=== PATIENT | male | born 1970 | race Caucasian/White ===

== ENCOUNTER → 2017-07-02 | Outpatient (CLI) | payer OTHER ==
--- NOTE | 2017-07-02 12:08 | XR ---
EXAMINATION TYPE: XR Hip Complete LT DATE OF EXAM: 07/02/2017 CLINICAL HISTORY: Left hip pain after injury years ago. TECHNIQUE: AP and frogleg views of the left hip are obtained. COMPARISON: Left hip x-ray December 31, 2015. FINDINGS: There is no acute fracture/dislocation evident in the left hip. There is stable mild to mi nimal joint space loss and minimal acetabular spurring. No significant spurring is seen. Left-sided p elvic phlebolith is redemonstrated. IMPRESSION: There is stable mild to minimal degenerative change left hip.
== END | disposition home or self-care (01) ==
LOC: RADXRMAIN 10:25
PROVIDERS: ATTEND Internal Medicine
DX: R93.7 Abnormal findings on diagnostic imaging of other parts of musculoskeletal system (principal); R52 Pain, unspecified
CPT/HCPCS: 73502

== ENCOUNTER → 2017-07-10 | Outpatient (CLI) | payer OTHER ==
--- NOTE | 2017-07-10 09:03 | XR ---
EXAMINATION TYPE: XR lumbar spine 2 or 3V DATE OF EXAM: 07/10/2017 CLINICAL HISTORY: Back pain radiating to the left hip. TECHNIQUE: Frontal and lateral Of the lumbar spine were obtained. COMPARISON: None FINDINGS: There are 5 lumbar type vertebral bodies identified. Mild multilevel degenerative disc di sease is seen of the lumbar spine most pronounced at L4-5 and L5-S1 displayed is facet arthropathy, s mall anterior osteophytes, endplate sclerosis and intervertebral disc space narrowing. Mild atheroscl erosis is seen of the abdominal aorta and its branches. Probable 3 mm right renal calculus is inciden tally noted. The lumbar spine shows satisfactory alignment without evidence of acute fracture or disl ocation. Vertebral body heights and disk space heights are within normal limits. IMPRESSION: 1. No acute fracture or malalignment is seen in the lumbar spine. 2. Mild multilevel degenerative disc disease most pronounced at L4-L5 and L5-S1. If there is clinical indication MRI could be performed for further evaluation of spinal canal stenosis, neural foraminal narrowing and potential disc herniation. 3. Probable right 3 mm right lower pole renal calculus.
== END | disposition home or self-care (01) ==
LOC: RADXRMAIN 08:40
PROVIDERS: ATTEND Internal Medicine
DX: M51.37 Other intervertebral disc degeneration, lumbosacral region (principal); M54.5 Low back pain
CPT/HCPCS: 72100

== ENCOUNTER → 2019-04-10 | Outpatient (CLI) | payer OTHER ==
--- NOTE | 2019-04-10 09:31 | XR ---
EXAMINATION TYPE: XR femur LT, XR Hip Complete LT DATE OF EXAM: 04/10/2019 CLINICAL HISTORY: Left hip and knee pain TECHNIQUE: Two views of the left femur and hip are obtained. COMPARISON: None FINDINGS: There is no acute fracture or dislocation seen in the left femur. Medial compartment joint space narrowing and tricompartmental small osteophytes are seen. There is mild left superior joint s pace narrowing and acetabular roof sclerosis. Very small subchondral cyst is seen of the acetabular s ourcil. A very small cam deformity seen on the lateral femoral neck. The overlying soft tissue appear s unremarkable. Fabella is incidentally seen. Mild atherosclerosis. IMPRESSION: 1. Acute fracture or dislocation in the left femur nor left hip. 2. Moderate tricompartmental arthropathy of the left knee and mild to moderate left femoral acetabula r arthropathy.
--- NOTE | 2019-04-10 09:43 | XR ---
EXAMINATION TYPE: XR lumbosacral spine min 4V DATE OF EXAM: 04/10/2019 CLINICAL HISTORY: Chronic back pain. TECHNIQUE: Frontal, lateral, and oblique images of the lumbar spine are obtained. COMPARISON: 07/10/2017 FINDINGS: There are 5 lumbar type vertebral bodies identified. The lumbar spine shows satisfactory alignment without evidence of acute fracture or dislocation. Vertebral body heights are maintained. Very minimal dextroscoliosis is likely positional as this was not seen on the prior. The previously questioned right renal calculus is not redemonstrated. Intervertebral disc space narrowing is present at L5-S1 with endplate sclerosis. Facet arthropathy is seen at L4-L5 and L5-S1. The oblique images a ppear within normal limits. The overlying soft tissue appears unremarkable. Moderate atherosclerosis of the abdominal aorta. IMPRESSION: 1. No acute fracture or malalignment is seen in the lumbar spine. 2. Mild multilevel degenerative disc disease, similar in degree to the prior of 07/10/2017.
== END ==
LOC: RADXRMAIN 08:15
PROVIDERS: ATTEND Family Medicine
DX: M12.862 Other specific arthropathies, not elsewhere classified, left knee (principal); M12.852 Other specific arthropathies, not elsewhere classified, left hip; M51.37 Other intervertebral disc degeneration, lumbosacral region
CPT/HCPCS: 72110; 73502

== ENCOUNTER → 2019-04-28 | Outpatient (CLI) | payer OTHER ==
--- NOTE | 2019-04-28 09:04 | US ---
EXAMINATION TYPE: US thyroid st tissue head/neck DATE OF EXAM: 04/28/2019 COMPARISON: NONE CLINICAL HISTORY: R94.6 abnormal results of thyroid function studies. GLAND SIZE: Right Lobe: 4.6 x 2.2 x 2.0 cm Overall Parenchyma: heterogenous Left Lobe: 4.6 x 2.1 x 1.3 cm Overall Parenchyma: heterogeneous Isthmus Thickness: 0.3 cm NODULES RIGHT: # of nodules measured on right: 0 LEFT: # of nodules measured on left: 0 ISTHMUS: # of nodules measured in the isthmus: 0 Bilateral neck scanned, no evidence of lymphadenopathy. Bulbous thyroid gland bilaterally. Left sided bulbous area superiorly = 2.2 x 1.1 x 0.9 cm. IMPRESSION: Thyroid gland is overall normal in size and slightly heterogeneous in echotexture without discrete no dule. Left-sided accessory thyroid lobe suspected.
== END | disposition home or self-care (01) ==
LOC: RADUSWWP 08:26
PROVIDERS: ATTEND Family Medicine
DX: R94.6 Abnormal results of thyroid function studies (principal)
CPT/HCPCS: 76536

== ENCOUNTER 2019-12-07 11:17 | Day surgery (SDC) | payer OTHER ==
[2019-12-03 09:25] VITALS: BMI 44.3
[2019-12-07 11:46] VITALS: RESP 18; TEMP 97.8
[2019-12-07] MEDS ORDERED: LACTATED RINGERS 1,000 ML IV ONE ×2 (11:49)
[2019-12-07] MEDS ORDERED: LIDOCAINE 1% (10MG/ML) FOR IV START INTRADERMA ONE (11:51)
[2019-12-07] MEDS ORDERED: PROPOFOL 10 MG/ML 20 ML VIAL IV ONE (12:00)
--- NOTE | 2019-12-07 12:28 | P.GSHP ---
History of Present Illness H&P Date: 12/07/19 Chief Complaint: GI bleed This is a 49-year-old male history of rectal bleeding. Patient rents today for colonoscopy Past Medical History Past Medical History: GERD/Reflux, Hypertension, Osteoarthritis (OA), Thyroid Disorder Additional Past Medical History / Comment(s): hemorrhoids, blood in stool, arthritis hip. History of Any Multi-Drug Resistant Organisms: None Reported Past Surgical History: Orthopedic Surgery Additional Past Surgical History / Comment(s): KNEE ARTHROSCOPY, CTR TASHI X2, HYDROCELE, PILONIDAL CYST Past Anesthesia/Blood Transfusion Reactions: No Reported Reaction Past Psychological History: Anxiety Smoking Status: Former smoker Past Alcohol Use History: None Reported Additional Past Alcohol Use History / Comment(s): QUIT SMOKING OVER 15 YRS AGO., HX OF 1-2 PPD Past Drug Use History: None Reported - Past Family History Mother Family Medical History: Cancer Additional Family Medical History / Comment(s): PANCREATIC CANCER Father Family Medical History: Cancer Additional Family Medical History / Comment(s): PROSTATE CANCER Medications and Allergies Home Medications Medication Instructions Recorded Confirmed Type Atenolol/Chlorthalidone 1 each PO DAILY 12/03/19 12/07/19 History [Atenolol-Chlorthalidone 50-25] Enalapril [Vasotec] 10 mg PO DAILY 12/03/19 12/07/19 History Ergocalciferol [Vitamin D2] 50,000 unit PO MO 12/03/19 12/07/19 History FLUoxetine HCL [PROzac] 20 mg PO DAILY 12/03/19 12/07/19 History Famotidine [Pepcid] 20 mg PO HS 12/03/19 12/07/19 History Gabapentin [Neurontin] 400 mg PO BID 12/03/19 12/07/19 History Levothyroxine Sodium [Synthroid] 75 mcg PO DAILY 12/03/19 12/07/19 History Simvastatin [Zocor] 40 mg PO HS 12/03/19 12/07/19 History Topiramate 50 mg PO BID 12/03/19 12/07/19 History Allergies Allergy/AdvReac Type Severity Reaction Status Date / Time No Known Allergies Allergy Verified 12/07/19 11:37 Surgical - Exam Vital Signs Temp Pulse Resp BP Pulse Ox 97.8 F 67 18 128/75 95 12/07/19 11:44 12/07/19 11:44 12/07/19 11:44 12/07/19 11:44 12/07/19 11:44 - General well developed, well nourished, no distress - Eyes PERRL - ENT normal pinna - Neck no masses - Respiratory normal expansion - Cardiovascular Rhythm: regular - Abdomen Abdomen: soft, non tender Assessment and Plan Assessment: GI bleed. We'll perform colonoscopy.
--- NOTE | 2019-12-07 12:30 | P.OP ---
Date of Procedure: 12/07/19 Preoperative Diagnosis: GI bleed Postoperative Diagnosis: Internal hemorrhoids Possible rectal inflammation Procedure(s) Performed: Colonoscopy Anesthesia: MAC Surgeon: Bar Wesley Pathology: other (Rectum) Condition: stable Disposition: PACU Description of Procedure: The patient's placed on the endoscopy table in the lateral position. He received IV sedation. Digital rectal exam was performed which revealed internal hemorrhoids. Flexible colonoscope was then placed patient anus passed through out the entire colon. The ileocecal valve was visualized. The cecum, ascending and transverse colon appeared normal. The descending and sigmoid colon appeared normal. The scope was then brought back the rectum and there was evidence of some minimal rectal inflammation. A biopsies performed cold forcep. Scope was withdrawn internal hemorrhoids were noted. Scope was withdrawn for patient.
[2019-12-07 12:50] VITALS: BP 102/59; PULSE 66
== END 2019-12-07 12:55 | disposition home or self-care (01) ==
LOC: ORWHC2ENDO 11:17
PROVIDERS: ATTEND Surgery
DX: K64.8 Other hemorrhoids (principal); K52.9 Noninfective gastroenteritis and colitis, unspecified; K62.89 Other specified diseases of anus and rectum; I10 Essential (primary) hypertension; E07.9 Disorder of thyroid, unspecified; K21.9 Gastro-esophageal reflux disease without esophagitis; M16.9 Osteoarthritis of hip, unspecified; F41.9 Anxiety disorder, unspecified; Z98.890 Other specified postprocedural states; Z87.891 Personal history of nicotine dependence; Z80.0 Family history of malignant neoplasm of digestive organs; Z80.42 Family history of malignant neoplasm of prostate; Z79.890 Hormone replacement therapy; Z79.899 Other long term (current) drug therapy
CPT/HCPCS: 45380; J2704; 88305

== ENCOUNTER 2020-02-19 06:15 | Day surgery (SDC) | payer OTHER ==
[2020-02-18 08:26] VITALS: BMI 44.3
[~2020-02-19 06:15] MED LIST: ACETAMINOPHEN TAB 500 MG TAB PO ONE; DEXAMETHASONE SOD PHOSPHATE 10 MG/ML 1 ML VIAL IV ONE; HEPARIN SODIUM,PORCINE 5,000 UNIT/ML 1 ML VIAL SQ ONE; HYDROmorphone 0.5 MG/0.5 ML SYRINGE IVP PRN; LACTATED RINGERS 1,000 ML IV SCH; LIDOCAINE 1% (10MG/ML) FOR IV START INTRADERMA PRN; MIDAZOLAM 2 MG/2 ML VIAL IV PRN; ONDANSETRON 4 MG/2 ML VIAL IVP ONE; Pre Op ABX Message 1 EACH MISC MISCELLANE ONE; fentaNYL (PF) 50 MCG/ML 2 ML AMP IV PRN
[2020-02-19] MEDS ORDERED: NA PHOS,M-B/NA PHOS,DI-BA 133 ML ENEMA RECTAL ONE ×2 (07:10)
--- NOTE | 2020-02-19 08:07 | P.GSHP ---
History of Present Illness H&P Date: 02/19/20 Chief Complaint: Hemorrhoids This a 50-year-old male who presents today for hemorrhage. Patient that she's of pain and bleeding from hemorrhoids. Past Medical History Past Medical History: GERD/Reflux, Hyperlipidemia, Hypertension, Osteoarthritis (OA), Thyroid Disorder Additional Past Medical History / Comment(s): hemorrhoids, blood in stool, History of Any Multi-Drug Resistant Organisms: None Reported Past Surgical History: Orthopedic Surgery Additional Past Surgical History / Comment(s): KNEE ARTHROSCOPY, CTR TASHI X2, HYDROCELE, PILONIDAL CYST Past Anesthesia/Blood Transfusion Reactions: No Reported Reaction Smoking Status: Former smoker - Past Family History Mother Family Medical History: Cancer Additional Family Medical History / Comment(s): PANCREATIC CANCER Father Family Medical History: Cancer Additional Family Medical History / Comment(s): PROSTATE CANCER Medications and Allergies Home Medications Medication Instructions Recorded Confirmed Type Atenolol/Chlorthalidone 1 each PO DAILY 12/03/19 02/19/20 History [Atenolol-Chlorthalidone 50-25] Enalapril [Vasotec] 10 mg PO DAILY 12/03/19 02/19/20 History Ergocalciferol [Vitamin D2] 50,000 unit PO MO 12/03/19 02/19/20 History FLUoxetine HCL [PROzac] 20 mg PO DAILY 12/03/19 02/19/20 History Famotidine [Pepcid] 20 mg PO HS 12/03/19 02/19/20 History Gabapentin [Neurontin] 400 mg PO BID 12/03/19 02/19/20 History Levothyroxine Sodium [Synthroid] 75 mcg PO DAILY 12/03/19 02/19/20 History Simvastatin [Zocor] 40 mg PO HS 12/03/19 02/19/20 History Topiramate 50 mg PO BID 12/03/19 02/19/20 History Allergies Allergy/AdvReac Type Severity Reaction Status Date / Time No Known Allergies Allergy Verified 02/18/20 08:23 Surgical - Exam Vital Signs Temp Pulse Resp BP Pulse Ox 96.9 F L 69 18 156/90 99 02/19/20 06:57 02/19/20 06:57 02/19/20 06:57 02/19/20 06:57 02/19/20 06:57 - General well developed, well nourished, no distress - Eyes PERRL - ENT normal pinna - Neck no masses - Respiratory normal expansion - Cardiovascular Rhythm: regular - Abdomen Abdomen: soft, non tender - Rectum Internal and external hemorrhoids Assessment and Plan Assessment: Internal and external hemorrhoids. We'll perform hemorrhoidectomy
[2020-02-19] MEDS ORDERED: BUPIVACAIN-EPI 0.25%-1:200,000 30 ML VIAL SQ ONE ×2 (08:11→08:55)
[2020-02-19] MEDS ORDERED: PROPOFOL 10 MG/ML 20 ML VIAL IV ONE (08:20)
[2020-02-19] MEDS ORDERED: MIDAZOLAM 2 MG/2 ML VIAL ONE (08:20)
[2020-02-19] MEDS ORDERED: LIDOCAINE 1% INJ 10MG/ML (20 ML MDV) ONE (08:20)
[2020-02-19] MEDS ORDERED: fentaNYL (PF) 50 MCG/ML 2 ML AMP ONE (08:20)
[2020-02-19] MEDS ORDERED: HYDROmorphone (PF) 1 MG/ML ONE (08:20)
[2020-02-19] MEDS ORDERED: KETOROLAC 30 MG/ML 1 ML VIAL ONE (08:20)
[2020-02-19] MEDS ORDERED: SUCCINYLCHOLINE CHLORIDE 100 MG/5 ML SYR IV ONE (08:20)
[2020-02-19] MEDS ORDERED: ceFAZolin 1,000 MG VIAL IVPB ONE (08:43)
[2020-02-19] MEDS ORDERED: GELATIN SPONGE,ABSORB (LARGE) 1 EACH SPONGE TOPICAL ONE (08:50)
[2020-02-19] MEDS ORDERED: LACTATED RINGERS 1,000 ML IV ONE (08:55)
--- NOTE | 2020-02-19 09:02 | P.OP ---
Date of Procedure: 02/19/20 Preoperative Diagnosis: Internal and external hemorrhoids Postoperative Diagnosis: Internal and external hemorrhoids Procedure(s) Performed: Internal and external hemorrhoidectomy Anesthesia: BRANDIE Surgeon: Bar Wesley Estimated Blood Loss (ml): 10 Pathology: other (Internal and external hemorrhoids) Condition: stable Disposition: PACU Description of Procedure: The patient's placed on the operating table in the prone position. He received general anesthesia. His anus was prepped and draped usual fashion. Using the anal retractor the anus was examined. The left lateral hemorrhoidal column was grasped with a Allis clamp and using the Harmonic scissors the rectus performed. The right anterior and right posterior hemorrhoidal column was excised in identical fashion. There is no bleeding seen. Gelfoam was placed in the anus. Patient top she will was sent to recovery room stable condition.
[2020-02-19 09:23] VITALS: TEMP 97.9
[2020-02-19 09:47] VITALS: RESP 18
[2020-02-19 10:02] VITALS: BP 122/80; PULSE 76
== END 2020-02-19 10:05 | disposition home or self-care (01) ==
LOC: OR 06:15
PROVIDERS: ATTEND Surgery
DX: K64.8 Other hemorrhoids (principal); K64.4 Residual hemorrhoidal skin tags; I10 Essential (primary) hypertension; E78.5 Hyperlipidemia, unspecified; K21.9 Gastro-esophageal reflux disease without esophagitis; M19.90 Unspecified osteoarthritis, unspecified site; E07.9 Disorder of thyroid, unspecified; Z87.891 Personal history of nicotine dependence; Z79.890 Hormone replacement therapy; Z79.899 Other long term (current) drug therapy; Z98.890 Other specified postprocedural states; Z80.0 Family history of malignant neoplasm of digestive organs; Z80.42 Family history of malignant neoplasm of prostate
CPT/HCPCS: 88304; 46260; J2250; J1644; J1100; J2405; J0690; J2001; J3010; J1885; J1170; J0330; J2704

== ENCOUNTER → 2020-06-03 | Outpatient (CLI) | payer OTHER ==
--- NOTE | 2020-06-03 15:34 | MR ---
EXAMINATION TYPE: MR knee LT wo con DATE OF EXAM: 06/03/2020 COMPARISON: Plain film 05/11/2020 HISTORY: Left knee pain TECHNIQUE: Multiplanar, multisequence imaging of the left knee is performed without IV contrast. FINDINGS: There is motion on the exam. MEDIAL MENISCUS: Pseudoextrusion of the medial meniscus is present. Some abnormal increased intrinsic signal is present. The posterior horn the medial meniscus is attenuated, abnormal increased signal i s present. Difficult to exclude root anchor tear. LATERAL MENISCUS: Anterior and posterior horns are intact without tear. CRUCIATE LIGAMENTS: The anterior and posterior cruciate ligaments are intact and unremarkable. COLLATERAL LIGAMENTS: The medial collateral ligament and lateral collateral ligament complex are inta ct and unremarkable. EXTENSOR MECHANISM: Visualized quadriceps and patellar tendons are intact. EFFUSION: Infrapatellar joint effusion is sizable. POPLITEAL CYST: No popliteal/hathaway cyst. TRICOMPARTMENT SPACES: Joint space loss is most pronounced in the medial compartment. Marginal spurri ng present at the lateral compartment and patellofemoral joint CARTILAGE: There is grade 3 to grade IV chondromalacia in the medial compartment and posterior patell a, grade 2 to grade III chondromalacia in the lateral compartment. BONE MARROW SIGNAL: No focal abnormal marrow signal is appreciated. OTHER: Subcutaneous edema changes are present especially at the level of the prepatellar region. IMPRESSION: Osteoarthritis. Motion is present on the exam, findings consistent with chronic tear of the posterior horn medial meniscus.
== END | disposition home or self-care (01) ==
LOC: RADMRIMAIN 13:08
PROVIDERS: ATTEND Orthopaedic Surgery
DX: M17.12 Unilateral primary osteoarthritis, left knee (principal)

== ENCOUNTER → 2020-06-14 | Outpatient (CLI) | payer OTHER ==
[2020-06-14 09:56] LABS: Basophils # (A) 0.1 k/uL (0-0.2); Basophils % (A) 1 %; Eosinophils # (A) 0.3 k/uL (0-0.7); Eosinophils % (A) 4 %; HCT 47.6 % (39.0-53.0); HGB 15.7 gm/dL (13.0-17.5); Lymphocytes # (A) 2.1 k/uL (1.0-4.8); Lymphocytes % (A) 30 %; MCH 30.1 pg (25.0-35.0); MCHC 32.9 g/dL (31.0-37.0); MCV 91.4 fL (80.0-100.0); Mean Platelet Volume 7.9; Monocytes # (A) 0.5 k/uL (0-1.0); Monocytes % (A) 8 %; Neutrophils # (A) 3.8 k/uL (1.3-7.7); Neutrophils % (A) 55 %; Platelet Count 180 k/uL (150-450); RBC 5.21 m/uL (4.30-5.90); RDW 13.1 % (11.5-15.5); WBC 6.8 k/uL (3.8-10.6)
[2020-06-14 10:05] LABS: Potassium 4.6 mmol/L (3.5-5.1)
== END | disposition home or self-care (01) ==
LOC: LABPAT 08:55
PROVIDERS: ATTEND Orthopaedic Surgery
DX: Z01.818 Encounter for other preprocedural examination (principal); M23.92 Unspecified internal derangement of left knee
CPT/HCPCS: 36415; 80051; 85025

== ENCOUNTER → 2020-06-23 | Outpatient (CLI) | payer OTHER | END | disposition home or self-care (01) | LOC: LABPAT 12:09 | PROVIDERS: ATTEND Orthopaedic Surgery | DX: Z01.818 Encounter for other preprocedural examination (principal); M23.92 Unspecified internal derangement of left knee | CPT/HCPCS: 93005 ==

== ENCOUNTER → 2020-06-24 | Day surgery (SDC) | payer OTHER ==
[2020-06-22 13:15] VITALS: BMI 49.8
--- NOTE | 2020-06-23 09:19 | HP ---
HISTORY AND PHYSICAL CHIEF COMPLAINT: Left knee pain. HISTORY OF PRESENT ILLNESS: The patient is a 50-year-old, unemployed male who presents with progressive left knee pain for the past 6 months. He notes swelling, giving way, and pain with prolonged weightbearing activities. He has tried a stretching program along with anti- inflammatories without much relief. He notes daily pain that limits him significantly. PAST MEDICAL HISTORY: Significant for hypertension. PAST SURGICAL HISTORY: Significant for bilateral carpal tunnel release and right knee arthroscopy. CURRENT MEDICATIONS: Atenolol, enalapril, levothyroxine, simvastatin, and Prozac. He denies drug allergies. FAMILY HISTORY: Significant for cancer. SOCIAL HISTORY: Significant for previous tobacco use. 16 POINT REVIEW OF SYSTEMS: Otherwise reviewed and is noncontributory. PHYSICAL EXAMINATION: On examination, the patient is approximately 5 foot 9, 320 pounds of endomorphic habitus. HEENT: Exam is nonfocal. NECK: Supple He has painless passive motion of his left hip. Straight leg raise is negative. Active motion left knee -14 to 100 degrees of flexion. He has a moderate effusion. He is tender about the medial joint line. Collaterals are stable, Lisset is negative, Keshia's elicits medial pain. His distal neurovascular exam appears intact in the left lower extremity. MRI report 06/03/2020 of the left knee shows a posterior medial meniscal tear along with medial patellofemoral compartment degenerative changes. IMPRESSION: 1. Left knee internal derangement with symptomatic medial meniscal tear .. 2. Left knee moderate medial and patellofemoral compartment osteoarthrosis. 3. Obesity. RECOMMENDATIONS: I talked to the patient at length regarding his condition along with treatment options. At this point, he is having significant pain and mechanical symptoms despite previous conservative measures. After a thorough discussion, he opts to proceed with surgery. We will plan to proceed with arthroscopic evaluation with possible partial medial meniscectomy. We will likely perform that as an outpatient procedure. Risks and benefits were discussed at length in layman's terms. MMODL / IJN: [id number] /
[~2020-06-24] MED LIST changes: -ACETAMINOPHEN TAB 500 MG TAB PO ONE; -HEPARIN SODIUM,PORCINE 5,000 UNIT/ML 1 ML VIAL SQ ONE; +HYDROcodone/APAP 7.5-325MG 1 EACH TAB ONE; +HYDROcodone/APAP 7.5-325MG 1 EACH TAB PO ONE; +HYDROmorphone (PF) 1 MG/ML ONE; -HYDROmorphone 0.5 MG/0.5 ML SYRINGE IVP PRN; +KETOROLAC 15 MG/ML 1 ML VIAL IVP ONE; +LACTATED RINGERS 1,000 ML IV ONE; +LIDOCAINE 1% (10MG/ML) FOR IV START INTRADERMA ONE; -LIDOCAINE 1% (10MG/ML) FOR IV START INTRADERMA PRN; +LIDOCAINE 1% INJ 10MG/ML (20 ML MDV) ONE; +MEPERIDINE 50 MG/ML SYRINGE IVP ONE; +MIDAZOLAM 2 MG/2 ML VIAL ONE; +PROPOFOL 10 MG/ML 20 ML VIAL IV ONE; -Pre Op ABX Message 1 EACH MISC MISCELLANE ONE; +SCOPOLAMINE 1.5MG/72HR PATCH TRANSDERM ONE; +SUCCINYLCHOLINE CHLORIDE VIAL 200 MG/10 ML VIAL IV ONE; +ceFAZolin 3 GM in SODIUM CHLORIDE 0.9% 100 ML IVPB ONE; -fentaNYL (PF) 50 MCG/ML 2 ML AMP IV PRN; +fentaNYL (PF) 50 MCG/ML 2 ML AMP ONE
--- NOTE | 2020-06-24 10:20 | P.OP ---
Date of Procedure: 06/24/20 Preoperative Diagnosis: Left knee internal derangement Postoperative Diagnosis: Left knee posterior medial meniscal tear/grade 3 chondral injury posterior central portion medial femoral condyle Procedure(s) Performed: Left knee arthroscopic partial medial meniscectomy/medial femoral chondrectomy/microfracture medial femoral condyle Anesthesia: LIANNAA Surgeon: Jeremiah Castro Estimated Blood Loss (ml): 10 Pathology: none sent Condition: stable Disposition: PACU Indications for Procedure: The patient's a 50-year-old male presents with progressive left knee pain and mechanical symptoms despite conservative measures. A discussion of the risks and benefits of operative intervention versus continued conservative measures was made with patient. He opted to proceed with surgery. Operative risks to include infection, neurovascular injury, follow blood clots, possible incomplete resolution of symptoms, possible worsening symptoms and need for subsequent procedures was discussed. Informed consent was obtained. Operative Findings: As below Description of Procedure: The patient was brought to the operating room, and after induction of general anesthesia examined the left knee. Collaterals were stable, Lisset was n egative, and posterior drawer was negative. The left lower extremity was prepped and draped in a normal fashion. A superior lateral portal was made through a 3 mm skin incision superior and lateral to the patella. This was used for outflow. A lateral portal was made through a 5 mm vertical skin incision lateral to the patella tendon above the joint line. Diagnostic arthroscopy was performed. On inspection of the medial compartment, a complex tear involving the posterior horn of the medial meniscus was noted in the white-red junction. This was not amenable to repair. This was debrided back to a stable base with straight baskets and a motorized shaver. A corresponding grade 3 chondral injury was noted involving the posterior central portion of the medial femoral condyle with a loose chondral fragment. This was debrided back to a stable base with a motorized shaver. Microfracture performed with a power pecked breeching the subchondral surface down to the bone marrow elements. Diffuse grade 2 chondral changes were noted in the medial compartment. On inspection of the notch, the anterior cruciate ligament appeared to be intact. On inspection of the lateral compartment, the lateral meniscus was intact. Grade 1-2 degenerative changes were noted in the articular surface.. On inspection of the patellofemoral articulation, there was grade 2 chondral changes diffusely . There was no loose chondral fragments.. The gutters were clear debris. The knee was then thoroughly irrigated. The portals were closed with Steri-Strips. A sterile dressing was applied in addition to a compression stocking. The patient was awoken from general anesthesia and transferred to recovery room in good condition. Blood loss was estimated at 10 mL. No complications were incurred.
[2020-06-24 10:29] VITALS: TEMP 96.8
[2020-06-24] MEDS: HYDROmorphone 0.5 MG/0.5 ML SYRINGE IVP PRN ×2 (10:29→10:35)
[2020-06-24 11:01] VITALS: RESP 17
[2020-06-24 11:17] VITALS: BP 124/84; PULSE 86
== END | disposition home or self-care (01) ==
LOC: OR 07:46
PROVIDERS: ATTEND Orthopaedic Surgery
DX: M23.222 Derangement of posterior horn of medial meniscus due to old tear or injury, left knee (principal); M23.92 Unspecified internal derangement of left knee; M17.12 Unilateral primary osteoarthritis, left knee; E66.9 Obesity, unspecified; I10 Essential (primary) hypertension; E78.5 Hyperlipidemia, unspecified; E07.9 Disorder of thyroid, unspecified; K21.9 Gastro-esophageal reflux disease without esophagitis; Z98.890 Other specified postprocedural states; Z86.69 Personal history of other diseases of the nervous system and sense organs; Z79.899 Other long term (current) drug therapy; Z79.890 Hormone replacement therapy; Z87.891 Personal history of nicotine dependence; Z68.42 Body mass index [BMI] 45.0-49.9, adult; Z97.2 Presence of dental prosthetic device (complete) (partial); Z56.0 Unemployment, unspecified; Z80.9 Family history of malignant neoplasm, unspecified
CPT/HCPCS: 29881; 29879; J2250; J0330; J1100; J2175; J0690; J2405; J2001; J3010; J1170 ×2; J1885; J2704

== ENCOUNTER → 2021-01-31 | Outpatient (CLI) | payer OTHER ==
--- NOTE | 2021-01-31 09:32 | XR ---
EXAMINATION TYPE: XR chest 2V DATE OF EXAM: 01/31/2021 COMPARISON: NONE HISTORY: 51-year-old male with knee replacement on 02/21/2021 preoperative TECHNIQUE: Frontal and lateral views of the chest are obtained. FINDINGS: Heart size is within normal limits. Trachea is midline. No focal consolidation, pneumothor ax or pleural effusion. Degenerative changes of the thoracic spine. IMPRESSION: 1. No acute pulmonary disease.
== END | disposition home or self-care (01) ==
LOC: RADXRMAIN 08:39
PROVIDERS: ATTEND Family Medicine
DX: Z01.818 Encounter for other preprocedural examination (principal)
CPT/HCPCS: 71046

== ENCOUNTER → 2021-01-31 | Outpatient (CLI) | payer OTHER | END | disposition home or self-care (01) | LOC: LABPAT 08:55 | PROVIDERS: ATTEND Orthopaedic Surgery | DX: Z01.812 Encounter for preprocedural laboratory examination (principal); M17.12 Unilateral primary osteoarthritis, left knee; Z22.322 Carrier or suspected carrier of Methicillin resistant Staphylococcus aureus | CPT/HCPCS: 87070 ==

== ENCOUNTER 2021-02-21 08:41 | Day surgery (SDC) | payer OTHER ==
[2021-02-17 11:32] VITALS: BMI 49.4
--- NOTE | 2021-02-20 10:38 | HP ---
HISTORY AND PHYSICAL CHIEF COMPLAINT: Left knee pain. HISTORY OF PRESENT ILLNESS: Patient is a 51-year-old, unemployed male who presents with progressive left knee pain for the past several years. It has worsened recently. He is having medial pain with walking. He is having giving way symptoms. He has tried medications in addition to injections with only partial temporary relief. He had an arthroscopy in 2019. He has also tried bracing and has been working on weight loss. He is having night symptoms. PAST MEDICAL HISTORY: Significant for hypertension and arthritis. PAST SURGICAL HISTORY: Significant for left knee arthroscopy and bilateral carpal tunnel release. CURRENT MEDICATIONS: Atenolol, enalapril, levothyroxine, Prozac, and simvastatin. ALLERGIES: He denies drug allergies. FAMILY HISTORY: Significant for cancer. SOCIAL HISTORY: Significant for previous tobacco use. REVIEW OF SYSTEMS: Sixteen-point review of systems otherwise reviewed and is noncontributory. PHYSICAL EXAMINATION: On examination, the patient is approximately 5 foot 9, 319 pounds of endomorphic habitus. HEENT exam is nonfocal. Neck is supple. He has painless passive motion of his left hip. Straight leg raise is negative. Active motion left knee -16 to 75 degrees of flexion. He has a moderate effusion. He is tender about the medial joint line. Collaterals are stable, Lisset is negative, Keshia's is equivocal. He has genu varum alignment. He has an antalgic gait pattern. His distal neurovascular exam appears intact in the left lower extremity. Previous weightbearing notch, lateral Merchant views of the left knee obtained in the office show severe medial compartment osteoarthrosis with [id number] changes and subchondral sclerosis. IMPRESSION: 1. Left knee severe medial compartment osteoarthrosis. 2. Obesity. 3. Hypertension. RECOMMENDATIONS: I talked to the patient at length regarding his condition and treatment options. At this point he is having significant pain and limitations secondary to osteoarthrosis despite extensive previous conservative measures in addition to working on weight loss. After thorough discussion, he opts to proceed with surgery. We will plan to proceed with left total knee arthroplasty. Risks and benefits were discussed at length in layman's terms. We will institute DVT prophylaxis postoperatively. MMODL / IJN: [id number] /
[~2021-02-21 08:41] MED LIST changes: +ACETAMINOPHEN TAB 500 MG TAB PO PRN; -DEXAMETHASONE SOD PHOSPHATE 10 MG/ML 1 ML VIAL IV ONE; +DEXAMETHASONE SOD PHOSPHATE 4 MG/ML 1 ML VIAL IV ONE; -HYDROcodone/APAP 7.5-325MG 1 EACH TAB ONE; -HYDROcodone/APAP 7.5-325MG 1 EACH TAB PO ONE; -HYDROmorphone (PF) 1 MG/ML ONE; +HYDROmorphone 0.5 MG/0.5 ML SYRINGE IVP PRN; -KETOROLAC 15 MG/ML 1 ML VIAL IVP ONE; -LACTATED RINGERS 1,000 ML IV ONE; -LACTATED RINGERS 1,000 ML IV SCH; -LIDOCAINE 1% (10MG/ML) FOR IV START INTRADERMA ONE; +LIDOCAINE 1% (10MG/ML) FOR IV START INTRADERMA PRN; -LIDOCAINE 1% INJ 10MG/ML (20 ML MDV) ONE; +MELOXICAM 7.5 MG TAB PO PRN; -MEPERIDINE 50 MG/ML SYRINGE IVP ONE; -MIDAZOLAM 2 MG/2 ML VIAL IV PRN; -MIDAZOLAM 2 MG/2 ML VIAL ONE; -PROPOFOL 10 MG/ML 20 ML VIAL IV ONE; +ROPIVACAINE/EPI/CLONIDINE/KET 50 ML SYRINGE MISCELLANE PRN; -SCOPOLAMINE 1.5MG/72HR PATCH TRANSDERM ONE; -SUCCINYLCHOLINE CHLORIDE VIAL 200 MG/10 ML VIAL IV ONE; +TRANEXAMIC ACID 1,000 MG in SODIUM CHLORIDE 0.9% 100 ML IVPB PRN; -ceFAZolin 3 GM in SODIUM CHLORIDE 0.9% 100 ML IVPB ONE; +ceFAZolin 3 GM in SODIUM CHLORIDE 0.9% 100 ML IVPB PRN; -fentaNYL (PF) 50 MCG/ML 2 ML AMP ONE
[2021-02-21] MEDS ORDERED: MIDAZOLAM 2 MG/2 ML VIAL IVP ONE (10:16)
[2021-02-21] MEDS ORDERED: fentaNYL (PF) 50 MCG/ML 2 ML AMP IVP ONE (10:16)
[2021-02-21] MEDS ORDERED: NEOSTIGMINE 1 MG/ML 10 ML VIAL ONE (10:40)
[2021-02-21] MEDS ORDERED: GLYCOPYRROLATE 0.2 MG/ML 2 ML VIAL ONE (10:40)
[2021-02-21] MEDS ORDERED: LIDOCAINE 1% INJ 10MG/ML (20 ML MDV) ONE (10:40)
[2021-02-21] MEDS ORDERED: PROPOFOL 10 MG/ML 20 ML VIAL IV ONE (10:40)
[2021-02-21] MEDS ORDERED: fentaNYL (PF) 50 MCG/ML 2 ML AMP ONE (10:40)
[2021-02-21] MEDS ORDERED: HYDROmorphone (PF) 1 MG/ML ONE (10:40)
[2021-02-21] MEDS ORDERED: TRANEXAMIC ACID 1,000 MG/10 ML VIAL ONE (10:40)
[2021-02-21] MEDS ORDERED: WATER FOR INJECTION, STERILE 10 ML VIAL IV ONE (10:40)
[2021-02-21] MEDS ORDERED: ROCURONIUM 10 MG/ML (5 ML VIAL) IV ONE (10:40)
[2021-02-21] MEDS ORDERED: ROPIVACAINE 5 MG/ML 30 ML VIAL ONE (10:40)
[2021-02-21] MEDS ORDERED: SODIUM CHLORIDE 0.9% 100 ML BAG ONE (10:40)
[2021-02-21] MEDS ORDERED: ePHEDrine SULFATE/0.9% NACL/PF 50 MG/5 ML SYRINGE IV ONE (10:40)
[2021-02-21] MEDS ORDERED: SUCCINYLCHOLINE CHLORIDE 100 MG/5 ML SYR IV ONE (10:40)
[2021-02-21] MEDS: LACTATED RINGERS 1,000 ML IV SCH ×2 (10:42→19:45)
--- NOTE | 2021-02-21 11:10 | P.ANPRN ---
Procedure Note - Anesthesia - Nerve Block Performed Left Adductor Canal Infusion Time Out Performed: Yes Date of Procedure: 02/21/21 Procedure Start Time: 10:25 Procedure Stop Time: 10:37 Location of Patient: PreOp Indication: Acute Post-Operative Pain, Dx/Pain Location, Requested by Surgeon Specifically requested for management of pain by : Jeremiah Castro Sedation Type: Sedate with meaningful contact maintained Preparation: Sterile Prep, Sterile Dressing Position: Supine Catheter Depth at Skin (cm): 8 Catheter: Indwelling Needle Types: Pajunk Needle Gauge: 20 Ultrasound used to visualize needle placement: Yes Ultrasound used to observe medication spread: Yes Injectate: 0.5% Ropivacaine (see comment for volume) Blood Aspirated: No Pain Paresthesia on Injection Noted: No Resistance on Injection: Normal Image Stored and Saved: Yes Events: Uneventful and Well Tolerated (20cc 0.5% Ropivacaine)
--- NOTE | 2021-02-21 11:11 | P.ANPRN ---
Procedure Note - Anesthesia - Nerve Block Performed Left iPack Single Time Out Performed: Yes Date of Procedure: 02/21/21 Procedure Start Time: 10:37 Procedure Stop Time: 10:42 Location of Patient: PreOp Indication: Acute Post-Operative Pain, Dx/Pain Location, Requested by Surgeon Specifically requested for management of pain by : Jeremiah Castro Sedation Type: Sedate with meaningful contact maintained Preparation: Sterile Prep Position: Supine Catheter: None Needle Types: PhysicianPortal Needle Gauge: 21 Ultrasound used to visualize needle placement: Yes Ultrasound used to observe medication spread: Yes Injectate: 0.5% Ropivacaine (see comment for volume) Blood Aspirated: No Pain Paresthesia on Injection Noted: No Resistance on Injection: Normal Image Stored and Saved: Yes Events: Uneventful and Well Tolerated (10cc 0.5% Ropivacaine)
[2021-02-21] MEDS ORDERED: ceFAZolin 3,000 MG in SODIUM CHLORIDE 0.9% IRRIGATIO 3,000 ML IRRIGATION ONE (11:17)
[2021-02-21] MEDS ORDERED: LACTATED RINGERS 1,000 ML IV ONE (11:45)
[2021-02-21] MEDS ORDERED: ACETAMINOPHEN TAB 325 MG TAB PO PRN (12:43)
[2021-02-21] MEDS ORDERED: traMADol 50 MG TAB PO PRN (12:43)
[2021-02-21] MEDS ORDERED: MAGNESIUM HYDROXIDE 2,400 MG/10 ML CUP PO PRN (12:43)
[2021-02-21] MEDS ORDERED: ONDANSETRON 4 MG/2 ML VIAL IVP PRN (12:43)
[2021-02-21] MEDS ORDERED: HYDROmorphone 1 MG/ML 1 ML SYRINGE IVP PRN (12:43)
[2021-02-21] MEDS ORDERED: NALOXONE 0.4 MG/ML 1 ML VIAL IV PRN (12:43)
--- NOTE | 2021-02-21 13:03 | P.OP ---
Date of Procedure: 02/21/21 Preoperative Diagnosis: Left knee severe tricompartmental osteoarthrosis Postoperative Diagnosis: Same Procedure(s) Performed: Left total knee arthroplastycementedposterior stabilized Implants: Depuy Attune size 7 cemented femoral component, size 6 cemented tibial component with a 14 x 50 mm tibial stem extension, 10 mm articular surface, 35 mm cemented patellar component. This is a posterior stabilized implant. Anesthesia: GETA, regional, local Surgeon: Jeremiah Castro Cell Changer #1: Constantine Zuniga Estimated Blood Loss (ml): 50 Pathology: other (Bone fragments) Condition: stable Disposition: PACU Indications for Procedure: The patient's a 51-year-old male who presents with progressive left knee pain secondary osteoarthrosis despite conservative measures. A discussion of the risks and benefits of operative intervention versus continued conservative measures was made with patient. He opted to proceed with surgery. Operative risks to include infection, neurovascular injury, development of blood clots, possible component loosening, possible component failure need for subsequent procedures was discussed. Informed consent was obtained. Operative Findings: As below Description of Procedure: The patient was brought to the operating room, and after induction of spinal anesthesia the left lower extremity was prepped and draped in a normal fashion. The tourniquet was inflated to 270 mm marker. A longitudinal incision extending 3 finger breaths above the superior pole of patella extending to the medial aspect the tibial tubercle was then made. The skin and subcutaneous tissues were divided sharply. Electrocautery was used for hemostasis. A medial parapatellar arthrotomy was performed. The medial soft tissues to include the superficial and deep portions of the medial collateral ligament were elevated subperiosteally. The patella was everted. A portion of the retropatellar fat pad was excised sharply. The anterior cruciate ligament was sacrificed. Blunt retractors were placed. A starting hole was made in the distal femur 1 cm anterior to the posterior cruciate ligament origin. An intramedullary femoral guide was then inserted planning on 5 valgus distal cut with 9 mm distal resection. The cutting block was pinned in place. The distal cut was then made. The posterior referencing sizing guide was utilized. I felt size 7 was most appropriate. 3 of external rotation was built into the system and verified off the trans-epicondylar axis and the posterior condyles. The cutting block was pinned in place. The anterior, posterior, and chamfer cuts then made. Bone fragments were removed. The intercondylar guide was placed and the notch cut was made with a sagittal saw. The bone block was removed in one fragment. The trial component was then placed. There is good anterior to posterior and medial to lateral fit. The distal peg holes were drilled. The trial component was removed. Attention was then paid towards preparing the proximal femur. An extra medullary guide was utilized in line with the tibial shaft and second metatarsal distally. I planned on 2 mm resection from the medial compartment. The cutting block was pinned in place. The proximal tibial cut was then made. The bone was removed in one fragment. The remnants of the medial and lateral menisci were excised at the capsular junction with electrocautery. The tibia sized most appropriately at size 6. The trial femoral and tibial components were placed along with a 10 mm articular surface. I was able to obtain full flexion and extension with internal and external rotation. After several flexion and extension cycles, the tibial rotation was marked with electrocautery line with the medial one third of the tibial tubercle. Attention was then paid towards preparing the patella. A patella reamer was utilized taking stem to 14 mm of bone stock. A good flush cut was made. The patella sized most appropriately 35 mm. The peg holes were drilled. The trial components placed. I had good patellofemoral tracking with no hands technique. The trial components were then removed. The tibia was prepared in the appropriate rotatio n with appropriate drill and keel punch. The posterior osteophytes were removed with a curved osteotome. The flexion and extension gaps were checked and felt to be symmetric at 10 mm. A trial components were then removed. The posterior soft tissues were injected with ropivacaine. The bony surfaces were prepared with pulsatile lavage and dried. The tibial component was then cemented place was fully seated. Excess cement was removed. The femoral component cemented place and was fully seated. Excess cement was removed. The trial 10 mm articular surface was placed and the knee was put in full extension. The patella component was cemented place. After the cement had sufficiently hardened, the knee was again taken through a range of motion. Again I was able to obtain full flexion and extension with varus and valgus stress. The trial 35 mm articular surface was removed and the final one inserted. This was fully seated. Care was taken to avoid any soft tissue interposition. Pulsatile lavage was again utilized. The medial parapatellar arthrotomy was closed with #2 Ethibond suture. The tourniquet was deflated with approximately 75 minutes total tourniquet time. Final hemostasis was obtained with the cautery. There was minimal bleeding therefore a deep drain was not placed. The subcutaneous tissues were reapproximated with interrupted 2-0 Vicryl sutures. The skin was reapproximated with analy. Skin tape and adhesive was applied. A sterile dressing was applied. The patient was awoken from sedation and transferred to recovery room in good condition. Blood loss was estimated at 50 mL. No complications were incurred. Sponge and needle counts were correct at the end of the case. Aftab CHRISTINE assisted during the major components of this case to include exposure, bone resection, implantation, and closure.
[2021-02-21] MEDS ORDERED: ROPIVACAINE 0.2%-NS ON-Q PUMP 1,090 MG, EMPTY PAIN BALL 1 EACH MISCELLANE PRN (13:08)
--- NOTE | 2021-02-21 13:30 | XR ---
EXAMINATION TYPE: XR knee limited LT DATE OF EXAM: 02/21/2021 CLINICAL HISTORY: Status post left total knee replacement TECHNIQUE: Portable AP and crosstable lateral views of the left knee are obtained immediately postop eratively. COMPARISON: 04/10/2019 FINDINGS: Metallic hardware from total left knee arthroplasty is seen and appears satisfactory in al ignment and position. There is evidence of recent surgery with diffuse subcutaneous gas , vertical s kin analy, and percutaneous suprapatellar joint effusion with gas are noted. IMPRESSION: METALLIC HARDWARE FROM TOTAL left KNEE ARTHROPLASTY IS SATISFACTORY IN ALIGNMENT.
[2021-02-21] MEDS: ceFAZolin 3 GM in SODIUM CHLORIDE 0.9% 100 ML IVPB SCH (17:23)
[2021-02-21] MEDS: HYDROcodone/APAP 7.5-325MG 1 EACH TAB PO PRN (19:04)
[2021-02-21] MEDS: GABAPENTIN 400 MG CAP PO SCH (19:04)
[2021-02-21] MEDS: TOPIRAMATE 25 MG TAB PO SCH (19:04)
[2021-02-21] MEDS ORDERED: SENNOSIDES-DOCUSATE SODIUM 1 EACH TAB PO SCH (21:00)
[2021-02-21] MEDS ORDERED: ATORVASTATIN 20 MG TAB PO SCH (21:00)
--- NOTE | 2021-02-21 22:52 | P.CONS ---
History of Present Illness - Reason for Consult Consult date: 02/21/21 Medical management. - Chief Complaint Status post left total knee arthroplasty - History of Present Illness Knee patient is a 51-year-old male with a known history of hypertension, hyperlipidemia, hypothyroidism, GERD, anxiety and previous history of smoking was admitted to the hospital for elective right total knee arthroplasty. Patient tolerated the procedure very well. Currently on pain pump and pain is fairly controlled. No complaints of chest pain or shortness of breath. No headache or dizziness or lightheadedness. No fever no chills. Denies any recent illnesses. No dysuria or hematuria. No history of prior cardiac disease. Blood pressure medications on hold due to blood pressure on the lower side. Review of Systems Constitutional: Patient denies any fever or chills . No generalized weakness or weight loss. Abdomen: Patient denied nausea vomiting and diarrhea and abdominal pain. Cardiovascular: Patient denies any chest pain or short of breath no palpitations. Respiratory: patient denied any cough or sputum production. No shortness of breath Neurologic: Patient denied any numbness or tingling headache. Musculoskeletal: Patient denies any complaints of joint swelling or deformity.Left knee pain. Skin: Negative Psychiatric: Negative Endocrine: No heat or cold intolerance. No recent weight gain. Genitourinary: No dysuria or hematuria. All other 14 point ROS negative except the above Past Medical History Past Medical History: GERD/Reflux, Hyperlipidemia, Hypertension, Osteoarthritis (OA), Thyroid Disorder Additional Past Medical History / Comment(s): hemorrhoids, History of Any Multi-Drug Resistant Organisms: None Reported Past Surgical History: Orthopedic Surgery Additional Past Surgical History / Comment(s): KNEE ARTHROSCOPY, CTR TASHI X2, HYDROCELE, PILONIDAL CYST, COLONOSCOPY,HEMORRHOID SX Past Anesthesia/Blood Transfusion Reactions: No Reported Reaction Past Psychological History: Anxiety Smoking Status: Former smoker Past Alcohol Use History: None Reported Additional Past Alcohol Use History / Comment(s): QUIT SMOKING OVER 15 YRS AGO., HX OF 1-2 PPD Past Drug Use History: None Reported - Past Family History Mother Family Medical History: Cancer Additional Family Medical History / Comment(s): PANCREATIC CANCER Father Family Medical History: Cancer Additional Family Medical History / Comment(s): PROSTATE CANCER Medications and Allergies Home Medications Medication Instructions Recorded Confirmed Type Atenolol/Chlorthalidone 1 each PO HS 12/03/19 02/21/21 History [Atenolol-Chlorthalidone 50-25] Enalapril [Vasotec] 10 mg PO DAILY 12/03/19 02/21/21 History Ergocalciferol [Vitamin D2] 50,000 unit PO KHAN 12/03/19 02/21/21 History FLUoxetine HCL [PROzac] 20 mg PO DAILY 12/03/19 02/21/21 History Gabapentin [Neurontin] 400 mg PO BID 12/03/19 02/21/21 History Levothyroxine Sodium [Synthroid] 75 mcg PO DAILY 12/03/19 02/21/21 History Simvastatin [Zocor] 40 mg PO HS 12/03/19 02/21/21 History Topiramate 50 mg PO BID 12/03/19 02/21/21 History Loratadine [Claritin] 10 mg PO HS 06/22/20 02/21/21 History HYDROcodone/APAP 7.5-325MG [[place] 1 each PO Q6HR PRN #21 tab 06/24/20 02/21/21 Rx 7.5] Allergies Allergy/AdvReac Type Severity Reaction Status Date / Time No Known Allergies Allergy Verified 02/21/21 09:34 Physical Exam Vitals: Vital Signs Temp Pulse Pulse Resp BP BP Pulse Ox 02/21/21 19:48 90 17 02/21/21 19:40 98.5 F 90 17 120/72 96 02/21/21 16:00 97.6 F 77 18 117/76 94 L 02/21/21 15:00 75 16 113/70 96 02/21/21 14:30 71 16 117/71 97 02/21/21 14:00 68 16 132/80 98 02/21/21 13:45 77 16 131/78 98 02/21/21 13:30 72 16 136/80 98 02/21/21 13:15 74 16 129/76 97 02/21/21 13:00 96.8 F L 89 18 132/71 98 02/21/21 10:41 68 16 108/65 96 02/21/21 09:27 98.1 F 77 16 124/71 97 Intake and Output 02/21/21 02/21/21 02/21/21 06:59 14:59 22:59 Intake Total 1601 200 Output Total 50 Balance 1551 200 Intake: IV 1601 200 Output: Estimated Blood Loss 50 Other: Weight 151 kg 151 kg PHYSICAL EXAMINATION: Patient is lying in the bed comfortably, no acute distress, awake alert and oriented.. HEENT: Normocephalic. Neck is supple. Pupils reactive. Nostrils clear. Oral cavity is moist. Ears reveal no drainage. Neck reveals no JVD, carotid bruits, or thyromegaly. CHEST EXAMINATION: Trachea is central. Symmetrical expansion.Bibasilar diminished sounds. Lung burns clear to auscultation and percussion. CARDIAC: Normal S1, S2 with no gallops. No murmurs ABDOMEN: Soft. Bowel sounds normal. No organomegaly. No abdominal bruits. Extremities: reveal no edema. No clubbing or cyanosis Neurologically awake, alert, oriented x3 with well-coordinated movements. No focal deficits noted Skin: No rash or skin lesions. Psychiatric: Coperative. Nonsuicidal Musculoskeletal: No joint swelling or deformity.Left knee surgical site is intact. Assessment and Plan Assessment: Status post left total knee arthroplasty postoperative day 0 Hypertension. Currently blood pressure is not elevated. Hyperlipidemia Hypothyroidism Anxiety Morbid obesity BMI 49.2 Previous history of smoking DVT prophylaxis currently on Xarelto Plan: Patient will be continued on pain management, bowel management and incentive spirometry. Encourage ambulation. Blood pressure medications on hold currently patient will be started back on once blood pain starts to improve. Monitor CBC and BMP. DVT prophylaxis as per primary team. We will continue to follow and further recommendations based on clinical course. Thank you for your consult.
[2021-02-22] MEDS: ceFAZolin 3 GM in SODIUM CHLORIDE 0.9% 100 ML IVPB SCH (01:33)
[2021-02-22] MEDS ORDERED: LEVOTHYROXINE 75 MCG TAB PO SCH (06:30)
[2021-02-22 08:18] VITALS: BP 120/74; PULSE 101; RESP 16; TEMP 99.2
[2021-02-22] MEDS: GABAPENTIN 400 MG CAP PO SCH (08:18)
[2021-02-22] MEDS: TOPIRAMATE 25 MG TAB PO SCH (08:19)
[2021-02-22] MEDS ORDERED: RIVAROXABAN 10 MG TAB PO SCH (09:00)
[2021-02-22] MEDS ORDERED: FLUoxetine HCL 20 MG CAP PO SCH (09:00)
[2021-02-22] MEDS ORDERED: lisinopriL 20 MG TAB PO SCH (09:00)
[2021-02-22] MEDS: HYDROcodone/APAP 7.5-325MG 1 EACH TAB PO PRN (09:37)
--- NOTE | 2021-02-22 10:12 | P.PN ---
Subjective Progress Note Date: 02/22/21 Principal diagnosis: Status post left total knee arthroplasty Patient was examined today at bedside, he is resting comfortably in his chair. Nursing did contact me earlier this morning with regards drainage from the distal end of the incision, they have reapplied and on a few different occasions. He did very well with physical therapy. Currently denies any headaches, lightheadedness, chest pain or shortness of breath. Objective - Vital Signs Vital signs: Vital Signs Temp 99.2 F 02/22/21 08:00 Pulse 101 H 02/22/21 08:00 Resp 16 02/22/21 08:00 BP 120/74 02/22/21 08:00 Pulse Ox 93 L 02/22/21 08:00 Intake & Output 02/21/21 02/22/21 02/22/21 18:59 06:59 18:59 Intake Total 1801 Output Total 50 Balance 1751 Weight 151 kg Intake: IV 1801 Output: Estimated Blood Loss 50 Other: # Voids 2 - Exam Left lower extremity: Incision is clean, dry, and intact. [place] are in good position. There is some bloody drainage noted after removal of the current dressing at the distal end of the incision. There is minimal soft tissue swelling and ecchymosis surrounding the medial and lateral aspects of the incision. Calf is soft, no tenderness with palpation. Plantar flexion, dorsiflexion, EHL, FHL are intact. Sensory exam to light touch throughout the extremity is intact, dorsal pedis pulses 2+. Assessment and Plan Assessment: Status post left total knee arthroplasty Plan: Pain control, continue with current medication DVT prophylaxis, plan for discharge on Eliquis 2.5 mg twice a day Home care: A new dressing was applied with Ranulfo bandage, more of a pressor dressing type. We'll reassess in the next couple hours Encourage incentive spirometer Home physical therapy and nursing after discharge Medical recommendations Discharge planning: Likely discharge home today Time with Patient: Less than 30
[2021-02-22 10:24] LABS: Basophils # (A) 0.02 X 10*3/uL (0.00-0.10); Basophils % (A) 0.2 %; Eosinophils # (A) 0.03 X 10*3/uL (0.04-0.35); Eosinophils % (A) 0.3 %; HCT 39.9 % (39.6-50.0); HGB 13.1 g/dL (13.0-17.0); Lymphocytes # (A) 1.14 X 10*3/uL (0.90-5.00); Lymphocytes % (A) 11.3 %; MCHC 32.8 g/dL (32.0-37.0); MCV 91.3 fL (80.0-97.0); Mean Platelet Volume 11.5 fL (9.5-12.2); Monocytes # (A) 1.13 X 10*3/uL (0.20-1.00); Monocytes % (A) 11.2 %; Neutrophils # (A) 7.69 X 10*3/uL (1.80-7.70); Neutrophils % (A) 76.4 %; Platelet Count 200 X 10*3/uL (140-440); RBC 4.37 X 10*6/uL (4.40-5.60); RDW 12.9 % (11.5-14.5); WBC 10.07 X 10*3/uL (4.50-10.00)
--- NOTE | 2021-02-22 12:14 | P.DS ---
Providers Date of admission: 02/21/2021 Expected date of discharge: 02/22/21 Attending physician: Jeremiah Castro Consults: 02/21/21 12:47 Consult Physician Routine Consulting Provider: Cheyanne Seymour Consult Reason/Comments: Medical Management Do you want consulting provider notified?: Yes Primary care physician: Emily [facility] Hospital Course: Date of admission: 02/21/2021 Date of discharge: 02/22/2021 Admission diagnosis: Status post left total knee arthroplasty Discharge diagnosis: [Same] Attending physician: Dr. Castro Surgical procedures: Left total knee arthroplasty Brief history: Patient is a 51-year-old male with a history of progressive primary left knee osteoarthritis. At this point patient has failed conservative treatment measures and has opted to proceed with a elective left total knee arthroplasty. Hospital course: Details of patient's surgery can be found in operative report. Patient tolerated the procedure well and was subsequently transported to orthopedic floor. Patient's orthopeidc and medical care was provided daily. Patient had daily laboratory tests performed for evaluation of overall blood counts. Patient had daily physical therapy to include strengthening range of motion as well as education with walker ambulation. Patient was treated with [Xarelto] for their postoperative DVT prophylaxis during their inpatient stay. Patient was noted to have a relatively uneventful postoperative course. Patient reported satisfactory pain control with oral pain medications by postoperative day 0. Patient showed satisfactory progress with physical therapy. Patient moved steadily through the program and had no difficulty meeting the goals by postoperative day 1. Given patient's otherwise satisfactory course and having met physical therapy goals, plan is to discharge patient [home] on postoperative day 1. Discharge condition/disposition: Patient will be discharged [home] in stable condition. Discharge medications: Instructions are given on resumption of patient's normal daily medications per primary care recommendation, in addition patient will be prescribed [place] 7.5mg/325mg, Colace 100mg, Eliquis 2.5mg. Discharge instructions: 1. Wound care and infection precautions, keep incision dry and covered while showering, no lotions, creams, moisturizers. No soaking, tubs, pools, hottubs. Do not scrub over the incision. 2. Weight-bear as tolerated with walker / cane until follow-up. 3. Ice and elevate when necessary. Do not exceed 20 minutes per hour with ice pack. 4. Utilize compression sleeve until seen at first follow up appointment. 5. Visiting nursing care. 6. Home physical therapy including home CPM. 7. Pain meds and anticoagulants per prescription. 8. Pain medication has potential to cause constipation. Increase oral fluid and fiber intake. Contact primary care provider if you have not had a bowel movement within 48 hours after discharge 9. No anti-inflammatory medication until discussed at first post operative visit, this including Motrin, Aleve, Mobic, Diclofenac. 10. Follow up in office at 2 weeks postop with Aftab Zuniga PA-C/Adrien Brooks 11. Follow up with your primary care doctor 7-10 days after discharge. 12. Contact [facility] with any questions, . Procedures: Left total knee arthroplasty Patient Condition at Discharge: Good Plan - Discharge Summary Discharge Rx Participant: Yes New Discharge Prescriptions: New Docusate [Colace] 100 mg PO DAILY #30 capsule Apixaban [Eliquis] 2.5 mg PO BID #60 tab HYDROcodone/APAP 7.5-325MG [[place] 7.5] 1 - 2 each PO Q6HR PRN #42 tab PRN Reason: Pain No Action Topiramate 50 mg PO BID Simvastatin [Zocor] 40 mg PO HS Gabapentin [Neurontin] 400 mg PO BID FLUoxetine HCL [PROzac] 20 mg PO DAILY Ergocalciferol [Vitamin D2] 50,000 unit PO KHAN Enalapril [Vasotec] 10 mg PO DAILY Levothyroxine Sodium [Synthroid] 75 mcg PO DAILY Atenolol/Chlorthalidone [Atenolol-Chlorthalidone 50-25] 1 each PO HS Loratadine [Claritin] 10 mg PO HS HYDROcodone/APAP 7.5-325MG [[place] 7.5] 1 each PO Q6HR PRN #21 tab PRN Reason: Pain Discharge Medication List Atenolol/Chlorthalidone [Atenolol-Chlorthalidone 50-25] 1 each PO HS 12/03/19 [History] Enalapril [Vasotec] 10 mg PO DAILY 12/03/19 [History] Ergocalciferol [Vitamin D2] 50,000 unit PO KHAN 12/03/19 [History] FLUoxetine HCL [PROzac] 20 mg PO DAILY 12/03/19 [History] Gabapentin [Neurontin] 400 mg PO BID 12/03/19 [History] Levothyroxine Sodium [Synthroid] 75 mcg PO DAILY 12/03/19 [History] Simvastatin [Zocor] 40 mg PO HS 12/03/19 [History] Topiramate 50 mg PO BID 12/03/19 [History] Loratadine [Claritin] 10 mg PO HS 06/22/20 [History] HYDROcodone/APAP 7.5-325MG [[place] 7.5] 1 each PO Q6HR PRN #21 tab 06/24/20 [Rx] Apixaban [Eliquis] 2.5 mg PO BID #60 tab 02/22/21 [Rx] Docusate [Colace] 100 mg PO DAILY #30 capsule 02/22/21 [Rx] HYDROcodone/APAP 7.5-325MG [[place] 7.5] 1 - 2 each PO Q6HR PRN #42 tab 02/22/21 [Rx] Follow up Appointment(s)/Referral(s): [facility], [NON-STAFF] - ([facility] will call you to arrange your first visit. Please call them if you have any questions regarding home care and home physical therapy. ) Constantine Zuniga PAC [PHYSICIAN CLUTCH INSPECTOR] - 2 Weeks Kelli Ng [NON-STAFF] - (*Please call [facility] to arrange delivery of the Continuous Passive Motion (CPM) machine. ) Activity/Diet/Wound Care/Special Instructions: Orthopedic Discharge Instructions: 1. Wound care and infection precautions, keep incision dry and covered while showering, no lotions, creams, moisturizers. No soaking, pools, hot tubs. Do not scrub over incision. 2. Weight-bear as tolerated with walker / cane until follow-up. 3. Ice and elevate when necessary. Do not exceed 20 minutes per hour with ice pack. 4. Utilize compression sleeve until seen at first follow up appointment. 5. Pain meds and anticoagulants per prescription. 6. Pain medication has potential to cause constipation. Increase oral fluid and fiber intake. Contact primary care provider if you have not had a bowel movement within 48 hours after discharge. 7. No anti-inflammatory medication until discussed at first post operative visit, this including Motrin, Aleve, Mobic, Diclofenac. 8. Follow up in office at 2 weeks postop with Aftab Zuniga PA-C/Adrien Shore PA-C 9. Follow up with your primary care doctor 7-10 days after discharge. 10. Contact [facility] with any questions, . Discharge Disposition: HOME WITH HOME HEALTH SERVICES
--- NOTE | 2021-02-22 12:48 | P.PN ---
Progress Note - Text Progress Note Date: 02/22/21 Patient seen and examine. Post op day 1 from total knee replacement. Adductor canal catheter placed for post operative pain management. Pain is well controlled with pain pump and oral medication. No complications. Continue with pain catheter until medicine is completed.
[2021-02-22 13:13] LABS: African American GFR (CKD) 89.6 (60.0-200.0); Anion Gap 9.2 mmol/L (4.00-12.00); BUN/Creat Ratio 16.36 Ratio (12.00-20.00); Calcium 8.4 mg/dL (8.7-10.3); Carbon Dioxide 24.8 mmol/L (21.6-31.8); Non-African American GFR(CKD) 77.3 (60.0-200.0); Potassium 3.8 mmol/L (3.5-5.5)
[2021-02-22] MEDS ORDERED: CHLORTHALIDONE PO SCH (21:00)
[2021-02-22] MEDS ORDERED: atenoloL 50 MG TAB PO SCH (21:00)
[2021-02-22] MEDS ORDERED: CHLORTHALIDONE 25 MG TAB PO SCH (21:00)
[2021-02-22] MEDS ORDERED: ATENOLOL PO SCH (21:00)
[2021-02-22] MEDS ORDERED: [UNRECOGNIZED DRUG - OTHER] PO SCH (21:00)
[2021-02-26] MEDS ORDERED: ERGOCALCIFEROL 1,250 MCG (50,000 IU) CAPSULE PO SCH (09:00)
== END 2021-02-22 12:50 | disposition home health service (06) ==
LOC: OR 08:41 → 4SSUR 13:00 → OR 02-22 12:50
PROVIDERS: ATTEND Orthopaedic Surgery
DX: M17.12 Unilateral primary osteoarthritis, left knee (principal); I10 Essential (primary) hypertension; E78.2 Mixed hyperlipidemia; E66.01 Morbid (severe) obesity due to excess calories; Z68.42 Body mass index [BMI] 45.0-49.9, adult; E03.9 Hypothyroidism, unspecified; K21.9 Gastro-esophageal reflux disease without esophagitis; F41.9 Anxiety disorder, unspecified; Z87.891 Personal history of nicotine dependence; Z98.890 Other specified postprocedural states; Z80.42 Family history of malignant neoplasm of prostate; Z82.49 Family history of ischemic heart disease and other diseases of the circulatory system; Z79.890 Hormone replacement therapy; Z79.899 Other long term (current) drug therapy
CPT/HCPCS: 97161; 64999; 64448; 76942; 80048; 85025; 88300; 87635; 73560; 27447; C1713; C1776; J2250; J1100; J2710; J0690 ×3; J2405; J2001; J3010; J1170; J2795 ×2; J0330; J2704

== ENCOUNTER → 2021-08-17 | Outpatient (CLI) | payer OTHER ==
[2021-08-17 14:12] VITALS: BP 135/83; PULSE 85; RESP 16; TEMP 97.8; BMI 52.9
--- NOTE | 2021-08-17 15:12 | P.HPBAR ---
Bariatric H&P - History & Physicial H&P Date: 08/17/21 History & Physicial: Visit/CC: INITIAL VISIT Patient initial contact: Initial weight: 160.118 kg Initial weight in pounds: 353.00 Height: 5 ft 8.5 in Initial BMI: 52.9 Last weight: Current weight: 160.118 kg Current weight in pounds: 353.00 Current BMI: 52.9 [place] body weight (based on NIH guidelines): 71.214 kg Excess body weight loss: 0.0% The patient is a 51 year-old M who presents for Bariatric Assessment. Patient presents to the bariatric clinic for the first time today. Says he has been thinking about weight loss surgery for many years. His daughter is currently undergoing weight loss surgery assessment as well. Current BMI 52.9. He is on disability because of his weight related issues and chronic knee pain. Patient suffers from hypertension, hypercholesterolemia, history of GERD although no symptoms while on antiacids. Patient with recent left knee replacement. Quit smoking approximately 20 years ago. Patient requires twelve-month supervised weight loss per insurance company. Patient states he is interested in gastric bypass. Review of Systems The patient denies any acute changes in vision or hearing, no dysphagia or odynophagia, no chest pain or shortness of breath, no dysuria or hematuria, no headache, no runny nose, no rectal bleeding or melena, no unexplained weight loss Past Medical History Past Medical History: GERD/Reflux, Hyperlipidemia, Hypertension, Osteoarthritis (OA), Thyroid Disorder Additional Past Medical History / Comment(s): hemorrhoids, blood in stool, History of Any Multi-Drug Resistant Organisms: None Reported Past Surgical History: Orthopedic Surgery Additional Past Surgical History / Comment(s): KNEE ARTHROSCOPY, CTR TASHI X2, HYDROCELE, PILONIDAL CYST Past Anesthesia/Blood Transfusion Reactions: No Reported Reaction Smoking Status: Never smoker - Past Family History Mother Family Medical History: Cancer Additional Family Medical History / Comment(s): PANCREATIC CANCER Father Family Medical History: Cancer Additional Family Medical History / Comment(s): PROSTATE CANCER Surgical - Exam Vital Signs Temp Pulse Resp BP 97.8 F 85 16 135/83 08/17/21 14:10 08/17/21 14:10 08/17/21 14:10 08/17/21 14:10 Physical exam: General: Well-developed, well-nourished HEENT: Normocephalic, sclerae nonicteric Abdomen: Nontender, nondistended Extremities: No edema Neuro: Alert and oriented Bariatric Assessment & Plan (1) Morbid obesity with BMI of 50.0-59.9, adult Narrative/Plan: 51-year-old male with morbid obesity and associated comorbidities. Patient I discussed the risks and benefits of the proposed and widely accepted bariatric surgical procedures. The mechanisms of actions of both gastric bypass and gastric sleeve reviewed as well as the anatomical changes in the anticipated postoperative weight loss. Patient again reiterated that he is interested in gastric bypass and believes his daughter is also having that performed. I informed him that I do not perform the gastric bypass and his previous surgeon that did his operative hemorrhoidectomy Dr. Wesley likewise does not perform gastric bypass. His daughter is currently seeing Dr. Reyes. We will make an appointment for him to see her to discuss options of gastric bypass further. In the meanwhile patient will continue his supervised weight loss program. Status: Acute Bariatric Checklist Checklist: Plan: Checklist: EGD: 1. Hiatal hernia: 2. H. Pylori: HgbA1c: Vitamin D: Smoking: Former smoker Primary care physician referral: Psychiatry clearance: Cardiology clearance: Sleep study: Diet journal: VTE risk score: VTE risk level: Rehab needs at discharge:
== END ==
LOC: BARWHC3 13:46
PROVIDERS: ATTEND Surgery
DX: E66.01 Morbid (severe) obesity due to excess calories (principal); E78.5 Hyperlipidemia, unspecified; I10 Essential (primary) hypertension; M19.90 Unspecified osteoarthritis, unspecified site; Z68.43 Body mass index [BMI] 50.0-59.9, adult
CPT/HCPCS: 99203

== ENCOUNTER → 2021-09-27 | Outpatient (CLI) | payer OTHER ==
[2021-09-27 10:59] LABS: INR 0.9 (<1.2); Partial Thromboplastin Time 25.3 sec (22.0-30.0); Prothrombin Time 9.7 sec (9.0-12.0)
[2021-09-27 14:32] LABS: HCT 49.8 % (39.6-50.0); HGB 16.3 g/dL (13.0-17.0); MCH 29.7 pg (27.0-32.0); MCHC 32.7 g/dL (32.0-37.0); MCV 90.9 fL (80.0-97.0); Platelet Count 254 X 10*3/uL (140-440); RBC 5.48 X 10*6/uL (4.40-5.60); RDW 12.9 % (11.5-14.5); WBC 9.52 X 10*3/uL (4.50-10.00)
[2021-09-27 17:49] LABS: ALT 28 U/L (10-49); AST 28 U/L (14-35); African American GFR (CKD) 71.9 (60.0-200.0); Albumin 4.4 g/dL (3.8-4.9); Albumin/Globulin Ratio 1.56 (1.60-3.17); Alkaline Phosphatase 80 U/L (41-126); Blood Urea Nitrogen 16.9 mg/dL (9.0-27.0); Calcium 9.6 mg/dL (8.7-10.3); Carbon Dioxide 23.3 mmol/L (20.0-27.5); Chloride 100 mmol/L (96-109); Globulin 2.8 g/dL (1.6-3.3); Glucose 108 mg/dL (70-110); Magnesium 2.3 mg/dL (1.5-2.4); Phosphorus 3.8 mg/dL (2.4-5.1); Potassium 4.6 mmol/L (3.5-5.5); Prealbumin 24.7 mg/dL (18.0-42.0); Sodium 138 mmol/L (135-145); Total Bilirubin <0.20 mg/dL (0.30-1.20); Total Protein 7.2 g/dL (6.2-8.2)
[2021-09-28 12:25] LABS: Zinc, Serum 73 ug/dL (60-130)
[2021-09-28 14:18] LABS: % Iron Saturation 12.52 (15.00-50.00); Chol/HDL Ratio 4.11 Ratio; Iron 46 ug/dL (65-175); LDL Cholesterol,Calculated 108.2 mg/dL (0.0-131.0); Total Iron Binding Capacity 368 ug/dL (228-460)
[2021-09-29 13:01] LABS: Vit B1(Thiamine) 117 ug/L (38-122)
== END | disposition home or self-care (01) ==
LOC: LABWHC1 07:52
PROVIDERS: ATTEND Surgery Plastic and Reconstructive Surgery
DX: Z71.51 Drug abuse counseling and surveillance of drug abuser (principal); E55.9 Vitamin D deficiency, unspecified; E66.01 Morbid (severe) obesity due to excess calories; D50.8 Other iron deficiency anemias; K50.90 Crohn's disease, unspecified, without complications; K74.1 Hepatic sclerosis; K90.89 Other intestinal malabsorption; N19 Unspecified kidney failure
CPT/HCPCS: 84255; 84134; 84425; 80061; 80053; 82607; 82728; 82525; 82746; 83540; 83550; 83735; 84100; 84443; 84590; 84630; 85027; 85610; 85730; 82306; 83970; 80307; 93005; 36415; G0480; G0482; 80323

== ENCOUNTER 2021-11-27 07:29 | Day surgery (SDC) | payer OTHER ==
[2021-11-22 14:32] VITALS: BMI 51.0
[~2021-11-27 07:29] MED LIST changes: -ACETAMINOPHEN TAB 500 MG TAB PO PRN; -DEXAMETHASONE SOD PHOSPHATE 4 MG/ML 1 ML VIAL IV ONE; -HYDROmorphone 0.5 MG/0.5 ML SYRINGE IVP PRN; +LACTATED RINGERS 1,000 ML IV SCH; -MELOXICAM 7.5 MG TAB PO PRN; -ONDANSETRON 4 MG/2 ML VIAL IVP ONE; -ROPIVACAINE/EPI/CLONIDINE/KET 50 ML SYRINGE MISCELLANE PRN; -TRANEXAMIC ACID 1,000 MG in SODIUM CHLORIDE 0.9% 100 ML IVPB PRN; -ceFAZolin 3 GM in SODIUM CHLORIDE 0.9% 100 ML IVPB PRN
--- NOTE | 2021-11-27 07:55 | P.GSHP ---
History of Present Illness H&P Date: 11/27/21 CHIEF COMPLAINT: GERD HISTORY OF PRESENT ILLNESS: The patient is a 51-year-old male who presents reports gastroesophageal reflux disease. Upper endoscopy was offered for further evaluation and management. PAST MEDICAL HISTORY: Please see list. PAST SURGICAL HISTORY: Please see list. MEDICATIONS: Please see list. ALLERGIES: Please see list. SOCIAL HISTORY: No illicit drug use FAMILY HISTORY: No reports of Crohn disease or ulcerative colitis. REVIEW OF ORGAN SYSTEMS: CONSTITUTIONAL: No reports of fevers or chills. GI: Denies any blood in stools or constipation. PHYSICAL EXAM: VITAL SIGNS: Stable GENERAL: Well-developed and pleasant in no acute distress. HEENT: No scleral icterus. Extraocular movements grossly intact. Moist buccal mucosa. NECK: Supple without lymphadenopathy. CHEST: Unlabored respirations. Equal bilateral excursions. CARDIOVASCULAR: Regular rate and rhythm. Distal 2+ pulses. ABDOMEN: Soft, nondistended. MUSCULOSKELETAL: No clubbing, cyanosis, or edema. ASSESSMENT: 1. Gastroesophageal reflux disease PLAN: 1. Recommend proceeding with an upper endoscopy Past Medical History Past Medical History: GERD/Reflux, Hyperlipidemia, Hypertension, Osteoarthritis (OA), Thyroid Disorder Additional Past Medical History / Comment(s): hemorrhoids, blood in stool, History of Any Multi-Drug Resistant Organisms: None Reported Past Surgical History: Joint Replacement, Orthopedic Surgery Additional Past Surgical History / Comment(s): LEFT KNEE ARTHROSCOPY AND THEN LEFT TKR, CTR TASHI X2, HYDROCELE, PILONIDAL CYST, HEMORRHOIDECTOMY Past Anesthesia/Blood Transfusion Reactions: No Reported Reaction Past Psychological History: Anxiety Smoking Status: Former smoker Past Alcohol Use History: None Reported Past Drug Use History: None Reported - Past Family History Mother Family Medical History: Cancer Additional Family Medical History / Comment(s): PANCREATIC CANCER Father Family Medical History: Cancer Additional Family Medical History / Comment(s): PROSTATE CANCER Medications and Allergies Home Medications Medication Instructions Recorded Confirmed Type Atenolol/Chlorthalidone 1 each PO HS 12/03/19 11/22/21 History [Atenolol-Chlorthalidone 50-25] Enalapril [Vasotec] 10 mg PO DAILY 12/03/19 11/22/21 History Ergocalciferol [Vitamin D2] 50,000 unit PO KHAN 12/03/19 11/22/21 History FLUoxetine HCL [PROzac] 20 mg PO DAILY 12/03/19 11/22/21 History Gabapentin [Neurontin] 400 mg PO BID 12/03/19 11/22/21 History Levothyroxine Sodium [Synthroid] 75 mcg PO DAILY 12/03/19 11/22/21 History Atorvastatin [Lipitor] 20 mg PO DAILY 08/17/21 11/22/21 History Allergies Allergy/AdvReac Type Severity Reaction Status Date / Time No Known Allergies Allergy Verified 11/22/21 14:25
[2021-11-27 07:58] VITALS: TEMP 97.8
[2021-11-27] MEDS ORDERED: LACTATED RINGERS 1,000 ML IV ONE (08:03)
[2021-11-27] MEDS ORDERED: PROPOFOL 10 MG/ML 20 ML VIAL IV ONE (08:19)
[2021-11-27] MEDS ORDERED: LIDOCAINE 1% INJ 10MG/ML (20 ML MDV) ONE (08:19)
--- NOTE | 2021-11-27 08:36 | P.PCN ---
Date of Procedure: 11/27/21 Description of Procedure: PREOPERATIVE DIAGNOSIS: Gastroesophageal reflux disease. Morbid obesity. POSTOPERATIVE DIAGNOSIS: Gastroesophageal reflux disease. Morbid obesity. Gastritis. Duodenitis OPERATION: Esophagogastroduodenoscopy with biopsies along antrum and duodenum SURGEON: Chanelle Tierney MD ANESTHESIA: MAC. INDICATIONS: The patient is a 51-year-old female who presents with reflux disease. Benefits and risks of the procedure were described. Informed consent was obtained. DESCRIPTION: The patient was brought into the endoscopy suite and laid in the left lateral decubitus position. An Olympus gastroscope was passed along the posterior oropharynx down to the distal esophagus where the squamocolumnar junction was encountered at 40 cm from the incisors. The stomach was entered and no bile reflux was found. Additional findings are listed below. Biopsies with cold forceps were obtained of the antrum. The first through third portion of the duodenum was examined. Retroflexion of the scope confirmed Hill grade 2 lower esophageal valve. The squamocolumnar junction demonstrated LA grade A erosive esophagitis. The stomach was desufflated. The patient tolerated the procedure well. FINDINGS: Squamocolumnar junction 45 cm from the incisors. Diaphragmatic hiatus at 45 cm. Hill grade 2 lower esophageal valve. LA grade A erosive esophagitis. Active duodenitis. Chronic gastritis RECOMMENDATIONS: Upper endoscopy as needed. Plan - Discharge Summary Discharge Rx Participant: No New Discharge Prescriptions: Continue Gabapentin [Neurontin] 400 mg PO BID FLUoxetine HCL [PROzac] 20 mg PO DAILY Ergocalciferol [Vitamin D2 (DRISDOL)] 50,000 unit PO KHAN Enalapril [Vasotec] 10 mg PO DAILY Levothyroxine Sodium [Synthroid] 75 mcg PO DAILY Atenolol/Chlorthalidone [Atenolol/Chlorthalidone 50-25] 1 each PO HS Atorvastatin [Lipitor] 20 mg PO DAILY Discharge Medication List Atenolol/Chlorthalidone [Atenolol/Chlorthalidone 50-25] 1 each PO HS 12/03/19 [History] Enalapril [Vasotec] 10 mg PO DAILY 12/03/19 [History] Ergocalciferol [Vitamin D2 (DRISDOL)] 50,000 unit PO KHAN 12/03/19 [History] FLUoxetine HCL [PROzac] 20 mg PO DAILY 12/03/19 [History] Gabapentin [Neurontin] 400 mg PO BID 12/03/19 [History] Levothyroxine Sodium [Synthroid] 75 mcg PO DAILY 12/03/19 [History] Atorvastatin [Lipitor] 20 mg PO DAILY 08/17/21 [History] [facility] [facility] [place] [place] [place] Patient Instructions/Handouts: Diet for Stomach Ulcers and Gastritis (GEN), Duodenitis (DC) Discharge Disposition: HOME SELF-CARE
[2021-11-27 08:47] VITALS: BP 134/87; PULSE 72; RESP 18
== END 2021-11-27 09:04 | disposition home or self-care (01) ==
LOC: ORWHC2ENDO 07:29
PROVIDERS: ATTEND Surgery Plastic and Reconstructive Surgery
DX: K29.50 Unspecified chronic gastritis without bleeding (principal); K31.A0 Gastric intestinal metaplasia, unspecified; K21.9 Gastro-esophageal reflux disease without esophagitis; E78.5 Hyperlipidemia, unspecified; I10 Essential (primary) hypertension; M19.90 Unspecified osteoarthritis, unspecified site; E07.9 Disorder of thyroid, unspecified; Z96.612 Presence of left artificial shoulder joint; Z98.890 Other specified postprocedural states; F41.9 Anxiety disorder, unspecified; Z87.891 Personal history of nicotine dependence; Z80.0 Family history of malignant neoplasm of digestive organs; Z80.42 Family history of malignant neoplasm of prostate; Z79.890 Hormone replacement therapy; Z79.899 Other long term (current) drug therapy
CPT/HCPCS: 88305; 43239; J2001; J2704

== ENCOUNTER → 2021-12-06 | Outpatient (CLI) | payer OTHER ==
[2021-12-06 15:27] VITALS: BP 133/85; PULSE 80; RESP 16; TEMP 98.1; BMI 51.0
--- NOTE | 2021-12-06 17:18 | P.BASOAP ---
Subjective Progress Note Date: 12/06/21 Left without being seen. Objective - Vital Signs Vital signs: Vital Signs Temp 98.1 F 12/06/21 15:24 Pulse 80 12/06/21 15:24 Resp 16 12/06/21 15:24 BP 133/85 12/06/21 15:24 Pulse Ox Intake & Output 12/05/21 12/06/21 12/06/21 18:59 06:59 18:59 Weight 154.477 kg Assessment/Plan Plan: Date: 12/06/21 Initial Weight: 160.118 kg Initial BMI: 52.9 Current Weight: 154.477 kg Current BMI: 51.0 Type of Surgery: Total Volume in Band: Previous Volume: Volume Removed: Volume Added: Band Size:
== END ==
LOC: BARWHC3 14:51
PROVIDERS: ATTEND Surgery Plastic and Reconstructive Surgery
DX: E66.01 Morbid (severe) obesity due to excess calories (principal); Z53.21 Procedure and treatment not carried out due to patient leaving prior to being seen by health care provider
CPT/HCPCS: 99211

== ENCOUNTER → 2022-06-13 | Outpatient (CLI) | payer OTHER ==
--- NOTE | 2022-06-13 09:02 | US ---
EXAMINATION TYPE: US kidneys/renal and bladder DATE OF EXAM: 06/13/2022 COMPARISON: 04/08/2015 CLINICAL HISTORY: R39.15 R39.11 R93.89. Urinary urgency. Urinary hesitancy. EXAM MEASUREMENTS: Right Kidney: 11.8 x 6.8 x 6.3 cm Left Kidney: 12.5 x 6.2 x 5.6 cm Post Void Residual Volume: 149.0 mL Right Kidney: Hydronephrosis Left Kidney: Hydronephrosis Bladder: wnl Bilateral Jets seen: Yes Normal Post Void Residual: No IMPRESSION: Bilateral mild hydronephrosis correlate for L obstruction.
--- NOTE | 2022-06-13 10:09 | US ---
EXAMINATION TYPE: US thyroid st tissue head/neck DATE OF EXAM: 06/13/2022 COMPARISON: 04/28/2019 CLINICAL HISTORY: R93.89. Abnormal prior thyroid imaging GLAND SIZE: Right Lobe: 4.7 x 2.0 x 1.8 cm Overall Parenchyma: heterogenous Left Lobe: 4.2 x 1.7 x 1.8 cm Overall Parenchyma: heterogeneous Isthmus Thickness: .04 cm NODULES RIGHT: # of nodules measured on right: 0 LEFT: # of nodules measured on left: 0 ISTHMUS: # of nodules measured in the isthmus: 0 Bilateral neck scanned, no evidence of lymphadenopathy. IMPRESSION: Slightly heterogenous parenchyma without discrete nodule. No significant change from prior. Correlate with serum markers.
== END | disposition home or self-care (01) ==
LOC: RADUSWWP 07:34
PROVIDERS: ATTEND Family Medicine
DX: N13.30 Unspecified hydronephrosis (principal); R39.15 Urgency of urination; R39.11 Hesitancy of micturition; R93.89 Abnormal findings on diagnostic imaging of other specified body structures
CPT/HCPCS: 76536; 76770

== ENCOUNTER 2022-07-02 08:00 | Inpatient (IN) | payer OTHER ==
[~2022-07-02 08:00] MED LIST changes: +CHLORHEXIDINE GLUCONATE 15 ML CUP MUCOUS MEM PRN; +DEXAMETHASONE SOD PHOSPHATE 4 MG/ML 1 ML VIAL IV ONE; +HYDROmorphone 0.5 MG/0.5 ML SYRINGE IVP PRN; -LACTATED RINGERS 1,000 ML IV SCH; -LIDOCAINE 1% (10MG/ML) FOR IV START INTRADERMA PRN; +ONDANSETRON 4 MG/2 ML VIAL IVP ONE; +PANTOPRAZOLE 40 MG/10 ML VIAL IVP PRN; +ceFAZolin 3 GM in SODIUM CHLORIDE 0.9% 100 ML IVPB PRN
[2022-07-02] MEDS ORDERED: HEPARIN SODIUM,PORCINE/PF 5,000 UNIT/0.5 ML SYRINGE SQ PRN (09:33)
--- NOTE | 2022-07-02 10:02 | P.GSHP ---
History of Present Illness H&P Date: 07/02/22 CHIEF COMPLAINT: Morbid obesity HISTORY OF PRESENT ILLNESS: Boom Byrd is a 52-year-old male who comes with morbid obesity. He is looking into the gastric bypass. As a result of his morbid obesity, he has developed osteoarthritis of the back, hip, and knee. He completed bariatric assessment. Presents today for gastric bypass. At height of 5 feet 8.75 inches, ideal body weight is 163 pounds. His highest weight is 386 pounds, body mass index 57.5. He comes in 328 pounds from 341 pounds. He has lost 12 pounds in 6 months. He is over 150 pounds overweight. PAST MEDICAL HISTORY: 1. Morbid obesity due to excess calories 2. Body mass index of 57.5, initial 3. Gastroesophageal reflux disease 4. Osteoarthritis of the bilateral knees 5. Generalized anxiety disorder 6. Hypertensive heart disease 7. Depressive disorder 8. Hypothyroidism 9. Hyperlipidemia 10. Neuropathy 11. Rectal bleeding 12. Osteoarthritis of the back 13. Osteoarthritis of the left hip PAST SURGICAL HISTORY: 1. Carpal tunnel release 2. Knee arthroscopy 3. Pilonidal cystectomy 4. Hydrocelectomy HOME MEDICATIONS: Home Medications Medication Instructions Recorded Confirmed Atenolol/Chlorthalidone 1 each PO HS 12/03/19 12/20/21 [Atenolol/Chlorthalidone 50-25] Enalapril [Vasotec] 10 mg PO DAILY 12/03/19 12/20/21 Ergocalciferol [Vitamin D2 50,000 unit PO KHAN 12/03/19 12/20/21 (DRISDOL)] FLUoxetine HCL [PROzac] 20 mg PO DAILY 12/03/19 12/20/21 Gabapentin [Neurontin] 400 mg PO BID 12/03/19 12/20/21 Levothyroxine Sodium [Synthroid] 75 mcg PO DAILY 12/03/19 12/20/21 Atorvastatin [Lipitor] 20 mg PO DAILY 08/17/21 12/20/21 Aspirin 81 mg PO DAILY 12/20/21 12/20/21 ALLERGIES: Allergies Allergy/AdvReac Type Severity Reaction Status Date / Time No Known Allergies Allergy Verified 11/22/21 14:25 SOCIAL HISTORY: Past tobacco use. FAMILY HISTORY: No family history of ulcerative colitis disease or Crohn's disease. Family history of morbid obesity. No lupus in the family. No reports of stomach or esophageal cancer. His mother had the gastric bypass. His mother from cancer. REVIEW OF ORGAN SYSTEMS: CONSTITUTIONAL: At height of 5 feet 8.75 inches, ideal body weight is 163 pounds. His highest weight is 386 pounds, body mass index 57.5. He comes in 349 pounds. His body mass index is 52.1. He is 186 pounds overweight. HEENT: Denies any active troubles with vision or hearing. ENDOCRINE: Denies diabetes. Has hypothyroidism. CARDIOVASCULAR: Denies past reports of palpitations or heart attacks or chest pain. Has hypertensive heart disease. Has hyperlipidemia. RESPIRATORY: Has daytime somnolence. GASTROINTESTINAL: Denies any bright red blood per rectum. No diarrhea. No constipation. Has gastroesophageal reflux disease. GENITOURINARY: Denies bladder urgency. No recent blood in urine MUSCULOSKELETAL: Has lower back pain and joint pain. Has osteoarthritis of the knees. NEURO: No headaches. No seizure disorders. Has neuropathy. PSYCH: Has depression. No suicidal ideation. Has anxiety. RHEUMATOLOGIC: No lupus. No rheumatoid arthritis. HEMATOLOGIC: Denies any abnormal bleeding or bruising. SKIN: No rash. No skin cancer. PHYSICAL EXAM: VITAL SIGNS: Height 5 foot 8.75 inches, weight 349 pounds. BMI 50.8 GENERAL: Well-developed in no acute distress. HEENT: No scleral icterus. Extraocular movements grossly intact. Hears conversational speech. No nasal drainage. NECK: Supple without lymphadenopathy. CHEST: Nonlabored respirations with equal bilateral excursions. CARDIOVASCULAR: Regular rate and regular rhythm. Distal 2+ pulses. ABDOMEN: Obese, soft, nontender, nondistended. MUSCULOSKELETAL: No clubbing, cyanosis. Gross strength 5/5 distal lower extremities. NEURO: No focal or lateralizing signs. Cranial nerves 2 through 12 grossly within normal limits. PSYCH: Appropriate affect. Alert and oriented to person, place and time. SKIN: Good skin turgor. Well perfused. ASSESSMENT: 1. Morbid obesity due to excess calories 2. Body mass index of 57.5, initial 3. Gastroesophageal reflux disease 4. Osteoarthritis of the bilateral knees 5. Generalized anxiety disorder 6. Hypertensive heart disease 7. Depressive disorder 8. Hypothyroidism 9. Hyperlipidemia 10. Neuropathy 11. Rectal bleeding 12. Osteoarthritis of the back 13. Osteoarthritis of the left hip 14. Iron deficiency 15. Vitamin D deficiency 16. Tobacco exposure PLAN: 1. Bariatric options between a sleeve, band and a Brad-en-Y gastric bypass were reviewed in detail. The patient elected for a gastric bypass. Robotic assisted approach described. 2. The [place] [facility] Data was also reviewed with benefits and risks as described. 3. An 8 page second-generation bariatric consent form was reviewed in detail including potential of bleeding, infection, leaks, adequate weight loss, nutritional deficiencies which the patient demonstrated understanding of the risks. 4. A 2 week high-protein low caloric 800 kcal diet described to address hepatomegaly. 5. Preoperative labs including complete metabolic panel and CBC with type and screen recommended. 6. DVT prophylaxis per [place] [facility]. 7. Antibiotic prophylaxis. 8. Inpatient hospitalization anticipated for more than 2 nights. 9. All questions and concerns were addressed with the patient. 10. The patient is at elevated risk for perioperative complications with sleep apnea and hypertensive heart disease. 11. Overall, patient has expressed understanding of bariatric care including postoperative diet and commitment of lifestyle. Patient should benefit from surgical intervention for correction of morbid obesity. 12. He is elevated risk due to pre-existing comorbid conditions 13. In the presence of severe intra-abdominal scar tissue, patient elected for sleeve gastrectomy should a gastric bypass not be feasible Past Medical History Past Medical History: GERD/Reflux, Hyperlipidemia, Hypertension, Osteoarthritis (OA), Thyroid Disorder Additional Past Medical History / Comment(s): hemorrhoids, History of Any Multi-Drug Resistant Organisms: None Reported Past Surgical History: Joint Replacement, Orthopedic Surgery Additional Past Surgical History / Comment(s): LEFT KNEE ARTHROSCOPY AND THEN LEFT TKA, CTR TASHI X2, HYDROCELE, PILONIDAL CYST, HEMORRHOIDECTOMY, COLONOSCOPY, EGD, Past Anesthesia/Blood Transfusion Reactions: No Reported Reaction Smoking Status: Former smoker - Past Family History Mother Family Medical History: Cancer Additional Family Medical History / Comment(s): PANCREATIC CANCER Father Family Medical History: Cancer Additional Family Medical History / Comment(s): PROSTATE CANCER Medications and Allergies Home Medications Medication Instructions Recorded Confirmed Type Atenolol/Chlorthalidone 1 each PO HS 12/03/19 06/28/22 History [Atenolol/Chlorthalidone 50-25] Enalapril [Vasotec] 10 mg PO DAILY 12/03/19 06/28/22 History Ergocalciferol [Vitamin D2 50,000 unit PO KHAN 12/03/19 06/28/22 History (DRISDOL)] FLUoxetine HCL [PROzac] 20 mg PO DAILY 12/03/19 06/28/22 History Gabapentin [Neurontin] 400 mg PO BID 12/03/19 06/28/22 History Levothyroxine Sodium [Synthroid] 75 mcg PO DAILY 12/03/19 06/28/22 History Atorvastatin [Lipitor] 20 mg PO DAILY 08/17/21 06/28/22 History Aspirin 81 mg PO DAILY 12/20/21 06/28/22 History Allergies Allergy/AdvReac Type Severity Reaction Status Date / Time No Known Allergies Allergy Verified 06/27/22 16:00 Surgical - Exam Vital Signs Temp Pulse Resp BP Pulse Ox 97.7 F 65 18 115/72 98 07/02/22 09:45 07/02/22 09:45 07/02/22 09:45 07/02/22 09:45 07/02/22 09:45
[2022-07-02] MEDS ORDERED: LACTATED RINGERS 1,000 ML IV ONE ×2 (10:07→12:57)
[2022-07-02] MEDS ORDERED: MIDAZOLAM 2 MG/2 ML VIAL ONE (11:38)
[2022-07-02] MEDS ORDERED: ePHEDrine 50 MG/ML 1 ML VIAL ONE (11:38)
[2022-07-02] MEDS ORDERED: ROCURONIUM 10 MG/ML (5 ML VIAL) IV ONE (11:38)
[2022-07-02] MEDS ORDERED: NEOSTIGMINE 1 MG/ML 10 ML VIAL ONE (11:38)
[2022-07-02] MEDS ORDERED: LIDOCAINE 2% INJ 20 MG/ML (2 ML VIAL) ONE (11:38)
[2022-07-02] MEDS ORDERED: fentaNYL (PF) 50 MCG/ML 2 ML AMP ONE (11:38)
[2022-07-02] MEDS ORDERED: PROPOFOL 10 MG/ML 20 ML VIAL IV ONE (11:38)
[2022-07-02] MEDS ORDERED: PHENYLEPHRINE-0.9% NACL SYG 1,000 MCG/10 ML SYRINGE ONE (11:38)
[2022-07-02] MEDS ORDERED: GLYCOPYRROLATE 0.2 MG/ML 2 ML VIAL ONE (11:38)
[2022-07-02] MEDS ORDERED: SUCCINYLCHOLINE CHLORIDE 200 MG/10 ML VIAL IV ONE (11:38)
[2022-07-02] MEDS ORDERED: LIDOCAINE 0.5%-EPI 1:200,000 50 ML VIAL SQ ONE (12:14)
[2022-07-02] MEDS ORDERED: HYOSCYAMINE ORAL DROPS 1.875 MG/15 ML BOTTLE PO PRN (15:19)
[2022-07-02] MEDS ORDERED: NALOXONE 0.4 MG/ML 1 ML VIAL IV PRN (15:19)
[2022-07-02] MEDS ORDERED: diphenhydrAMINE 50 MG/ML 1 ML VIAL IVP PRN (15:19)
[2022-07-02] MEDS ORDERED: HYDROmorphone 1 MG/ML 1 ML SYRINGE IVP PRN (15:19)
--- NOTE | 2022-07-02 15:27 | P.OP ---
Date of Procedure: 07/02/22 Description of Procedure: SURGEON: MADISYN SHIN MD PREOPERATIVE DIAGNOSES: 1. Morbid obesity due to excess calories 2. Body mass index of 57.5, initial 3. Gastroesophageal reflux disease 4. Osteoarthritis of the bilateral knees 5. Generalized anxiety disorder 6. Hypertensive heart disease 7. Depressive disorder 8. Hypothyroidism 9. Hyperlipidemia 10. Neuropathy 11. Rectal bleeding 12. Osteoarthritis of the back 13. Osteoarthritis of the left hip 14. Iron deficiency 15. Vitamin D deficiency 16. Tobacco exposure POSTOPERATIVE DIAGNOSES: 1. Morbid obesity due to excess calories 2. Body mass index of 57.5, initial 3. Gastroesophageal reflux disease 4. Osteoarthritis of the bilateral knees 5. Generalized anxiety disorder 6. Hypertensive heart disease 7. Depressive disorder 8. Hypothyroidism 9. Hyperlipidemia 10. Neuropathy 11. Rectal bleeding 12. Osteoarthritis of the back 13. Osteoarthritis of the left hip 14. Iron deficiency 15. Vitamin D deficiency 16. Tobacco exposure OPERATION: 1. Robotic assisted da Loc Xi laparoscopic Yvonne-en-Y gastric bypass, 100 cm antecolic antegastric Yvonne limb, with 25 mm EEA. 2. Intraoperative esophagogastrojejunoscopy. ANESTHESIA: GETA and local ESTIMATED BLOOD LOSS: 10 mL SPECIMENS REMOVED: None. COMPLICATIONS: NONE. Operative Findings: 1. Biliopancreatic limb 60 cm 2. Bypass performed using 100 cm yvonne limb secondary to avoid increased tension at 150 cm. 3. Herr defect and jejunojejunostomy defect closed with green 2-0 V LOC 4. Leak test negative with gastrojejunal anastomosis patent and hemostatic. 5. Reinforcement sutures were placed along the gastrojejunal anastomosis 6. Liver within normal limits INDICATIONS: Boom Byrd is a 52-year-old male who comes with morbid obesity. He is looking into the gastric bypass. As a result of his morbid obesity, he has developed osteoarthritis of the back, hip, and knee. He completed bariatric assessment. Presents today for gastric bypass. At height of 5 feet 8.75 inches, ideal body weight is 163 pounds. His highest weight is 386 pounds, body mass index 57.5. He comes in 328 pounds from 341 pounds. He has lost 12 pounds in 6 months. He is over 150 pounds overweight. A second-generation bariatric consent form was described in detail including the possibility of protein malnutrition, leaks, gastrojejunal stricture, venous thrombosis, need for further surgery for which she demonstrated understanding. Benefits and risks of the procedure were described at length. Informed consent was obtained. DESCRIPTION: The patient was brought into the operating room theater. He was placed supine. He had received Lovenox subcutaneously for DVT prophylaxis. Additionally he Peridex oral solution as an oral decontaminant was placed per anesthesia. After general induction, the abdomen was prepped and draped in standard sterile fashion. Ioban draping was placed along the abdomen. A robotic da Loc Xi system was prepped and primed. Incisions were proposed at 15 cm from the xiphoid. Proposed port sites were marked with indelible marker along the anterior axillary line bilaterally, mid clavicular line bilaterally with each port marked 10 cm from each other. The robotic stapler port was marked for the right midclavicular line including along the left midclavicular line. A protuberance along the mid abdomen at the epigastrium was identified suspicious for ventral hernia. As a result, a 5 mm 0 laparoscopic trocar entry was performed along the left upper quadrant. The abdomen was insufflated to 15 mmHg pressure, which he tolerated well. Diagnostic laparoscopy demonstrated no injury to bowel, viscera, or mesentery. Small bilateral indirect inguinal hernias were identified. The liver edge was within normal limits. Diagnostic laparoscopy confirmed a moderately dilated stomach. No hernias were identified. I went to the head of the bed to suction the entire stomach and deflate the stomach. The 5 mm trocar remained intact. An 8 mm camera port was placed left lateral to the umbilicus at the epigastrium, 15 cm distal to the xiphoid. Next, 12-mm robot stapler port was placed along the right mid abdomen. An 12 mm port was placed along the left upper quadrant. An 8 mm port was placed on the left lateral abdominal wall under direct visualization Please note that the ports were placed 18 to 20 cm away from the target anatomy of the stomach. Care was taken to check that each robotic arm was safely away from collision with the bed or the patient. At the epigastrium, a medium sized Nirav liver retractor was placed under direct visualization with the Iron Digital Printer Operator placed under the right shoulder of the patient. The patient was repositioned in reverse Trendelenburg position at 21-degrees after lowering the bed. The robot was docked over the patient. Using grasper for arm 3, a grasper for arm 1, including vessel sealer for arm 4, the robotic system was docked and primed as described. Instruments were interchanged by the talent acquisition assistant including endoscissors, the needle day haul or farm charter bus driver, and stapler. I had sat at the console. Next, the transverse mesocolon was reflected into the upper abdomen after dividing the mesentery and preparing for the jejunojejunostomy portion of the case. The ligament of Treitz was identified and measured 60 cm antegrade and marked using 3-0 Silk. The jejunum was divided at the 60 cm point using 60-mm blue loads above the suture measurement. The biliopancreatic limb was held in place. The Yvonne limb was measured 100 cm in an antegrade fashion to avoid tension along the proposed gastrojejunal anastomosis. At 100 cm along the anti-mesenteric border of the Yvonne limb, a jejunojejunostomy was proposed whereby enterotomies were created along the biliopancreatic limb including the Yvonne limb using a Bovie cautery. A stay suture of 3-0 Slik was placed to align and create the anastomosis. The enterotomies along the anti-mesenteric borders were created followed by unidirectional fire from the patient's right side using 60 mm blue load Smart technology robotic stapler. The jejunojejunostomy was found to be hemostatic. The enterotomy was closed after horizontal mattress stitch of 3-0 silk used to elevate the enterotomy followed by closure with the robotic stapler blue load. The jejunal limb was temporarily tacked along the left upper quadrant. Attention was now brought to the creation of the gastrojejunostomy. Along the lesser curvature of the stomach between the second and third veins, dissection was made along the retrogastric space to allow first firing of the robotic staple. Blue loads of 60 mm staplers were used to divide the stomach to create the gastric pouch. The patient was then prepared for placement of a Orvil. The patient was Mallampati 2. A 25-mm Orvil was selected for placement by the nurse check writing machine operator. The Orvil tubing was placed anterior to the staple line of the gastric pouch and brought out through the left inferior lateral port. I re-scrubbed into the case. The robotic arms were temporarily undocked. The Orvil was then carefully and successfully navigated with the help of the nurse check writing machine operator into the gastric pouch. The sutures were identified and divided. The tubing was from the 25 mm anvil. As the Orvil had been placed, the blind jejunal limb was brought proximally into the upper abdomen. No torsion was found upon the Yvonne limb. No tension was identified as the limb was brought along the upper abdomen. The blind jejunal limb was previously opened using endo-scissors with cautery. The 25-mm EEA stapler was brought through the left anterior lateral port site from the left side. The EEA stapler was brought through the open jejunal limb and its needle was deployed at the antimesenteric border where the anvil were mated for approximately 1 minute upon firing. The stapler was removed after irrigating the shaft of the instrument with warm normal saline. Donuts were found to be intact and on both sides. The TiVo Xi robot arms were then re-docked. I sat at the console. The open jejunal limb defect was closed using 60 mm blue loads after releasing any tension from the blind jejunal limb. Care was taken to avoid any long blind limb to avoid candycane syndrome. Reinforcement sutures were placed along the gastrojejunal anastomosis and placed along the 12:00, 6:00, 9:00 and 3 o'clock position using 3-0 Polysorb. The Patricio and jejunojejunostomy mesenteric defects were closed using green 2-0 VLOC. I then went to the head of the bed to perform the esophagogastrojejunoscopy and a leak test. An Olympus gastroscope was passed along the posterior oropharynx which was unremarkable for any injury to the vocal cords. The scope was passed down to the proximal portion of the pouch, whereby no active bleeding was encountered. Excellent visualization of the gastrojejunostomy anastomosis, including the Yvonne limb was encountered with endoscopic image obtained. The anastomosis was found to be patent. The gastrointestinal tract was desufflated. No evidence of intraoperative leak was encountered as the gastric pouch and anastomosis were submerged under normal saline solution. The robot was then undocked. I then went back to the bedside of the patient, whereby with coordinated effort of the talent acquisition assistant, irrigation was aspirated from the upper abdominal cavity. Tisseel was placed circumferentially over the anastomosis of the gastrojejunostomy. The fascial defect of the EEA stapler was closed using Nelson Enrique and 0 Vicryl. All instruments and pneumoperitoneum were evacuated from the abdominal cavity. The port correlating with the EEA stapler device was cleansed with normal saline solution and hydrogen peroxide. The rest of incisions were reapproximated using 4-0 Monocryl in an interrupted subcuticular fashion. Local anesthetic was infiltrated along the skin for postop analgesia. Liquid glue was applied to the skin. OptiFoam dressing was placed along the EEA stapler site. At the end of the procedure, needle, sponge and instrument count had been verified correct by the director medical surgical. He had tolerated the procedure well and was extubated and taken to the postanesthesia unit in stable condition. Intraoperative findings were described to the patient's family who were very pleased with the level of care.
[2022-07-02] MEDS: ALBUTEROL NEBULIZED 2.5 MG/3 ML INHALATION SCH ×2 (16:43→20:42)
[2022-07-02] MEDS: LACTATED RINGERS 1,000 ML IV SCH (19:52)
[2022-07-02] MEDS ORDERED: ceFAZolin 3 GM in SODIUM CHLORIDE 0.9% 100 ML IVPB SCH (20:00)
[2022-07-02] MEDS: fentaNYL PCA 500 MCG/50 ML BAG IV PRN (20:32)
[2022-07-02] MEDS ORDERED: CHLORTHALIDONE 25 MG TAB PO SCH (21:00)
[2022-07-02] MEDS ORDERED: atenoloL 50 MG TAB PO SCH (21:00)
[2022-07-02] MEDS ORDERED: NON FORMULARY DRUG (Atenolol/Chlorthalidone [Atenolol/Chlorthalidone 50-25] 1 EACH Tablet) PO SCH (21:00)
[2022-07-02] MEDS: ACETAMINOPHEN IV (For NPO) 1,000 MG in EMPTY BAG 1 BAG IVPB SCH ×2 (21:01→22:45)
[2022-07-02] MEDS: GABAPENTIN 400 MG CAP PO SCH (21:01)
[2022-07-02] MEDS: 0.9% NACL WITH KCL 20 MEQ/L 1,000 ML IV SCH (21:04)
[2022-07-02] MEDS: ONDANSETRON 4 MG/2 ML VIAL IVP SCH ×2 (21:04→22:46)
[2022-07-02] MEDS: PANTOPRAZOLE 40 MG/10 ML VIAL IV SCH (21:05)
[2022-07-02] MEDS: SIMETHICONE 40 MG/0.6 ML DROPS 2,000 MG/30 ML BOTTLE PO SCH ×2 (21:58→22:46)
[2022-07-02] MEDS: SODIUM CHLORIDE 0.9% 1,000 ML IV SCH ×2 (21:59→22:43)
[2022-07-03] MEDS: 0.9% NACL WITH KCL 20 MEQ/L 1,000 ML IV SCH ×2 (00:58→12:31)
[2022-07-03] MEDS: fentaNYL PCA 500 MCG/50 ML BAG IV PRN ×2 (02:05→10:25)
[2022-07-03] MEDS: ACETAMINOPHEN IV (For NPO) 1,000 MG in EMPTY BAG 1 BAG IVPB SCH ×2 (05:14→11:50)
[2022-07-03] MEDS: ONDANSETRON 4 MG/2 ML VIAL IVP SCH ×2 (05:15→13:43)
[2022-07-03] MEDS: SIMETHICONE 40 MG/0.6 ML DROPS 2,000 MG/30 ML BOTTLE PO SCH ×2 (05:15→13:53)
[2022-07-03 07:42] VITALS: RESP 17; TEMP 98.3
[2022-07-03] MEDS ORDERED: 0.9% NACL WITH KCL 20 MEQ/L 1,000 ML IV SCH (08:00)
[2022-07-03] MEDS: ALBUTEROL NEBULIZED 2.5 MG/3 ML INHALATION SCH ×3 (08:10→15:39)
[2022-07-03] MEDS ORDERED: ENOXAPARIN 40 MG/0.4 ML SYRINGE SQ SCH (09:00)
[2022-07-03] MEDS: GABAPENTIN 400 MG CAP PO SCH (09:40)
[2022-07-03] MEDS: PANTOPRAZOLE 40 MG/10 ML VIAL IV SCH (09:41)
--- NOTE | 2022-07-03 10:03 | FL ---
EXAMINATION TYPE: FL UGI DATE OF EXAM: 07/03/2022 COMPARISON: NONE HISTORY: Postop Brad-en-Y surgery. TECHNIQUE: A single contrast UGI study is performed. A total of 14 seconds of fluoroscopic time was utilized during procedure and 17 images obtained. FINDINGS: The esophagus shows normal motility and emptying into the stomach. No evidence of hiatal hernia or s tricture noted. Post surgical changes from Brda-en-Y. No evidence for leak. Contrast easily passes through the gastro jejunostomy. No evidence of any mass or ulcer disease. IMPRESSION: Postsurgical changes from Brad-en-Y without evidence for leak.
[2022-07-03 10:54] VITALS: BP 116/65; PULSE 77
[2022-07-03 11:17] LABS: Basophils # (A) 0.03 X 10*3/uL (0.00-0.10); Basophils % (A) 0.3 %; Eosinophils # (A) 0.01 X 10*3/uL (0.04-0.35); Eosinophils % (A) 0.1 %; HGB 14.7 g/dL (13.0-17.0); Immature Grans, Automated 0.3 %; Lymphocytes # (A) 0.79 X 10*3/uL (0.90-5.00); Lymphocytes % (A) 6.6 %; MCH 29.4 pg (27.0-32.0); MCHC 32.7 g/dL (32.0-37.0); Mean Platelet Volume 11.6 fL (9.5-12.2); Monocytes # (A) 1.37 X 10*3/uL (0.20-1.00); Monocytes % (A) 11.5 %; NRBC Per 100 WBC 0 /100 WBCS (0.0-0.0); Neutrophils # (A) 9.71 X 10*3/uL (1.80-7.70); Neutrophils % (A) 81.2 %; Platelet Count 243 X 10*3/uL (140-440); RDW 13.1 % (11.5-14.5); WBC 11.95 X 10*3/uL (4.50-10.00)
[2022-07-03 11:38] LABS: African American GFR (CKD) 72.7 (60.0-200.0); Anion Gap 13.3 mmol/L (10.00-18.00); Calcium 9.1 mg/dL (8.7-10.3); Carbon Dioxide 22.7 mmol/L (20.0-27.5); Magnesium 2.1 mg/dL (1.5-2.4); Non-African American GFR(CKD) 62.7 (60.0-200.0); Phosphorus 4.4 mg/dL (2.4-5.1); Potassium 4.3 mmol/L (3.5-5.5)
[2022-07-03] MEDS: LACTATED RINGERS 1,000 ML IV SCH (12:31)
[2022-07-03 13:08] VITALS: BMI 48.5
[2022-07-03] MEDS ORDERED: ACETAMINOPHEN TAB 500 MG TAB PO PRN (15:00)
--- NOTE | 2022-07-03 15:36 | P.DS ---
Providers Date of admission: 07/02/22 09:32 Expected date of discharge: 07/03/22 Attending physician: Chanelle Tierney Consults: 07/02/22 10:02 Consult Physician Routine Consulting Provider: [facility] Consult Reason/Comments: TIVA anesthetic for gastric bypass Do you want consulting provider notified?: Yes Primary care physician: Emily Willis Hospital Course: Discharge diagnosis 1. Morbid obesity due to excess calories 2. Body mass index of 57.5, initial 3. Gastroesophageal reflux disease 4. Osteoarthritis of the bilateral knees 5. Generalized anxiety disorder 6. Hypertensive heart disease 7. Depressive disorder 8. Hypothyroidism 9. Hyperlipidemia 10. Neuropathy 11. Rectal bleeding 12. Osteoarthritis of the back 13. Osteoarthritis of the left hip 14. Iron deficiency 15. Vitamin D deficiency 16. Tobacco exposure 17. Steroid-induced leukocytosis Hospital course Boom Byrd is a 52-year-old male who comes with morbid obesity. Patient is status post robotic-assisted laparoscopic Brad-en-Y gastric bypass. Patient tolerated surgery well. Upper GI shows no evidence of leak or obstruction. He is tolerating diet. His pain is controlled. He is having flatus. He has been up and ambulating. He denies any difficulty urinating. He is afebrile. He is stable for discharge. Physician Solar Energy Systems Engineer note has been reviewed by physician. Signing provider agrees with the documented findings, assessment, and plan of care. Patient Condition at Discharge: Stable Plan - Discharge Summary Discharge Rx Participant: Yes New Discharge Prescriptions: New Simethicone 40 mg/0.6 ml Drops [Mylicon Drops] 40 mg PO PCHS PRN #30 ml PRN Reason: Gas Omeprazole [PriLOSEC] 40 mg PO DAILY #30 cap Acetaminophen Tab [Tylenol] 1,000 mg PO Q6HR PRN #30 tablet PRN Reason: Pain atenoloL [Tenormin] 50 mg PO DAILY #30 tab bisacodyL [Dulcolax] 5 mg PO DAILY PRN #10 tab PRN Reason: Constipation Ondansetron Odt [Zofran Odt] 4 mg PO Q8HR PRN #9 tab PRN Reason: Nausea Continue Gabapentin [Neurontin] 400 mg PO BID FLUoxetine HCL [PROzac] 20 mg PO DAILY Enalapril [Vasotec] 10 mg PO DAILY Levothyroxine Sodium [Synthroid] 75 mcg PO DAILY Aspirin 81 mg PO DAILY Discontinued Ergocalciferol [Vitamin D2 (DRISDOL)] 50,000 unit PO KHAN Atenolol/Chlorthalidone [Atenolol/Chlorthalidone 50-25] 1 each PO HS Atorvastatin [Lipitor] 20 mg PO DAILY Discharge Medication List Enalapril [Vasotec] 10 mg PO DAILY 12/03/19 [History] FLUoxetine HCL [PROzac] 20 mg PO DAILY 12/03/19 [History] Gabapentin [Neurontin] 400 mg PO BID 12/03/19 [History] Levothyroxine Sodium [Synthroid] 75 mcg PO DAILY 12/03/19 [History] Aspirin 81 mg PO DAILY 12/20/21 [History] Acetaminophen Tab [Tylenol] 1,000 mg PO Q6HR PRN #30 tablet 07/03/22 [Rx] Omeprazole [PriLOSEC] 40 mg PO DAILY #30 cap 07/03/22 [Rx] Ondansetron Odt [Zofran Odt] 4 mg PO Q8HR PRN #9 tab 07/03/22 [Rx] Simethicone 40 mg/0.6 ml Drops [Mylicon Drops] 40 mg PO PCHS PRN #30 ml 07/03/22 [Rx] atenoloL [Tenormin] 50 mg PO DAILY #30 tab 07/03/22 [Rx] bisacodyL [Dulcolax] 5 mg PO DAILY PRN #10 tab 07/03/22 [Rx] Follow up Appointment(s)/Referral(s): [place], [place] [NON-STAFF] - 07/06/22 9:00 am Activity/Diet/Wound Care/Special Instructions: Liquid diet only for 2 weeks No lifting over 4 pounds in 4 weeks, May Shower. No soaking in bath tubs 2 weeks Please notify your surgeon if you develop nausea and vomiting including new onset of abdominal pain. Continue to use incentive spirometry to prevent pneumonias. Please continue to ambulate at home to prevent blood clots in legs. Follow-up at the bariatric center. May shower. Dressings to be discontinued by surgeon in the office. Drink 64 oz of fluid daily. Start protein shakes on . Notify bariatric center for temp over 101.0, increased pain, drainage from incisions. No straws or carbonated beverages. Liquid diet only. Sugar content should be less than 6 g to avoid dumping syndrome. Take MOM for constipation. CRUSH, OPEN, OR CUT TABLETS LARGER THAN A SIZE OF A TIC TAC Hold on taking vitamins, Lipitor and water pill (chlorthalidone) until seen by surgeon Hold BP meds for systolic Blood pressure less than 120 Discharge Disposition: HOME SELF-CARE
[2022-07-04] MEDS ORDERED: bisacodyL 5 MG TABLET.DR PO PRN (08:00)
--- NOTE | 2022-08-24 21:27 | CDI ---
Documentation Clarification Form Date: 08/24/2022 09:13:56 PM From: Jania Corral Phone: Admit Date: 07/02/2022 09:32:00 AM Patient Name: Boom Byrd Visit Number: [id number] Discharge Date: 07/03/2022 05:59:00 PM ATTENTION: The Clinical Documentation Specialists (CDI) and [facility] Coding Staff appreciate your assistance in clarifying documentation. Please respond to the clarification below the line at the bottom and electronically sign. The CDI & [facility] Coding staff will review the response and follow-up if needed. Please note: Queries are made part of the Legal Health Record. If you have any questions, please contact the author of this message via ITS. Dr. Chanelle Tierney Rectal bleeding is documented per H&P and throughout which may lack sufficient clinical evidence/support in the medical record. Additional clarification is requested. History/Risk Factors: 52yo M, Morbid obesity w BMI 57.5, GERD, OA Víctor knees, back & LT hip, TRACY, HTN dz, HLD, Depressive disorder, Hypothyroidism, Neuropathy, Iron deficiency, Vitamin D deficiency, Hx smoker, Steroid-induced leukocytosis Clinical Indicators: HEMATOLOGIC: Denies any abnormal bleeding or bruising. Treatment: no Please clarify if rectal bleeding is a valid diagnosis? [ ] Yes, rectal bleeding is present as evidence by (additional clinical support): [ X ] No, rectal bleeding is ruled out [ ] Other (please specify diagnosis) [ ] Unable to determine (Template Last Revised: November 2020) [ X ] No, rectal bleeding is ruled out Patient had history of rectal bleeding. KM 08/27/22@1637 MTDD
== END 2022-07-03 17:59 | disposition home or self-care (01) | DRG 621 ==
LOC: 2ORMAIN 09:32 → 4SSUR 15:43
PROVIDERS: ADMIT Surgery Plastic and Reconstructive Surgery; ATTEND Surgery Plastic and Reconstructive Surgery
PROC: 8E0W4CZ Robotic Assisted Procedure of Trunk Region, Percutaneous Endoscopic Approach (ICD-10-PCS; 2022-07-02)
PROC: 0D164ZA Bypass Stomach to Jejunum, Percutaneous Endoscopic Approach (ICD-10-PCS; principal; 2022-07-02 11:00)
DX: E66.01 Morbid (severe) obesity due to excess calories (principal); I11.9 Hypertensive heart disease without heart failure; E03.9 Hypothyroidism, unspecified; F32.A Depression, unspecified; Z68.43 Body mass index [BMI] 50.0-59.9, adult; D72.828 Other elevated white blood cell count; E61.1 Iron deficiency; E78.5 Hyperlipidemia, unspecified; G62.9 Polyneuropathy, unspecified; M17.0 Bilateral primary osteoarthritis of knee; M16.12 Unilateral primary osteoarthritis, left hip; F41.1 Generalized anxiety disorder; K21.9 Gastro-esophageal reflux disease without esophagitis; T38.0X5A Adverse effect of glucocorticoids and synthetic analogues, initial encounter; E55.9 Vitamin D deficiency, unspecified; K40.20 Bilateral inguinal hernia, without obstruction or gangrene, not specified as recurrent; Z96.652 Presence of left artificial knee joint; Z87.891 Personal history of nicotine dependence; Z79.899 Other long term (current) drug therapy; Z79.890 Hormone replacement therapy; Z79.891 Long term (current) use of opiate analgesic; Z79.82 Long term (current) use of aspirin
CPT/HCPCS: 74240; 80051; 82310; 82565; 83735; 84100; 84520; 85025; 86850; 86900; 86901

== ENCOUNTER → 2022-07-25 | Outpatient (CLI) | payer OTHER ==
[2022-07-25 16:23] VITALS: BP 122/80; PULSE 73; TEMP 97.9; BMI 44.4
--- NOTE | 2022-07-25 16:52 | P.BASOAP ---
Subjective Progress Note Date: 07/25/22 He has urinary retention prior to surgery. He denies troubles with his gastric bypass. He has lost over 30 pounds. Ok for walking. No dysphagia. Needs labs. Recommend omeprazole. Omeprazole prescribed Objective - Vital Signs Vital signs: Vital Signs Temp 97.9 F 07/25/22 16:21 Pulse 73 07/25/22 16:21 Resp BP 122/80 07/25/22 16:21 Pulse Ox FiO2 Intake & Output 07/24/22 07/25/22 07/25/22 18:59 06:59 18:59 Weight 134.717 kg Assessment/Plan Plan: Date: 07/25/22 Initial Weight: 160.118 kg Initial BMI: 52.9 Current Weight: 134.717 kg Current BMI: 44.4 Type of Surgery: Total Volume in Band: Previous Volume: Volume Removed: Volume Added: Band Size:
== END | disposition home or self-care (01) ==
LOC: BARWHC3 15:59
PROVIDERS: ATTEND Surgery Plastic and Reconstructive Surgery
DX: Z48.815 Encounter for surgical aftercare following surgery on the digestive system (principal)
CPT/HCPCS: 97803; G0463; 99211

== ENCOUNTER → 2022-07-30 | Outpatient (CLI) | payer OTHER ==
[2022-07-30 10:05] LABS: INR 1.1 (<1.2); Partial Thromboplastin Time 27.9 sec (22.0-30.0); Prothrombin Time 11.4 sec (9.0-12.0)
[2022-07-30 15:15] LABS: Chol/HDL Ratio 4.31 Ratio; LDL Cholesterol,Calculated 102.3 mg/dL (0.0-131.0); Prealbumin 17.4 mg/dL (18.0-42.0)
[2022-07-30 15:31] LABS: HCT 44.4 % (39.6-50.0); HGB 14.6 g/dL (13.0-17.0); MCH 29.3 pg (27.0-32.0); MCHC 32.9 g/dL (32.0-37.0); MCV 89.2 fL (80.0-97.0); Mean Platelet Volume 12.3 fL (9.5-12.2); NRBC Per 100 WBC 0 /100 WBCS (0.0-0.0); Platelet Count 171 X 10*3/uL (140-440); RBC 4.98 X 10*6/uL (4.40-5.60); RDW 13.4 % (11.5-14.5); WBC 4.68 X 10*3/uL (4.50-10.00)
[2022-07-30 16:24] LABS: % Iron Saturation 24.11 (15.00-50.00); ALT 33 U/L (10-49); AST 30 U/L (14-35); Albumin 4.2 g/dL (3.8-4.9); Alkaline Phosphatase 68 U/L (41-126); BUN/Creat Ratio 7.36 Ratio (12.00-20.00); Blood Urea Nitrogen 8.1 mg/dL (9.0-27.0); Calcium 9.6 mg/dL (8.7-10.3); Carbon Dioxide 23.6 mmol/L (20.0-27.5); Chloride 96 mmol/L (96-109); Globulin 2.8 g/dL (1.6-3.3); Glucose 91 mg/dL (70-110); Iron 58 ug/dL (65-175); Magnesium 1.8 mg/dL (1.5-2.4); Non-African American GFR(CKD) 76.8 (60.0-200.0); Phosphorus 3.5 mg/dL (2.4-5.1); Potassium 4.3 mmol/L (3.5-5.5); Sodium 141 mmol/L (135-145); Total Iron Binding Capacity 242 ug/dL (228-460)
[2022-07-31 13:48] LABS: Zinc, Serum 95 ug/dL (60-130)
[2022-08-01 06:52] LABS: Vitamin A 34 ug/dL (38-106)
== END | disposition home or self-care (01) ==
LOC: LABWHC1 08:49
PROVIDERS: ATTEND Surgery Plastic and Reconstructive Surgery
DX: E66.01 Morbid (severe) obesity due to excess calories (principal); D50.8 Other iron deficiency anemias; K91.2 Postsurgical malabsorption, not elsewhere classified; E44.0 Moderate protein-calorie malnutrition; E45 Retarded development following protein-calorie malnutrition; E55.9 Vitamin D deficiency, unspecified; K74.1 Hepatic sclerosis; N19 Unspecified kidney failure; T56.894A Toxic effect of other metals, undetermined, initial encounter; E89.1 Postprocedural hypoinsulinemia; K50.90 Crohn's disease, unspecified, without complications
CPT/HCPCS: 36415; 80053; 80061; 82306; 82525; 82607; 82728; 82746; 83540; 83550; 83735; 83970; 84100; 84134; 84255; 84425; 84443; 84590; 84630; 85027; 85610; 85730

== ENCOUNTER → 2022-10-17 | Outpatient (CLI) | payer OTHER ==
[2022-10-17 15:57] VITALS: BP 136/84; PULSE 66; TEMP 98.1; BMI 36.6
--- NOTE | 2022-10-17 16:43 | P.BASOAP ---
Subjective Progress Note Date: 10/17/22 He is doing well. He has lost 100 pounds. He had dysphagia. He has left upper incisional pain. Follow up as scheduled. Recommend labs. He is off blood pressure medications. Pannus grade 3 Objective - Vital Signs Vital signs: Vital Signs Temp 98.1 F 10/17/22 15:51 Pulse 66 10/17/22 15:51 Resp BP 136/84 10/17/22 15:51 Pulse Ox FiO2 Intake & Output 10/16/22 10/17/22 10/17/22 18:59 06:59 18:59 Weight 110.677 kg Assessment/Plan Plan: Date: 10/17/22 Initial Weight: 160.118 kg Initial BMI: 52.9 Current Weight: 110.677 kg Current BMI: 36.6 Type of Surgery: Total Volume in Band: Previous Volume: Volume Removed: Volume Added: Band Size:
== END ==
LOC: BARWHC3 15:12
PROVIDERS: ATTEND Surgery Plastic and Reconstructive Surgery
DX: E66.01 Morbid (severe) obesity due to excess calories (principal); Z53.9 Procedure and treatment not carried out, unspecified reason
CPT/HCPCS: 97803; G0463; 99211

== ENCOUNTER → 2023-03-11 | Outpatient (CLI) | payer OTHER ==
[2023-03-11 09:26] LABS: Prothrombin Time 10.8 sec (9.0-12.0)
[2023-03-11 16:20] LABS: Blood Urea Nitrogen 18.9 mg/dL (9.0-27.0); Carbon Dioxide 28.2 mmol/L (21.6-31.8); Chloride 107 mmol/L (96-109); Glucose 74 mg/dL (70-110); Sodium 144 mmol/L (135-145)
[2023-03-11 18:14] LABS: RBC 4.25 X 10*6/uL (4.40-5.60); WBC 3.38 X 10*3/uL (4.50-10.00)
[2023-03-11 18:15] LABS: Basophils # (A) 0.02 X 10*3/uL (0.00-0.10); Basophils % (A) 0.6 %; Eosinophils # (A) 0.09 X 10*3/uL (0.04-0.35); Eosinophils % (A) 2.7 %; HCT 40.5 % (39.6-50.0); HGB 12.7 d/dL (12.0-15.0); Lymphocytes # (A) 1.08 X 10*3/uL (0.90-5.00); MCH 29.9 pg (27.0-32.0); MCHC 31.4 d/dL (32.0-37.0); MCV 95.3 FL (80.0-97.0); Mean Platelet Volume 12.3 FL (9.5-12.2); Monocytes # (A) 0.34 X 10*3/uL (0.20-1.00); Monocytes % (A) 10.1 %; NRBC Per 100 WBC 0 X 10*3/uL (0.00-0.01); Neutrophils # (A) 1.84 X 10*3/uL (1.80-7.70); Neutrophils % (A) 54.3 %; Platelet Count 140 X 10*3/uL (140-440); RDW 13.3 % (11.5-14.5)
== END | disposition home or self-care (01) ==
LOC: LABPAT 07:50
PROVIDERS: ATTEND Orthopaedic Surgery
DX: Z01.818 Encounter for other preprocedural examination (principal); Z22.322 Carrier or suspected carrier of Methicillin resistant Staphylococcus aureus; M17.11 Unilateral primary osteoarthritis, right knee; I45.10 Unspecified right bundle-branch block; R94.31 Abnormal electrocardiogram [ECG] [EKG]; R00.1 Bradycardia, unspecified
CPT/HCPCS: 80048; 85025; 85610; 87070; 93005

== ENCOUNTER → 2023-04-15 | Outpatient (CLI) | payer OTHER | END | disposition home or self-care (01) | LOC: LABPAT 08:12 | PROVIDERS: ATTEND Orthopaedic Surgery | DX: Z01.812 Encounter for preprocedural laboratory examination (principal); M17.11 Unilateral primary osteoarthritis, right knee ==

== ENCOUNTER 2023-04-19 07:35 | Day surgery (SDC) | payer OTHER ==
[2023-03-13 08:50] VITALS: BMI 30.7
[2023-04-15 09:40] LABS: Basophils % (A) 1 %; Eosinophils # (A) 0.1 k/uL (0-0.7); Eosinophils % (A) 4 %; HCT 37.7 % (39.0-53.0); HGB 13.1 gm/dL (13.0-17.5); Lymphocytes # (A) 0.9 k/uL (1.0-4.8); Lymphocytes % (A) 30 %; MCH 32.3 pg (25.0-35.0); MCHC 34.6 g/dL (31.0-37.0); MCV 93.4 fL (80.0-100.0); Mean Platelet Volume 9.5; Monocytes # (A) 0.3 k/uL (0-1.0); Monocytes % (A) 8 %; Neutrophils # (A) 1.7 k/uL (1.3-7.7); Neutrophils % (A) 56 %; Platelet Count 119 k/uL (150-450); RBC 4.04 m/uL (4.30-5.90); RDW 13.2 % (11.5-15.5); WBC 3.1 k/uL (3.8-10.6)
[2023-04-15 09:45] LABS: Prothrombin Time 10.3 sec (9.0-12.0)
[2023-04-15 10:02] LABS: African American GFR (CKD) >90 (>60 ml/min/1.73 sqM); Anion Gap 4 mmol/L; Blood Urea Nitrogen 16 mg/dL (9-20); Carbon Dioxide 30 mmol/L (22-30); Chloride 104 mmol/L (98-107); Glucose 86 mg/dL (74-99); Non-African American GFR(CKD) >90 (>60 ml/min/1.73 sqM); Potassium 4.3 mmol/L (3.5-5.1); Sodium 138 mmol/L (137-145)
--- NOTE | 2023-04-18 08:21 | P.HPOR ---
History of Present Illness H&P Date: 04/18/23 Chief Complaint: Right knee pain The patient is a 53-year-old male on disability who presents with progressive right knee pain for the past several years worsening recently. He has pain with weightbearing activities along with locking and giving way. He's tried previous medications in addition to injections with only partial temporary relief. He has lost 150 pounds after a recent gastric procedure. Review of Systems Negative except as in HPI Past Medical History Past Medical History: GERD/Reflux, Hyperlipidemia, Hypertension, Osteoarthritis (OA), Thyroid Disorder Additional Past Medical History / Comment(s): gastric bypass., HTN resolved with wt loss (150#) . History of Any Multi-Drug Resistant Organisms: None Reported Past Surgical History: Bariatric Surgery, Joint Replacement, Orthopedic Surgery Additional Past Surgical History / Comment(s): LEFT KNEE ARTHROSCOPY AND THEN LEFT TKR, CTR TASHI X2, HYDROCELE, PILONIDAL CYST, HEMORRHOIDECTOMY. Brad-en-y Gastric bypass 07-02-22 Past Anesthesia/Blood Transfusion Reactions: No Reported Reaction Past Psychological History: Anxiety Smoking Status: Former smoker Past Alcohol Use History: None Reported Additional Past Alcohol Use History / Comment(s): QUIT SMOKING OVER 15 YRS AGO., HX OF 1-2 PPD Past Drug Use History: None Reported - Past Family History Mother Family Medical History: Cancer Additional Family Medical History / Comment(s): PANCREATIC CANCER Father Family Medical History: Cancer Additional Family Medical History / Comment(s): PROSTATE CANCER Medications and Allergies Home Medications Medication Instructions Recorded Confirmed Type FLUoxetine HCL [PROzac] 20 mg PO DAILY 12/03/19 04/11/23 History Gabapentin [Neurontin] 400 mg PO BID 12/03/19 04/11/23 History Levothyroxine Sodium [Synthroid] 75 mcg PO DAILY 12/03/19 04/11/23 History Tamsulosin HCl [Flomax] 0.4 mg PO DAILY 07/25/22 04/11/23 History Atorvastatin [Lipitor] 40 mg PO HS 03/13/23 04/11/23 History Calcium Citrate 1,200 mg PO DAILY 03/13/23 04/11/23 History Ferrous Sulfate [Feosol] 325 mg PO DAILY 03/13/23 04/11/23 History Multivit,Calc,Min/FA/K1/Lycop 1 each PO DAILY 03/13/23 04/11/23 History [One-A-Day Men's Complete Tab] Nystatin 100,000 Unit/gm Powd 1 applic TOPICAL BID #60 gm 03/13/23 04/11/23 Rx [Mycostatin Powder] Cholecalciferol [Vitamin D3 (125 125 mcg PO DAILY 04/11/23 04/11/23 History Mcg = 5000 Iu)] Omeprazole 40 mg PO DAILY 04/11/23 04/11/23 History Zinc Gluconate [Zinc] 50 mg PO DAILY 04/11/23 04/11/23 History Allergies Allergy/AdvReac Type Severity Reaction Status Date / Time No Known Allergies Allergy Verified 04/11/23 11:40 Physical Examination - Knee right Appearance: effusion Effusion grade: grade 3 Varus alignment in stance: 5 degrees Pain: throughout ROM Gait: limping ROM: extension: -15 degrees ROM: flexion: 100 degrees Crepitus with motion: Yes Strength: extension: 5/5 Strength: flexion: 5/5 Meniscal tests: medial meniscal tests: positive, medial joint line pain: positive Results The patient is a well-developed well-nourished male, approximately 5 foot 9 214 pounds of endomorphic habitus. HEENT exam is nonfocal, neck is supple. He has painless passive motion of his right hip. Straight leg raise is negative. He's tender about the medial joint line of the right knee. He has genu varum alignment. His distal neurovascular appears intact in the right lower extremity. - Labs Labs: H & H 04/15/23 Range/Units 08:53 Hgb 13.1 (13.0-17.5) gm/dL Hct 37.7 L (39.0-53.0) % Coagulation 04/15/23 Range/Units 08:53 INR 1.0 (<1.2) Result Diagrams: 04/15/23 08:53 04/15/23 08:53 - Diagnostic results Knee x-ray: image reviewed (3 views of the right knee obtained the office show severe medial compartment narrowing with subchondral sclerosis and [id number] changes.) Assessment and Plan Assessment: Right knee severe medial compartment osteoarthrosis Plan: I talked with patient at length regarding his condition all treatment options. At this point he remains quite symptomatic despite previous extensive conservative measures. After a thorough discussion he opts to proceed with surgery. We'll plan to proceed with right total knee arthroplasty. We will institute DVT prophylaxis postoperatively. Risks and benefits were discussed at length in layman's terms.
[~2023-04-19 07:35] MED LIST changes: +ACETAMINOPHEN TAB 500 MG TAB PO PRN; -CHLORHEXIDINE GLUCONATE 15 ML CUP MUCOUS MEM PRN; -HYDROmorphone 0.5 MG/0.5 ML SYRINGE IVP PRN; +MELOXICAM 7.5 MG TAB PO PRN; +MIDAZOLAM 2 MG/2 ML VIAL IV PRN; -PANTOPRAZOLE 40 MG/10 ML VIAL IVP PRN; +SCOPOLAMINE 1 MG/72 HR PATCH TRANSDERM ONE; +TRANEXAMIC 1,000 MG/100ML-NACL 1,000 MG in SALINE 1 100ML.BAG IVPB PRN; +VANCOMYCIN 1,500 MG in SODIUM CHLORIDE 0.9% 500 ML 500 ML IVPB PRN; -ceFAZolin 3 GM in SODIUM CHLORIDE 0.9% 100 ML IVPB PRN
[2023-04-19] MEDS: LACTATED RINGERS 1,000 ML IV SCH (08:24)
[2023-04-19 08:30] LABS: Basophils % (A) 1 %; Eosinophils # (A) 0.2 k/uL (0-0.7); Eosinophils % (A) 5 %; HCT 39.6 % (39.0-53.0); HGB 13.7 gm/dL (13.0-17.5); Lymphocytes % (A) 30 %; MCH 31.9 pg (25.0-35.0); MCHC 34.5 g/dL (31.0-37.0); MCV 92.6 fL (80.0-100.0); Monocytes # (A) 0.3 k/uL (0-1.0); Monocytes % (A) 8 %; Neutrophils # (A) 1.8 k/uL (1.3-7.7); Neutrophils % (A) 54 %; Platelet Count 136 k/uL (150-450); RBC 4.28 m/uL (4.30-5.90); RDW 13.2 % (11.5-15.5); WBC 3.3 k/uL (3.8-10.6)
[2023-04-19] MEDS ORDERED: MIDAZOLAM 2 MG/2 ML VIAL IVP ONE (08:40)
[2023-04-19] MEDS ORDERED: fentaNYL (PF) 50 MCG/1 ML VIAL IVP ONE (08:41)
[2023-04-19] MEDS ORDERED: ROPIVACAINE 1,100 MG, SODIUM CHLORIDE 0.9% 500 ML 330 ML, EMPTY PAIN BALL 1 EACH MISCELLANE PRN ×2 (09:02)
--- NOTE | 2023-04-19 09:14 | P.ANPRN ---
Procedure Note - Anesthesia - Nerve Block Performed Right Adductor Canal Infusion Time Out Performed: Yes Date of Procedure: 04/19/23 Procedure Start Time: 08:40 Procedure Stop Time: 08:55 Location of Patient: PreOp Indication: Acute Post-Operative Pain, Requested by Surgeon Sedation Type: Sedate with meaningful contact maintained Preparation: Sterile Prep, Sterile Dressing Position: Supine Catheter: Indwelling Needle Types: On-Q Needle Gauge: 18 Ultrasound used to visualize needle placement: Yes Ultrasound used to observe medication spread: Yes Injectate: 0.5% Ropivacaine (see comment for volume) (15 ml + decadron 2 mg) Blood Aspirated: No Pain Paresthesia on Injection Noted: No Resistance on Injection: Normal Image Stored and Saved: Yes Events: Uneventful and Well Tolerated Right iPack Single Time Out Performed: Yes Date of Procedure: 04/19/23 Procedure Start Time: 08:56 Location of Patient: PreOp Indication: Acute Post-Operative Pain, Requested by Surgeon Sedation Type: Sedate with meaningful contact maintained Preparation: Sterile Prep, Sterile Dressing Position: Left Lateral Catheter: None Needle Types: Facet Needle Gauge: 20 Ultrasound used to visualize needle placement: Yes Ultrasound used to observe medication spread: Yes Injectate: 0.5% Ropivacaine (see comment for volume) (15 ml + decadron 2 mg) Blood Aspirated: No Pain Paresthesia on Injection Noted: No Resistance on Injection: Normal Image Stored and Saved: Yes Events: Uneventful and Well Tolerated
[2023-04-19] MEDS ORDERED: PROPOFOL 10 MG/ML 20 ML VIAL IV ONE (10:30)
[2023-04-19] MEDS ORDERED: fentaNYL (PF) 50 MCG/ML 2 ML AMP ONE (10:30)
[2023-04-19] MEDS ORDERED: DEXAMETHASONE SOD PHOSPHATE 4 MG/ML 1 ML VIAL ONE (10:30)
[2023-04-19] MEDS ORDERED: ROPIVACAINE 5 MG/ML 30 ML VIAL ONE (10:30)
[2023-04-19] MEDS ORDERED: TRANEXAMIC 1,000 MG/100ML-NACL PREMIX BAG ONE (10:30)
[2023-04-19] MEDS ORDERED: HYDROmorphone (PF) 1 MG/ML ONE (10:30)
[2023-04-19] MEDS ORDERED: LIDOCAINE 2% INJ 20 MG/ML (2 ML VIAL) ONE (10:30)
[2023-04-19] MEDS ORDERED: MIDAZOLAM 2 MG/2 ML VIAL ONE (10:30)
[2023-04-19] MEDS ORDERED: SUCCINYLCHOLINE CHLORIDE 200 MG/10 ML VIAL IV ONE (10:30)
[2023-04-19] MEDS ORDERED: ceFAZolin 1,000 MG in SODIUM CHLORIDE 0.9% 1,000 ML IRRIGATION ONE (11:07)
[2023-04-19] MEDS ORDERED: HYDROcodone/APAP 5-325MG 1 EACH TAB PO PRN (12:15)
[2023-04-19] MEDS ORDERED: HYDROmorphone 0.5 MG/0.5 ML SYRINGE IVP PRN (12:15)
[2023-04-19] MEDS ORDERED: MAGNESIUM HYDROXIDE 2,400 MG/30 ML CUP PO PRN (12:15)
[2023-04-19] MEDS ORDERED: NALOXONE 0.4 MG/ML 1 ML VIAL IV PRN (12:15)
--- NOTE | 2023-04-19 12:38 | P.OP ---
Date of Procedure: 04/19/23 Preoperative Diagnosis: Right knee severe tricompartmental osteoarthrosis Postoperative Diagnosis: Same Procedure(s) Performed: Right total knee arthroplastycementedposterior stabilized Implants: Depuy Attune size 7 cemented femoral component, size 6 cemented tibial component, 10 mm articular surface, 35 mm cemented patellar component. This is a posterior stabilized implant. Anesthesia: [facility] Surgeon: Jeremiah Castro Plate Former #1: Adrien Shore Estimated Blood Loss (ml): 50 Pathology: other (Bone fragments) Condition: stable Disposition: PACU Indications for Procedure: The patient's a 53-year-old male who presents with progressive right knee pain secondary osteoarthrosis despite conservative measures. A discussion of the risks and benefits of operative intervention versus continued conservative measures was made with the patient. He opted to proceed with surgery. Operative risks to include infection, neurovascular injury, development of blood clots, fracture, possible component loosening/failure and need for subsequent procedures was discussed. Informed consent was obtained. Operative Findings: As below Description of Procedure: The patient was brought to the operating room, and after induction of spinal anesthesia the right lower extremity was prepped and draped in a normal fashion. The tourniquet was inflated to 270 mm marker. A longitudinal incision extending 3 finger breaths above the superior pole of patella extending to the medial aspect the tibial tubercle was then made. The skin and subcutaneous tissues were divided sharply. Electrocautery was used for hemostasis. A medial parapatellar arthrotomy was performed. The medial soft tissues to include the superficial and deep portions of the medial collateral ligament were elevated subperiosteally. The patella was everted. A portion of the retropatellar fat pad was excised sharply. The anterior cruciate ligament was sacrificed. Blunt retractors were placed. A starting hole was made in the distal femur 1 cm anterior to the posterior cruciate ligament origin. An intramedullary femoral guide was then inserted planning on 5 valgus distal cut with 9 mm distal re section. The cutting block was pinned in place. The distal cut was then made. The posterior referencing sizing guide was utilized. I felt size 7 was most appropriate. 3 of external rotation was built into the system and verified off the trans-epicondylar axis and the posterior condyles. The cutting block was pinned in place. The anterior, posterior, and chamfer cuts then made. Bone fragments were removed. The intercondylar guide was placed and the notch cut was made with a sagittal saw. The bone block was removed in one fragment. The trial component was then placed. There is good anterior to posterior and medial to lateral fit. The distal peg holes were drilled. The trial component was removed. Attention was then paid towards preparing the proximal tibia. An extra medullary guide was utilized in line with the tibial shaft and second metatarsal distally. I planned on 6 mm resection from the medial compartment. The cutting block was pinned in place. The proximal tibial cut was then made. The bone was removed in one fragment. The remnants of the medial and lateral menisci were excised at the capsular junction with electrocautery. The tibia sized most appropriately at size 6. The trial femoral and tibial components were placed along with a 10 mm articular surface. I was able to obtain full flexion and extension with internal and external rotation. After several flexion and extension cycles, the tibial rotation was marked with electrocautery line with the medial one third of the tibial tubercle. Attention was then paid towards preparing the patella. A patella reamer was utilized taking stem to 14 mm of bone stock. A good flush cut was made. The patella sized most appropriately 35 mm. The peg holes were drilled. The trial components placed. I had good patellofemoral tracking with no hands technique. The trial components were then removed. The tibia was prepared in the appropriate rotation with appropriate drill and keel punch. The posterior osteophytes were removed with a curved osteotome. The flexion and extension gaps were checked and felt to be symmetric at 10 mm. A trial components were then removed. The bony surfaces were prepared with pulsatile lavage and dried. The tibial component was then cemented place was fully seated. Excess cement was removed. The femoral component cemented place and was fully seated. Excess cement was removed. The trial 10 mm articular surface was placed and the knee was put in full extension. The patella component was cemented place. After the cement had sufficiently hardened, the knee was again taken through a range of motion. Again I was able to obtain full flexion and extension with varus and valgus stress. The trial 10 mm articular surface was removed and the final one inserted. This was fully seated. Care was taken to avoid any soft tissue interposition. Pulsatile lavage was again utilized. The medial parapatellar arthrotomy was closed with #2 Ethibond suture. The tourniquet was deflated with approximately 60 minutes total tourniquet time. Final hemostasis was obtained with the cautery. There was minimal bleeding therefore a deep drain was not placed. The subcutaneous tissues were reapproximated with interrupted 2-0 Vicryl sutures. The skin was reapproximated with 3-0 subcuticular strata fix suture. Skin tape and adhesive was applied. A sterile dressing was applied. The patient was awoken from sedation and transferred to recovery room in good condition. Blood loss was estimated at 50 mL. No complications were incurred. Sponge and needle counts were correct at the end of the case. Adrien CHRISTINE assisted during the major components of this case to include exposure, bone resection, implantation, and closure.
--- NOTE | 2023-04-19 13:08 | XR ---
EXAMINATION TYPE: XR knee limited RT DATE OF EXAM: 04/19/2023 CLINICAL HISTORY: Postoperative evaluation Two views of the right knee are submitted. Identified are changes of total knee arthroplasty with femoral and tibial components appearing well seated. Postsurgical soft tissue changes are noted. Alignment is anatomic.
[2023-04-19] MEDS: HYDROmorphone 0.5 MG/0.5 ML SYRINGE IVP PRN ×4 (13:17→21:44)
[2023-04-19] MEDS: HYDROcodone/APAP 7.5-325MG 1 EACH TAB PO PRN (15:47)
--- NOTE | 2023-04-19 16:48 | P.CONS ---
History of Present Illness - Reason for Consult Consult date: 04/19/23 - Chief Complaint Medical management - History of Present Illness 53-year-old man with osteoarthritis presented for total elective knee replacement, past medical history includes hypothyroidism, hypertension, hyperlipidemia, BPH. Patient has no complaints at this time. He denies fevers, chills, nausea, vomiting, chest pain, palpitations, syncope, presyncope, cough, dyspnea, abdominal pain, constipation, diarrhea, dysuria, dyschezia, numbness/weakness of extremities. Upon evaluation, patient was afebrile, 125/76, heart rate 66, 98% on room air. CBC shows mild leukopenia and 3.3, low thrombocytopenia to 136, otherwise unremarkable. Basic metabolic panel was unremarkable on 04/15. Knee x-ray shows total knee arthroplasty with femoral and tibial components appearing well- seated. All Systems reviewed and pertinent positives and negatives noted in HPI, all other symptoms are negative Gen: in no apparent distress, resting comfortably in bed Eyes: PERRL, no scleral injection or icterus HENT: normocephalic, atraumatic, good hearing acuity, moist mucous membranes Neck: no tracheal deviation, full range of motion Resp: good air exchange, breathing comfortably with no accessory muscle use, no tactile fremitus CVS: good distal perfusion x 4, no pitting edema GI: soft, NTTP, ND, no hepatosplenomegaly : no suprapubic tenderness, no CVAT, albert catheter not present MSK: no clubbing, no cyanosis, no noted contractures of extremities Skin: no noted rashes, petechiae; temperature of skin is appropriate Neuro: moving all extremities without signs of weakness, CN II-XII intact Psych: cooperative, euthymic mood, insight and judgment intact Labs and imaging as above Assessment: Hypertension Hyperlipidemia BPH Hypothyroidism Plan: Vital signs, labs, imaging reviewed as above Home medications including atorvastatin, ferrous sulfate, gabapentin, levothyroxine, tamsulosin, zinc were continued Pt is full code Past Medical History Past Medical History: GERD/Reflux, Hyperlipidemia, Hypertension, Osteoarthritis (OA), Thyroid Disorder Additional Past Medical History / Comment(s): gastric bypass., HTN resolved with wt loss (150#) . History of Any Multi-Drug Resistant Organisms: None Reported Past Surgical History: Bariatric Surgery, Joint Replacement, Orthopedic Surgery Additional Past Surgical History / Comment(s): LEFT KNEE ARTHROSCOPY AND THEN LEFT TKR, CTR TASHI X2, HYDROCELE, PILONIDAL CYST, HEMORRHOIDECTOMY. Brad-en-y Gastric bypass 07-02-22 Past Anesthesia/Blood Transfusion Reactions: No Reported Reaction Past Psychological History: Anxiety Smoking Status: Former smoker Past Alcohol Use History: None Reported Additional Past Alcohol Use History / Comment(s): QUIT SMOKING OVER 15 YRS AGO., HX OF 1-2 PPD Past Drug Use History: None Reported - Past Family History Mother Family Medical History: Cancer Additional Family Medical History / Comment(s): PANCREATIC CANCER Father Family Medical History: Cancer Additional Family Medical History / Comment(s): PROSTATE CANCER Medications and Allergies Home Medications Medication Instructions Recorded Confirmed Type FLUoxetine HCL [PROzac] 20 mg PO DAILY 12/03/19 04/11/23 History Gabapentin [Neurontin] 400 mg PO BID 12/03/19 04/11/23 History Levothyroxine Sodium [Synthroid] 75 mcg PO DAILY 12/03/19 04/11/23 History Tamsulosin HCl [Flomax] 0.4 mg PO DAILY 07/25/22 04/11/23 History Atorvastatin [Lipitor] 40 mg PO HS 03/13/23 04/11/23 History Calcium Citrate 1,200 mg PO DAILY 03/13/23 04/11/23 History Ferrous Sulfate [Feosol] 325 mg PO DAILY 03/13/23 04/11/23 History Multivit,Calc,Min/FA/K1/Lycop 1 each PO DAILY 03/13/23 04/11/23 History [One-A-Day Men's Complete Tab] Nystatin 100,000 Unit/gm Powd 1 applic TOPICAL BID #60 gm 03/13/23 04/11/23 Rx [Mycostatin Powder] Cholecalciferol [Vitamin D3 (125 125 mcg PO DAILY 04/11/23 04/11/23 History Mcg = 5000 Iu)] Omeprazole 40 mg PO DAILY 04/11/23 04/11/23 History Zinc Gluconate [Zinc] 50 mg PO DAILY 04/11/23 04/11/23 History Allergies Allergy/AdvReac Type Severity Reaction Status Date / Time No Known Allergies Allergy Verified 04/19/23 07:56 Physical Exam Osteopathic Statement: *. No significant issues noted on an osteopathic structural exam other than those noted in the History and Physical/Consult. Vitals: Vital Signs Temp Pulse Pulse Resp BP BP Pulse Ox 04/19/23 16:39 66 125/76 98 04/19/23 16:26 68 125/78 96 04/19/23 16:11 72 127/79 96 04/19/23 15:56 68 131/79 98 04/19/23 15:41 77 123/80 99 04/19/23 15:26 98.3 F 73 18 128/80 97 04/19/23 14:45 64 16 123/78 04/19/23 14:25 67 16 135/78 96 04/19/23 14:07 70 16 129/82 97 04/19/23 13:52 73 16 128/79 100 04/19/23 13:37 72 16 133/82 100 04/19/23 13:22 72 16 127/81 100 04/19/23 13:06 75 16 129/81 99 04/19/23 12:51 72 16 131/83 95 04/19/23 12:36 97.7 F 76 12 131/80 100 04/19/23 09:14 61 16 107/70 99 04/19/23 08:12 97.7 F 63 20 110/63 100 Intake and Output 04/19/23 04/19/23 04/19/23 06:59 14:59 22:59 Intake Total 1101 250 Output Total 50 Balance 1051 250 Intake: IV 1101 250 Output: Estimated Blood Loss 50 Other: Weight 91.9 kg 91.9 kg Results CBC & Chem 7: 04/19/23 08:20 04/15/23 08:53 Labs: Abnormal Lab Results - Last 24 Hours (Table) 04/19/23 Range/Units 08:20 WBC 3.3 L (3.8-10.6) k/uL RBC 4.28 L (4.30-5.90) m/uL Plt Count 136 L (150-450) k/uL
[2023-04-19] MEDS: GABAPENTIN 400 MG CAP PO SCH (20:08)
[2023-04-19] MEDS ORDERED: VANCOMYCIN 1,500 MG in SODIUM CHLORIDE 0.9% 500 ML 500 ML IVPB ONE (21:00)
[2023-04-19] MEDS ORDERED: SENNOSIDES-DOCUSATE SODIUM 1 EACH TAB PO SCH (21:00)
[2023-04-20] MEDS: HYDROcodone/APAP 7.5-325MG 1 EACH TAB PO PRN ×2 (01:18→06:25)
[2023-04-20] MEDS: LACTATED RINGERS 1,000 ML IV SCH (06:18)
--- NOTE | 2023-04-20 07:36 | P.PN ---
Progress Note - Text Progress Note Date: 04/20/23 Patient doing well. Ambulating. Pain 12/17. Adductor catheter site clean and dry. OnQ at 8 ml/hr A/P POD#1 s/p R TKA - continue multimodal analgesia inluding onQ
[2023-04-20 07:40] VITALS: BP 104/65; PULSE 61; TEMP 98.7
[2023-04-20 07:57] LABS: Basophils % (A) 0 %; Eosinophils # (A) 0.1 k/uL (0-0.7); Eosinophils % (A) 1 %; HCT 35.2 % (39.0-53.0); HGB 12.2 gm/dL (13.0-17.5); Lymphocytes # (A) 1.1 k/uL (1.0-4.8); Lymphocytes % (A) 16 %; MCH 32.3 pg (25.0-35.0); MCHC 34.7 g/dL (31.0-37.0); MCV 93.3 fL (80.0-100.0); Mean Platelet Volume 9.4; Monocytes # (A) 0.6 k/uL (0-1.0); Monocytes % (A) 9 %; Neutrophils # (A) 4.6 k/uL (1.3-7.7); Neutrophils % (A) 72 %; Platelet Count 124 k/uL (150-450); RBC 3.78 m/uL (4.30-5.90); RDW 13.2 % (11.5-15.5); WBC 6.4 k/uL (3.8-10.6)
--- NOTE | 2023-04-20 08:02 | P.DS ---
Providers Date of admission: 04/19/23 Expected date of discharge: 04/20/23 Attending physician: Jeremiah Castro Consults: 04/19/23 12:15 Consult Physician Routine Consulting Provider: Mara Terry Consult Reason/Comments: medical management s/p right total knee arthroplasty Do you want consulting provider notified?: Yes Primary care physician: Stated None Hospital Course: Date of admission: 04/19/2023 Date of discharge: 04/20/2023 Admission diagnosis: Right knee osteoarthritis Discharge diagnosis: Same Attending physician: Dr. Castro Surgical procedures: Right total knee arthroplasty Brief history: Patient is a 53-year-old male with a history of progressive primary right knee osteoarthritis. At this point patient has failed conservative treatment measures and has opted to proceed with a elective right total knee arthroplasty. Hospital course: Details of patient's surgery can be found in operative report. Patient tolerated the procedure well and was subsequently transported to orthopedic floor. Patient's orthopeidc and medical care was provided daily. Patient had daily laboratory tests performed for evaluation of overall blood counts. Patient had daily physical therapy to include strengthening range of motion as well as education with walker ambulation. Patient was treated with Xarelto for their postoperative DVT prophylaxis during their inpatient stay. Patient was noted to have a relatively uneventful postoperative course. Patient reported satisfactory pain control with oral pain medications by postoperative day 1. Patient showed satisfactory progress with physical therapy. Patient moved steadily through the program and had no difficulty meeting the goals by postoperative day 1. Given patient's otherwise satisfactory course and having met physical therapy goals, plan is to discharge patient home with health services on postoperative day 1. Discharge condition/disposition: Patient will be discharged home with health services in stable condition. Discharge medications: Instructions are given on resumption of patient's normal daily medications per primary care recommendation, in addition patient will be prescribed [place]; senna; eliquis 2.5 mg BID x 2 weeks. Discharge instructions: 1. Wound care and infection precautions, keep incision dry and covered while showering, no lotions, creams, moisturizers. No soaking, tubs, pools, hottubs. Do not scrub over the incision. 2. Weight-bear as tolerated with walker / cane until follow-up. 3. Ice and elevate when necessary. Do not exceed 20 minutes per hour with ice pack. 4. Utilize compression sleeve until seen at first follow up appointment. 5. Visiting nursing care. 6. Home physical therapy including home CPM. 7. Pain meds and anticoagulants per prescription. 8. Pain medication has potential to cause constipation. Increase oral fluid and fiber intake. Contact primary care provider if you have not had a bowel movement within 48 hours after discharge 9. No anti-inflammatory medication until discussed at first post operative visit, this including Motrin, Aleve, Mobic, Diclofenac. 10. Follow up in office at 2 weeks postop with Aftab Zuniga PA-C / Adrien Shore PA-C 11. Follow up with your primary care doctor 7-10 days after discharge. 12. Contact [facility] with any questions, . Assessment: Right knee osteoarthritis Procedures: Right total knee arthroplasty Patient Condition at Discharge: Good Plan - Discharge Summary Discharge Rx Participant: Yes New Discharge Prescriptions: New Apixaban [Eliquis] 2.5 mg PO BID #60 tab HYDROcodone/APAP 7.5-325MG [[place] 7.5] 1 - 2 each PO Q6HR PRN #36 tab PRN Reason: Pain Sennosides/Docusate Sodium [Senna Plus 8.6-50 mg Softgel] 1 each PO DAILY #20 capsule No Action Gabapentin [Neurontin] 400 mg PO BID FLUoxetine HCL [PROzac] 20 mg PO DAILY Levothyroxine Sodium [Synthroid] 75 mcg PO DAILY Tamsulosin HCl [Flomax] 0.4 mg PO DAILY Ferrous Sulfate [Feosol] 325 mg PO DAILY Nystatin 100,000 Unit/gm Powd [Mycostatin Powder] 1 applic TOPICAL BID #60 gm Cholecalciferol [Vitamin D3 (125 Mcg = 5000 Iu)] 125 mcg PO DAILY Atorvastatin [Lipitor] 40 mg PO HS Calcium Citrate 1,200 mg PO DAILY Multivit,Calc,Min/FA/K1/Lycop [One-A-Day Men's Complete Tab] 1 each PO DAILY Zinc Gluconate [Zinc] 50 mg PO DAILY Omeprazole 40 mg PO DAILY Discharge Medication List FLUoxetine HCL [PROzac] 20 mg PO DAILY 12/03/19 [History] Gabapentin [Neurontin] 400 mg PO BID 12/03/19 [History] Levothyroxine Sodium [Synthroid] 75 mcg PO DAILY 12/03/19 [History] Tamsulosin HCl [Flomax] 0.4 mg PO DAILY 07/25/22 [History] Atorvastatin [Lipitor] 40 mg PO HS 03/13/23 [History] Calcium Citrate 1,200 mg PO DAILY 03/13/23 [History] Ferrous Sulfate [Feosol] 325 mg PO DAILY 03/13/23 [History] Multivit,Calc,Min/FA/K1/Lycop [One-A-Day Men's Complete Tab] 1 each PO DAILY 03/13/23 [History] Nystatin 100,000 Unit/gm Powd [Mycostatin Powder] 1 applic TOPICAL BID #60 gm 03/13/23 [Rx] Cholecalciferol [Vitamin D3 (125 Mcg = 5000 Iu)] 125 mcg PO DAILY 04/11/23 [History] Omeprazole 40 mg PO DAILY 04/11/23 [History] Zinc Gluconate [Zinc] 50 mg PO DAILY 04/11/23 [History] Apixaban [Eliquis] 2.5 mg PO BID #60 tab 04/20/23 [Rx] HYDROcodone/APAP 7.5-325MG [[place]hel 7.5] 1 - 2 each PO Q6HR PRN #36 tab 04/20/23 [Rx] Sennosides/Docusate Sodium [Senna Plus 8.6-50 mg Softgel] 1 each PO DAILY #20 capsule 04/20/23 [Rx] Follow up Appointment(s)/Referral(s): Adrien Shore, KIRK [PHYSICIAN PORTFOLIO ASSISTANT] - 2 Weeks [facility],Equipment [NON-STAFF] - As Needed (Please call [facility] today once home to arrange delivery of the Continuous Passive Motion (CPM) machine. ) [facility], [NON-STAFF] - 1-2 Days ([facility] will call you to schedule your in home nursing and physical therapy visits. ) Patient Instructions/Handouts: Knee Replacement (DC) Activity/Diet/Wound Care/Special Instructions: Orthopedic Discharge Instructions: 1. Wound care and infection precautions, keep incision dry and covered while showering, no lotions, creams, moisturizers. No soaking, pools, hot tubs. Do not scrub over incision. 2. Weight-bear as tolerated with walker / cane until follow-up. 3. Ice and elevate when necessary. Do not exceed 20 minutes per hour with ice pack. 4. Utilize compression sleeve until seen at first follow up appointment. 5. Pain meds and anticoagulants per prescription. 6. Pain medication has potential to cause constipation. Increase oral fluid and fiber intake. Contact primary care provider if you have not had a bowel movement within 48 hours after discharge. 7. No anti-inflammatory medication until discussed at first post operative visit, this including Motrin, Aleve, Mobic, Diclofenac. 8. Follow up in office at 2 weeks postop with Aftab Zuniga PA-C / Adrien Shore PA-C 9. Follow up with your primary care doctor 7-10 days after discharge. 10. Contact [facility] with any questions, . Keep incision clean, dry, intact. While showering, cover fusion tape with Saran. Keep fusion tape on until follow-up appointment in office in 2 weeks Discharge Disposition: HOME WITH HOME HEALTH SERVICES
--- NOTE | 2023-04-20 08:04 | P.PN ---
Subjective Progress Note Date: 04/20/23 Principal diagnosis: Right knee osteoarthritis Patient was seen at bedside this morning lying semirecumbent position. Patient currently rates his knee pain as 4/10. Patient says he has been up walking since surgery yesterday. Patient says he has urinated several times. Patient says he is looking forward to going home today. Patient says he has not yet worked with physical therapy but is looking forward to working with them this morning. Patient denies any other changes. Patient denies chest pain, fever, shortness breath, nausea, vomiting, change in vision, loss of bowel/bladder control Objective - Vital Signs Vital signs: Vital Signs Temp 98.7 F 04/20/23 06:47 Pulse 61 04/20/23 06:47 Resp 18 04/20/23 06:47 BP 104/65 04/20/23 06:47 Pulse Ox 98 04/20/23 06:47 FiO2 Intake & Output 04/19/23 04/20/23 04/20/23 18:59 06:59 18:59 Intake Total 2000 Output Total 50 Balance 195 Weight 91.9 kg Intake: IV 1351 Oral 650 Output: Estimated Blood Loss 50 Other: Voiding Method Toilet # Voids 4 - Exam Right knee: Incision is clean, dry, and intact. The exofin fusion tape is in good condition. There is minimal soft tissue swelling and ecchymosis surrounding the medial and lateral aspects of the incision. Calf is soft, no tenderness with palpation. Plantar flexion, dorsiflexion, EHL, FHL are intact. Sensory exam to light touch throughout the extremity is intact, dorsal pedis pulses 2+. - Labs CBC & Chem 7: 04/20/23 06:55 04/15/23 08:53 Labs: Abnormal Lab Results - Last 24 Hours (Table) 04/19/23 Range/Units 08:20 WBC 3.3 L (3.8-10.6) k/uL RBC 4.28 L (4.30-5.90) m/uL Plt Count 136 L (150-450) k/uL Assessment and Plan Assessment: 1. Right knee osteoarthritis - Postop day #1 status post right total knee arthroplasty Plan: 1. Right knee osteoarthritis - right total knee arthroplasty performed yesterday, 04/19/2023. Patient stable at bedside this morning. Pending physical therapy evaluation, and for discharge home with health services today. 2. Appreciate medical management 3. Pain management - [facility]; gabapentin 4. DVT prophylaxis - xarelto in hospital. Going home with eliquis 5. GI prophylaxis - senna 6. PT/OT -weightbearing as tolerated with walker 7. Encourage incentive spirometer use 8. Discharge planning - discharge home today with health services Time with Patient: Less than 30
[2023-04-20] MEDS ORDERED: RIVAROXABAN 10 MG TAB PO SCH (09:00)
[2023-04-20] MEDS: GABAPENTIN 400 MG CAP PO SCH (09:17)
[2023-04-20 10:18] VITALS: RESP 20
== END 2023-04-20 10:57 | disposition home health service (06) ==
LOC: OR 07:35 → 4SSUR 14:40 → OR 04-20 10:57
PROVIDERS: ATTEND Orthopaedic Surgery
DX: M17.11 Unilateral primary osteoarthritis, right knee (principal); I10 Essential (primary) hypertension; E78.5 Hyperlipidemia, unspecified; K21.9 Gastro-esophageal reflux disease without esophagitis; M19.90 Unspecified osteoarthritis, unspecified site; E07.9 Disorder of thyroid, unspecified; Z98.84 Bariatric surgery status; Z87.891 Personal history of nicotine dependence; Z79.890 Hormone replacement therapy; Z79.899 Other long term (current) drug therapy
CPT/HCPCS: 97161; 64999; 64448; 80048; 85025 ×3; 85610; 73560; 27447; C1713 ×2; C1776; C1751; J2250; J3370; J0330; J1100; J2405; J0690; J3010 ×2; J1170 ×2; J2795; J2704; J2001

== ENCOUNTER → 2023-08-07 | Outpatient (CLI) | payer BC ==
[2023-08-07 15:15] VITALS: BP 110/72; PULSE 59; TEMP 97.6; BMI 30.5
--- NOTE | 2023-08-07 15:34 | P.BASOAP ---
Subjective Progress Note Date: 08/07/23 Pannus of 10+ pounds. Grade 2. On nystatin fo over 6 months. Recommend eval with federal judge. No back doctor. Has shoulder pain. No back pain. Prescribe powder. Goal of 190 pounds and stable weight. Needs nutrition check. Highest 350 pounds. Objective - Vital Signs Vital signs: Vital Signs Temp 97.6 F 08/07/23 15:07 Pulse 59 L 08/07/23 15:07 Resp BP 110/72 08/07/23 15:07 Pulse Ox FiO2 Intake & Output 08/06/23 08/07/23 08/07/23 18:59 06:59 18:59 Weight 92.533 kg Assessment/Plan Plan: Date: 08/07/23 Initial Weight: 160.118 kg Initial BMI: 52.9 Current Weight: 92.533 kg Current BMI: 30.5 Type of Surgery: Total Volume in Band: Previous Volume: Volume Removed: Volume Added: Band Size:
== END ==
LOC: BARWHC3 14:14
PROVIDERS: ATTEND Surgery Plastic and Reconstructive Surgery
DX: Z53.9 Procedure and treatment not carried out, unspecified reason (principal)
CPT/HCPCS: 99211

== ENCOUNTER → 2023-08-23 | Outpatient (CLI) | payer BC ==
[2023-08-23 07:55] LABS: INR 0.9 (<1.2); Partial Thromboplastin Time 25.8 sec (22.0-30.0); Prothrombin Time 10.4 sec (10.0-12.5)
[2023-08-23 10:48] LABS: HCT 40.7 % (39.6-50.0); HGB 13.7 g/dL (13.0-17.0); MCH 30.2 pg (27.0-32.0); MCHC 33.7 g/dL (32.0-37.0); MCV 89.6 FL (80.0-97.0); Mean Platelet Volume 12.1 FL (9.5-12.2); NRBC Per 100 WBC 0 X 10*3/uL (0.00-0.01); Platelet Count 148 X 10*3/uL (140-440); RBC 4.54 X 10*6/uL (4.40-5.60); RDW 13.2 % (11.5-14.5); WBC 4.35 X 10*3/uL (4.50-10.00)
[2023-08-23 11:21] LABS: Prealbumin 19.5 mg/dL (18.0-42.0)
[2023-08-23 11:24] LABS: ALT 33 U/L (10-49); AST 27 U/L (14-35); Albumin 3.8 g/dL (3.8-4.9); Albumin/Globulin Ratio 2.38 Ratio (1.60-3.17); Alkaline Phosphatase 63 U/L (41-126); BUN/Creat Ratio 14.36 Ratio (12.00-20.00); Blood Urea Nitrogen 15.8 mg/dL (9.0-27.0); Carbon Dioxide 25.4 mmol/L (21.6-31.8); Chloride 105 mmol/L (96-109); Chol/HDL Ratio 1.83 Ratio; Globulin 1.6 g/dL (1.6-3.3); Glucose 88 mg/dL (70-110); LDL Cholesterol,Calculated 38.9 mg/dL (0.0-131.0); Magnesium 2.1 mg/dL (1.5-2.4); Phosphorus 3.9 mg/dL (2.4-5.1); Rheumatoid Factor, Qnt <15 IU/mL (0-15); Sodium 140 mmol/L (135-145); Total Bilirubin 0.3 mg/dL (0.3-1.2); Total Protein 5.4 g/dL (6.2-8.2); VLDL Calculation 12.38 mg/dL (5.00-40.00)
== END | disposition home or self-care (01) ==
LOC: LABWHC1 07:05
PROVIDERS: ATTEND Surgery Plastic and Reconstructive Surgery
DX: N53.19 Other ejaculatory dysfunction (principal); M25.50 Pain in unspecified joint; E66.01 Morbid (severe) obesity due to excess calories; D50.8 Other iron deficiency anemias; K91.2 Postsurgical malabsorption, not elsewhere classified; E44.1 Mild protein-calorie malnutrition; E44.0 Moderate protein-calorie malnutrition; E46 Unspecified protein-calorie malnutrition; E55.9 Vitamin D deficiency, unspecified; K74.1 Hepatic sclerosis; N19 Unspecified kidney failure; T56.894A Toxic effect of other metals, undetermined, initial encounter; K50.90 Crohn's disease, unspecified, without complications
CPT/HCPCS: 36415; 80053; 80061; 82306; 82525; 82607; 82746; 83036; 83735; 83970; 84100; 84134; 84255; 84402; 84403; 84425; 84443; 84590; 84630; 85027; 85610; 85730; 86038; 86431

== ENCOUNTER → 2024-01-08 | Outpatient (CLI) | payer BC, OTHER ==
--- NOTE | 2024-01-08 15:32 | P.BASOAP ---
Subjective Progress Note Date: 01/08/24 DATE OF SERVICE: 01/08/24 CHIEF COMPLAINT: Status post gastric bypass HISTORY OF PRESENT ILLNESS: Boom Byrd is a 53-year-old male who comes with lifelong morbid obesity. He is status post gastric bypass July 02, 2022. He is 2 years postop. He presents with severe panniculitis with chronic back pain due to his pannus. He reports chronic skin infections for over 2 to 3 years. He also reports troubles with grooming. He has been using prescribed medicated powders and creams with minimal improvement in recalcitrant symptoms. And seeing the key worker. He has follow-up with a package clerk. His weight has been stable for 6 months. He presents for assessment for panniculectomy. At height of 5 feet 8.75 inches, ideal body weight is 163 pounds. His highest weight is 386 pounds, body mass index 57.5. He comes in 204 pounds. His body mass index is 30.6. Lifetime weight loss 182 pounds. Lifetime percent excess weight loss 82%. He is 41 pounds overweight. PAST MEDICAL HISTORY: 1. Morbid obesity due to excess calories 2. Body mass index of 57.5, initial 3. Gastroesophageal reflux disease 4. Osteoarthritis of the bilateral knees 5. Generalized anxiety disorder 6. Hypertensive heart disease 7. Depressive disorder 8. Hypothyroidism 9. Hyperlipidemia 10. Neuropathy 11. Rectal bleeding 12. Osteoarthritis of the back 13. Osteoarthritis of the left hip PAST SURGICAL HISTORY: 1. Carpal tunnel release 2. Knee arthroscopy 3. Pilonidal cystectomy 4. Hydrocelectomy HOME MEDICATIONS: Home Medications Medication Instructions Recorded Confirmed FLUoxetine HCL [PROzac] 20 mg PO QAM 12/03/19 02/14/24 Gabapentin [Neurontin] 600 mg PO BID 12/03/19 02/14/24 Levothyroxine Sodium [Synthroid] 75 mcg PO QAM 12/03/19 02/14/24 Tamsulosin HCl [Flomax] 0.4 mg PO QAM 07/25/22 02/14/24 Atorvastatin [Lipitor] 40 mg PO HS 03/13/23 02/14/24 Calcium Citrate 1,200 mg PO DAILY 03/13/23 02/14/24 Ferrous Sulfate [Iron (65 MG 325 mg PO DAILY 03/13/23 02/14/24 Elemental)] Multivit,Calc,Min/FA/K1/Lycop 1 each PO DAILY 03/13/23 02/14/24 [One-A-Day Men's Complete Tab] Cholecalciferol [Vitamin D3 (125 125 mcg PO DAILY 04/11/23 02/14/24 Mcg = 5000 Iu)] Omeprazole 40 mg PO QAM 04/11/23 02/14/24 Zinc Gluconate [Zinc] 50 mg PO DAILY 04/11/23 02/14/24 Sennosides/Docusate Sodium [Senna 1 each PO DAILY PRN 11/20/23 02/14/24 Plus 8.6-50 mg Softgel] Previous Rx's Medication Instructions Recorded Nystatin 100,000 Unit/gm Powd 1 applic TOPICAL BID #60 gm 08/07/23 [Mycostatin Powder] HYDROcodone/APAP 5-325MG [[place] 1 tab PO Q6HR PRN 3 Days #12 tab 01/24/24 5-325] Ondansetron Odt [Zofran ODT] 4 mg PO Q8HR PRN #20 tab 01/24/24 Acetaminophen Tab [Tylenol Tab] 1,000 mg PO Q6HR PRN #30 tablet 02/10/24 Simethicone [Gas-X] 125 mg PO AC-TID PRN #20 capsule 02/10/24 ALLERGIES: Allergies Allergy/AdvReac Type Severity Reaction Status Date / Time No Known Allergies Allergy Verified 02/14/24 09:47 SOCIAL HISTORY: Past tobacco use. FAMILY HISTORY: No family history of ulcerative colitis disease or Crohn's disease. Family history of morbid obesity. No lupus in the family. No reports of stomach or esophageal cancer. His mother had the gastric bypass. His mother from cancer. REVIEW OF ORGAN SYSTEMS: CONSTITUTIONAL: At height of 5 feet 8.75 inches, ideal body weight is 163 pounds. His highest weight is 386 pounds, body mass index 57.5. He comes in 349 pounds. His body mass index is 52.1. He is 186 pounds overweight. HEENT: Denies any active troubles with vision or hearing. ENDOCRINE: Denies diabetes. Has hypothyroidism. CARDIOVASCULAR: Denies past reports of palpitations or heart attacks or chest pain. Has hypertensive heart disease. Has hyperlipidemia. RESPIRATORY: Has daytime somnolence. GASTROINTESTINAL: Denies any bright red blood per rectum. No diarrhea. No constipation. Has gastroesophageal reflux disease. GENITOURINARY: Denies bladder urgency. No recent blood in urine MUSCULOSKELETAL: Has lower back pain and joint pain. Has osteoarthritis of the knees. NEURO: No headaches. No seizure disorders. Has neuropathy. PSYCH: Has depression. No suicidal ideation. Has anxiety. RHEUMATOLOGIC: No lupus. No rheumatoid arthritis. HEMATOLOGIC: Denies any abnormal bleeding or bruising. SKIN: No rash. No skin cancer. PHYSICAL EXAM: VITAL SIGNS: Height 5 foot 8.75 inches, weight 349 pounds. BMI 52.0 Vital Signs Temp 97.9 F 01/08/24 15:21 Pulse 72 01/08/24 15:21 Resp 16 01/08/24 15:21 BP 116/71 01/08/24 15:21 Pulse Ox FiO2 GENERAL: Well-developed in no acute distress. HEENT: No scleral icterus. Extraocular movements grossly intact. Hears conversational speech. No nasal drainage. NECK: Supple without lymphadenopathy. CHEST: Nonlabored respirations with equal bilateral excursions. CARDIOVASCULAR: Regular rate and regular rhythm. Distal 2+ pulses. ABDOMEN: Obese, soft, nontender, nondistended. Grade 3 panniculosis. Has prepubic fat. MUSCULOSKELETAL: No clubbing, cyanosis. NEURO: No focal or lateralizing signs. Cranial nerves 2 through 12 grossly within normal limits. PSYCH: Appropriate affect. Alert and oriented to person, place and time. SKIN: Good skin turgor. Well perfused. LABS: Reviewed from August 2023, vitamin D deficiency EKG: Reviewed from March 2023 demonstrates marked sinus bradycardia, right bundle branch block, abnormal EKG. ASSESSMENT: 1. Morbid obesity due to excess calories 2. Body mass index of 57.5 to 30.6 3. Gastroesophageal reflux disease 4. Osteoarthritis of the bilateral knees 5. Generalized anxiety disorder 6. Hypertensive heart disease 7. Depressive disorder 8. Hypothyroidism 9. Hyperlipidemia 10. Neuropathy 11. Rectal bleeding 12. Osteoarthritis of the back 13. Osteoarthritis of the left hip 14. Vitamin D deficiency 15. Status post gastric bypass PLAN: 1. Recommend panniculectomy for chronic panniculitis with concomittant lower back pain and uncontrolled symptoms despite systemic and local treatment including limitation of activities of daily living. Anticipated resection over 10+ pounds described. Panniculectomy should correct functional deficits. 2. Recommend 2 week protein diet for optimal recovery 3. Risks of bleeding, needs for drains, flap failure, infection, need for further surgery were described. He is high risk for kaushal-operative complications with anticipated 10+ pounds skin resection. 4. Inpatient hospitalization also described 5. DVT prophylaxis. 6. Antibiotic prophylaxis 7. Will need correction of all vitamin deficiencies prior to panniculectomy. 8. Extended recovery more than 6-8 weeks described including placement of drains more than 2 weeks reviewed. Objective - Vital Signs Vital signs: Vital Signs Temp 97.9 F 01/08/24 15:21 Pulse 72 01/08/24 15:21 Resp 16 01/08/24 15:21 BP 116/71 01/08/24 15:21 Pulse Ox FiO2 Intake & Output 01/07/24 01/08/24 01/08/24 18:59 06:59 18:59 Weight 92.533 kg Assessment/Plan Plan: Date: 01/08/24 Initial Weight: 160.118 kg Initial BMI: 52.9 Current Weight: 92.533 kg Current BMI: 30.5 Type of Surgery: Brad-en-Y Gastric Bypass Total Volume in Band: Previous Volume: Volume Removed: Volume Added: Band Size:
[2024-01-08 16:05] VITALS: BP 116/71; PULSE 72; RESP 16; TEMP 97.9; BMI 30.5
== END ==
LOC: BARWHC3 15:06
PROVIDERS: ATTEND Surgery Plastic and Reconstructive Surgery
DX: Z01.818 Encounter for other preprocedural examination (principal); E66.01 Morbid (severe) obesity due to excess calories; R94.31 Abnormal electrocardiogram [ECG] [EKG]; K21.9 Gastro-esophageal reflux disease without esophagitis; M17.0 Bilateral primary osteoarthritis of knee; F41.1 Generalized anxiety disorder; I11.9 Hypertensive heart disease without heart failure; F32.A Depression, unspecified; E03.9 Hypothyroidism, unspecified; E78.5 Hyperlipidemia, unspecified; G62.9 Polyneuropathy, unspecified; K62.5 Hemorrhage of anus and rectum; M47.816 Spondylosis without myelopathy or radiculopathy, lumbar region; M16.12 Unilateral primary osteoarthritis, left hip; E55.9 Vitamin D deficiency, unspecified; Z98.84 Bariatric surgery status; Z90.3 Acquired absence of stomach [part of]; Z79.890 Hormone replacement therapy; Z79.899 Other long term (current) drug therapy; Z68.30 Body mass index [BMI] 30.0-30.9, adult; Z87.891 Personal history of nicotine dependence
CPT/HCPCS: 93005; 99211

== ENCOUNTER 2024-01-24 01:49 | Emergency (ER) | payer BC, OTHER ==
[2024-01-24 02:57] LABS: Basophils # (A) 0.1 k/uL (0-0.2); Basophils % (A) 1 %; Eosinophils # (A) 0.2 k/uL (0-0.7); Eosinophils % (A) 3 %; Lymphocytes # (A) 1.3 k/uL (1.0-4.8); Lymphocytes % (A) 22 %; MCH 30.1 pg (25.0-35.0); Mean Platelet Volume 8.6; Monocytes # (A) 0.4 k/uL (0-1.0); Monocytes % (A) 6 %; Neutrophils # (A) 4.1 k/uL (1.3-7.7); Neutrophils % (A) 67 %; Platelet Count 184 k/uL (150-450); RBC 5.64 m/uL (4.30-5.90); RDW 12.8 % (11.5-15.5); WBC 6.1 k/uL (3.8-10.6)
--- NOTE | 2024-01-24 03:08 | ED ---
Abdominal Pain HPI - General Source: patient Mode of arrival: wheelchair Limitations: no limitations <Bryaden Story - Last Filed: 01/24/24 04:57> <Blanche Bradley - Last Filed: 01/31/24 12:23> - General Chief Complaint: Abdominal Pain Stated Complaint: Numbness, ABD Pain Time Seen by Provider: 01/24/24 02:35 - History of Present Illness Initial Comments: 54-year-old male presented to the ED with a chief complaint of abdominal pain. Patient states earlier tonight acute onset of some abdominal pain diffusely. Di d have some associated nausea at onset however at this time is resolved. Also does note some paresthesias of bilateral lower extremities. No changes in bowel or bladder habits. No chest pain or shortness of breath. No fever or chills. No other complaints at this time. (Brayden Story) - Related Data Home Medications Medication Instructions Recorded Confirmed FLUoxetine HCL [PROzac] 20 mg PO DAILY 12/03/19 01/10/24 Gabapentin [Neurontin] 600 mg PO BID 12/03/19 01/10/24 Levothyroxine Sodium [Synthroid] 75 mcg PO DAILY 12/03/19 01/10/24 Tamsulosin HCl [Flomax] 0.4 mg PO DAILY 07/25/22 01/10/24 Atorvastatin [Lipitor] 40 mg PO HS 03/13/23 01/10/24 Calcium Citrate 1,200 mg PO DAILY 03/13/23 01/10/24 Ferrous Sulfate [Feosol] 325 mg PO DAILY 03/13/23 01/10/24 Multivit,Calc,Min/FA/K1/Lycop 1 each PO DAILY 03/13/23 01/10/24 [One-A-Day Men's Complete Tab] Cholecalciferol [Vitamin D3 (125 125 mcg PO DAILY 04/11/23 01/10/24 Mcg = 5000 Iu)] Omeprazole 40 mg PO DAILY 04/11/23 01/10/24 Zinc Gluconate [Zinc] 50 mg PO DAILY 04/11/23 01/10/24 Sennosides/Docusate Sodium [Senna 1 each PO DAILY PRN 11/20/23 01/10/24 Plus 8.6-50 mg Softgel] Previous Rx's Medication Instructions Recorded Nystatin 100,000 Unit/gm Powd 1 applic TOPICAL BID #60 gm 08/07/23 [Mycostatin Powder] HYDROcodone/APAP 5-325MG [[place] 1 tab PO Q6HR PRN 3 Days #12 tab 01/24/24 5-325] Ondansetron Odt [Zofran Odt] 4 mg PO Q8HR PRN #20 tab 01/24/24 Allergies Allergy/AdvReac Type Severity Reaction Status Date / Time No Known Allergies Allergy Verified 01/24/24 01:59 Review of Systems ROS Other: All systems not noted in ROS Statement are negative. <Brayden Story - Last Filed: 01/24/24 04:57> ROS Other: All systems not noted in ROS Statement are negative. <Blanche Bradley - Last Filed: 01/31/24 12:23> ROS Statement: Those systems with pertinent positive or pertinent negative responses have been documented in the HPI. Past Medical History Past Medical History: GERD/Reflux, Hyperlipidemia, Hypertension, Osteoarthritis (OA), Thyroid Disorder Additional Past Medical History / Comment(s): gastric bypass., HTN resolved with wt loss (150#) . History of Any Multi-Drug Resistant Organisms: None Reported Past Surgical History: Bariatric Surgery, Joint Replacement, Orthopedic Surgery Additional Past Surgical History / Comment(s): LEFT KNEE ARTHROSCOPY AND THEN LEFT TKR, CTR TASHI X2, HYDROCELE, PILONIDAL CYST, HEMORRHOIDECTOMY. Brad-en-y Gastric bypass 07-02-22. right total knee replacement 2022 Past Anesthesia/Blood Transfusion Reactions: No Reported Reaction Past Psychological History: Anxiety Smoking Status: Former smoker Past Alcohol Use History: None Reported Past Drug Use History: None Reported - Past Family History Mother Family Medical History: Cancer Additional Family Medical History / Comment(s): PANCREATIC CANCER Father Family Medical History: Cancer Additional Family Medical History / Comment(s): PROSTATE CANCER <Brayden Story - Last Filed: 01/24/24 04:57> General Exam Limitations: no limitations General appearance: alert Eye exam: Present: normal appearance Neck exam: Present: normal inspection Respiratory exam: Present: normal lung sounds bilaterally Cardiovascular Exam: Present: regular rate GI/Abdominal exam: Present: soft (Diffuse abdominal tenderness to palpation. No rebound guarding rigidity. No CVA tenderness to percussion bilaterally. Bowel sounds present.) Neurological exam: Present: alert, oriented X3 Skin exam: Present: warm, dry <JezLailaBrayden - Last Filed: 01/24/24 04:57> Course Vital Signs 01/24/24 01/24/24 01/24/24 01:52 05:41 07:30 Temperature Pulse Rate 60 55 L 62 Respiratory 22 18 16 Rate Blood Pressure 110/53 96/65 119/79 O2 Sat by Pulse 100 99 99 Oximetry 01/24/24 09:16 Temperature 97.9 F Pulse Rate 64 Respiratory 16 Rate Blood Pressure 120/85 O2 Sat by Pulse 100 Oximetry Medical Decision Making - Lab Data Result diagrams: 01/24/24 02:40 01/24/24 02:40 <Brayden Story - Last Filed: 01/24/24 04:57> - Lab Data Result diagrams: 01/24/24 02:40 01/24/24 02:40 <Blanche Bradley - Last Filed: 01/31/24 12:23> - Medical Decision Making Was pt. sent in by a medical professional or institution (, PA, LINING INSERTER, urgent care, hospital, or usp...) When possible be specific @ -No Did you speak to anyone other than the patient for history (EMS, parent, family, police, friend...)? What history was obtained from this source @ -No Did you review nursing and triage notes (agree or disagree)? Why? @ -I reviewed and agree with nursing and triage notes Were old charts reviewed (outside hosp., previous admission, EMS record, old EKG, old radiological studies, urgent care reports/EKG's, usp records)? Report findings @ -No old charts were reviewed Differential Diagnosis (chest pain, altered mental status, abdominal pain women, abdominal pain men, vaginal bleeding, weakness, fever, dyspnea, syncope, headache, dizziness, GI bleed, back pain, seizure, CVA, palpatations, mental health, musculoskeletal)? @ -Differential Abdominal Pain Men: Appendicitis, cholecystitis, diverticulosis, ischemic bowel, pancreatitis, hepatitis, UTI, gastroenteritis, AAA, incarcerated hernia, bowel obstruction, constipation, inflammatory bowel, hepatitis, peptic ulcer disease, splenic infarction, perforated viscus, testicular torsion, this is not meant to be an all-inclusive list EKG interpreted by me (3pts min.). @ -None X-rays interpreted by me (1pt min.). @ -None done CT interpreted by me (1pt min.). @ -Pending U/S interpreted by me (1pt. min.). @ -None done What testing was considered but not performed or refused? (CT, X-rays, U/S, labs)? Why? @ -None What meds were considered but not given or refused? Why? @ -None Did you discuss the management of the patient with other professionals (professionals i.e. DrKathrin, PA, LINING INSERTER, lab, RT, psych nurse, social media strategist, kiln burner, teacher, hydrological technical officer, casework supervisor)? Give summary @ -No Was smoking cessation discussed for >3mins.? @ -No Was critical care preformed (if so, how long)? @ -No Were there social determinants of health that impacted care today? How? (Homelessness, low income, unemployed, alcoholism, drug addiction, transportation, low edu. Level, literacy, decrease access to med. care, penitentiary, rehab)? @ -No Was there de-escalation of care discussed even if they declined (Discuss DNR or withdrawal of care, Hospice)? DNR status @ -No What co-morbidities impacted this encounter? (DM, HTN, Smoking, COPD, CAD, Cancer, CVA, ARF, Chemo, Hep., AIDS, mental health diagnosis, sleep apnea, morbid obesity)? @ -None Was patient admitted / discharged? Hospital course, mention meds given and route, prescriptions, significant lab abnormalities, going to OR and other pert inent info. @ -Pending 54-year-old male presents to the ED with acute onset of diffuse abdominal pain few hours prior to arrival with some associated nausea. Laboratory studies reviewed. Labs including CBC, CMP, amylase, lipase largely unremarkable. Urinalysis is pending at this time. CT abdomen pelvis is pending at this time and case signed out to my attending physician, Dr. Bradley, for further disposition. (Brayden Story) Was patient admitted / discharged? Hospital course, mention meds given and route, prescriptions, significant lab abnormalities, going to OR and other pertinent info. @ -Patient signed out to me pending CT read. CT is read as negative for acute process. Patient does have some abdominal ascites. Some signs concerning for gastroenteritis. Patient reevaluated and states his pain is completely resolved and he wants to go home. He would like something at home for pain in the event that it should return. I did discuss the diagnosis and possible differential. At this time patient is stable for discharge home. Instructed to follow-up with his doctor and return for any new or worsening symptoms Undiagnosed new problem with uncertain prognosis? @ -No Drug Therapy requiring intensive monitoring for toxicity (Heparin, Nitro, Insulin, Cardizem)? @ -No Were any procedures done? @ -No Diagnosis/symptom? @ -Acute abdominal pain Acute, or Chronic, or Acute on Chronic? @ -Acute Uncomplicated (without systemic symptoms) or Complicated (systemic symptoms)? @ -Complicated Side effects of treatment? @ -No Exacerbation, Progression, or Severe Exacerbation? @ -No Poses a threat to life or bodily function? How? (Chest pain, [place], [place], pneumonia, PE, COPD, DKA, ARF, appy, cholecystitis, CVA, Diverticulitis, Homicidal, Suicidal, threat to staff... and all critical care pts) @ -No (Blanche Bradley) - Lab Data Lab Results 01/24/24 01/24/24 01/24/24 Range/Units 02:40 02:40 08:35 WBC 6.1 (3.8-10.6) k/uL RBC 5.64 (4.30-5.90) m/uL Hgb 17.0 (13.0-17.5) gm/dL Hct 53.0 (39.0-53.0) % MCV 94.0 (80.0-100.0) fL MCH 30.1 (25.0-35.0) pg MCHC 32.0 (31.0-37.0) g/dL RDW 12.8 (11.5-15.5) % Plt Count 184 (150-450) k/uL MPV 8.6 Neutrophils % 67 % Lymphocytes % 22 % Monocytes % 6 % Eosinophils % 3 % Basophils % 1 % Neutrophils # 4.1 (1.3-7.7) k/uL Lymphocytes # 1.3 (1.0-4.8) k/uL Monocytes # 0.4 (0-1.0) k/uL Eosinophils # 0.2 (0-0.7) k/uL Basophils # 0.1 (0-0.2) k/uL Sodium 140 (137-145) mmol/L Potassium 4.0 (3.5-5.1) mmol/L Chloride 109 H (98-107) mmol/L Carbon Dioxide 24 (22-30) mmol/L Anion Gap 7 mmol/L BUN 20 (9-20) mg/dL Creatinine 0.82 (0.66-1.25) mg/dL Est GFR (CKD-EPI)AfAm >90 (>60 ml/min/1.73 sqM) Est GFR (CKD-EPI)NonAf >90 (>60 ml/min/1.73 sqM) Glucose 149 H (74-99) mg/dL Calcium 9.1 (8.4-10.2) mg/dL Total Bilirubin 0.6 (0.2-1.3) mg/dL AST 59 (17-59) U/L ALT 64 H (4-49) U/L Alkaline Phosphatase 83 (38-126) U/L Total Protein 6.7 (6.3-8.2) g/dL Albumin 4.2 (3.5-5.0) g/dL Amylase 63 (30-110) U/L Lipase 175 (23-300) U/L Urine Color Yellow Urine Appearance Clear (Clear) Urine pH 6.0 (5.0-8.0) Ur Specific [place] >1.050 H (1.001-1.035) Urine Protein 1+ H (Negative) Urine Glucose (UA) Negative (Negative) Urine Ketones Negative (Negative) Urine Blood Negative (Negative) Urine Nitrite Negative (Negative) Urine Bilirubin Negative (Negative) Urine Urobilinogen <2.0 (<2.0) mg/dL Ur Leukocyte Esterase Negative (Negative) Urine RBC 2 (0-5) /hpf Urine WBC 2 (0-5) /hpf Calcium Oxalate Crystal Rare H (None) /hpf Urine Mucus Occasional H (None) /hpf Disposition <Brayden Story - Last Filed: 01/24/24 04:57> Is patient prescribed a controlled substance at d/c from ED?: Yes When asked, does pt state using other controlled substances?: No If prescribed controlled substance>3 days was MAPS reviewed?: Prescribed <3 Days If opioid is for acute pain is fill amount 7 days or less?: Yes Time of Disposition: 08:47 <Blanche Bradley - Last Filed: 01/31/24 12:23> Clinical Impression: Abdominal pain, Ascites, Enterocolitis Disposition: HOME SELF-CARE Condition: Stable Instructions (If sedation given, give patient instructions): Abdominal Pain (ED) Additional Instructions: Take the medications as directed. If you have any worsening symptoms, return to the emergency department Prescriptions: HYDROcodone/APAP 5-325MG [[place] 5-325] 1 tab PO Q6HR PRN 3 Days #12 tab PRN Reason: Severe Breakthrough Pain Ondansetron Odt [Zofran Odt] 4 mg PO Q8HR PRN #20 tab PRN Reason: Nausea Referrals: Nonstaff,Physician [Primary Care Provider] - 1-2 days Chanelle Tierney MD [STAFF PHYSICIAN] - 1-2 days
[2024-01-24] MEDS: MORPHINE SULFATE 4 MG/ML SYRINGE IVP STA (03:11)
[2024-01-24] MEDS: KETOROLAC 15 MG/ML 1 ML VIAL IVP STA (03:11)
[2024-01-24] MEDS: SODIUM CHLORIDE 0.9% 1,000 ML IV STA (03:12)
[2024-01-24 03:16] LABS: ALT 64 U/L (4-49); African American GFR (CKD) >90 (>60 ml/min/1.73 sqM); Albumin 4.2 g/dL (3.5-5.0); Amylase 63 U/L (30-110); Anion Gap 7 mmol/L; Blood Urea Nitrogen 20 mg/dL (9-20); Calcium 9.1 mg/dL (8.4-10.2); Carbon Dioxide 24 mmol/L (22-30); Chloride 109 mmol/L (98-107); Glucose 149 mg/dL (74-99); Lipase 175 U/L (23-300); Non-African American GFR(CKD) >90 (>60 ml/min/1.73 sqM); Sodium 140 mmol/L (137-145); Total Bilirubin 0.6 mg/dL (0.2-1.3); Total Protein 6.7 g/dL (6.3-8.2)
[2024-01-24 03:19] LABS: AST 59 U/L (17-59); Alkaline Phosphatase 83 U/L (38-126)
[2024-01-24] MEDS: HYDROmorphone 0.5 MG/0.5 ML SYRINGE IVP STA (05:37)
[2024-01-24] MEDS: ACETAMINOPHEN TAB 500 MG TAB PO STA (05:39)
[2024-01-24 07:38] VITALS: RESP 16
--- NOTE | 2024-01-24 08:28 | CT ---
EXAMINATION TYPE: CT abdomen pelvis w con DATE OF EXAM: 01/24/2024 COMPARISON: NONE HISTORY: 54-year-old male with abdominal PAIN IN THE CENTER, HX OF GASTRIC BYPASS JUN 2022 TECHNIQUE: Contiguous axial scanning of the abdomen and pelvis following administration of 100 ml Iso mayte 300 IV contrast. Delayed images through the kidneys and coronal/sagittal reconstructions perform ed. CT DLP: 1396.3 mGycm Automated exposure control for dose reduction was used. FINDINGS: Heart normal size without pericardial effusion. Lung bases clear without pleural effusion. There is a 1.2 cm cyst at the right hepatic dome. Small calcified granuloma mid liver. Portal venous system is patent. No biliary ductal dilatation. Gallbladder, adrenal glands, left kidney, and pancreas show no gross abnormality. Punctate 2 mm nonob structive right renal calculus. There is delayed excretion of contrast from the kidneys. Correlate with kidney function to exclude re nal failure. Postsurgical change of Brad-en-Y gastric bypass. No dilated small bowel. However, some scattered prominent fluid-filled small bowel loops are present throughout other loops show circumferential wall thickening. Marked generalized anasarca change and extensive mesenteric edema along with mild abdominal ascites a nd moderate pelvic ascites. Circumferential wall thickening along the right hemicolon. Prominent liquid stool within the mid to d istal sigmoid colon and rectum. Mild to moderate circumferential bladder wall thickening. Prostate gland mildly enlarged at 4.8 cm wi de. No pelvic lymphadenopathy seen. Bones: Mild multilevel spondylotic changes throughout the visualized spine. IMPRESSION: 1. MARKED GENERALIZED ANASARCA CHANGE WITH MODERATE MESENTERIC EDEMA. MILD ABDOMINAL ASCITES AND MODE RATE PELVIC ASCITES. ETIOLOGY UNCLEAR. FURTHER CLINICAL CORRELATION RECOMMENDED. 2. DIFFUSE SMALL BOWEL WALL THICKENING AND SOME SCATTERED PROMINENT FLUID-FILLED SMALL BOWEL LOOPS. C IRCUMFERENTIAL WALL THICKENING ALONG THE RIGHT SIDE OF THE COLON AND PROMINENT LIQUID STOOL WITHIN TH E DISTAL COLON AND RECTUM. CORRELATE FOR POSSIBLE DIFFUSE ENTEROCOLITIS. 3. STATUS POST BRAD-EN-Y GASTRIC BYPASS. 4. MILD TO MODERATE CIRCUMFERENTIAL BLADDER WALL THICKENING MAY BE CHRONIC FOR THE PATIENT. CORRELATE TO EXCLUDE CYSTITIS.
[2024-01-24 08:51] LABS: Appearance,Urine Clear (Clear); Bilirubin,Urine Negative (Negative); Blood,Urine Negative (Negative); Calcium Oxalate Crystals,Urine Rare /hpf; Color,Urine Yellow; Glucose,Urine (UA) Negative (Negative); Ketones,Urine Negative (Negative); Leukocyte Esterase,Urine Negative (Negative); Mucus,Urine Occasional /hpf; Nitrite,Urine Negative (Negative); Protein,Urine 1+ (Negative); RBC,Urine 2 /hpf (0-5); Urobilinogen,Urine <2.0 mg/dL (<2.0); WBC,Urine 2 /hpf (0-5)
[2024-01-24 08:52] LABS: Specific Gravity,Urine >1.050 (1.001-1.035)
[2024-01-24 09:33] VITALS: BP 120/85; PULSE 64; TEMP 97.9
== END 2024-01-24 09:18 | disposition home or self-care (01) ==
LOC: EC 01:49
DX: R18.8 Other ascites (principal); K52.9 Noninfective gastroenteritis and colitis, unspecified; Z87.891 Personal history of nicotine dependence
CPT/HCPCS: 99284; 96374; 36415; 80053; 82150; 83690; 85025; 81001; 74177; 96375 ×2; J2270; J1885; J1170; Q9967

== ENCOUNTER → 2024-01-29 | Outpatient (CLI) | payer BC, OTHER ==
--- NOTE | 2024-01-29 17:01 | P.BASOAP ---
Subjective Progress Note Date: 01/29/24 He had acute abdominal pain 1 week ago. He has a large bowel movement then still felt ill. No prior abdominal cramps. He had numbess of skin and legs. He vomited and dry heave, Protein reza. Under protein. 75 grans. 50 greams. [id number] Objective - Vital Signs Vital signs: Vital Signs Temp 98 F 01/29/24 16:37 Pulse 60 01/29/24 16:37 Resp 16 01/29/24 16:37 BP 137/80 01/29/24 16:37 Pulse Ox FiO2 Intake & Output 01/28/24 01/29/24 01/29/24 18:59 06:59 18:59 Weight 93.44 kg Assessment/Plan Plan: Date: 01/29/24 Initial Weight: 160.118 kg Initial BMI: 52.9 Current Weight: 93.44 kg Current BMI: 30.9 Type of Surgery: Brad-en-Y Gastric Bypass Total Volume in Band: Previous Volume: Volume Removed: Volume Added: Band Size:
[2024-01-29 17:14] VITALS: BP 137/80; PULSE 60; RESP 16; TEMP 98; BMI 30.9
== END ==
LOC: BARWHC3 16:05
PROVIDERS: ATTEND Surgery Plastic and Reconstructive Surgery
DX: E66.01 Morbid (severe) obesity due to excess calories (principal); R10.12 Left upper quadrant pain; R11.10 Vomiting, unspecified; Z68.30 Body mass index [BMI] 30.0-30.9, adult; Z87.891 Personal history of nicotine dependence; Z98.84 Bariatric surgery status; Z90.3 Acquired absence of stomach [part of]
CPT/HCPCS: 99211

== ENCOUNTER → 2024-02-04 | Outpatient (CLI) | payer BC, OTHER ==
--- NOTE | 2024-02-05 13:29 | US ---
EXAMINATION TYPE: US gallbladder DATE OF EXAM: 02/04/2024 COMPARISON: 01/24/24 CT CLINICAL INDICATION: Male, 54 years old with history of R10.11 right upper quadrant pain; LUQ pain TECHNIQUE: Multiple sonographic images of the right upper quadrant are obtained. FINDINGS: EXAM MEASUREMENTS: Liver Length: 15.1 cm Gallbladder Wall: 0.3 cm CBD: 0.4 cm Right Kidney: 11.9x5.1x5.7 cm PARK MANAGER NOTES: Pancreas: Tail obscured by overlying bowel gas Liver: increased echogenicity. A 1.3 x 1.0 x 1.6 cm cyst is along the diaphragm. Gallbladder: wall upper limits Evidence for sonographic Hardin's sign: No CBD: wnl Right Kidney: No hydronephrosis or masses seen exam limited by bowel gas IMPRESSION: 1. No acute ultrasound abnormality right upper quadrant. 2. Hepatic cyst
== END | disposition home or self-care (01) ==
LOC: RADUSWWP 07:43
PROVIDERS: ATTEND Surgery Plastic and Reconstructive Surgery
DX: K76.89 Other specified diseases of liver (principal)
CPT/HCPCS: 76705

== ENCOUNTER 2024-02-10 10:39 | Day surgery (SDC) | payer BC, OTHER ==
[2024-02-06 10:35] VITALS: BMI 30.2
--- NOTE | 2024-02-10 09:02 | P.GSHP ---
History of Present Illness H&P Date: 02/10/24 CHIEF COMPLAINT: Cholecystitis HISTORY OF PRESENT ILLNESS: The patient is a 54-year-old male who presents with history of epigastric including right upper quadrant abdominal pain over 3 months. He underwent diagnostic studies for the gallbladder. Additionally, patient has had intermittent abdominal pain with history of gastric bypass and risk for internal hernia. He had a normal CT scan for possible obstruction. Patient also reports dysphagia to solid foods. Patient presents for upper en doscopy, lysis of adhesions and cholecystectomy PAST MEDICAL HISTORY: Please see list PAST SURGICAL HISTORY: Please see list MEDICATIONS: Please see list ALLERGIES: Denies. SOCIAL HISTORY: No illicit drug use or recent tobacco use FAMILY HISTORY: Pertinent for gallbladder disease REVIEW OF ORGAN SYSTEMS: CONSTITUTIONAL: No reports of fevers or chills. HEENT: Denies any troubles with the vision or hearing. ENDOCRINE: No reports of hypothyroidism. No diabetes. RESPIRATORY: No recent pneumonias. CARDIOVASCULAR: Denies chest pain or palpitations GI: No blood in stools or constipation. MUSCULOSKELETAL: Has occasional joint pain including back pain. NEURO: No seizure disorders or headaches. No recent stroke. PSYCH: No depression or suicidal ideation. HEMATOLOGIC: No personal or family history of DVTs or pulmonary emboli. PHYSICAL EXAM: VITAL SIGNS: Afebrile vital signs stable GENERAL: Well-developed pleasant male in no acute distress. HEENT: No scleral icterus. Extraocular movements grossly intact. Moist buccal mucosa. NECK: Supple without lymphadenopathy. CHEST: Unlabored respirations. Equal bilateral excursions. CARDIOVASCULAR: Regular rate regular rhythm rhythm. Distal 2+ pulses. ABDOMEN: Soft, nondistended. Tender along the epigastrium and right upper quadrant. MUSCULOSKELETAL: No clubbing, cyanosis, or edema. NEURO : No focal or lateralizing signs. Cranial nerves II-12 within normal limits. PSYCH: Alert and oriented to person, place and time. SKIN: Well perfused. Good skin turgor. ASSESSMENT: 1. Epigastric and right upper quadrant abdominal pain 2. Chronic cholecystitis 3. Dysphagia 4. Internal hernia with history of gastric bypass 5. Intra-abdominal adhesions PLAN: 1. Will need a robotic cholecystectomy possible open. Benefits and risks were described. 2. Heparin for DVT prophylaxis 5000 units. 3. Antibiotic prophylaxis. 4. CBC and CMP on day of procedure 5. Non-narcotic pre and post op pain management reviewed. 6. Indocyanine green for biliary imaging. 7. Lysis of adhesions including intraoperative upper endoscopy described Past Medical History Past Medical History: GERD/Reflux, Hyperlipidemia, Hypertension, Osteoarthritis (OA), Thyroid Disorder Additional Past Medical History / Comment(s): "n/v w/ severe abd pain with gallbladder symptoms"-seen in ER 01-24-24,HTN resolved with wt loss (150#) . History of Any Multi-Drug Resistant Organisms: None Reported Past Surgical History: Bariatric Surgery, Joint Replacement, Orthopedic Surgery Additional Past Surgical History / Comment(s): LEFT KNEE ARTHROSCOPY AND THEN LEFT TKR, CTR TASHI X2, HYDROCELE, PILONIDAL CYST, HEMORRHOIDECTOMY. Brad-en-y Gastric bypass 07-02-22. right total knee replacement 2022 Past Anesthesia/Blood Transfusion Reactions: No Reported Reaction Additional Past Anesthesia/Blood Transfusion Reaction / Comment(s): no hx blood transfusion Smoking Status: Former smoker - Past Family History Mother Family Medical History: Cancer Additional Family Medical History / Comment(s): PANCREATIC CANCER Father Family Medical History: Cancer Additional Family Medical History / Comment(s): PROSTATE CANCER Medications and Allergies Home Medications Medication Instructions Recorded Confirmed Type FLUoxetine HCL [PROzac] 20 mg PO QAM 12/03/19 02/05/24 History Gabapentin [Neurontin] 600 mg PO BID 12/03/19 02/05/24 History Levothyroxine Sodium [Synthroid] 75 mcg PO QAM 12/03/19 02/05/24 History Tamsulosin HCl [Flomax] 0.4 mg PO QAM 07/25/22 02/05/24 History Atorvastatin [Lipitor] 40 mg PO HS 03/13/23 02/05/24 History Calcium Citrate 1,200 mg PO DAILY 03/13/23 02/05/24 History Ferrous Sulfate [Feosol] 325 mg PO DAILY 03/13/23 02/05/24 History Multivit,Calc,Min/FA/K1/Lycop 1 each PO DAILY 03/13/23 02/05/24 History [One-A-Day Men's Complete Tab] Cholecalciferol [Vitamin D3 (125 125 mcg PO DAILY 04/11/23 02/05/24 History Mcg = 5000 Iu)] Omeprazole 40 mg PO QAM 04/11/23 02/05/24 History Zinc Gluconate [Zinc] 50 mg PO DAILY 04/11/23 02/05/24 History Nystatin 100,000 Unit/gm Powd 1 applic TOPICAL BID #60 gm 08/07/23 02/05/24 Rx [Mycostatin Powder] Sennosides/Docusate Sodium [Senna 1 each PO DAILY PRN 11/20/23 02/05/24 History Plus 8.6-50 mg Softgel] HYDROcodone/APAP 5-325MG [[place] 1 tab PO Q6HR PRN 3 Days #12 tab 01/24/24 02/05/24 Rx 5-325] Ondansetron Odt [Zofran Odt] 4 mg PO Q8HR PRN #20 tab 01/24/24 02/05/24 Rx Allergies Allergy/AdvReac Type Severity Reaction Status Date / Time No Known Allergies Allergy Verified 02/05/24 17:59
[~2024-02-10 10:39] MED LIST changes: -ACETAMINOPHEN TAB 500 MG TAB PO PRN; -DEXAMETHASONE SOD PHOSPHATE 4 MG/ML 1 ML VIAL IV ONE; +HYDROmorphone 0.5 MG/0.5 ML SYRINGE IVP PRN; +INDOCYANINE GREEN 25 MG VIAL IV STA; +LIDOCAINE 1% (10MG/ML) FOR IV START INTRADERMA PRN; -MELOXICAM 7.5 MG TAB PO PRN; -ONDANSETRON 4 MG/2 ML VIAL IVP ONE; -SCOPOLAMINE 1 MG/72 HR PATCH TRANSDERM ONE; -TRANEXAMIC 1,000 MG/100ML-NACL 1,000 MG in SALINE 1 100ML.BAG IVPB PRN; -VANCOMYCIN 1,500 MG in SODIUM CHLORIDE 0.9% 500 ML 500 ML IVPB PRN; +fentaNYL (PF) 50 MCG/ML 2 ML AMP IVP PRN
[2024-02-10] MEDS: IV FLUID CONTINUATION 1,000 ML IV ONE (11:04)
[2024-02-10] MEDS: LACTATED RINGERS 1,000 ML IV SCH (11:05)
[2024-02-10] MEDS: ONDANSETRON 4 MG/2 ML VIAL IVP ONE (11:09)
[2024-02-10] MEDS: DEXAMETHASONE SOD PHOSPHATE 4 MG/ML 1 ML VIAL IV ONE (11:09)
[2024-02-10] MEDS: HEPARIN SODIUM,PORCINE 5,000 UNIT/ML 1 ML VIAL SQ STA (13:06)
[2024-02-10] MEDS ORDERED: GLYCOPYRROLATE 0.2 MG/ML 2 ML VIAL ONE (13:57)
[2024-02-10] MEDS ORDERED: NEOSTIGMINE 1 MG/ML 10 ML VIAL ONE (13:57)
[2024-02-10] MEDS ORDERED: ROCURONIUM 10 MG/ML (5 ML VIAL) IV ONE (13:57)
[2024-02-10] MEDS ORDERED: MIDAZOLAM 2 MG/2 ML VIAL ONE (13:57)
[2024-02-10] MEDS ORDERED: fentaNYL (PF) 50 MCG/ML 2 ML AMP ONE (13:57)
[2024-02-10] MEDS ORDERED: LIDOCAINE 1% INJ 10MG/ML (20 ML MDV) ONE (13:57)
[2024-02-10] MEDS ORDERED: PROPOFOL 10 MG/ML 20 ML VIAL IV ONE (13:57)
[2024-02-10] MEDS ORDERED: SUCCINYLCHOLINE CHLORIDE 200 MG/10 ML VIAL IV ONE (13:57)
[2024-02-10] MEDS: LIDOCAINE 2%-EPI 1:100,000 20 ML VIAL SQ ONE (14:21)
[2024-02-10] MEDS: LACTATED RINGERS 1,000 ML IV ONE (14:33)
[2024-02-10 16:36] VITALS: TEMP 98.1
--- NOTE | 2024-02-10 17:15 | P.OP ---
Date of Procedure: 02/10/24 Description of Procedure: SURGEON: MADISYN SHIN MD PREOPERATIVE DIAGNOSES: 1. Chronic cholecystitis 2. Abnormal computed tomography scan with internal hernia 3. History of gastric bypass 4. Dysphagia 5. Upper abdominal pain due to peritoneal adhesions 6. Hyperlipidemia 7. Chronic constipation 8. Iron deficiency anemia 9. Gastroesophageal reflux disease 10. Hypothyroidism 11. Depressive disorder 12. Generalized anxiety disorder POSTOPERATIVE DIAGNOSES: 1. Peritoneal adhesions with internal hernia 2. Sigmoid volvulus with partial large bowel obstruction due to internal hernia 3. History of gastric bypass 4. Dysphagia 5. Upper abdominal pain due to peritoneal adhesions 6. Hyperlipidemia 7. Chronic constipation 8. Iron deficiency anemia 9. Gastroesophageal reflux disease 10. Hypothyroidism 11. Depressive disorder 12. Generalized anxiety disorder OPERATION: 1. Robotic-assisted da Loc Xi laparoscopic with extensive lysis of adhesions over 1 hr 2. Intraoperative esophagogastroduodenoscopy (please see separate operative report) ESTIMATED BLOOD LOSS: 5 mL. SPECIMENS REMOVED: None. COMPLICATIONS: None. OPERATIVE FINDINGS: 1. No ventral hernias identified. 2. Adhesions along the epigastrium, left upper quarant 3. Recurrent Herr defect with incarceration of sigmoid volvulus 4. Complete scarring of jejunojejunostomy mesenteric defect 5. Moderate gaseous distention of sigmoid colon, redundant with sigmoid volvulus reduced 6. Normal terminal ileum and cecum unremarkable. INDICATIONS: The patient is a 54-year-old male who presents with epigastric abdominal pain including left upper quadrant abdominal pain. Prior diagnostic imaging including CT scan demonstrated enteritis and possible internal hernia. Separately, patient reports family history of gallbladder disorder. Multiple diagnostic studies were performed for his gallbladder. Surgical intervention with diagnostic laparoscopy, lysis adhesions, possible cholecystectomy and upper endoscopy were described. Informed consent was obtained. Robotic assisted laparoscopic approach was described. Benefits and risks of the procedure including but not limited to bleeding, infection, injury to the small bowel was described. Informed consent was obtained. DESCRIPTION OF PROCEDURE: Patient was brought to the operating room, placed in supine position. After general induction, the abdomen had been prepped and draped in standard sterile fashion. The robotic da Loc XI system was primed. After a timeout protocol was performed, the patient had been prepped and draped in standard sterile fashion. The robot was docked along the right lateral abdomen. The patient was repositioned in with right side up. Please note prior to docking of the robot; however, a 5 mm 0 degrees laparoscopic trocar entry was performed along the left upper quadrant. The abdomen was insufflated to 15 mmHg pressure which was tolerated well. Diagnostic laparoscopy was performed. Gaseous distention involving the colon including small bowel was identified of the left upper quadrant consistent with location of his pain. Omentum to abdominal wall adhesions were found of the epigastrium. Next, three 8 mm robotic ports were placed along the right lateral abdominal wall. The camera 8-mm port was maintained along mid-lateral abdomen. Please note that the ports were placed at least 10 to 15 cm away from the target anatomy. Instruments including graspers and vessel sealer were interchanged by the engineering inspection assistant. I had sat at the console. No incisional hernia was identified. The small bowel had localized distention within the pelvis involving the mid ileum to jejunum. The small bowel was investigated from the terminal ileum to the ligament of Treitz with finding of moderate distention of the retroperitoneum along the midline demonstrating bowel incarceration along the retroperitoneum. Abnormal adhesions to the jejunojejunostomy was identified and divided. Petersons defect was identified and reopened with his moderate weight loss. The sigmoid colon was found in carcerated and an active volvulus which was reduced. Adhesions along the epigastrium involving omentum to abdominal wall was sharply lysed using vessel sealer. The transverse colon to the yvonne limb with an active internal hernia was lysed using vessel sealer. No herniation of bowel was found along the jejunojejunostomy mesenteric defect. Adhesion of gastrojejunal anastomosis was released. Moderate gaseous distention of sigmoid colon was identified with an active sigmoid volvulus reduced from the internal hernia of the Herr defect. The terminal ileum and cecum was unremarkable. Extensive lysis of adhesions over 1 hr was performed. The Herr defect was oversewn using 2-0 V-Lock. The sigmoid colon was viable with moderate gaseous distention. The small bowel was appropriately decompressed after closure of of internal hernias. The gallbladder was unremarkable for surrounding adhesions of pericholecystic inflammation. Cholecystectomy was abandoned as result of normal findings. The small bowel was viable.The robot was undocked. I went to the head of the bed to perform upper endoscopy. Please see a separate operative report. All pneumoperitoneum instruments were evacuated from the abdominal cavity. The incisions were reapproximated using 4-0 Monocryl in an interrupted subcuticular fashion. Please note along the trocar sites, local anesthetic was placed as a field block prior to insertion of all instruments. Exofin was applied to the skin. At the end of the procedure needle, sponge, and instrument count had been verified correct by the solder technician. The patient was transferred to postanesthesia care unit in stable condition. Plan - Discharge Summary Discharge Rx Participant: No New Discharge Prescriptions: New Acetaminophen Tab [Tylenol Tab] 1,000 mg PO Q6HR PRN #30 tablet PRN Reason: Pain Simethicone [Gas-X] 125 mg PO AC-TID PRN #20 capsule PRN Reason: Pain Continue Gabapentin [Neurontin] 600 mg PO BID FLUoxetine HCL [PROzac] 20 mg PO QAM Levothyroxine Sodium [Synthroid] 75 mcg PO QAM Tamsulosin HCl [Flomax] 0.4 mg PO QAM Ferrous Sulfate [Iron (65 MG Elemental)] 325 mg PO DAILY Cholecalciferol [Vitamin D3 (125 Mcg = 5000 Iu)] 125 mcg PO DAILY Atorvastatin [Lipitor] 40 mg PO HS Calcium Citrate 1,200 mg PO DAILY Multivit,Calc,Min/FA/K1/Lycop [One-A-Day Men's Complete Tab] 1 each PO DAILY Zinc Gluconate [Zinc] 50 mg PO DAILY Omeprazole 40 mg PO QAM Nystatin 100,000 Unit/gm Powd [Mycostatin Powder] 1 applic TOPICAL BID #60 gm Sennosides/Docusate Sodium [Senna Plus 8.6-50 mg Softgel] 1 each PO DAILY PRN PRN Reason: Constipation HYDROcodone/APAP 5-325MG [[place] 5-325] 1 tab PO Q6HR PRN 3 Days #12 tab PRN Reason: Severe Breakthrough Pain Ondansetron Odt [Zofran ODT] 4 mg PO Q8HR PRN #20 tab PRN Reason: Nausea Discharge Medication List FLUoxetine HCL [PROzac] 20 mg PO QAM 12/03/19 [History] Gabapentin [Neurontin] 600 mg PO BID 12/03/19 [History] Levothyroxine Sodium [Synthroid] 75 mcg PO QAM 12/03/19 [History] Tamsulosin HCl [Flomax] 0.4 mg PO QAM 07/25/22 [History] Atorvastatin [Lipitor] 40 mg PO HS 03/13/23 [History] Calcium Citrate 1,200 mg PO DAILY 03/13/23 [History] Ferrous Sulfate [Iron (65 MG Elemental)] 325 mg PO DAILY 03/13/23 [History] Multivit,Calc,Min/FA/K1/Lycop [One-A-Day Men's Complete Tab] 1 each PO DAILY 03/13/23 [History] Cholecalciferol [Vitamin D3 (125 Mcg = 5000 Iu)] 125 mcg PO DAILY 04/11/23 [History] Omeprazole 40 mg PO QAM 04/11/23 [History] Zinc Gluconate [Zinc] 50 mg PO DAILY 04/11/23 [History] Nystatin 100,000 Unit/gm Powd [Mycostatin Powder] 1 applic TOPICAL BID #60 gm 08/07/23 [Rx] Sennosides/Docusate Sodium [Senna Plus 8.6-50 mg Softgel] 1 each PO DAILY PRN 11/20/23 [History] HYDROcodone/APAP 5-325MG [[place] 5-325] 1 tab PO Q6HR PRN 3 Days #12 tab 01/24/24 [Rx] Ondansetron Odt [Zofran ODT] 4 mg PO Q8HR PRN #20 tab 01/24/24 [Rx] Acetaminophen Tab [Tylenol Tab] 1,000 mg PO Q6HR PRN #30 tablet 02/10/24 [Rx] Simethicone [Gas-X] 125 mg PO AC-TID PRN #20 capsule 02/10/24 [Rx] Follow up Appointment(s[facility] [facility] - 02/14/24 9:00 am Patient Instructions/Handouts: Lysis of Abdominal Adhesions (GEN), Constipation (GEN) Activity/Diet/Wound Care/Special Instructions: Use antibacterial soap. No lifting over 10 pounds 2 weeks, February 23January shower. No bathtub soaks or swimming for 2 weeks, February 23 Use ice along incisions for today to prevent swelling. Take tylenol, simethicone scheduled for 3 days for best pain relief Discharge Disposition: HOME SELF-CARE
--- NOTE | 2024-02-10 17:19 | P.PCN ---
Date of Procedure: 02/10/24 Description of Procedure: PREOPERATIVE DIAGNOSES: 1. Epigastric abdominal pain. 2. Dysphagia 3. History of gastric bypass. POSTOPERATIVE DIAGNOSES: 1. Epigastric abdominal pain. 2. Dysphagia 3. History of gastric bypass. PROCEDURE PERFORMED: Esophagogastrojejunoscopy, intraoperative SURGEON: Chanelle Tierney MD ANESTHESIA: GETA INDICATIONS: The patient is a 54-year-old male with prior history of Brad-en-Y gastric bypass. In the last several weeks, he has had dysphagia including epigastric abdominal pain. With his history of Brad-en-Y gastric bypass, upper endoscopy was offered for further evaluation and management. DESCRIPTION: Patient was brought to the endoscopy suite and laid in the left lateral decubitus position. After adequate IV sedation, a bite block was placed. An Olympus gastroscope was passed along the posterior oropharynx down to the distal esophagus where the squamocolumnar junction was unremarkable. The scope was advanced 60 cm from the incisors. No evidence of foreign body was found. No evidence of active gastrojejunal ulcerations were encountered. The anastomosis was widely patent. The GI tract was desufflated. The patient tolerated the procedure well. FINDINGS: 1. No acute gastrojejunal ulceration. 2. No foreign body found along the anastomosis. 3. Widely patent anastomosis PLAN: 1. Upper endoscopy as needed Plan - Discharge Summary Discharge Rx Participant: No New Discharge Prescriptions: New Acetaminophen Tab [Tylenol Tab] 1,000 mg PO Q6HR PRN #30 tablet PRN Reason: Pain Simethicone [Gas-X] 125 mg PO AC-TID PRN #20 capsule PRN Reason: Pain Continue Gabapentin [Neurontin] 600 mg PO BID FLUoxetine HCL [PROzac] 20 mg PO QAM Levothyroxine Sodium [Synthroid] 75 mcg PO QAM Tamsulosin HCl [Flomax] 0.4 mg PO QAM Ferrous Sulfate [Iron (65 MG Elemental)] 325 mg PO DAILY Cholecalciferol [Vitamin D3 (125 Mcg = 5000 Iu)] 125 mcg PO DAILY Atorvastatin [Lipitor] 40 mg PO HS Calcium Citrate 1,200 mg PO DAILY Multivit,Calc,Min/FA/K1/Lycop [One-A-Day Men's Complete Tab] 1 each PO DAILY Zinc Gluconate [Zinc] 50 mg PO DAILY Omeprazole 40 mg PO QAM Nystatin 100,000 Unit/gm Powd [Mycostatin Powder] 1 applic TOPICAL BID #60 gm Sennosides/Docusate Sodium [Senna Plus 8.6-50 mg Softgel] 1 each PO DAILY PRN PRN Reason: Constipation HYDROcodone/APAP 5-325MG [[place] 5-325] 1 tab PO Q6HR PRN 3 Days #12 tab PRN Reason: Severe Breakthrough Pain Ondansetron Odt [Zofran ODT] 4 mg PO Q8HR PRN #20 tab PRN Reason: Nausea Discharge Medication List FLUoxetine HCL [PROzac] 20 mg PO QAM 12/03/19 [History] Gabapentin [Neurontin] 600 mg PO BID 12/03/19 [History] Levothyroxine Sodium [Synthroid] 75 mcg PO QAM 12/03/19 [History] Tamsulosin HCl [Flomax] 0.4 mg PO QAM 07/25/22 [History] Atorvastatin [Lipitor] 40 mg PO HS 03/13/23 [History] Calcium Citrate 1,200 mg PO DAILY 03/13/23 [History] Ferrous Sulfate [Iron (65 MG Elemental)] 325 mg PO DAILY 03/13/23 [History] Multivit,Calc,Min/FA/K1/Lycop [One-A-Day Men's Complete Tab] 1 each PO DAILY 03/13/23 [History] Cholecalciferol [Vitamin D3 (125 Mcg = 5000 Iu)] 125 mcg PO DAILY 04/11/23 [History] Omeprazole 40 mg PO QAM 04/11/23 [History] Zinc Gluconate [Zinc] 50 mg PO DAILY 04/11/23 [History] Nystatin 100,000 Unit/gm Powd [Mycostatin Powder] 1 applic TOPICAL BID #60 gm 08/07/23 [Rx] Sennosides/Docusate Sodium [Senna Plus 8.6-50 mg Softgel] 1 each PO DAILY PRN 11/20/23 [History] HYDROcodone/APAP 5-325MG [[place] 5-325] 1 tab PO Q6HR PRN 3 Days #12 tab 01/24/24 [Rx] Ondansetron Odt [Zofran ODT] 4 mg PO Q8HR PRN #20 tab 01/24/24 [Rx] Acetaminophen Tab [Tylenol Tab] 1,000 mg PO Q6HR PRN #30 tablet 02/10/24 [Rx] Simethicone [Gas-X] 125 mg PO AC-TID PRN #20 capsule 02/10/24 [Rx] Follow up Appointment(s)/Ref[place](s[place] [facility] [place] - 02/14/24 9:00 am Patient Instructions/Handouts: Constipation (GEN), Lysis of Abdominal Adhesions (GEN) Activity/Diet/Wound Care/Special Instructions: Use antibacterial soap. No lifting over 10 pounds 2 weeks, February 23January shower. No bathtub soaks or swimming for 2 weeks, February 23 Use ice along incisions for today to prevent swelling. Take tylenol, simethicone scheduled for 3 days for best pain relief Discharge Disposition: HOME SELF-CARE
[2024-02-10 17:30] VITALS: RESP 16
[2024-02-10 18:01] VITALS: BP 112/74; PULSE 54
== END 2024-02-10 18:14 | disposition home or self-care (01) ==
LOC: OR 10:39
PROVIDERS: ATTEND Surgery Plastic and Reconstructive Surgery
DX: K81.1 Chronic cholecystitis (principal); E03.9 Hypothyroidism, unspecified; D50.9 Iron deficiency anemia, unspecified; E78.5 Hyperlipidemia, unspecified; F32.A Depression, unspecified; F41.1 Generalized anxiety disorder; K46.9 Unspecified abdominal hernia without obstruction or gangrene; I10 Essential (primary) hypertension; K21.9 Gastro-esophageal reflux disease without esophagitis; K56.2 Volvulus; K56.51 Intestinal adhesions [bands], with partial obstruction; M19.90 Unspecified osteoarthritis, unspecified site; Z79.890 Hormone replacement therapy; Z79.899 Other long term (current) drug therapy; Z87.891 Personal history of nicotine dependence; Z98.84 Bariatric surgery status
CPT/HCPCS: 43235; 44180; S2900; 43239

== ENCOUNTER → 2024-02-14 | Outpatient (CLI) | payer BC, OTHER ==
[2024-02-14 09:58] VITALS: BP 120/81; PULSE 52; RESP 14; TEMP 97.8; BMI 30.5
--- NOTE | 2024-02-14 20:21 | P.BASOAP ---
Subjective Progress Note Date: 02/14/24 DATE OF SERVICE: 02/14/24 CHIEF COMPLAINT: Status post gastric bypass HISTORY OF PRESENT ILLNESS: Boom Byrd is a 54-year-old male post gastric bypass in 2021. He is 1.5 years out. Status post lysis of adhesions, closure of internal hernia, reduction of sigmoid volvulus 02/10/2024. He is post op day 4. Abdominal pain has resolved. Findings of internal hernia with sigmoid volvulus discussed. Patient confirms long standing change in bowel habits. Patient had hemorrhoidectomy with colonoscopy 1 year prior to gastric bypass. At height of 5 feet 8.75 inches, ideal body weight is 163 pounds. His highest weight is 386 pounds, body mass index 57.5. He comes in 204 pounds from 341 pounds in 2-years. He has lost 182 pounds lifetime. Lifetime percent excess weight loss 82%. He is 41 pounds overweight. PHYSICAL EXAM: VITAL SIGNS: Height 5 foot 8.75 inches, weight 204 pounds. BMI 30.6 Vital Signs Temp 97.8 F 02/14/24 09:51 Pulse 52 L 02/14/24 09:51 Resp 14 02/14/24 09:51 BP 120/81 02/14/24 09:51 Pulse Ox FiO2 GENERAL: Well-developed in no acute distress. HEENT: No scleral icterus. Extraocular movements grossly intact. Hears conversational speech. No nasal drainage. NECK: Supple without lymphadenopathy. CHEST: Nonlabored respirations with equal bilateral excursions. CARDIOVASCULAR: Regular rate and regular rhythm. Distal 2+ pulses. ABDOMEN: Obese, soft, nontender, nondistended. Incisions clean dry intact. MUSCULOSKELETAL: No clubbing, cyanosis. NEURO: No focal or lateralizing signs. Cranial nerves 2 through 12 grossly within normal limits. PSYCH: Appropriate affect. Alert and oriented to person, place and time. SKIN: Good skin turgor. Well perfused. ASSESSMENT: 1. Morbid obesity due to excess calories 2. Body mass index of 57.5, initial to 30.6 3. Gastroesophageal reflux disease 4. Osteoarthritis of the bilateral knees 5. Generalized anxiety disorder 6. Hypertensive heart disease 7. Depressive disorder 8. Hypothyroidism 9. Hyperlipidemia 10. Neuropathy 11. Rectal bleeding 12. Osteoarthritis of the back 13. Osteoarthritis of the left hip 14. Iron deficiency 15. Vitamin D deficiency 16. Tobacco exposure 17. Status post gastric bypass 18. Sigmoid volvulus 19. Panniculitis PLAN: 1. Options for panniculectomy described. Patient opted to address correction of sigmoid volvulus. 2. SUFLAVE bowel prep given from [facility] office. 3. Follow-up February 25 for postop management. 4. Surgery March 15 for colectomy. 5. March 14 for colon tatto with overnight stay reviewed Objective - Vital Signs Vital signs: Vital Signs Temp 97.8 F 02/14/24 09:51 Pulse 52 L 02/14/24 09:51 Resp 14 02/14/24 09:51 BP 120/81 02/14/24 09:51 Pulse Ox FiO2 Intake & Output 02/14/24 02/14/24 02/15/24 06:59 18:59 06:59 Weight 92.533 kg Assessment/Plan Plan: Date: 02/14/24 Initial Weight: 160.118 kg Initial BMI: 52.9 Current Weight: 92.533 kg Current BMI: 30.5 Type of Surgery: Total Volume in Band: Previous Volume: Volume Removed: Volume Added: Band Size:
== END ==
LOC: BARWHC3 08:32
PROVIDERS: ATTEND Surgery Plastic and Reconstructive Surgery
DX: Z09 Encounter for follow-up examination after completed treatment for conditions other than malignant neoplasm (principal); E66.01 Morbid (severe) obesity due to excess calories; K21.9 Gastro-esophageal reflux disease without esophagitis; M17.0 Bilateral primary osteoarthritis of knee; F41.1 Generalized anxiety disorder; I11.9 Hypertensive heart disease without heart failure; F32.A Depression, unspecified; E03.9 Hypothyroidism, unspecified; E78.5 Hyperlipidemia, unspecified; G62.9 Polyneuropathy, unspecified; K62.5 Hemorrhage of anus and rectum; M47.816 Spondylosis without myelopathy or radiculopathy, lumbar region; M16.12 Unilateral primary osteoarthritis, left hip; E61.1 Iron deficiency; E55.9 Vitamin D deficiency, unspecified; M79.3 Panniculitis, unspecified; K56.2 Volvulus; Z90.3 Acquired absence of stomach [part of]; Z77.22 Contact with and (suspected) exposure to environmental tobacco smoke (acute) (chronic); Z98.84 Bariatric surgery status; Z68.30 Body mass index [BMI] 30.0-30.9, adult; Z79.890 Hormone replacement therapy; Z79.899 Other long term (current) drug therapy; Z87.891 Personal history of nicotine dependence
CPT/HCPCS: 99211

== ENCOUNTER 2024-03-19 10:08 | Inpatient (IN) | payer BC, MEDICARE, OTHER ==
[2024-03-19] MEDS: IV FLUID CONTINUATION 1,000 ML IV ONE ×2 (11:03→12:14)
[2024-03-19] MEDS: LIDOCAINE 1% (10MG/ML) FOR IV START INTRADERMA PRN (11:21)
[2024-03-19] MEDS: LACTATED RINGERS 1,000 ML IV SCH (11:21)
[2024-03-19] MEDS ORDERED: PROPOFOL 10 MG/ML 20 ML VIAL IV ONE (12:25)
[2024-03-19] MEDS ORDERED: Antibiotics per Pharmacy 1 EACH MISC MISCELLANE PRN (12:58)
[2024-03-19] MEDS ORDERED: SIMETHICONE 80 MG CHEWABLE PO PRN (12:59)
[2024-03-19] MEDS ORDERED: HYDROmorphone 1 MG/ML 1 ML SYRINGE IVP PRN (13:01)
--- NOTE | 2024-03-19 13:04 | P.GSHP ---
History of Present Illness H&P Date: 03/19/24 CHIEF COMPLAINT: Sigmoid volvulus HISTORY OF PRESENT ILLNESS: The patient is a 54-year-old male with intermittent abdominal pain with chronic constipation including large bowel obstruction secondary to sigmoid volvulus for over 2 months. He reports change in bowel habits due to his abdominal pain and volvulus. He presents for lower endoscopy with decompression and next day colectomy. PAST MEDICAL HISTORY: Please see list. PAST SURGICAL HISTORY: Please see list. MEDICATIONS: Please see list. ALLERGIES: Please see list. SOCIAL HISTORY: No illicit drug use FAMILY HISTORY: No reports of Crohn disease or ulcerative colitis. REVIEW OF ORGAN SYSTEMS: CONSTITUTIONAL: Denies any fever or chills. HEENT: Denies any trouble with vision or nosebleeds. Resolved difficulty swallowing. LYMPHATIC: The patient denies any lumps and bumps around the neck. ENDOCRINE: Denies any thyroid disorders. RESPIRATORY: Denies pneumonia. Denies any troubles with breathing or dyspnea on exertion. CARDIOVASCULAR: Denies any chest pain, palpitations, or recent heart attacks GASTROINTESTINAL: Has gastroesophageal reflux disease. Has change in bowel habits. Past history of blood in stools. GENITOURINARY: No blood in urine. MUSCULOSKELETAL: Has back pain, stiffness, joint arthritis. NEUROLOGIC: Denies any numbness or tingling along the distal extremities. No seizure disorders or headaches. PSYCHIATRIC: Denies depression or suidical ideation. HEMATOLOGIC: Denies any abnormal bleeding or bruising. PHYSICAL EXAM: VITAL SIGNS: Stable GENERAL: Well-developed pleasant in no acute distress. HEENT: No scleral icterus. Extraocular movements grossly intact. Moist buccal mucosa. NECK: Supple without lymphadenopathy. CHEST: Unlabored respirations. Equal bilateral excursions. CARDIOVASCULAR: Regular rate and rhythm. Distal 2+ pulses. ABDOMEN: Soft, nontender, nondistended. MUSCULOSKELETAL: No clubbing, cyanosis, or edema. NERUO: Cranial nerves II through XII grossly intact PSYCH: Alert and oriented to person place and time. ASSESSMENT: 1. Intermittent large bowel obstruction due to sigmoid volvulus 2. Change in bowel habits 3. History of gastric bypass 4. Hypertensive heart disease with cardiomyopathy. PLAN: 1. Benefits and risks of surgical intervention particular sigmoid volvulus reviewed in detail. Robotic-assisted approach was also described. 2. Enhanced colon recovery program. 3. DVT prophylaxis. 4. Antibiotic prophylaxis. 5. Presurgical colonic decompression for sigmoid volvulus described Past Medical History Past Medical History: GERD/Reflux, Hyperlipidemia, Hypertension, Osteoarthritis (OA), Thyroid Disorder Additional Past Medical History / Comment(s): "n/v w/ severe abd pain with gallbladder symptoms"-seen in ER 01-24-24,HTN resolved with wt loss (150#) . History of Any Multi-Drug Resistant Organisms: None Reported Past Surgical History: Bariatric Surgery, Joint Replacement, Orthopedic Surgery Additional Past Surgical History / Comment(s): LEFT KNEE ARTHROSCOPY AND THEN LEFT TKR, CTR TASHI X2, HYDROCELE, PILONIDAL CYST, HEMORRHOIDECTOMY. Brad-en-y Gastric bypass 07-02-22. right total knee replacement 2022 Past Anesthesia/Blood Transfusion Reactions: No Reported Reaction Additional Past Anesthesia/Blood Transfusion Reaction / Comment(s): no hx blood transfusion Smoking Status: Former smoker - Past Family History Mother Family Medical History: Cancer Additional Family Medical History / Comment(s): PANCREATIC CANCER Father Family Medical History: Cancer Additional Family Medical History / Comment(s): PROSTATE CANCER Medications and Allergies Home Medications Medication Instructions Recorded Confirmed Type FLUoxetine HCL [PROzac] 20 mg PO QAM 12/03/19 03/19/24 History Gabapentin [Neurontin] 600 mg PO BID 12/03/19 03/19/24 History Levothyroxine Sodium [Synthroid] 75 mcg PO QAM 12/03/19 03/19/24 History Tamsulosin HCl [Flomax] 0.4 mg PO QAM 07/25/22 03/19/24 History Atorvastatin [Lipitor] 40 mg PO DAILY 03/13/23 03/19/24 History Calcium Citrate 1,200 mg PO DAILY 03/13/23 03/19/24 History Ferrous Sulfate [Iron (65 MG 325 mg PO HS 03/13/23 03/19/24 History Elemental)] Multivit,Calc,Min/FA/K1/Lycop 1 each PO DAILY 03/13/23 03/19/24 History [One-A-Day Men's Complete Tab] Cholecalciferol [Vitamin D3 (125 125 mcg PO DAILY 04/11/23 03/19/24 History Mcg = 5000 Iu)] Omeprazole 40 mg PO QAM 04/11/23 03/19/24 History Zinc Gluconate [Zinc] 50 mg PO DAILY 04/11/23 03/19/24 History Nystatin 100,000 Unit/gm Powd 1 applic TOPICAL BID #60 gm 08/07/23 03/19/24 Rx [Mycostatin Powder] Sennosides/Docusate Sodium [Senna 1 each PO DAILY PRN 11/20/23 03/19/24 History Plus 8.6-50 mg Softgel] Ondansetron Odt [Zofran ODT] 4 mg PO Q8HR PRN #20 tab 01/24/24 03/19/24 Rx Acetaminophen Tab [Tylenol Tab] 1,000 mg PO Q6HR PRN #30 tablet 02/10/24 03/19/24 Rx Simethicone [Gas-X] 125 mg PO AC-TID PRN #20 capsule 02/10/24 03/19/24 Rx Allergies Allergy/AdvReac Type Severity Reaction Status Date / Time No Known Allergies Allergy Verified 03/19/24 11:32 Surgical - Exam Vital Signs Temp Pulse Resp BP Pulse Ox 98.0 F 56 L 16 123/71 99 03/19/24 11:10 03/19/24 11:10 03/19/24 11:10 03/19/24 11:10 03/19/24 11:10
[2024-03-19] MEDS: metroNIDAZOLE 500 MG TAB PO SCH (13:58)
[2024-03-19] MEDS: NEOMYCIN 500 MG TAB PO SCH (13:58)
[2024-03-19 13:59] LABS: ALT 42 U/L (4-49); AST 44 U/L (17-59); African American GFR (CKD) >90 (>60 ml/min/1.73 sqM); Albumin 4.3 g/dL (3.5-5.0); Alkaline Phosphatase 75 U/L (38-126); Anion Gap 6 mmol/L; Blood Urea Nitrogen 13 mg/dL (9-20); Calcium 9.3 mg/dL (8.4-10.2); Carbon Dioxide 24 mmol/L (22-30); Chloride 109 mmol/L (98-107); Glucose 93 mg/dL (74-99); Non-African American GFR(CKD) >90 (>60 ml/min/1.73 sqM); Potassium 4.2 mmol/L (3.5-5.1); Sodium 139 mmol/L (137-145); Total Bilirubin 0.6 mg/dL (0.2-1.3); Total Protein 6.5 g/dL (6.3-8.2)
[2024-03-19 14:09] LABS: Basophils % (A) 1 %; Eosinophils # (A) 0.1 k/uL (0-0.7); Eosinophils % (A) 2 %; HCT 40.8 % (39.0-53.0); Lymphocytes # (A) 0.7 k/uL (1.0-4.8); Lymphocytes % (A) 18 %; MCH 31.6 pg (25.0-35.0); MCHC 33.4 g/dL (31.0-37.0); MCV 94.7 fL (80.0-100.0); Mean Platelet Volume 9.7; Monocytes # (A) 0.3 k/uL (0-1.0); Monocytes % (A) 7 %; Neutrophils # (A) 2.6 k/uL (1.3-7.7); Neutrophils % (A) 70 %; Platelet Count 130 k/uL (150-450); RBC 4.31 m/uL (4.30-5.90); RDW 13.2 % (11.5-15.5); WBC 3.8 k/uL (3.8-10.6)
[2024-03-19 14:20] LABS: HGB 13.6 gm/dL (13.0-17.5)
[2024-03-19] MEDS: PEG 3350 (420 GM/BTL) + LYTES 4,000 ML BOTTLE PO ONE (15:51)
[2024-03-19] MEDS: SODIUM CHLORIDE 0.9% 2,000 ML IV ONE (15:52)
[2024-03-19] MEDS: SODIUM CHLORIDE 0.9% 1,000 ML IV SCH (17:15)
[2024-03-19] MEDS: TEMAZEPAM 15 MG CAP PO ONE (20:30)
[2024-03-19] MEDS: GABAPENTIN 300 MG CAP PO SCH (20:30)
[2024-03-20] MEDS: LEVOTHYROXINE 75 MCG TAB PO SCH (03:51)
[2024-03-20] MEDS ORDERED: metroNIDAZOLE-NS PMX 500 MG in SALINE 1 100ML.BAG IVPB PRN (05:00)
[2024-03-20 07:54] LABS: Basophils % (A) 1 %; Eosinophils # (A) 0.1 k/uL (0-0.7); Eosinophils % (A) 4 %; HCT 39.5 % (39.0-53.0); Lymphocytes # (A) 0.9 k/uL (1.0-4.8); Lymphocytes % (A) 25 %; MCH 31.6 pg (25.0-35.0); MCV 95.8 fL (80.0-100.0); Mean Platelet Volume 9.1; Monocytes # (A) 0.2 k/uL (0-1.0); Monocytes % (A) 6 %; Neutrophils # (A) 2.3 k/uL (1.3-7.7); Neutrophils % (A) 63 %; Platelet Count 132 k/uL (150-450); RBC 4.12 m/uL (4.30-5.90); RDW 13.2 % (11.5-15.5); WBC 3.6 k/uL (3.8-10.6)
[2024-03-20] MEDS: FLUoxetine HCL 20 MG CAP PO SCH (08:20)
[2024-03-20] MEDS: TAMSULOSIN 0.4 MG CAP.ER.24H PO SCH (08:20)
[2024-03-20] MEDS ORDERED: HYDROmorphone 0.5 MG/0.5 ML SYRINGE IVP PRN (12:55)
[2024-03-20] MEDS ORDERED: MIDAZOLAM 2 MG/2 ML VIAL IV PRN (12:55)
[2024-03-20] MEDS: IV FLUID CONTINUATION 1,000 ML IV ONE (13:13)
[2024-03-20] MEDS: LACTATED RINGERS 1,000 ML IV SCH (13:25)
[2024-03-20] MEDS: ALVIMOPAN 12 MG CAPSULE PO PRN (13:26)
[2024-03-20] MEDS: ACETAMINOPHEN TAB 500 MG TAB PO PRN (13:26)
[2024-03-20] MEDS: DEXAMETHASONE SOD PHOSPHATE 4 MG/ML 1 ML VIAL IVP STA (13:27)
[2024-03-20] MEDS: ONDANSETRON 4 MG/2 ML VIAL IVP PRN (13:27)
[2024-03-20] MEDS: fentaNYL (PF) 50 MCG/ML 2 ML AMP IVP ONE (13:30)
[2024-03-20] MEDS: MIDAZOLAM 2 MG/2 ML VIAL IVP ONE (13:30)
[2024-03-20] MEDS ORDERED: HEPARIN SODIUM,PORCINE 5,000 UNIT/ML 1 ML VIAL ONE (13:45)
[2024-03-20] MEDS ORDERED: fentaNYL (PF) 50 MCG/ML 2 ML AMP ONE (13:45)
[2024-03-20] MEDS ORDERED: LIDOCAINE 1% INJ 10MG/ML (20 ML MDV) ONE (13:45)
[2024-03-20] MEDS ORDERED: GLYCOPYRROLATE 0.2 MG/ML 2 ML VIAL ONE (13:45)
[2024-03-20] MEDS ORDERED: DEXAMETHASONE SOD PHOSPHATE 4 MG/ML 1 ML VIAL ONE (13:45)
[2024-03-20] MEDS ORDERED: NEOSTIGMINE 1 MG/ML 10 ML VIAL ONE (13:45)
[2024-03-20] MEDS ORDERED: ROPIVACAINE 5 MG/ML 30 ML VIAL ONE (13:45)
[2024-03-20] MEDS ORDERED: ROCURONIUM 10 MG/ML (5 ML VIAL) IV ONE (13:45)
[2024-03-20] MEDS ORDERED: HYDROmorphone (PF) 1 MG/ML ONE (13:45)
[2024-03-20] MEDS ORDERED: PROPOFOL 10 MG/ML 20 ML VIAL IV ONE (13:45)
[2024-03-20] MEDS ORDERED: PHENYLEPHRINE-0.9% NACL SYG 1,000 MCG/10 ML SYRINGE ONE (13:45)
[2024-03-20] MEDS ORDERED: SUCCINYLCHOLINE CHLORIDE 200 MG/10 ML VIAL IV ONE (13:45)
[2024-03-20] MEDS: LIDOCAINE 1%-EPI 1:100,000 20 ML VIAL SQ ONE (13:50)
[2024-03-20] MEDS: LACTATED RINGERS 1,000 ML IV ONE (14:50)
[2024-03-20] MEDS ORDERED: NALOXONE 0.4 MG/ML 1 ML VIAL IV PRN (18:29)
[2024-03-20] MEDS ORDERED: BENZOCAINE/MENTHOL LOZENG 1 EACH LOZENGE MUCOUS MEM PRN (18:30)
[2024-03-20] MEDS ORDERED: METOCLOPRAMIDE 5 MG/ML 2 ML VIAL IVP PRN (18:30)
[2024-03-20] MEDS: fentaNYL PCA 500 MCG/50 ML BAG IV SCH (21:53)
[2024-03-20] MEDS: HEPARIN SODIUM,PORCINE 5,000 UNIT/ML 1 ML VIAL SQ SCH (22:06)
[2024-03-20] MEDS: PANTOPRAZOLE 40 MG/10 ML VIAL IVP SCH (22:07)
[2024-03-21] MEDS: ACETAMINOPHEN IV (For NPO) 1,000 MG in EMPTY BAG 1 BAG IVPB SCH (00:47)
[2024-03-21] MEDS: metroNIDAZOLE-NS PMX 500 MG in SALINE 1 100ML.BAG IVPB SCH (00:52)
[2024-03-21] MEDS: ALVIMOPAN 12 MG CAPSULE PO SCH (08:06)
--- NOTE | 2024-03-21 08:12 | P.OP ---
Date of Procedure: 03/20/24 Description of Procedure: SURGEON: MADISYN SHIN MD PREOPERATIVE DIAGNOSES: 1. Sigmoid volvulus with partial large bowel obstruction 2. Upper abdominal pain due to peritoneal adhesions 3. History of gastric bypass 4. Dysphagia 5. Generalized anxiety disorder 6. Hyperlipidemia 7. Chronic constipation 8. Iron deficiency anemia 9. Gastroesophageal reflux disease 10. Hypothyroidism 11. Depressive disorder POSTOPERATIVE DIAGNOSES: 1. Sigmoid volvulus with partial large bowel obstruction 2. Upper abdominal pain due to peritoneal adhesions 3. History of gastric bypass 4. Dysphagia 5. Generalized anxiety disorder 6. Hyperlipidemia 7. Chronic constipation 8. Iron deficiency anemia 9. Gastroesophageal reflux disease 10. Hypothyroidism 11. Depressive disorder OPERATION: 1. Robotic-assisted daVinci Xi sigmoid colectomy with low anterior resection using 29 mm Ethicon powered stapler 2. Intraoperative colonoscopy used for sigmoidoscopy Anesthesia: GETA, local, regional Estimated Blood Loss (ml): 20 Pathology: 1. Sigmoid colon 2. EEA donuts 3. Proximal colotomy Condition: stable Disposition: floor COMPLICATIONS: None. Operative Findings: 1. Redundant sigmoid colon and active sigmoid volvulus without bowel ischemia 2. Anastomosis with EEA stapler 29 mm 3. No tension or torsion along the anastomosis 4. Doughnuts thick and both sides and viable 5. Moderately redundant sigmoid colon without tension at anastomosis 6. Negative leak test with viable anastomosis. INDICATIONS: The patient is a 54-year-old male who presents with sigmoid volvulus. Benefits and risks of surgical intervention was described in detail including infection, injury to the ureter, colostomy creation, possibility for additional surgery was discussed at length. Informed consent was obtained. All questions of the patient and family were answered. DESCRIPTION: Earlier the patient had undergone a bowel prep using the enhanced colon recovery program. The patient was transferred to the operating room and placed supine. After general induction, the abdomen was prepped and draped in standard sterile fashion. Ioban was placed along the abdomen to minimize any contamination of skin floor. A Moscoso catheter was placed. After a timeout protocol was performed, attention was then brought to the left upper quadrant whereby a 0 degree 5 mm laparoscopic trocar entry was performed. The abdominal cavity was entered and insufflated to 15 mmHg pressure, which was tolerated well. Diagnostic laparoscopy confirmed moderately redundant sigmoid colon and active sigmoid volvulus. The small bowel was unremarkable. Next a robotic 12-mm trocar was placed along the right lateral abdominal wall 20 cm superior from the pelvis. Two 8 mm ports were placed along the upper abdomen. Ports were placed 10 cm apart from each other including 20 cm away from the target anatomy of the left pelvis. The 12-mm port was exchanged for an 8 mm robotic port at the left upper quadrant. The robot was docked along the left lateral abdomen. The patient was positioned in steep Trendelenburg position at 14-degrees. Using atraumatic graspers and vessel sealer, the robotic system was docked and primed as described. Instruments were interchanged by the embroidery assistant including hook cautery, needle catering driver, robotic stapler and vessel sealer. The robot stapler was prepared along the right lateral abdominal wall. The stapler 12-mm port was arranged along the right lateral abdominal wall. Next, attention was brought to identify the sigmoid colon. A stay suture using 3- 0 silk was placed along the anterior serosa of the redundant sigmoid colon. The sigmoid mesentery was mobilized using a vessel sealer whereby the descending colon was marked and tagged. Using multiple fires of the robot stapler 60 mm green load, the proximal sigmoid colon was divided. The mesentery of the sigmoid colon was mobilized towards the pelvic brim and sacral promontory using a vessel sealer. The sigmoid volvulus was reduced with viable colon. Next, the sigmoid colon was divided using the robotic stapler 60 mm black staple loads. The rest of the sigmoid colon mesentery was mobilized using vessel sealer. Additionally, the sigmoid colon was mobilized onto the colon to minimize injury to the ureters. I went to the foot of the bed to confirm sizers and placement of 29-mm Ethicon powered stapler. I re-scrubbed into the case. The robotic arms were temporarily undocked. A 29-mm anvil was placed with a 3-0 silk sutured at the tip of the anvil tipple supervisor. Then the anvil was placed via the left upper quadrant 12 mm port. All robotic arms were re-docked. I went back to the console. The staple line was opened using cautery. The anvil was entered into the proximal descending colon. The colotomy was closed using 60 mm green load. Next, the sharp tip of the anvil tipple supervisor was brought through the staple line. The anvil tipple supervisor was removed from the abdomen using empty clip appliers. I went to the foot of the bed to place the powered Ethicon 29 mm stapler via the rectum. The anvil and stapler were mated for 1 minute. The doughnuts were intact on both sides and thick. An intraoperative leak test was performed as I inserted the colonoscope to the anastomosis. Endoscopic images were obtained. Irrigation was placed in the pelvis and no air leaks were identified. Irrigation fluid was aspirated from the pelvis until dry. I went back to the console. All sponges and needles were removed from the abdominal cavity. The robot was undocked. I re-scrubbed into the case. Via the left upper quadrant port, the sigmoid colon was removed using 15 mm Endo Catch bag. All sponges were removed from the abdominal cavity. The left upper quadrant incision was widened to 3-cm. No contamination had occurred throughout the case. The fascial defect was oversewn using 0 Vicryl and a Nelson Enrique. Next all pneumoperitoneum was evacuated from the abdominal cavity. The 8-mm trocar sites were reapproximated using 4-0 Monocryl in an interrupted subcuticular fashion. Local anesthetic was infiltrated to all wounds for postop analgesia. All incisions were also cleansed with diluted hydrogen peroxide. Optifoam surgical dressing was placed over the colon extraction site. Liquid glue was applied to the rest of the skin incisions. The patient had tolerated the procedure well. The patient was extubated successfully. The patient was transferred to the postanesthesia care unit in stable condition. Intraoperative findings were described in detail to the patient's family.
[2024-03-21 08:41] VITALS: BP 120/78; RESP 16; TEMP 98.4
[2024-03-21 08:50] VITALS: PULSE 52
--- NOTE | 2024-03-21 09:04 | P.PCN ---
Date of Procedure: 03/19/24 Description of Procedure: PREOPERATIVE DIAGNOSIS: Sigmoid volvulus POSTOPERATIVE DIAGNOSIS: Sigmoid volvulus OPERATION: Colonoscopy to the ascending colon SURGEON: Chanelle Tierney MD. ANESTHESIA: MAC. INDICATIONS: The patient is a 54-year-old male who presents with sigmoid volvulus. Benefits and risks were described and informed consent was obtained. DESCRIPTION OF PROCEDURE: The patient had undergone SuFLAVE prep. The patient had been brought into the operating room and laid in the left lateral decubitus position. After adequate intravenous sedation, the rectum was examined with 2% lidocaine jelly. No external hemorrhoids were encountered. The rectal tone was within normal limits. No lesions were palpated in the rectal vault. An Olympus colonoscope was advanced over highly redundant sigmoid colon from sigmoid volvulus was identified. Abdominal wall pressure was used to advance the scope. The scope was advanced to the distal ascending colon without complete view of the cecum. The prep was excellent. No scattered diverticulosis was encountered. No colonic polyps were found. No evidence of focal colitis was found. Retroflexion of the scope demonstrated grade 1 internal hemorrhoids without active bleeding or inflammation. The colon was desufflated. The patient had tolerated the procedure well. Withdrawal time was over 6 minutes. FINDINGS: Aronchick preparation quality scale 1 (1-5) Internal hemorrhoids, grade 1 No external prolapsed hemorrhoids. No arteriovenous malformations. No adenomatous polyps. No focal colitis. Sigmoid volvulus Colonoscope advanced to the distal ascending colon RECOMMENDATIONS: 1. Patient has symptomatic sigmoid volvulus and recommend sigmoid colectomy via robotic assisted approach, low anterior resection 2. Inpatient admission advised
--- NOTE | 2024-03-25 22:48 | P.DS ---
Providers Date of admission: 03/19/24 10:34 Expected date of discharge: 03/21/24 Attending physician: Chanelle Tierney Primary care physician: Gerber Griffith [place] [facility] Course: POSTOPERATIVE DIAGNOSES: 1. Sigmoid volvulus with partial large bowel obstruction 2. Upper abdominal pain due to peritoneal adhesions 3. History of gastric bypass 4. Dysphagia 5. Generalized anxiety disorder 6. Hyperlipidemia 7. Chronic constipation 8. Iron deficiency anemia 9. Gastroesophageal reflux disease 10. Hypothyroidism 11. Depressive disorder COURSE: The patient is a 54-year-old gentleman who presented with sigmoid volvulus and intermittent bowel obstruction. Patient had undergone colonoscopy for endoscopic assessment and decompression of sigmoid volvulus. He then had a low anterior resection with sigmoid colectomy. Pain management with regional block was performed. Patient was seen by covering surgeon where patient was deemed stable for discharge. Patient's pain control has been adequate with close follow-up as outpatient the bariatric center described previously. Colectomy diet including avoid seeds for 4 weeks also reviewed. Procedures: OPERATION: 1. Robotic-assisted daVinci Xi sigmoid colectomy with low anterior resection using 29 mm Ethicon powered stapler 2. Intraoperative colonoscopy used for sigmoidoscopy Anesthesia: GETA, local, regional Estimated Blood Loss (ml): 20 Pathology: 1. Sigmoid colon 2. EEA donuts 3. Proximal colotomy Condition: stable Disposition: floor COMPLICATIONS: None. Operative Findings: 1. Redundant sigmoid colon and active sigmoid volvulus without bowel ischemia 2. Anastomosis with EEA stapler 29 mm 3. No tension or torsion along the anastomosis 4. Doughnuts thick and both sides and viable 5. Moderately redundant sigmoid colon without tension at anastomosis 6. Negative leak test with viable anastomosis. I Patient Condition at Discharge: Fair Plan - Discharge Summary Discharge Rx Participant: Yes New Discharge Prescriptions: New Acetaminophen Tab [Tylenol Tab] 1,000 mg PO Q6HR PRN #30 tablet PRN Reason: Pain Simethicone [Gas-X] 125 mg PO AC-TID PRN #20 capsule PRN Reason: Pain Continue Gabapentin [Neurontin] 800 mg PO BID FLUoxetine HCL [PROzac] 20 mg PO QAM Levothyroxine Sodium [Synthroid] 75 mcg PO QAM Tamsulosin HCl [Flomax] 0.4 mg PO QAM Ferrous Sulfate [Iron (65 MG Elemental)] 325 mg PO HS Cholecalciferol [Vitamin D3 (125 Mcg = 5000 Iu)] 125 mcg PO DAILY Atorvastatin [Lipitor] 40 mg PO DAILY Calcium Citrate 1,200 mg PO DAILY Multivit,Calc,Min/FA/K1/Lycop [One-A-Day Men's Complete Tab] 1 each PO DAILY Zinc Gluconate [Zinc] 50 mg PO DAILY Omeprazole 40 mg PO QAM Nystatin 100,000 Unit/gm Powd [Mycostatin Powder] 1 applic TOPICAL BID #60 gm Ondansetron Odt [Zofran ODT] 4 mg PO Q8HR PRN #20 tab PRN Reason: Nausea Discontinued Acetaminophen Tab [Tylenol] 1,000 mg PO Q6HR PRN #30 tablet PRN Reason: Pain Sennosides/Docusate Sodium [Senna Plus 8.6-50 mg Softgel] 1 each PO DAILY PRN PRN Reason: Constipation Simethicone [Gas-X] 125 mg PO AC-TID PRN #20 capsule PRN Reason: Pain No Action Docusate [Colace] 100 mg PO HS Discharge Medication List FLUoxetine HCL [PROzac] 20 mg PO QAM 12/03/19 [History] Gabapentin [Neurontin] 800 mg PO BID 12/03/19 [History] Levothyroxine Sodium [Synthroid] 75 mcg PO QAM 12/03/19 [History] Tamsulosin HCl [Flomax] 0.4 mg PO QAM 07/25/22 [History] Atorvastatin [Lipitor] 40 mg PO DAILY 03/13/23 [History] Calcium Citrate 1,200 mg PO DAILY 03/13/23 [History] Ferrous Sulfate [Iron (65 MG Elemental)] 325 mg PO HS 03/13/23 [History] Multivit,Calc,Min/FA/K1/Lycop [One-A-Day Men's Complete Tab] 1 each PO DAILY 03/13/23 [History] Cholecalciferol [Vitamin D3 (125 Mcg = 5000 Iu)] 125 mcg PO DAILY 04/11/23 [History] Omeprazole 40 mg PO QAM 04/11/23 [History] Zinc Gluconate [Zinc] 50 mg PO DAILY 04/11/23 [History] Nystatin 100,000 Unit/gm Powd [Mycostatin Powder] 1 applic TOPICAL BID #60 gm 08/07/23 [Rx] Ondansetron Odt [Zofran ODT] 4 mg PO Q8HR PRN #20 tab 01/24/24 [Rx] Acetaminophen Tab [Tylenol Tab] 1,000 mg PO Q6HR PRN #30 tablet 03/21/24 [Rx] Simethicone [Gas-X] 125 mg PO AC-TID PRN #20 capsule 03/21/24 [Rx] Docusate [Colace] 100 mg PO HS 03/25/24 [History] [place] [facility] [facility]25/24 2:00 pm Patient Instructions/Handouts: Colectomy Diet (GEN), Laparoscopic Bowel Resection (DC), Colectomy (GEN) Activity/Diet/Wound Care/Special Instructions: EXPECT BOWEL MOVEMENT WITH BLOOD FOR 1 WEEK TAKE LAXATIVE FOR CONSTIPATION AFTER 4 DAYS, 03/24/24 NO LONG DRIVES OR AIRPLANE RIDES OVER 30 MINUTES FOR THE NEXT 2 WEEKS DUE TO HIGH RISK OF PULMONARY EMBOLISM/DVTs Wear abdominal binder for comfort. No lifting over 4 pounds in 4 weeks Apr 20January shower. No bath tub soaks for two weeks until April 03 Avoid steak, tough meats and seeds such as raspberry seeds. See diverticulitis, low fiber, colectomy diet Use Tylenol and ibuprofen scheduled for the next 24-48 hours for best pain relief. Use ice along incisions for today to prevent swelling. Discharge Disposition: HOME SELF-CARE
== END 2024-03-21 13:16 | disposition home or self-care (01) | DRG 330 ==
LOC: 2ORMAIN 10:34 → 4SSUR 14:31
PROVIDERS: ADMIT Surgery Plastic and Reconstructive Surgery; ATTEND Surgery Plastic and Reconstructive Surgery
PROC: 0DJD8ZZ Inspection of Lower Intestinal Tract, Via Natural or Artificial Opening Endoscopic (ICD-10-PCS; 2024-03-19)
PROC: 8E0W4CZ Robotic Assisted Procedure of Trunk Region, Percutaneous Endoscopic Approach (ICD-10-PCS; 2024-03-20)
PROC: 0DTN4ZZ Resection of Sigmoid Colon, Percutaneous Endoscopic Approach (ICD-10-PCS; principal; 2024-03-20 08:50)
DX: K56.2 Volvulus (principal); I42.9 Cardiomyopathy, unspecified; K56.51 Intestinal adhesions [bands], with partial obstruction; D50.9 Iron deficiency anemia, unspecified; E03.9 Hypothyroidism, unspecified; E78.5 Hyperlipidemia, unspecified; F32.A Depression, unspecified; F41.1 Generalized anxiety disorder; I11.9 Hypertensive heart disease without heart failure; K21.9 Gastro-esophageal reflux disease without esophagitis; K64.0 First degree hemorrhoids; R13.10 Dysphagia, unspecified; Z96.651 Presence of right artificial knee joint; Z79.890 Hormone replacement therapy; Z79.899 Other long term (current) drug therapy; Z87.891 Personal history of nicotine dependence; Z98.84 Bariatric surgery status
CPT/HCPCS: 45378; 64999; 80053; 85025; 86850; 86900; 86901; 88307

== ENCOUNTER 2024-04-27 12:00 | Inpatient (IN) | payer BC, OTHER ==
[2024-04-27] MEDS ORDERED: DEXAMETHASONE SOD PHOSPHATE 4 MG/ML 1 ML VIAL ONE ×2 (13:13)
[2024-04-27] MEDS ORDERED: HEPARIN SODIUM,PORCINE 5,000 UNIT/ML 1 ML VIAL ONE ×2 (13:13)
[2024-04-27] MEDS ORDERED: ACETAMINOPHEN TAB 500 MG TAB ONE ×2 (13:13)
[2024-04-27] MEDS ORDERED: ONDANSETRON 4 MG/2 ML VIAL ONE ×2 (13:13)
[2024-04-27] MEDS ORDERED: PROPOFOL 10 MG/ML 20 ML VIAL IV ONE (14:31)
[2024-04-27] MEDS ORDERED: LIDOCAINE 1% INJ 10MG/ML (20 ML MDV) ONE (14:31)
[2024-04-27] MEDS ORDERED: MIDAZOLAM 2 MG/2 ML VIAL ONE (14:31)
[2024-04-27] MEDS ORDERED: GLYCOPYRROLATE 0.2 MG/ML 2 ML VIAL ONE (14:31)
[2024-04-27] MEDS ORDERED: ROCURONIUM 10 MG/ML (5 ML VIAL) IV ONE (14:31)
[2024-04-27] MEDS ORDERED: fentaNYL (PF) 50 MCG/ML 2 ML AMP ONE (14:31)
[2024-04-27] MEDS ORDERED: SUCCINYLCHOLINE CHLORIDE 200 MG/10 ML VIAL IV ONE (14:31)
[2024-04-27] MEDS ORDERED: NEOSTIGMINE 1 MG/ML 10 ML VIAL ONE (14:31)
[2024-04-27] MEDS ORDERED: ePHEDrine 50 MG/ML 1 ML VIAL ONE (14:31)
[2024-04-27] MEDS ORDERED: HYDROmorphone (PF) 1 MG/ML ONE (14:31)
[2024-04-27] MEDS ORDERED: ceFAZolin 10 GM VIAL IVPB ONE (14:45)
[2024-04-27] MEDS ORDERED: LACTATED RINGERS 1,000 ML BAG ONE (14:45)
[2024-04-27] MEDS ORDERED: SODIUM CHLORIDE 0.9% 50 ML BAG IV ONE (14:45)
[2024-04-27] MEDS ORDERED: HYDROmorphone 1 MG/ML 1 ML SYRINGE ONE (14:45)
[2024-04-28] MEDS ORDERED: LEVOTHYROXINE 75 MCG TAB ONE ×2 (06:11)
[2024-04-28] MEDS ORDERED: CALCIUM CARB-VIT D 500 MG-5 MCG TAB ONE ×2 (08:03)
[2024-04-28] MEDS ORDERED: ZINC SULFATE 220 MG CAP ONE ×2 (08:04)
[2024-04-28] MEDS ORDERED: GABAPENTIN 300 MG CAP ONE ×8 (08:04→20:04)
[2024-04-28] MEDS ORDERED: MULTIVITAMINS, THERA 1 EACH TAB ONE ×2 (08:04)
[2024-04-28] MEDS ORDERED: TAMSULOSIN 0.4 MG CAP.ER.24H PO ONE ×2 (08:04)
[2024-04-28] MEDS ORDERED: CHOLECALCIFEROL 25 MCG (1000 IU) TABLET ONE ×2 (08:04)
[2024-04-28] MEDS ORDERED: PANTOPRAZOLE 40 MG TABLET PO ONE ×2 (08:04)
[2024-04-28] MEDS ORDERED: PARoxetine 20 MG TAB ONE ×2 (08:05)
[2024-04-28] MEDS ORDERED: ATORVASTATIN 40 MG TAB ONE ×2 (08:09)
[2024-04-28] MEDS ORDERED: CALCIUM CARBONATE 500 MG CHEWABLE PO ONE ×2 (08:11)
[2024-04-28] MEDS ORDERED: FERROUS SULFATE 325 MG TAB PO ONE ×2 (19:59)
[2024-04-28] MEDS ORDERED: ceFAZolin 10 GM VIAL IVPB ONE (23:59)
[2024-04-28] MEDS ORDERED: DEXTROSE 5%-0.9% NACL 1,000 ML BAG IV ONE (23:59)
[2024-04-29] MEDS ORDERED: LEVOTHYROXINE 75 MCG TAB ONE ×2 (06:15)
[2024-04-29] MEDS ORDERED: CALCIUM CARBONATE 500 MG CHEWABLE PO ONE ×2 (08:09)
[2024-04-29] MEDS ORDERED: ATORVASTATIN 40 MG TAB ONE ×2 (08:09)
[2024-04-29] MEDS ORDERED: TAMSULOSIN 0.4 MG CAP.ER.24H PO ONE ×2 (08:09)
[2024-04-29] MEDS ORDERED: CHOLECALCIFEROL 25 MCG (1000 IU) TABLET ONE ×2 (08:09)
[2024-04-29] MEDS ORDERED: PANTOPRAZOLE 40 MG TABLET PO ONE ×2 (08:09)
[2024-04-29] MEDS ORDERED: GABAPENTIN 300 MG CAP ONE ×4 (08:10→08:12)
[2024-04-29] MEDS ORDERED: PARoxetine 20 MG TAB ONE ×4 (08:10→08:11)
[2024-04-29] MEDS ORDERED: MULTIVITAMINS, THERA 1 EACH TAB ONE ×2 (08:10)
[2024-04-29] MEDS ORDERED: ZINC SULFATE 220 MG CAP ONE ×2 (08:10)
[2024-04-29] MEDS ORDERED: DEXTROSE 5%-0.9% NACL 1,000 ML BAG IV ONE (09:00)
--- NOTE | 2024-07-23 20:04 | P.GSHP ---
History of Present Illness H&P Date: 04/27/24 CHIEF COMPLAINT: Status post gastric bypass and panniculitis HISTORY OF PRESENT ILLNESS: The patient is a 54-year-old male status post gastric bypass 2021. He is 2 years out. He has maintained over 150+ pound weight loss. He has troubles with grooming including activities of daily living. He reports persistent lower back pain due to his pannus. He has his panniculitis treated with prescribed medications without improvement of his symptoms over 2 years including assessment with neurologist, primary care provider and technical manager. He presents for panniculectomy. He is status post sigmoid colectomy 1 month ago and had completed medical and cardiac risk assessment. At height of 5 feet 8.75 inches, ideal body weight is 163 pounds. His highest weight is 386 pounds, body mass index 57.5. He has lost over 170 pounds. PAST MEDICAL HISTORY: 1. Morbid obesity due to excess calories 2. Body mass index of 57.5, initial 3. Gastroesophageal reflux disease 4. Osteoarthritis of the bilateral knees 5. Generalized anxiety disorder 6. Hypertensive heart disease 7. Depressive disorder 8. Hypothyroidism 9. Hyperlipidemia 10. Neuropathy 11. Rectal bleeding 12. Osteoarthritis of the back 13. Osteoarthritis of the left hip 14. Sigmoid volvulus 15. Chronic panniculitis PAST SURGICAL HISTORY: 1. Carpal tunnel release 2. Knee arthroscopy 3. Pilonidal cystectomy 4. Hydrocelectomy 5. Sigmoid colectomy 6. Lysis of adhesions 7. Colonoscopy 8. Hemrrhoidectomy 9. Gastric Bypass HOME MEDICATIONS: See list and reviewed. ALLERGIES: See list and reviewed. SOCIAL HISTORY: Past tobacco use. FAMILY HISTORY: No family history of ulcerative colitis disease or Crohn's disease. Family history of morbid obesity. No lupus in the family. No reports of stomach or esophageal cancer. His mother had the gastric bypass. His mother from cancer. REVIEW OF ORGAN SYSTEMS: CONSTITUTIONAL: At height of 5 feet 8.75 inches, ideal body weight is 163 pounds. His highest weight is 386 pounds, body mass index 57.5. He comes in 349 pounds. His body mass index is 52.1. He is 186 pounds overweight. HEENT: Denies any active troubles with vision or hearing. ENDOCRINE: Denies diabetes. Has hypothyroidism. CARDIOVASCULAR: Denies past reports of palpitations or heart attacks or chest pain. Has hypertensive heart disease. Has hyperlipidemia. RESPIRATORY: Has daytime somnolence. GASTROINTESTINAL: Denies any bright red blood per rectum. No diarrhea. No constipation. Has gastroesophageal reflux disease. GENITOURINARY: Denies bladder urgency. No recent blood in urine MUSCULOSKELETAL: Has lower back pain and joint pain. Has osteoarthritis of the knees. NEURO: No headaches. No seizure disorders. Has neuropathy. PSYCH: Has depression. No suicidal ideation. Has anxiety. RHEUMATOLOGIC: No lupus. No rheumatoid arthritis. HEMATOLOGIC: Denies any abnormal bleeding or bruising. SKIN: Has chronic panniculitis. No skin cancer. PHYSICAL EXAM: VITAL SIGNS: Height 5 foot 8.75 inches, weight 210 pounds. BMI over 30 GENERAL: Well-developed in no acute distress. HEENT: No scleral icterus. Extraocular movements grossly intact. Hears conversational speech. No nasal drainage. NECK: Supple without lymphadenopathy. CHEST: Nonlabored respirations with equal bilateral excursions. CARDIOVASCULAR: Regular rate and regular rhythm. Distal 2+ pulses. ABDOMEN: Obese, soft, nontender, nondistended. Grade 3 panniculosis. MUSCULOSKELETAL: No clubbing, cyanosis. Gross strength 5/5 distal lower extremities. NEURO: No focal or lateralizing signs. Cranial nerves 2 through 12 grossly within normal limits. PSYCH: Appropriate affect. Alert and oriented to person, place and time. SKIN: Good skin turgor. Well perfused. ASSESSMENT: 1. Chronic panniculitis 2. Status post gastric bypass, over 170 pound weight loss 3. Gastroesophageal reflux disease 4. Osteoarthritis of the bilateral knees 5. Generalized anxiety disorder 6. Hypertensive heart disease 7. Depressive disorder 8. Hypothyroidism 9. Hyperlipidemia 10. Neuropathy 11. Rectal bleeding 12. Osteoarthritis of the back 13. Osteoarthritis of the left hip 14. Iron deficiency 15. Vitamin D deficiency 16. Tobacco exposure, second hand 17. Morbid obesity due to excess calories, Body mass index of 57.5, initial PLAN: 1. Recommend panniculectomy for chronic panniculitis with concomittant severe lower back pain and uncontrolled symptoms despite systemic and local treatment. Anticipated resection over 10+ pounds which is high risk. Panniculectomy should correct his functional deficits. 2. Inpatient hospitalization advised due to the severity of his comorbidities and anticipated resection. 3. Patient is elevated risk for complications due to extent of resection and comorbidities. Past Medical History Past Medical History: GERD/Reflux, Hyperlipidemia, Hypertension, Osteoarthritis (OA), Thyroid Disorder Additional Past Medical History / Comment(s): "n/v w/ severe abd pain with gallbladder symptoms"-seen in ER 01-24-24,HTN resolved with wt loss (150#) . History of Any Multi-Drug Resistant Organisms: None Reported Past Surgical History: Bariatric Surgery, Joint Replacement, Orthopedic Surgery Additional Past Surgical History / Comment(s): LEFT KNEE ARTHROSCOPY AND THEN LEFT TKR, CTR TASHI X2, HYDROCELE, PILONIDAL CYST, HEMORRHOIDECTOMY. Brad-en-y Gastric bypass 07-02-22. right total knee replacement 2022. Low anterior resection/sigmoid colectomy 03/20/24 Past Anesthesia/Blood Transfusion Reactions: No Reported Reaction Additional Past Anesthesia/Blood Transfusion Reaction / Comment(s): no hx blood transfusion Past Psychological History: Anxiety Smoking Status: Never smoker Past Alcohol Use History: None Reported Additional Past Alcohol Use History / Comment(s): QUIT SMOKING OVER 15 YRS AGO., HX OF 1-2 PPD Past Drug Use History: None Reported - Past Family History Mother Family Medical History: Cancer Additional Family Medical History / Comment(s): PANCREATIC CANCER Father Family Medical History: Cancer Additional Family Medical History / Comment(s): PROSTATE CANCER Medications and Allergies Home Medications Medication Instructions Recorded Confirmed Type Levothyroxine Sodium [Synthroid] 75 mcg PO DAILY 12/03/19 07/15/24 History Tamsulosin HCl [Flomax] 0.4 mg PO DAILY 07/25/22 07/15/24 History Atorvastatin [Lipitor] 40 mg PO DAILY 03/13/23 07/15/24 History Ferrous Sulfate [Iron (65 MG 325 mg PO HS 03/13/23 07/15/24 History Elemental)] Multivit,Calc,Min/FA/K1/Lycop 1 tab PO DAILY 03/13/23 07/15/24 History [One-A-Day Men's Complete Tab] Cholecalciferol [Vitamin D3 (125 125 mcg PO DAILY 04/11/23 07/15/24 History Mcg = 5000 Iu)] Omeprazole 40 mg PO DAILY 04/11/23 07/15/24 History Zinc Gluconate [Zinc] 50 mg PO DAILY 04/11/23 07/15/24 History Docusate [Colace] 100 mg PO HS 03/25/24 07/15/24 History Calcium Citrate 1200mg 1,200 mg PO DAILY 05/20/24 07/15/24 History FLUoxetine HCL [PROzac] 40 mg PO DAILY 05/20/24 07/15/24 History Gabapentin 800 mg PO BID 05/20/24 07/15/24 History Allergies Allergy/AdvReac Type Severity Reaction Status Date / Time No Known Allergies Allergy Verified 07/15/24 13:29
--- NOTE | 2024-07-23 20:12 | P.OP ---
Date of Procedure: 04/27/24 Description of Procedure: SURGEON: MADISYN SHIN MD FLAT HAMMERER: JOB PREOPERATIVE DIAGNOSES: 1. Chronic panniculitis 2. Status post gastric bypass, over 170 pound weight loss 3. Gastroesophageal reflux disease 4. Osteoarthritis of the bilateral knees 5. Generalized anxiety disorder 6. Hypertensive heart disease 7. Depressive disorder 8. Hypothyroidism 9. Hyperlipidemia 10. Neuropathy 11. Rectal bleeding 12. Osteoarthritis of the back 13. Osteoarthritis of the left hip 14. Iron deficiency 15. Vitamin D deficiency 16. Tobacco exposure, second hand 17. Morbid obesity due to excess calories, Body mass index of 57.5, initial POSTOPERATIVE DIAGNOSES: 1. Chronic panniculitis 2. Status post gastric bypass, over 170 pound weight loss 3. Gastroesophageal reflux disease 4. Osteoarthritis of the bilateral knees 5. Generalized anxiety disorder 6. Hypertensive heart disease 7. Depressive disorder 8. Hypothyroidism 9. Hyperlipidemia 10. Neuropathy 11. Rectal bleeding 12. Osteoarthritis of the back 13. Osteoarthritis of the left hip 14. Iron deficiency 15. Vitamin D deficiency 16. Tobacco exposure, second hand 17. Morbid obesity due to excess calories, Body mass index of 57.5, initial OPERATION: 1. Panniculectomy, 6 pounds ANESTHESIA: General with lidocaine with epinephrine and normal saline mixture. ESTIMATED BLOOD LOSS: 300 mL SPECIMENS REMOVED: Pannus 6 pounds. COMPLICATIONS: None. CONDITION: Stable. DRAINS: Two #19 round Keyur-Doll drains below abdominal flap extending through the pubis. OPERATIVE FINDINGS: 1. Panniculectomy, 6 pounds. INDICATIONS: The patient is a 54-year-old male status post gastric bypass 2021. He is 2 years out. He has maintained over 150+ pound weight loss. He has troubles with grooming including activities of daily living. He reports persistent lower back pain due to his pannus. He has his panniculitis treated with prescribed medications without improvement of his symptoms over 2 years including assessment with neurologist, primary care provider and agile qa tester. He presents for panniculectomy. He is status post sigmoid colectomy 1 month ago and had completed medical and cardiac risk assessment. At height of 5 feet 8.75 inches, ideal body weight is 163 pounds. His highest weight is 386 pounds, body mass index 57.5. He has lost over 170 pounds. He now presents for panniculectomy. Despite medical therapy with prescription powders such as Nystatin over 2+ years, he has developed severe medical refractory panniculitis. Given his clinical symptoms, including massive weight loss, he elected for surgical intervention with a panniculectomy. Benefits and risks of the procedure including bleeding, infection, risk of flap failure, chronic pain, cosmetic deformity, need for further surgery were described at length. Informed consent was obtained. DESCRIPTION: In the preanesthesia care unit the patient was marked with an indelible marker. He had also been given Lovenox subcutaneously. The patient was brought into the operating room and laid in supine position. After general induction, a Moscoso catheter was placed. The abdomen was then prepped and draped in standard sterile fashion using ChloraPrep. The skin was prepped as far laterally to the back, inferiorly to the upper thighs and superiorly to above the bilateral chest. A timeout protocol was confirmed with the surgical team regarding patient's name, procedure to be performed, including preoperative medications. He had received Ancef 3 grams IV antibiotics. Once the time-out protocol was confirmed with the surgical team, the patient was re-marked with indelible marker whereby the midline of the xiphoid to the pubis was marked. The anterior/superior iliac spine along the bilateral hips was also marked. Approximately 8 cm above the base of the penis, a transverse incision was made for the inferior portion of the flap. Using a #10 blade, the incision was taken from the midline laterally to above the anterior/superior iliac spine, initially on the left side of the patient and then on the right side of the patient. Electro-Bovie cautery was used to control for hemostasis. The dissection was taken down to the level of the fascia. Landmarks used were to the bilateral costal margins for the superior margin. Care was taken to avoid any creation of dog ears during the dissection. For postop analgesia, local with normal saline mixture was infiltrated along the subcutaneous tissue. Hemostasis was once again checked with electro-Bovie cautery. Attention was now brought to closure of the flap. Using stainless steel skin analy, the midline was once again marked of the upper flap as well as the pubis. The patient was placed in a flexed position of approximately 30 degrees at the hips. The pannus was extended inferiorly to the feet. The upper flap was created once the excess skin was excised. Again care was taken to avoid any dog ears along the lateral aspect of the incisions. Total resection of 6 pounds of the upper and lower pannus performed. The upper and lower flaps were reapproximated at the midline and then laterally to the skin with skin analy. Once reapproximated, the skin was closed in layers using 0 Vicryl for the superficial fascial system followed by running 3-0 Monocryl for the deep dermis. Prior to skin closure, two round #19 Andrade drains were placed underneath the fl ap and brought out just inferior to the incision along the pubis. Drain stitch using 2-0 nylon was placed. Once the incision was closed, bulb suction was attached. Hemostasis was checked. At the end of the procedure, the needle, sponge and instrument count was verified correct. Skin was cleansed with normal saline including hydrogen peroxide. Antibiotic Optifoam sponge dressing was placed over the incision following Dermabond tape. Optifoam dressing was placed over the MARIA ANTONIA exit sites. The patient was then transferred to a hospital bed in a beach chair position. An abdominal binder was placed. The patient was taken to the postanesthesia care unit in stable condition, awake and extubated.
--- NOTE | 2024-07-23 20:15 | P.PN ---
Subjective Progress Note Date: 04/28/24 CHIEF COMPLAINT: Panniculitis HISTORY OF PRESENT ILLNESS: The patient is a 54-year-old male status post panniculectomy 6 pounds. Moderate output out of MARIA ANTONIA drain sanguinous. Pain controlled. He had urinary retention. ROS: No reports of nausea and vomiting. No bowel movements. No fevers or chills. No new chest pain. No productive sputum PHYSICAL EXAM: VITAL SIGNS: Reviewed CONSTITUTIONAL: Well developed and in no acute distress. EYES: Conjuctivae without sclera icterus. Extraocular movements grossly intact. HEAD, EARS, NOSE, THROAT: Moist buccal mucosa. Head is atraumatic, normocephalic. Hears conversational speech. No nasal drainage. RESPIRATORY: Non-labored respirations and equal bilateral excursions. CARDIOVASCULAR: Palpable 2+ radial pulses. ABDOMEN: Dressing clean dry intact. MARIA ANTONIA sanguinous bilateral. Abdominal binder present but loose. MUSCULOSKELETAL: No gross deformity of the lower extremities noted. No clubbing. No cyanosis. SKIN: Good skin turgor. Well perfused. NEUROLOGIC: Cranial nerves II through XII grossly intact. No focal or lateralizing signs. PSYCH: Appropriate affect. Alert and oriented to person, place and time. CLINICAL LABS: Reviewed. ASSESSMENT: 1. Panniculitis status post panniculectomy 2. Urinary retention. PLAN: 1. Flomax for urinary tension 2. Monitor hemoglobin due to anticipated blood loss. 3. Continue hospitalization.
--- NOTE | 2024-07-23 20:17 | P.DS ---
Providers Date of admission: 04/27/24 18:10 Expected date of discharge: 04/29/24 Attending physician: Chanelle Tierney Primary care physician: Gerber [facility] Hospital Course: POSTOPERATIVE DIAGNOSES: 1. Chronic panniculitis 2. Status post gastric bypass, over 170 pound weight loss 3. Gastroesophageal reflux disease 4. Osteoarthritis of the bilateral knees 5. Generalized anxiety disorder 6. Hypertensive heart disease 7. Depressive disorder 8. Hypothyroidism 9. Hyperlipidemia 10. Neuropathy 11. Rectal bleeding 12. Osteoarthritis of the back 13. Osteoarthritis of the left hip 14. Iron deficiency 15. Vitamin D deficiency 16. Tobacco exposure, second hand 17. Morbid obesity due to excess calories, Body mass index of 57.5, initial CHIEF COMPLAINT: Panniculitis HISTORY OF PRESENT ILLNESS: The patient is a 54-year-old male status post panniculectomy 6 pounds patient had urinary tension which is now resolved. His pain is well-controlled. He is tolerating diet and passing flatus. ROS: No reports of nausea and vomiting. No bowel movements. No fevers or chills. No new chest pain. No productive sputum PHYSICAL EXAM: VITAL SIGNS: Reviewed CONSTITUTIONAL: Well developed and in no acute distress. EYES: Conjuctivae without sclera icterus. Extraocular movements grossly intact. HEAD, EARS, NOSE, THROAT: Moist buccal mucosa. Head is atraumatic, normoceph alic. Hears conversational speech. No nasal drainage. RESPIRATORY: Non-labored respirations and equal bilateral excursions. CARDIOVASCULAR: Palpable 2+ radial pulses. ABDOMEN: Dressing clean dry intact. MARIA ANTONIA sanguinous bilateral. Abdominal binder present but loose. MUSCULOSKELETAL: No gross deformity of the lower extremities noted. No clubbing. No cyanosis. SKIN: Good skin turgor. Well perfused. NEUROLOGIC: Cranial nerves II through XII grossly intact. No focal or lateralizing signs. PSYCH: Appropriate affect. Alert and oriented to person, place and time. CLINICAL LABS: Reviewed. ASSESSMENT: 1. Panniculitis status post panniculectomy 2. Urinary retention. PLAN: 1. Discharge home and close outpatient follow-up with the bariatric center. 2. MARIA ANTONIA drain care given. Procedures: OPERATION: 1. Panniculectomy, 6 pounds ANESTHESIA: General with lidocaine with epinephrine and normal saline mixture. ESTIMATED BLOOD LOSS: 300 mL SPECIMENS REMOVED: Pannus 6 pounds. COMPLICATIONS: None. CONDITION: Stable. DRAINS: Two #19 round Keyur-Doll drains below abdominal flap extending through the pubis. OPERATIVE FINDINGS: 1. Panniculectomy, 6 pounds. Patient Condition at Discharge: Good Plan - Discharge Summary New Discharge Prescriptions: No Action Levothyroxine Sodium [Synthroid] 75 mcg PO DAILY Tamsulosin HCl [Flomax] 0.4 mg PO DAILY Ferrous Sulfate [Iron (65 MG Elemental)] 325 mg PO HS Cholecalciferol [Vitamin D3 (125 Mcg = 5000 Iu)] 125 mcg PO DAILY Atorvastatin [Lipitor] 40 mg PO DAILY Multivit,Calc,Min/FA/K1/Lycop [One-A-Day Men's Complete Tab] 1 tab PO DAILY Zinc Gluconate [Zinc] 50 mg PO DAILY Omeprazole 40 mg PO DAILY Docusate [Colace] 100 mg PO HS Calcium Citrate 1200mg 1,200 mg PO DAILY FLUoxetine HCL [PROzac] 40 mg PO DAILY Gabapentin 800 mg PO BID Discharge Medication List Levothyroxine Sodium [Synthroid] 75 mcg PO DAILY 12/03/19 [History] Tamsulosin HCl [Flomax] 0.4 mg PO DAILY 07/25/22 [History] Atorvastatin [Lipitor] 40 mg PO DAILY 03/13/23 [History] Ferrous Sulfate [Iron (65 MG Elemental)] 325 mg PO HS 03/13/23 [History] Multivit,Calc,Min/FA/K1/Lycop [One-A-Day Men's Complete Tab] 1 tab PO DAILY 03/13/23 [History] Cholecalciferol [Vitamin D3 (125 Mcg = 5000 Iu)] 125 mcg PO DAILY 04/11/23 [History] Omeprazole 40 mg PO DAILY 04/11/23 [History] Zinc Gluconate [Zinc] 50 mg PO DAILY 04/11/23 [History] Docusate [Colace] 100 mg PO HS 03/25/24 [History] Calcium Citrate 1200mg 1,200 mg PO DAILY 05/20/24 [History] FLUoxetine HCL [PROzac] 40 mg PO DAILY 05/20/24 [History] Gabapentin 800 mg PO BID 05/20/24 [History] Discharge Disposition: HOME SELF-CARE
== END 2024-04-29 12:30 | disposition home or self-care (01) | DRG 623 ==
LOC: OR 12:00 → 4SSUR 18:10 → UNDOADMIN 18:14 → UNDODISIN 04-29 12:36
PROVIDERS: ADMIT Surgery Plastic and Reconstructive Surgery; ATTEND Surgery Plastic and Reconstructive Surgery
PROC: 0JB80ZZ Excision of Abdomen Subcutaneous Tissue and Fascia, Open Approach (ICD-10-PCS; principal; 2024-04-27 12:00)
DX: E65 Localized adiposity (principal); K62.5 Hemorrhage of anus and rectum; R33.8 Other retention of urine; K21.9 Gastro-esophageal reflux disease without esophagitis; E78.5 Hyperlipidemia, unspecified; G62.9 Polyneuropathy, unspecified; E66.01 Morbid (severe) obesity due to excess calories; M47.9 Spondylosis, unspecified; E55.9 Vitamin D deficiency, unspecified; E61.1 Iron deficiency; F41.1 Generalized anxiety disorder; M16.12 Unilateral primary osteoarthritis, left hip; M17.0 Bilateral primary osteoarthritis of knee; F32.A Depression, unspecified; E03.9 Hypothyroidism, unspecified; Z79.890 Hormone replacement therapy; Z87.19 Personal history of other diseases of the digestive system; Z68.43 Body mass index [BMI] 50.0-59.9, adult; Z79.899 Other long term (current) drug therapy; Z98.84 Bariatric surgery status; Z96.651 Presence of right artificial knee joint; Z87.891 Personal history of nicotine dependence

== ENCOUNTER → 2024-05-18 | Outpatient (CLI) | payer BC, OTHER ==
[2024-05-18 09:02] VITALS: BP 116/71; PULSE 71; RESP 16; TEMP 97.9; BMI 28.3
--- NOTE | 2024-05-18 09:10 | P.PN ---
Subjective Progress Note Date: 05/18/24 CHIEF COMPLAINT: Pelvic swelling HISTORY OF PRESENT ILLNESS: The patient is a 54-year-old male status post panniculectomy 04/27/2024. Patient has moderate exposures to pet dander and had poor self hygiene with his MARIA ANTONIA drains which were discontinued 1 week ago. He reports discomfort including redness at the MARIA ANTONIA sites. He presents to the bariatric center. ROS: No reports of nausea and vomiting. No fevers or chills. No new chest pain. No productive sputum PHYSICAL EXAM: VITAL SIGNS: Reviewed CONSTITUTIONAL: Well developed and in no acute distress. EYES: Conjuctivae without sclera icterus. Extraocular movements grossly intact. HEAD, EARS, NOSE, THROAT: Moist buccal mucosa. Head is atraumatic, normocephalic. Hears conversational speech. No nasal drainage. RESPIRATORY: Non-labored respirations and equal bilateral excursions. CARDIOVASCULAR: Palpable 2+ radial pulses. ABDOMEN: Well-healed panniculectomy incision. Moderate swelling along incision with underlying seroma. Mild redness along the pelvis noted along swelling from seroma. No purulent drainage. MUSCULOSKELETAL: No gross deformity of the lower extremities noted. No clubbing. No cyanosis. SKIN: Good skin turgor. Well perfused. NEUROLOGIC: Cranial nerves II through XII grossly intact. No focal or lateralizing signs. PSYCH: Appropriate affect. Alert and oriented to person, place and time. ASSESSMENT: 1. Postsurgical seroma, expected 2. Poor self hygiene 3. Status post panniculectomy PLAN: 1. Patient offered drainage of seroma with cultures to be obtained 2. Patient advised to wear his abdominal binder tightly to prevent further fluid 3. Goal protein intake 90 to 100 g daily described Objective - Vital Signs Vital signs: Vital Signs Temp 97.9 F 05/18/24 08:47 Pulse 71 05/18/24 08:47 Resp 16 05/18/24 08:47 BP 116/71 05/18/24 08:47 Pulse Ox FiO2 Intake & Output 05/17/24 05/18/24 05/18/24 18:59 06:59 18:59 Weight 85.729 kg
--- NOTE | 2024-05-18 10:11 | P.PCN ---
Date of Procedure: 05/18/24 Description of Procedure: DATE OF PROCEDURE: 05/18/2024 NEEDLE ASPIRATION OF ABDOMINAL WOUND SEROMA Patient was placed in the supine position. The skin was cleansed with ChloraPrep. 1% lidocaine 20 cc was used to anesthetize the inferior portion of skin of abdomen. An 22-gauge needle was placed and approximately 2 mL of serosanguineous fluid was aspirated. Moderate persistent swelling of the pelvis identified with aerobic and anaerobic culture was sent. The patient had tolerated the procedure well.
== END ==
LOC: BARWHC3 08:24
PROVIDERS: ATTEND Surgery Plastic and Reconstructive Surgery
CPT/HCPCS: 87070; 87075; 87077; 87186; 87205; 99212

== ENCOUNTER 2024-05-20 08:29 | Day surgery (SDC) | payer BC, OTHER ==
[2024-05-20 09:35] VITALS: TEMP 98.3
[2024-05-20 11:18] VITALS: PULSE 62; RESP 16
[2024-05-20 12:46] VITALS: BP 111/72
--- NOTE | 2024-05-20 12:51 | US ---
EXAMINATION TYPE: US guided soft tissue drainage with catheter placement DATE OF EXAM: 05/20/2024 12:23 PM CLINICAL INDICATION:Male, 54 years old with history of L76.34 POSTPROC SEROMA OF SKIN, SUBCU FOLLOWIN G OT; patient with worsening cellulitis along the lower anterior abdominal wall and worsening tendern ess and pain. Antibiotics started 2 days ago. COMPARISON: None ATTENDING: Dr. Silva TECHNIQUE: Ultrasound guided percutaneous drainage catheter placement using trocar technique. The patient was mo nitored by a qualified trained nurse independent of the Radiologist during sedation. FINDINGS: Initial scanning reveals a very large 26.4 cm wide by 4.3 cm thick by 9.1 cm craniocaudal subcutaneou s fluid collection. Some portions of the fluid collection contain thickened debris. Given the finding s, Dr. Tierney is contacted in regards to pursuing abscess drainage catheter placement rather than percutaneous aspiration. The revised order was received and the procedure was explained to the patient. All questions were ans wered and informed consent was obtained. The patient was placed supine and transverse ultrasound images of the abnormal subcutaneous fluid col lection were obtained. The overlying skin was marked and prepped using sterile method. Timeout was taken per protocol. Follo wing administration 1% local lidocaine anesthesia, an 8 English drainage catheter system was advanced with needle tip visualized within the abscess. The pigtail loop was formed and the catheter was placed. Initial aspiration yielded 710 mL of slightly blood-tinged purulent fluid. Residual fluid remained al gerry the flanks of the collection. The central portion had considerably decompressed. A bag is connect ed to the catheter to drain via gravity. The catheter is secured via a stay fix device. Hemostasis was obtained and a dressing was placed. Patient was monitored and then discharged in stable condition. IMPRESSIONS: Procedure revised to abscess drainage catheter placement. Large subcutaneous fluid collection measuri ng 26.4 x 4.3 x 9.1 cm. 710 mL of purulent fluid was initially evacuated via suction. Residual fluid remains. A drainage bag was attached.
== END 2024-05-20 12:20 | disposition home or self-care (01) ==
LOC: RADPROMAIN 08:29
PROVIDERS: ATTEND Surgery Plastic and Reconstructive Surgery
DX: L76.34 Postprocedural seroma of skin and subcutaneous tissue following other procedure (principal)
CPT/HCPCS: 10030; 76942

== ENCOUNTER 2024-05-20 16:04 | Inpatient (IN) | payer BC, OTHER ==
[2024-05-20] MEDS ORDERED: VANCOMYCIN IV PER PHARMACY 1 EACH MISC MISCELLANE PRN (17:49)
[2024-05-20 17:58] LABS: Basophils % (A) 1 %; Eosinophils # (A) 0.1 k/uL (0-0.7); Eosinophils % (A) 2 %; HCT 33.5 % (39.0-53.0); HGB 10.6 gm/dL (13.0-17.5); Hypochromasia Marked; Lymphocytes # (A) 0.6 k/uL (1.0-4.8); Lymphocytes % (A) 11 %; MCH 29.6 pg (25.0-35.0); MCHC 31.7 g/dL (31.0-37.0); MCV 93.3 fL (80.0-100.0); Mean Platelet Volume 7.5; Monocytes # (A) 0.7 k/uL (0-1.0); Monocytes % (A) 13 %; Neutrophils # (A) 3.6 k/uL (1.3-7.7); Neutrophils % (A) 71 %; Poikilocytosis Slight; RBC 3.59 m/uL (4.30-5.90); RDW 13.5 % (11.5-15.5)
[2024-05-20 18:04] LABS: Platelet Count 365 k/uL (150-450)
[2024-05-20 18:12] LABS: ALT 15 U/L (4-49); AST 23 U/L (17-59); African American GFR (CKD) >90 (>60 ml/min/1.73 sqM); Albumin 3.2 g/dL (3.5-5.0); Alkaline Phosphatase 64 U/L (38-126); Anion Gap 8 mmol/L; Blood Urea Nitrogen 13 mg/dL (9-20); Calcium 8.8 mg/dL (8.4-10.2); Carbon Dioxide 26 mmol/L (22-30); Chloride 104 mmol/L (98-107); Glucose 101 mg/dL (74-99); Non-African American GFR(CKD) >90 (>60 ml/min/1.73 sqM); Sodium 138 mmol/L (137-145); Total Bilirubin 0.3 mg/dL (0.2-1.3); Total Protein 5.8 g/dL (6.3-8.2)
[2024-05-20] MEDS: PIPERACILLIN-TAZOBACTAM 3.375 GM in SODIUM CHLORIDE 0.9% 100 ML IVPB STA (18:14)
[2024-05-20] MEDS: SODIUM CHLORIDE 0.9% 500 ML 500 ML IV SCH (18:15)
[2024-05-20 18:18] LABS: Prothrombin Time 10.8 sec (10.0-12.5)
--- NOTE | 2024-05-20 18:36 | ED ---
General Adult HPI - General Chief complaint: Abdominal Pain Stated complaint: abd infection Time Seen by Provider: 05/20/24 16:20 Source: patient, old records reviewed Mode of arrival: ambulatory Limitations: no limitations - History of Present Illness Initial comments: This is a 54-year-old male who presents to the emergency department after having a liter of pus draining from his surgical site for his panniculectomy Dr. Tierney did the surgery and she called ahead to tell us that the patient was on his way in and she wanted the patient admitted. Patient states the only pain he has is along the incision site where the pus was. Patient denies fever chills patient denies chest pain difficulty breathing. Patient denies nausea vomiting - Related Data Home Medications Medication Instructions Recorded Confirmed FLUoxetine HCL [PROzac] 20 mg PO QAM 12/03/19 05/20/24 Gabapentin [Neurontin] 800 mg PO BID 12/03/19 05/20/24 Levothyroxine Sodium [Synthroid] 75 mcg PO QAM 12/03/19 05/20/24 Tamsulosin HCl [Flomax] 0.4 mg PO QAM 07/25/22 05/20/24 Atorvastatin [Lipitor] 40 mg PO DAILY 03/13/23 05/20/24 Calcium Citrate 1,200 mg PO DAILY 03/13/23 05/20/24 Ferrous Sulfate [Iron (65 MG 325 mg PO HS 03/13/23 05/20/24 Elemental)] Multivit,Calc,Min/FA/K1/Lycop 1 each PO DAILY 03/13/23 05/20/24 [One-A-Day Men's Complete Tab] Cholecalciferol [Vitamin D3 (125 125 mcg PO DAILY 04/11/23 05/20/24 Mcg = 5000 Iu)] Omeprazole 40 mg PO QAM 04/11/23 05/20/24 Zinc Gluconate [Zinc] 50 mg PO DAILY 04/11/23 05/20/24 Docusate [Colace] 100 mg PO HS 03/25/24 05/20/24 Previous Rx's Medication Instructions Recorded Acetaminophen Tab [Tylenol Tab] 1,000 mg PO Q6HR PRN #30 tablet 03/21/24 Cephalexin [Keflex] 500 mg PO Q12HR #20 cap 05/18/24 Allergies Allergy/AdvReac Type Severity Reaction Status Date / Time No Known Allergies Allergy Verified 05/20/24 16:21 Review of Systems ROS Statement: Those systems with pertinent positive or pertinent negative responses have been documented in the HPI. ROS Other: All systems not noted in ROS Statement are negative. Past Medical History Past Medical History: GERD/Reflux, Hyperlipidemia, Hypertension, Osteoarthritis (OA), Thyroid Disorder Additional Past Medical History / Comment(s): "n/v w/ severe abd pain with gallbladder symptoms"-seen in ER 01-24-24,HTN resolved with wt loss (150#) . Post op seroma. History of Any Multi-Drug Resistant Organisms: None Reported Past Surgical History: Bariatric Surgery, Joint Replacement, Orthopedic Surgery Additional Past Surgical History / Comment(s): LEFT KNEE ARTHROSCOPY AND THEN LEFT TKR, CTR TASHI X2, HYDROCELE, PILONIDAL CYST, HEMORRHOIDECTOMY. Brad-en-y Gastric bypass 07-02-22. right total knee replacement 2022. Low anterior resection/sigmoid colectomy 03/20/24. Panni 04/2024 Past Anesthesia/Blood Transfusion Reactions: No Reported Reaction Additional Past Anesthesia/Blood Transfusion Reaction / Comment(s): no hx blood transfusion Past Psychological History: Anxiety Smoking Status: Never smoker Past Alcohol Use History: None Reported Past Drug Use History: None Reported - Past Family History Mother Family Medical History: Cancer Additional Family Medical History / Comment(s): PANCREATIC CANCER Father Family Medical History: Cancer Additional Family Medical History / Comment(s): PROSTATE CANCER General Exam - General Exam Comments Initial Comments: GENERAL: Patient is well-developed and well-nourished. Patient is nontoxic and well- hydrated and is in mild distress. ENT: Neck is soft and supple. No significant lymphadenopathy is noted. Oropharynx is clear. Moist mucous membranes. Neck has full range of motion without eliciting any pain. EYES: The sclera were anicteric and conjunctiva were pink and moist. Extraocular movements were intact and pupils were equal round and reactive to light. Eyelids were unremarkable. PULMONARY: Unlabored respirations. Good breath sounds bilaterally. No audible rales rhonchi or wheezing was noted. CARDIOVASCULAR: There is a regular rate and rhythm without any murmurs gallops or rubs. ABDOMEN: The incision sites thematous especially along the flanks. The area is very tender and warm. SKIN: Skin is clear with no lesions or rashes and otherwise unremarkable. NEUROLOGIC: Patient is alert and oriented x3. Cranial nerves II through XII are grossly intact. Motor and sensory are also intact. Normal speech, volume and content. Symmetrical smile. MUSCULOSKELETAL: Normal extremities with adequate strength and full range of motion. LYMPHATICS: No significant lymphadenopathy is noted PSYCHIATRIC: Normal psychiatric evaluation. Limitations: no limitations Course Vital Signs 05/20/24 05/20/24 16:19 18:11 Temperature 97.8 F Pulse Rate 76 68 Respiratory 20 18 Rate Blood Pressure 101/65 100/67 O2 Sat by Pulse 100 100 Oximetry Medical Decision Making - Medical Decision Making Was pt. sent in by a medical professional or institution (, PA, VALUE ANALYST, urgent care, hospital, or long-term...) When possible be specific @ -The patient to be admitted to the hospital. She sent the patient in Did you speak to anyone other than the patient for history (EMS, parent, family, police, friend...)? What history was obtained from this source @ -I spoke with Dr. Tierney before the patient's arrival Did you review nursing and triage notes (agree or disagree)? Why? @ -I reviewed and agree with nursing and triage notes Were old charts reviewed (outside hosp., previous admission, EMS record, old EKG, old radiological studies, urgent care reports/EKG's, long-term records)? Report findings @ -I reviewed the patient's surgical chart manage showed that she did a panniculectomy Differential Diagnosis? @ -Differential Fever: Pneumonia, abscess, viral URI, endocarditis, myocarditis, pericarditis, otitis, sinusitis, peritonsillar Abscess, retropharyngeal Abscess, epiglottitis, peritonitis, appendicitis, Katie cystitis, diverticulitis, hepatitis, colitis, UTI, PID, TOA, pyelonephritis, prostatitis, epididymitis, meningitis, encephalitis, pulmonary embolism, CVA, thyroid storm, pancreatitis, adrenal crisis, cavernous sinus thrombosis, this is not meant to be an all-inclusive list. EKG interpreted by me (3pts min.). @ -As above X-rays interpreted by me (1pt min.). @ -None done CT interpreted by me (1pt min.). @ -None done U/S interpreted by me (1pt. min.). @ -None done What testing was considered but not performed or refused? (CT, X-rays, U/S, labs)? Why? @ -None What meds were considered but not given or refused? Why? @ -None Did you discuss the management of the patient with other professionals (prof raya i.e. , PA, VALUE ANALYST, lab, RT, psych nurse, health and social care teacher, drying frame operator, teacher, procurement officer, family preservation caseworker)? Give summary @ -I discussed the case with Dr. Tierney she would like the patient admitted to her self. Was smoking cessation discussed for >3mins.? @ -No Was critical care preformed (if so, how long)? @ -No Were there social determinants of health that impacted care today? How? (Homel essness, low income, unemployed, alcoholism, drug addiction, transportation, low edu. Level, literacy, decrease access to med. care, senior care, rehab)? @ -No Was there de-escalation of care discussed even if they declined (Discuss DNR or withdrawal of care, Hospice)? DNR status @ -No What co-morbidities impacted this encounter? (DM, HTN, Smoking, COPD, CAD, Cancer, CVA, ARF, Chemo, Hep., AIDS, mental health diagnosis, sleep apnea, morbid obesity)? @ -None Was patient admitted / discharged? Hospital course, mention meds given and route, prescriptions, significant lab abnormalities, going to OR and other pertinent info. @ -Patient was admitted to Dr. Tierney with a consult to Dr. Bergman I started the patient on Flagyl and Zosyn and vancomycin Undiagnosed new problem with uncertain prognosis? @ -No Drug Therapy requiring intensive monitoring for toxicity (Heparin, Nitro, Insulin, Cardizem)? @ -No Were any procedures done? @ -No Diagnosis/symptom? @ -Postsurgical abscess Acute, or Chronic, or Acute on Chronic? @ -Acute Uncomplicated (without systemic symptoms) or Complicated (systemic symptoms)? @ -Complicated Side effects of treatment? @ -No Exacerbation, Progression, or Severe Exacerbation? @ -No Poses a threat to life or bodily function? How? (Chest pain, [place], [place], pneumonia, PE, COPD, DKA, ARF, appy, cholecystitis, CVA, Diverticulitis, Homicidal, Suicidal, threat to staff... and all critical care pts) @ -Yes this could lead to sepsis and endorgan dysfunction - Lab Data Result diagrams: 05/20/24 17:51 05/20/24 17:51 Lab Results 05/20/24 05/20/24 05/20/24 Range/Units 17:51 17:51 17:51 WBC 5.0 (3.8-10.6) k/uL RBC 3.59 L (4.30-5.90) m/uL Hgb 10.6 L (13.0-17.5) gm/dL Hct 33.5 L (39.0-53.0) % MCV 93.3 (80.0-100.0) fL MCH 29.6 (25.0-35.0) pg MCHC 31.7 (31.0-37.0) g/dL RDW 13.5 (11.5-15.5) % Plt Count 365 D (150-450) k/uL MPV 7.5 Neutrophils % 71 % Lymphocytes % 11 % Monocytes % 13 % Eosinophils % 2 % Basophils % 1 % Neutrophils # 3.6 (1.3-7.7) k/uL Lymphocytes # 0.6 L (1.0-4.8) k/uL Monocytes # 0.7 (0-1.0) k/uL Eosinophils # 0.1 (0-0.7) k/uL Basophils # 0.0 (0-0.2) k/uL Hypochromasia Marked Poikilocytosis Slight PT 10.8 (10.0-12.5) sec INR 1.0 (<1.2) APTT 27.0 (22.0-30.0) sec Sodium 138 (137-145) mmol/L Potassium 4.0 (3.5-5.1) mmol/L Chloride 104 (98-107) mmol/L Carbon Dioxide 26 (22-30) mmol/L Anion Gap 8 mmol/L BUN 13 (9-20) mg/dL Creatinine 0.73 (0.66-1.25) mg/dL Est GFR (CKD-EPI)AfAm >90 (>60 ml/min/1.73 sqM) Est GFR (CKD-EPI)NonAf >90 (>60 ml/min/1.73 sqM) Glucose 101 H (74-99) mg/dL Plasma Lactic Acid Trent (0.7-2.0) mmol/L Calcium 8.8 (8.4-10.2) mg/dL Total Bilirubin 0.3 (0.2-1.3) mg/dL AST 23 (17-59) U/L ALT 15 (4-49) U/L Alkaline Phosphatase 64 (38-126) U/L Total Protein 5.8 L (6.3-8.2) g/dL Albumin 3.2 L (3.5-5.0) g/dL 05/20/24 Range/Units 17:51 WBC (3.8-10.6) k/uL RBC (4.30-5.90) m/uL Hgb (13.0-17.5) gm/dL Hct (39.0-53.0) % MCV (80.0-100.0) fL MCH (25.0-35.0) pg MCHC (31.0-37.0) g/dL RDW (11.5-15.5) % Plt Count (150-450) k/uL MPV Neutrophils % % Lymphocytes % % Monocytes % % Eosinophils % % Basophils % % Neutrophils # (1.3-7.7) k/uL Lymphocytes # (1.0-4.8) k/uL Monocytes # (0-1.0) k/uL Eosinophils # (0-0.7) k/uL Basophils # (0-0.2) k/uL Hypochromasia Poikilocytosis PT (10.0-12.5) sec INR (<1.2) APTT (22.0-30.0) sec Sodium (137-145) mmol/L Potassium (3.5-5.1) mmol/L Chloride (98-107) mmol/L Carbon Dioxide (22-30) mmol/L Anion Gap mmol/L BUN (9-20) mg/dL Creatinine (0.66-1.25) mg/dL Est GFR (CKD-EPI)AfAm (>60 ml/min/1.73 sqM) Est GFR (CKD-EPI)NonAf (>60 ml/min/1.73 sqM) Glucose (74-99) mg/dL Plasma Lactic Acid Trent 0.9 (0.7-2.0) mmol/L Calcium (8.4-10.2) mg/dL Total Bilirubin (0.2-1.3) mg/dL AST (17-59) U/L ALT (4-49) U/L Alkaline Phosphatase (38-126) U/L Total Protein (6.3-8.2) g/dL Albumin (3.5-5.0) g/dL Disposition Clinical Impression: Postoperative infection Disposition: ADMITTED IP TO THIS HOSP Referrals: Gerber Beth MD [Primary Care Provider] - 1-2 days Time of Disposition: 18:36
[2024-05-20] MEDS: metroNIDAZOLE-NS PMX 500 MG in SALINE 1 100ML.BAG IVPB STA (19:57)
[2024-05-20] MEDS: GABAPENTIN 400 MG CAP PO SCH (21:53)
[2024-05-20] MEDS: FERROUS SULFATE 325 MG TAB PO SCH (21:53)
[2024-05-20] MEDS: DOCUSATE 100 MG CAP PO SCH (21:53)
[2024-05-20] MEDS: SODIUM CHLORIDE 0.9% 1,000 ML IV ONE (21:55)
[2024-05-20] MEDS: VANCOMYCIN 1,750 MG in SODIUM CHLORIDE 0.9% 500 ML 500 ML IVPB ONE (21:55)
[2024-05-21] MEDS: CEFEPIME 2 GM in SODIUM CHLORIDE 0.9% 100 ML IVPB SCH (00:53)
[2024-05-21] MEDS: metroNIDAZOLE-NS PMX 500 MG in SALINE 1 100ML.BAG IVPB SCH (03:58)
[2024-05-21] MEDS: VANCOMYCIN 1,500 MG in SODIUM CHLORIDE 0.9% 500 ML 500 ML IVPB SCH (06:33)
[2024-05-21] MEDS: LEVOTHYROXINE 75 MCG TAB PO SCH (06:33)
--- NOTE | 2024-05-21 08:04 | P.GSHP ---
History of Present Illness H&P Date: 05/20/24 Patient is s/p panniculectomy 04/27/24. Patient was doing well until Friday 05/18 when he developed swelling along the lower abdomen and pubis after having both his MARIA ANTONIA drains removed 05/13/24. He reports having pets at home and not exercising hand hygiene. Patient had bedside drainage of seroma on 05/18 with 5 mL sent for aerobic and anerobic cultures. Keflex was ordered 500 mg BID. This morning, he has a scheduled US of the abdomen for seroma. I was notified by radiology for presence of large fluid collection. Additional orders for placement of a drain was made. Patient had 710 mL of seropurulent drainage with placement of a cathether. He has new severe cellulitis of the lower abdomen well demarcated with new drainage site at the right lower quadrant. Patient denies fevers. He did start taking Keflex. Patient was sent to the ER due to large area cellulitis with large almost 1-L drainage of purulence. ASSESSMENT: 1. Abdominal wall cellulitis 2. Failed outpatient antibiotics 3. Poor personal hygiene 4. Status post panniculectomy PLAN: 1. Inpatient admission for IV antibiotics. Cultures were obtained Saturday and this morning. 2. CBC 3. Regular diet. Past Medical History Past Medical History: GERD/Reflux, Hyperlipidemia, Hypertension, Osteoarthritis (OA), Thyroid Disorder Additional Past Medical History / Comment(s): "n/v w/ severe abd pain with gallbladder symptoms"-seen in ER 01-24-24,HTN resolved with wt loss (150#) . Post op seroma. History of Any Multi-Drug Resistant Organisms: None Reported Past Surgical History: Bariatric Surgery, Joint Replacement, Orthopedic Surgery Additional Past Surgical History / Comment(s): LEFT KNEE ARTHROSCOPY AND THEN LEFT TKR, CTR TASHI X2, HYDROCELE, PILONIDAL CYST, HEMORRHOIDECTOMY. Brad-en-y Gastric bypass 07-02-22. right total knee replacement 2022. Low anterior resection/sigmoid colectomy 03/20/24. Panni 04/2024 Past Anesthesia/Blood Transfusion Reactions: No Reported Reaction Additional Past Anesthesia/Blood Transfusion Reaction / Comment(s): no hx blood transfusion Past Psychological History: Anxiety Smoking Status: Never smoker Past Alcohol Use History: None Reported Additional Past Alcohol Use History / Comment(s): QUIT SMOKING OVER 15 YRS AGO., HX OF 1-2 PPD Past Drug Use History: None Reported - Past Family History Mother Family Medical History: Cancer Additional Family Medical History / Comment(s): PANCREATIC CANCER Father Family Medical History: Cancer Additional Family Medical History / Comment(s): PROSTATE CANCER Medications and Allergies Home Medications Medication Instructions Recorded Confirmed Type Levothyroxine Sodium [Synthroid] 75 mcg PO DAILY 12/03/19 05/20/24 History Tamsulosin HCl [Flomax] 0.4 mg PO DAILY 07/25/22 05/20/24 History Atorvastatin [Lipitor] 40 mg PO DAILY 03/13/23 05/20/24 History Ferrous Sulfate [Iron (65 MG 325 mg PO HS 03/13/23 05/20/24 History Elemental)] Multivit,Calc,Min/FA/K1/Lycop 1 tab PO DAILY 03/13/23 05/20/24 History [One-A-Day Men's Complete Tab] Cholecalciferol [Vitamin D3 (125 125 mcg PO DAILY 04/11/23 05/20/24 History Mcg = 5000 Iu)] Omeprazole 40 mg PO DAILY 04/11/23 05/20/24 History Zinc Gluconate [Zinc] 50 mg PO DAILY 04/11/23 05/20/24 History Docusate [Colace] 100 mg PO HS 03/25/24 05/20/24 History Calcium Citrate 1200mg 1,200 mg PO DAILY 05/20/24 05/20/24 History FLUoxetine HCL [PROzac] 40 mg PO DAILY 05/20/24 05/20/24 History Gabapentin 800 mg PO BID 05/20/24 05/20/24 History Allergies Allergy/AdvReac Type Severity Reaction Status Date / Time No Known Allergies Allergy Verified 05/20/24 18:57 Surgical - Exam Vital Signs Temp Pulse Resp BP Pulse Ox 97.8 F 76 20 101/65 100 05/20/24 16:19 05/20/24 16:19 05/20/24 16:19 05/20/24 16:19 05/20/24 16:19 Results - Labs 05/20/24 17:51 05/20/24 17:51 Abnormal Lab Results - Last 24 Hours (Table) 05/20/24 05/20/24 Range/Units 17:51 17:51 RBC 3.59 L (4.30-5.90) m/uL Hgb 10.6 L (13.0-17.5) gm/dL Hct 33.5 L (39.0-53.0) % Lymphocytes # 0.6 L (1.0-4.8) k/uL Glucose 101 H (74-99) mg/dL Total Protein 5.8 L (6.3-8.2) g/dL Albumin 3.2 L (3.5-5.0) g/dL Diabetes panel 05/20/24 Range/Units 17:51 Sodium 138 (137-145) mmol/L Potassium 4.0 (3.5-5.1) mmol/L Chloride 104 (98-107) mmol/L Carbon Dioxide 26 (22-30) mmol/L BUN 13 (9-20) mg/dL Creatinine 0.73 (0.66-1.25) mg/dL Glucose 101 H (74-99) mg/dL Calcium 8.8 (8.4-10.2) mg/dL AST 23 (17-59) U/L ALT 15 (4-49) U/L Alkaline Phosphatase 64 (38-126) U/L Total Protein 5.8 L (6.3-8.2) g/dL Albumin 3.2 L (3.5-5.0) g/dL Calcium panel 05/20/24 Range/Units 17:51 Calcium 8.8 (8.4-10.2) mg/dL Albumin 3.2 L (3.5-5.0) g/dL Pituitary panel 05/20/24 Range/Units 17:51 Sodium 138 (137-145) mmol/L Potassium 4.0 (3.5-5.1) mmol/L Chloride 104 (98-107) mmol/L Carbon Dioxide 26 (22-30) mmol/L BUN 13 (9-20) mg/dL Creatinine 0.73 (0.66-1.25) mg/dL Glucose 101 H (74-99) mg/dL Calcium 8.8 (8.4-10.2) mg/dL Adrenal panel 05/20/24 Range/Units 17:51 Sodium 138 (137-145) mmol/L Potassium 4.0 (3.5-5.1) mmol/L Chloride 104 (98-107) mmol/L Carbon Dioxide 26 (22-30) mmol/L BUN 13 (9-20) mg/dL Creatinine 0.73 (0.66-1.25) mg/dL Glucose 101 H (74-99) mg/dL Calcium 8.8 (8.4-10.2) mg/dL Total Bilirubin 0.3 (0.2-1.3) mg/dL AST 23 (17-59) U/L ALT 15 (4-49) U/L Alkaline Phosphatase 64 (38-126) U/L Total Protein 5.8 L (6.3-8.2) g/dL Albumin 3.2 L (3.5-5.0) g/dL
[2024-05-21] MEDS: TAMSULOSIN 0.4 MG CAP.ER.24H PO SCH (08:28)
[2024-05-21] MEDS: CALCIUM CARBONATE 500 MG CHEWABLE PO SCH (08:28)
[2024-05-21] MEDS: PANTOPRAZOLE 40 MG TABLET PO SCH (08:28)
[2024-05-21] MEDS: MULTIVITAMINS, THERA 1 EACH TAB PO SCH (08:29)
[2024-05-21] MEDS: FLUoxetine HCL 20 MG CAP PO SCH (08:29)
[2024-05-21] MEDS: ATORVASTATIN 40 MG TAB PO SCH (08:29)
[2024-05-21] MEDS: ZINC SULFATE 220 MG CAP PO SCH (08:29)
[2024-05-21] MEDS: CHOLECALCIFEROL 125 MCG (5000 IU) TABLET PO SCH (08:29)
[2024-05-21] MEDS: HYDROmorphone 1 MG/ML 1 ML SYRINGE IVP PRN (14:06)
--- NOTE | 2024-05-21 15:44 | P.PN ---
Subjective Progress Note Date: 05/21/24 CHIEF COMPLAINT: Abdominal wall cellulitis and abscess HISTORY OF PRESENT ILLNESS: Patient had drain placed in the abdomen by IR service with purulent drainage. Patient had 1 L of purulent fluid removed from the abdomen. Drain is in place on the left side of the abdomen. Patient does have drainage from the incision site on the right side of the abdomen. He reports pain is controlled. Denies any nausea or vomiting. Afebrile. WBC is 5.0 Dr. Wesley is covering for Dr. Tierney PHYSICAL EXAM: VITAL SIGNS: Reviewed. GENERAL: Well-developed in no acute distress. ABDOMEN: Soft. Nondistended. Incision site with drain on the left with purulent drainage. On the right side of the abdomen incision site there is purulent drainage pouring out of the incision. There is a blister with some b ruising noted. The overall erythema of around the incision site is decreasing. NEUROLOGIC: Alert and oriented. Cranial nerves II through XII grossly intact. ASSESSMENT: 1. Abdominal wall cellulitis and abscess status post drain placement 2. Failed outpatient antibiotics 3. Poor personal hygiene 4. Status post panniculectomy on 04/27/2024 PLAN: -Small opening was made on the lateral aspect of the right side of the incision where patient was having purulent drainage. There was a large amount of purulent fluid that was expressed from the incision. Dressing was applied over the incision -Patient can shower -Antibiotics per infectious disease -Repeat CBC in a.m. -Encourage patient to ambulate -Pain medication added for pain management -Subcu heparin ordered for DVT prophylaxis Physician Claims Service Adjustor note has been reviewed by physician. Signing provider agrees with the documented findings, assessment, and plan of care. Objective - Vital Signs Vital signs: Vital Signs Temp 98.2 F 05/21/24 14:00 Pulse 65 05/21/24 14:00 Resp 18 05/21/24 14:00 BP 110/69 05/21/24 14:00 Pulse Ox 97 05/21/24 14:00 FiO2 Intake & Output 05/20/24 05/21/24 05/21/24 18:59 06:59 18:59 Output Total 0 Balance 0 Weight 85.729 kg 85.729 kg Output: Drainage 0 Left Lower Abdomen 0 Other: Voiding Method Toilet # Voids 1 - Labs CBC & Chem 7: 05/20/24 17:51 05/20/24 17:51 Labs: Abnormal Lab Results - Last 24 Hours (Table) 05/20/24 05/20/24 Range/Units 17:51 17:51 RBC 3.59 L (4.30-5.90) m/uL Hgb 10.6 L (13.0-17.5) gm/dL Hct 33.5 L (39.0-53.0) % Lymphocytes # 0.6 L (1.0-4.8) k/uL Glucose 101 H (74-99) mg/dL Total Protein 5.8 L (6.3-8.2) g/dL Albumin 3.2 L (3.5-5.0) g/dL
[2024-05-21] MEDS: HEPARIN SODIUM,PORCINE 5,000 UNIT/ML 1 ML VIAL SQ SCH (20:37)
[2024-05-21] MEDS: HYDROcodone/APAP 5-325MG 1 EACH TAB PO PRN (22:11)
[2024-05-22 06:08] LABS: African American GFR (CKD) >90 (>60 ml/min/1.73 sqM); Non-African American GFR(CKD) >90 (>60 ml/min/1.73 sqM)
[2024-05-22] MEDS: VANCOMYCIN TROUGH DUE 1 EACH MISC MISCELLANE ONE (06:24)
[2024-05-22 08:35] LABS: Basophils # (A) 0.03 X 10*3/uL (0.00-0.10); Basophils % (A) 0.7 %; Eosinophils # (A) 0.22 X 10*3/uL (0.04-0.35); Eosinophils % (A) 4.9 %; HCT 27.4 % (39.6-50.0); HGB 8.7 g/dL (13.0-17.0); Lymphocytes # (A) 0.96 X 10*3/uL (0.90-5.00); Lymphocytes % (A) 21.3 %; MCH 29.1 pg (27.0-32.0); MCHC 31.8 g/dL (32.0-37.0); MCV 91.6 FL (80.0-97.0); Mean Platelet Volume 10.3 FL (9.5-12.2); Monocytes # (A) 0.56 X 10*3/uL (0.20-1.00); Monocytes % (A) 12.4 %; NRBC Per 100 WBC 0 X 10*3/uL (0.00-0.01); Neutrophils % (A) 59.8 %; Platelet Count 294 X 10*3/uL (140-440); RBC 2.99 X 10*6/uL (4.40-5.60); RDW 13.2 % (11.5-14.5); WBC 4.51 X 10*3/uL (4.50-10.00)
--- NOTE | 2024-05-22 09:32 | P.CONS ---
History of Present Illness - Reason for Consult Consult date: 05/21/24 Surgical site infection Requesting physician: Elton Quick - Chief Complaint Lower abdominal distention and pain and drainage x days - History of Present Illness Patient is a 54-year-old male with a past medical history significant for hypertension hyperlipidemia reflux osteoarthritis obesity in this patient who is status post panniculectomy on 04/27/2024 patient did well initially for surgery however after the drainage catheter we will discontinue the patient noted to have increasing swelling to the lower abdominal area as well as pain patient was describing the pain to be more of a dull ache to sharp moderate intensity without any radiation patient subsequently has been evaluated in the outpatient setting and drainage have abdominal seroma 05/18/2024 subsequently the patient have an ultrasound abdomen and there was presence of large amount of fluid collection that has been drained by IR with removal of 710 mL of seropurulent drainage catheter has been placed and the patient has been admitted to hospital patient was [facility] was consulted for further management of antibiotic therapy cefepime was added last night pending evaluation this morning at the time my evaluation this morning the patient denies having any fever mention he is breathing comfortably on room air no chest pain shortness of breath or cough no nausea no vomiting abdominal pain has decreased intensity and no diarrhea since admission to the hospital the patient has been afebrile he did have white count of 5.0 BUN and creatinine has been normal electrolytes are normal liver enzymes normal cultures are currently pending Review of Systems Positive point and negatives has been mentioned in the HPI, complete review of systems was performed and all other systems are negative Past Medical History Past Medical History: GERD/Reflux, Hyperlipidemia, Hypertension, Osteoarthritis (OA), Thyroid Disorder Additional Past Medical History / Comment(s): "n/v w/ severe abd pain with gallbladder symptoms"-seen in ER 01-24-24,HTN resolved with wt loss (150#) . Post op seroma. History of Any Multi-Drug Resistant Organisms: None Reported Past Surgical History: Bariatric Surgery, Joint Replacement, Orthopedic Surgery Additional Past Surgical History / Comment(s): LEFT KNEE ARTHROSCOPY AND THEN LEFT TKR, CTR TASHI X2, HYDROCELE, PILONIDAL CYST, HEMORRHOIDECTOMY. Brad-en-y Gastric bypass 07-02-22. right total knee replacement 2022. Low anterior resection/sigmoid colectomy 03/20/24. Tasha 04/2024 Past Anesthesia/Blood Transfusion Reactions: No Reported Reaction Additional Past Anesthesia/Blood Transfusion Reaction / Comm: no hx blood transfusion Past Psychological History: Anxiety Smoking Status: Never smoker Past Alcohol Use History: None Reported Additional Past Alcohol Use History / Comment(s): QUIT SMOKING OVER 15 YRS AGO., HX OF 1-2 PPD Past Drug Use History: None Reported - Past Family History Mother Family Medical History: Cancer Additional Family Medical History / Comment(s): PANCREATIC CANCER Father Family Medical History: Cancer Additional Family Medical History / Comment(s): PROSTATE CANCER Medications and Allergies Home Medications Medication Instructions Recorded Confirmed Type Levothyroxine Sodium [Synthroid] 75 mcg PO DAILY 12/03/19 05/20/24 History Tamsulosin HCl [Flomax] 0.4 mg PO DAILY 07/25/22 05/20/24 History Atorvastatin [Lipitor] 40 mg PO DAILY 03/13/23 05/20/24 History Ferrous Sulfate [Iron (65 MG 325 mg PO HS 03/13/23 05/20/24 History Elemental)] Multivit,Calc,Min/FA/K1/Lycop 1 tab PO DAILY 03/13/23 05/20/24 History [One-A-Day Men's Complete Tab] Cholecalciferol [Vitamin D3 (125 125 mcg PO DAILY 04/11/23 05/20/24 History Mcg = 5000 Iu)] Omeprazole 40 mg PO DAILY 04/11/23 05/20/24 History Zinc Gluconate [Zinc] 50 mg PO DAILY 04/11/23 05/20/24 History Docusate [Colace] 100 mg PO HS 03/25/24 05/20/24 History Calcium Citrate 1200mg 1,200 mg PO DAILY 05/20/24 05/20/24 History FLUoxetine HCL [PROzac] 40 mg PO DAILY 05/20/24 05/20/24 History Gabapentin 800 mg PO BID 05/20/24 05/20/24 History Allergies Allergy/AdvReac Type Severity Reaction Status Date / Time No Known Allergies Allergy Verified 05/20/24 18:57 Physical Exam Vitals: Vital Signs Temp Pulse Pulse Resp BP BP Pulse Ox 05/21/24 07:28 97.5 F L 56 L 18 102/63 98 05/21/24 00:53 98.4 F 65 18 94/55 96 05/20/24 20:17 98.7 F 76 18 116/70 99 05/20/24 19:55 98.2 F 78 16 105/67 99 05/20/24 18:11 68 18 100/67 100 05/20/24 16:19 97.8 F 76 20 101/65 100 Intake and Output 05/20/24 05/21/24 05/21/24 22:59 06:59 14:59 Output Total 0 Balance 0 Output: Drainage 0 Left Lower Abdomen 0 Other: Voiding Method Toilet # Voids 1 Weight 85.729 kg GENERAL DESCRIPTION: Middle-aged male lying in bed, no distress. No tachypnea or accessory muscle of respiration use. HEENT: Shows Pallor , no scleral icterus. Oral mucous membrane is dry. No phar yngeal erythema or thrush NECK: Trachea central, no thyromegaly. LUNGS: Unlabored breathing. Clear to auscultation anteriorly. No wheeze or crackle. HEART: S1, S2, regular rate and rhythm. No loud murmur ABDOMEN: Soft, lower abdominal incision healed except at the right side and did have significant amount of purulent drainage in the drainage catheter EXTREMITIES: No edema of feet. SKIN: No rash, no masses palpable. NEUROLOGICAL: The patient is awake, alert, oriented x3, mood and affect normal. Results CBC & Chem 7: 05/25/24 04:26 05/25/24 04:26 Labs: Abnormal Lab Results - Last 24 Hours (Table) 05/20/24 05/20/24 Range/Units 17:51 17:51 RBC 3.59 L (4.30-5.90) m/uL Hgb 10.6 L (13.0-17.5) gm/dL Hct 33.5 L (39.0-53.0) % Lymphocytes # 0.6 L (1.0-4.8) k/uL Glucose 101 H (74-99) mg/dL Total Protein 5.8 L (6.3-8.2) g/dL Albumin 3.2 L (3.5-5.0) g/dL Assessment and Plan (1) Postoperative infection Current Visit: Yes Status: Acute Code(s): T81.40XA - INFECTION FOLLOWING A PROCEDURE, UNSPECIFIED, INIT SNOMED Code(s): 33253898 (2) Abdominal wall abscess Current Visit: Yes Status: Acute Code(s): L02.211 - CUTANEOUS ABSCESS OF ABDOMINAL WALL SNOMED Code(s): 89092235 Plan: 1patient with recent panniculectomy now developing abdominal wall abscess in this patient who is status post drainage of significant amount of seropurulent secretion that has been sent for culture we will need to cover for both gram- positive as well as gram-negative pathogen 2-patient is broadly covered with the vancomycin cefepime and Flagyl pending culture finalization 3-patient likely need PICC line and outpatient IV antibiotic therapy keeping in mind extensive infection discussed with the complex case manager We will follow on clinical condition and cultures to further adjust medication if needed Thank you for this consultation we will follow the patient along with you Dictation was produced using [employer] dictation software. please excuse any grammatical, word or spelling errors. Time with Patient: Greater than 30
--- NOTE | 2024-05-22 12:02 | P.PN ---
Subjective Progress Note Date: 05/22/24 CHIEF COMPLAINT: Abdominal wall cellulitis and abscess HISTORY OF PRESENT ILLNESS: Patient had drain placed in the abdomen by IR service with purulent drainage. Patient had 1 L of purulent fluid removed from the abdomen. Drain is in place on the left side of the abdomen with no new output. Patient continues to have significant amount of purulent drainage on the right side of the abdomen at incision site. Patient is not complaining of significant pain. He describes it as a burning discomfort. Afebrile. WBC 4.51 Hgb 8.[address] Wesley is covering for Dr. Tierney PHYSICAL EXAM: VITAL SIGNS: Reviewed. GENERAL: Well-developed in no acute distress. ABDOMEN: Soft. Nondistended. Incision site with drain on the left with old purulent drainage. Decreased erythema at incision site. Right lateral incision site with significant purulent drainage. NEUROLOGIC: Alert and oriented. Cranial nerves II through XII grossly intact. ASSESSMENT: 1. Abdominal wall cellulitis and abscess status post drain placement 2. Failed outpatient antibiotics 3. Poor personal hygiene 4. Status post panniculectomy on 04/27/2024 5. Anemia with known iron deficiency anemia PLAN: -Continue local wound care. Kerlix now being packed into the incision. -Patient followed by infectious disease. They are recommending IV antibiotics at discharge. -Consult placed for IR service for PICC line placement for IV antibiotics -Encourage patient to ambulate -Encourage patient to shower -Continue iron supplement -Repeat CBC in a.m. -Subcu heparin ordered for DVT prophylaxis Physician Veterinary Practitioner note has been reviewed by physician. Signing provider agrees with the documented findings, assessment, and plan of care. Objective - Vital Signs Vital signs: Vital Signs Temp 98.1 F 05/22/24 07:36 Pulse 58 L 05/22/24 07:36 Resp 18 05/22/24 07:36 BP 104/65 05/22/24 07:36 Pulse Ox 98 05/22/24 07:36 FiO2 Intake & Output 05/21/24 05/22/24 05/22/24 18:59 06:59 18:59 Other: Voiding Method Toilet # Voids 2 - Labs CBC & Chem 7: 05/22/24 05:07 05/22/24 05:07 Labs: Abnormal Lab Results - Last 24 Hours (Table) 05/22/24 Range/Units 05:07 RBC 2.99 L (4.40-5.60) X 10*6/uL Hgb 8.7 L (13.0-17.0) g/dL Hct 27.4 L (39.6-50.0) % MCHC 31.8 L (32.0-37.0) g/dL Microbiology - Last 24 Hours (Table) 05/20/24 17:43 Blood Culture - Preliminary Blood
--- NOTE | 2024-05-22 15:49 | P.PN ---
Subjective Progress Note Date: 05/22/24 Principal diagnosis: Reason for follow-up is abdominal wall abscess Patient is a 54-year-old male with a past medical history significant for hypertension hyperlipidemia reflux osteoarthritis obesity in this patient who is status post panniculectomy on 04/27/2024 now being admitted to hospital abdominal wall cellulitis and abscess status post IR drainage of the abscess. On today's evaluation that is 05/22/2024,the patient remains to be afebrile, patient is on room air not requiring supplemental oxygen and denies any shortness of breath no chest pain or cough.Patient denies having any nausea or vomiting, still complaining of lower abdominal pain and drainage specially to the right lower abdominal area. Patient white count is 4.51, creatinine 0.81 abdominal culture has been finalized with MSSA Objective - Vital Signs Vital signs: Vital Signs Temp 98.1 F 05/22/24 07:36 Pulse 58 L 05/22/24 07:36 Resp 18 05/22/24 07:36 BP 104/65 05/22/24 07:36 Pulse Ox 98 05/22/24 07:36 FiO2 Intake & Output 05/21/24 05/22/24 05/22/24 18:59 06:59 18:59 Other: Voiding Method Toilet # Voids 2 - Exam GENERAL DESCRIPTION: Middle-age male lying in bed in no distress RESPIRATORY SYSTEM: Unlabored breathing , decreased breath sounds at bases HEART: S1 S2 regular rate and rhythm , ABDOMEN: Soft , mild tenderness, drainage catheter with purulent secretions EXTREMITIES: No edema feet - Labs CBC & Chem 7: 05/22/24 05:07 05/22/24 05:07 Labs: Abnormal Lab Results - Last 24 Hours (Table) 05/22/24 Range/Units 05:07 RBC 2.99 L (4.40-5.60) X 10*6/uL Hgb 8.7 L (13.0-17.0) g/dL Hct 27.4 L (39.6-50.0) % MCHC 31.8 L (32.0-37.0) g/dL Microbiology - Last 24 Hours (Table) 05/20/24 17:43 Blood Culture - Preliminary Blood Assessment and Plan (1) Postoperative infection Current Visit: Yes Status: Acute Code(s): T81.40XA - INFECTION FOLLOWING A PROCEDURE, UNSPECIFIED, INIT SNOMED Code(s): 29961862 (2) Abdominal wall abscess Current Visit: Yes Status: Acute Code(s): L02.211 - CUTANEOUS ABSCESS OF ABDOMINAL WALL SNOMED Code(s): 04444197 Plan: 1patient with recent panniculectomy now developing abdominal wall/intra- abdominal abscess in this patient who is status post drainage of significant amount of seropurulent secretion that has been sent for culture we will need to cover for both gram-positive as well as gram-negative pathogen 2-patient local culture has been finalized with MSSA antibiotic has been adjusted to cefazolin may benefit from debridement of the abdominal wound especially to the right lower abdominal area surgery is following the patient question concern answered Dictation was produced using [employer] dictation software. please excuse any grammatical, word or spelling errors. Time with Patient: Less than 30
[2024-05-23 06:53] LABS: African American GFR (CKD) >90 (>60 ml/min/1.73 sqM); Non-African American GFR(CKD) >90 (>60 ml/min/1.73 sqM)
--- NOTE | 2024-05-23 09:11 | P.PN ---
Subjective Progress Note Date: 05/23/24 Patient feels well. He still has purulent drainage from his drain. On exam vital signs appear stable. Abdomen soft. Status post drainage of infected seroma. Patient will continue receive IV antibiotics. The patient may need washout of his incision. We will observe him closely. Objective - Vital Signs Vital signs: Vital Signs Temp 98.3 F 05/23/24 01:21 Pulse 56 L 05/23/24 01:21 Resp 16 05/23/24 01:21 BP 105/64 05/23/24 01:21 Pulse Ox 98 05/23/24 01:21 FiO2 Intake & Output 05/22/24 05/23/24 05/23/24 18:59 06:59 18:59 Other: Voiding Method Toilet # Voids 3 1 # Bowel Movements 2 - Labs CBC & Chem 7: 05/22/24 05:07 05/23/24 05:46 Labs: Microbiology - Last 24 Hours (Table) 05/20/24 17:43 Blood Culture - Preliminary Blood
[2024-05-23 09:43] LABS: HGB 9.4 g/dL (13.0-17.0); MCH 29.6 pg (27.0-32.0); MCHC 32.4 g/dL (32.0-37.0); MCV 91.2 FL (80.0-97.0); Mean Platelet Volume 9.9 FL (9.5-12.2); NRBC Per 100 WBC 0 X 10*3/uL (0.00-0.01); Platelet Count 324 X 10*3/uL (140-440); RBC 3.18 X 10*6/uL (4.40-5.60); WBC 4.42 X 10*3/uL (4.50-10.00)
[2024-05-24 06:24] LABS: African American GFR (CKD) >90 (>60 ml/min/1.73 sqM); Non-African American GFR(CKD) >90 (>60 ml/min/1.73 sqM)
--- NOTE | 2024-05-24 09:48 | P.PN ---
Subjective Progress Note Date: 05/24/24 The patient states he feels better. His drainage has improved. It is less purulent and more serous today. On exam vital signs appear stable. Abdomen is soft. Status post drainage of infected seroma. Patient will continue receive IV antibiotics. He will be reevaluated Dr. Tierney tomorrow. Objective - Vital Signs Vital signs: Vital Signs Temp 97.5 F L 05/24/24 07:26 Pulse 73 05/24/24 07:26 Resp 18 05/24/24 07:26 BP 107/69 05/24/24 07:26 Pulse Ox 97 05/24/24 07:26 FiO2 Intake & Output 05/23/24 05/24/24 05/24/24 18:59 06:59 18:59 Intake Total 150 Output Total 0 Balance 0 150 Intake: Intake, IV Titration 150 Amount ceFAZolin 2 gm In Sodium 50 Chloride 0.9% 50 ml @ 100 mls/hr IVPB Q8HR [facility] Rx# :[id number] metroNIDAZOLE-NS PMX 500 100 mg In Saline 1 100ml.bag @ 100 mls/hr IVPB Q8H [facility] Rx#:[id number] Output: Drainage 0 Left Lower Abdomen 0 Other: Voiding Method Toilet # Voids 2 1 - Labs CBC & Chem 7: 05/23/24 05:46 05/24/24 05:50 Labs: Microbiology - Last 24 Hours (Table) 05/20/24 17:43 Blood Culture - Preliminary Blood
--- NOTE | 2024-05-24 15:19 | P.PN ---
Subjective Progress Note Date: 05/23/24 Principal diagnosis: Reason for follow-up is abdominal wall abscess Patient is a 54-year-old male with a past medical history significant for hypertension hyperlipidemia reflux osteoarthritis obesity in this patient who is status post panniculectomy on 04/27/2024 now being admitted to hospital abdominal wall cellulitis and abscess status post IR drainage of the abscess. On today's evaluation that is 05/23/2024, the patient continues to be afebrile, the patient is on room air and breathing comfortably, the Pt denies having any chest pain or cough, the patient denies having abdominal pain has decreased in intensity no nausea no vomiting oral drainage has slowed down. Patient white count is 4.42, creatinine 0.81 blood culture negative Objective - Vital Signs Vital signs: Vital Signs Temp 97.6 F 05/23/24 07:59 Pulse 57 L 05/23/24 07:59 Resp 16 05/23/24 07:59 BP 100/62 05/23/24 07:59 Pulse Ox 96 05/23/24 07:59 FiO2 Intake & Output 05/22/24 05/23/24 05/23/24 18:59 06:59 18:59 Output Total 0 Balance 0 Output: Drainage 0 Left Lower Abdomen 0 Other: Voiding Method Toilet # Voids 3 1 # Bowel Movements 2 - Exam GENERAL DESCRIPTION: Middle-age male lying in bed in no distress RESPIRATORY SYSTEM: Unlabored breathing , decreased breath sounds at bases HEART: S1 S2 regular rate and rhythm , ABDOMEN: Soft , mild tenderness, drainage catheter with purulent secretions EXTREMITIES: No edema feet - Labs CBC & Chem 7: 05/23/24 05:46 05/24/24 05:50 Labs: Abnormal Lab Results - Last 24 Hours (Table) 05/23/24 Range/Units 05:46 WBC 4.42 L (4.50-10.00) X 10*3/uL RBC 3.18 L (4.40-5.60) X 10*6/uL Hgb 9.4 L (13.0-17.0) g/dL Hct 29.0 L (39.6-50.0) % Microbiology - Last 24 Hours (Table) 05/20/24 17:43 Blood Culture - Preliminary Blood Assessment and Plan (1) Postoperative infection Current Visit: Yes Status: Acute Code(s): T81.40XA - INFECTION FOLLOWING A PROCEDURE, UNSPECIFIED, INIT SNOMED Code(s): 92730111 (2) Abdominal wall abscess Current Visit: Yes Status: Acute Code(s): L02.211 - CUTANEOUS ABSCESS OF ABDOMINAL WALL SNOMED Code(s): 77010575 Plan: 1patient with recent panniculectomy now developing abdominal wall/intra- abdominal abscess in this patient who is status post drainage of significant amount of seropurulent secretion that has been sent for culture we will need to cover for both gram-positive as well as gram-negative pathogen 2-patient local culture has been finalized with MSSA patient to continue with the cefazolin and monitor clinical course closely Dictation was produced using [employer] dictation software. please excuse any grammatical, word or spelling errors. Time with Patient: Less than 30
--- NOTE | 2024-05-24 15:20 | P.PN ---
Subjective Progress Note Date: 05/24/24 Principal diagnosis: Reason for follow-up is abdominal wall abscess Patient is a 54-year-old male with a past medical history significant for hypertension hyperlipidemia reflux osteoarthritis obesity in this patient who is status post panniculectomy on 04/27/2024 now being admitted to hospital abdominal wall cellulitis and abscess status post IR drainage of the abscess. On today's evaluation that is 05/24/2024, Patient is afebrile patient is currently on room air and denies having any shortness of breath, the patient denies any chest pain or cough, the patient denies any nausea vomiting the patient right lower quad abdominal pain has decreased in intensity denies having any diarrhea. Patient did have a creatinine 0.88 Objective - Vital Signs Vital signs: Vital Signs Temp 97.5 F L 05/24/24 07:26 Pulse 73 05/24/24 07:26 Resp 18 05/24/24 07:26 BP 107/69 05/24/24 07:26 Pulse Ox 97 05/24/24 07:26 FiO2 Intake & Output 05/23/24 05/24/24 05/24/24 18:59 06:59 18:59 Intake Total 150 Output Total 0 Balance 0 150 Intake: Intake, IV Titration 150 Amount ceFAZolin 2 gm In Sodium 50 Chloride 0.9% 50 ml @ 100 mls/hr IVPB Q8HR [facility] Rx# :[id number] metroNIDAZOLE-NS PMX 500 100 mg In Saline 1 100ml.bag @ 100 mls/hr IVPB Q8H [facility] Rx#:[id number] Output: Drainage 0 Left Lower Abdomen 0 Other: Voiding Method Toilet # Voids 2 1 - Exam GENERAL DESCRIPTION: Middle-age male lying in bed in no distress RESPIRATORY SYSTEM: Unlabored breathing , decreased breath sounds at bases HEART: S1 S2 regular rate and rhythm , ABDOMEN: Soft , mild tenderness, drainage catheter with purulent secretions EXTREMITIES: No edema feet - Labs CBC & Chem 7: 05/23/24 05:46 05/24/24 05:50 Labs: Microbiology - Last 24 Hours (Table) 05/20/24 17:43 Blood Culture - Preliminary Blood Assessment and Plan (1) Postoperative infection Current Visit: Yes Status: Acute Code(s): T81.40XA - INFECTION FOLLOWING A PROCEDURE, UNSPECIFIED, INIT SNOMED Code(s): 18561830 (2) Abdominal wall abscess Current Visit: Yes Status: Acute Code(s): L02.211 - CUTANEOUS ABSCESS OF ABDOMINAL WALL SNOMED Code(s): 51279652 Plan: 1patient with recent panniculectomy now developing abdominal wall/intra- abdominal abscess in this patient who is status post drainage of significant nimesh unt of seropurulent secretion that has been sent for culture we will need to cover for both gram-positive as well as gram-negative pathogen 2-patient local culture has been finalized with MSSA for the patient is covered with the cefazolin will benefit from my follow-up CT abdominal pelvis in the a.m . to make sure overall abscess has significant decrease or resolve Dictation was produced using [employer] dictation software. please excuse any grammatical, word or spelling errors. Time with Patient: Less than 30
[2024-05-25 08:40] LABS: Basophils # (A) 0.05 X 10*3/uL (0.00-0.10); Basophils % (A) 0.8 %; Eosinophils # (A) 0.22 X 10*3/uL (0.04-0.35); Eosinophils % (A) 3.4 %; HCT 30.5 % (39.6-50.0); HGB 9.5 g/dL (13.0-17.0); Lymphocytes # (A) 1.18 X 10*3/uL (0.90-5.00); MCH 28.9 pg (27.0-32.0); MCHC 31.1 g/dL (32.0-37.0); MCV 92.7 FL (80.0-97.0); Mean Platelet Volume 10.2 FL (9.5-12.2); Monocytes # (A) 0.63 X 10*3/uL (0.20-1.00); Monocytes % (A) 9.6 %; NRBC Per 100 WBC 0 X 10*3/uL (0.00-0.01); Neutrophils # (A) 4.34 X 10*3/uL (1.80-7.70); Neutrophils % (A) 66.1 %; Platelet Count 342 X 10*3/uL (140-440); RBC 3.29 X 10*6/uL (4.40-5.60); RDW 13.2 % (11.5-14.5); WBC 6.56 X 10*3/uL (4.50-10.00)
[2024-05-25 09:30] LABS: BUN/Creat Ratio 11.44 Ratio (12.00-20.00); Blood Urea Nitrogen 10.3 mg/dL (9.0-27.0); Calcium 8.7 mg/dL (8.7-10.3); Carbon Dioxide 27.5 mmol/L (21.6-31.8); Chloride 105 mmol/L (96-109); Glucose 72 mg/dL (70-110); Potassium 4.7 mmol/L (3.5-5.5); Sodium 143 mmol/L (135-145)
--- NOTE | 2024-05-25 10:48 | P.PN ---
Subjective Progress Note Date: 05/25/24 CHIEF COMPLAINT: Abdominal wall cellulitis and abscess HISTORY OF PRESENT ILLNESS: Patient had drain placed in the abdomen by IR service with purulent drainage. Patient had 1 L of purulent fluid removed from the abdomen. Drain is in place on the left side of abdomen with no new output. Drainage from the opening on the right lateral side of the incision is less purulent and starting to be more serosanguineous in color. Overall drainage has decreased. Patient reports pain is controlled. Afebrile. Has his PICC line for IV antibiotics. WBC is 6.56 hemoglobin 9.5 PHYSICAL EXAM: VITAL SIGNS: Reviewed. GENERAL: Well-developed in no acute distress. ABDOMEN: Soft. Nondistended. Incisional drainage the opening in the right lateral incision is more serosanguineous in color. And is less. Packing is in place. Drain on the left no new output. Currently what is in the bag is purulent NEUROLOGIC: Alert and oriented. Cranial nerves II through XII grossly intact. ASSESSMENT: 1. Abdominal wall cellulitis and abscess status post drain placement 2. Failed outpatient antibiotics 3. Poor personal hygiene 4. Status post panniculectomy on 04/27/2024 5. Anemia with known iron deficiency anemia PLAN: -Further recommendations forthcoming per surgeon -Continue local wound care -Continue antibiotics per infectious disease -Subcu heparin ordered for DVT prophylaxis Physician Behavioral Instructor note has been reviewed by physician. Signing provider agrees with the documented findings, assessment, and plan of care. Objective - Vital Signs Vital signs: Vital Signs Temp 97.6 F 05/25/24 08:00 Pulse 60 05/25/24 08:00 Resp 16 05/25/24 08:00 BP 102/64 05/25/24 08:00 Pulse Ox 96 05/25/24 08:16 FiO2 21 05/25/24 08:16 Intake & Output 05/24/24 05/25/24 05/25/24 18:59 06:59 18:59 Other: # Voids 2 1 - Labs CBC & Chem 7: 05/25/24 04:26 05/25/24 04:26 Labs: Abnormal Lab Results - Last 24 Hours (Table) 05/25/24 05/25/24 Range/Units 04:26 04:26 RBC 3.29 L (4.40-5.60) X 10*6/uL Hgb 9.5 L (13.0-17.0) g/dL Hct 30.5 L (39.6-50.0) % MCHC 31.1 L (32.0-37.0) g/dL Immature Gran # 0.14 H (0.00-0.04) X 10*3/uL BUN/Creatinine Ratio 11.44 L (12.00-20.00) Ratio
--- NOTE | 2024-05-25 12:07 | P.PN ---
Subjective Progress Note Date: 05/25/24 Principal diagnosis: Reason for follow-up is abdominal wall abscess Patient is a 54-year-old male with a past medical history significant for hypertension hyperlipidemia reflux osteoarthritis obesity in this patient who is status post panniculectomy on 04/27/2024 now being admitted to hospital abdominal wall cellulitis and abscess status post IR drainage of the abscess. On today's evaluation that is 05/25/2024, patient has been afebrile, patient is breathing comfortably and is currently on room air, patient denies having any significant cough no chest pain shortness of breath, patient denies nausea vomiting or diarrhea and lower abdominal pain has decreased in intensity. Patient white count 6.56, creatinine 0.9 Objective - Vital Signs Vital signs: Vital Signs Temp 97.6 F 05/25/24 08:00 Pulse 60 05/25/24 09:10 Resp 16 05/25/24 09:10 BP 102/64 05/25/24 08:00 Pulse Ox 96 05/25/24 08:16 FiO2 21 05/25/24 08:16 Intake & Output 05/24/24 05/25/24 05/25/24 18:59 06:59 18:59 Other: Voiding Method Toilet # Voids 2 1 - Exam GENERAL DESCRIPTION: Middle-age male lying in bed in no distress RESPIRATORY SYSTEM: Unlabored breathing , decreased breath sounds at bases HEART: S1 S2 regular rate and rhythm , ABDOMEN: Soft , mild tenderness, drainage catheter with purulent secretions EXTREMITIES: No edema feet - Labs CBC & Chem 7: 05/25/24 04:26 05/25/24 04:26 Labs: Abnormal Lab Results - Last 24 Hours (Table) 05/25/24 05/25/24 Range/Units 04:26 04:26 RBC 3.29 L (4.40-5.60) X 10*6/uL Hgb 9.5 L (13.0-17.0) g/dL Hct 30.5 L (39.6-50.0) % MCHC 31.1 L (32.0-37.0) g/dL Immature Gran # 0.14 H (0.00-0.04) X 10*3/uL BUN/Creatinine Ratio 11.44 L (12.00-20.00) Ratio Assessment and Plan (1) Postoperative infection Current Visit: Yes Status: Acute Code(s): T81.40XA - INFECTION FOLLOWING A PROCEDURE, UNSPECIFIED, INIT SNOMED Code(s): 09968351 (2) Abdominal wall abscess Current Visit: Yes Status: Acute Code(s): L02.211 - CUTANEOUS ABSCESS OF ABDOMINAL WALL SNOMED Code(s): 40423247 Plan: 1patient with recent panniculectomy now developing abdominal wall/intra- abdominal abscess in this patient who is status post drainage of significant amount of seropurulent secretion that has been sent for culture we will need to cover for both gram-positive as well as gram-negative pathogen 2-patient local culture has been finalized with MSSA for the patient is covered with the cefazolin 3we will order CT abdominal pelvis for follow-up on the abdominal abscess and if overall resolution drainage catheter can be discontinued as the patient has been complaining about it Dictation was produced using [employer] dictation software. please excuse any grammatical, word or spelling errors. Time with Patient: Less than 30
[2024-05-25] MEDS: IOPAMIDOL CONTRAST (ORAL USE) VIAL PO PRN (12:29)
--- NOTE | 2024-05-25 18:21 | CT ---
EXAMINATION TYPE: CT abdomen pelvis w con DATE OF EXAM: 05/25/2024 COMPARISON: 01/24/2024 INDICATION: Abdominal wall abscess DLP: 1085.9 mGycm, Automated exposure control for dose reduction was used. CONTRAST: 100 ml mL of Isovue 300. Study performed with Oral Contrast TECHNIQUE: Axial images were obtained from above the diaphragm to the pubic rami in the axial plane a t 5 mm thick sections. Reconstructed images are reviewed on the computer in the coronal plane. FINDINGS: Limited CT sections are obtained the lung bases. There is a small right pleural effusion. Minimal co mpressive atelectasis is within the dependent lung bases bilaterally.. Urinary artery calcification is present. CT ABDOMEN: Gastric sleeve may be present. Liver: There is a cyst within the superior right lobe liver calcification is within the mid right lob e liver Spleen: Scattered calcifications are within the spleen. Pancreas: Normal Adrenal glands: The adrenal glands are normal. Gallbladder: Normal Kidneys: No masses are evident. No hydronephrosis is present. No cysts are present. There is a non obstructing 0.4 centimeter calcification within the mid right kidney. There is some mild prominence o f the right ureter. No obstructing ureteral stone is evident. The mild prominence of the right ureter extends to the pelvic inlet. Aorta: Vascular calcification is within the aorta. Inferior vena cava: Normal. CT PELVIS: Mild diffuse increased stranding is within the subcutaneous tissue. There is a drainage ca theter within the anterior pelvic wall. There is within the space. No well-formed abscess is identifi ed. Loops of bowel within the abdomen and pelvis are normal. There are loops of bowel which are incom pletely distended or lack oral contrast limiting their evaluation. Appendix: Normal as visualized. Urinary bladder: Normal. Genitourinary structures: Prostate is somewhat prominent. Osseous structures: No suspicious lytic or sclerotic lesions. IMPRESSION: 1. Anterior cutaneous abdominal wall abscess is not identified. Drainage catheter is present. 2. 0.4 cm nonobstructing right renal stone. 3. There is some mild prominence of the right ureter to the pelvic inlet. No obstructing etiology is identified. 4. Small right pleural effusion. [facility], , 05/25/2024 6:19 PM
[2024-05-25 22:03] VITALS: RESP 16
[2024-05-26 08:30] VITALS: BP 106/67; PULSE 68; TEMP 97.9
--- NOTE | 2024-05-26 11:53 | P.DS ---
Providers Date of admission: 05/20/24 18:39 Expected date of discharge: 05/26/24 Attending physician: Chanelle Tierney Consults: 05/20/24 18:37 Consult Physician Urgent Consulting Provider: Johnny Bergman Consult Reason/Comments: Post surgical infection Do you want consulting provider notified?: Yes Primary care physician: Gerber Griffith [facility] Course: Discharge diagnosis 1. Abdominal wall cellulitis and abscess status post drain placement 2. Failed outpatient antibiotics 3. Poor personal hygiene 4. Status post panniculectomy on 04/27/2024 5. Anemia with known iron deficiency anemia Hospital course This is a 54-year-old male who is status post panniculectomy on 04/27/2024. He presented to the hospital with swelling and cellulitis changes along the lower abdominal incision site with purulent drainage. He had a outpatient ultrasound that had reported a large fluid collection. IR service did placed a drain. And then he was admitted to the hospital for IV antibiotics. Patient's purulent drainage has improved. A repeat CAT scan showing no further evidence of fluid collection. Drain has been removed. Patient has been receiving IV antibiotics. He has been followed by infectious disease. Infectious disease has recommended IV antibiotics outpatient. Home care is arranged for the IV antibiotics. Patient has improved. He is tolerating diet. The drainage has decreased. Pain is controlled. He is afebrile. He is stable for discharge. Physician Display Director note has been reviewed by physician. Signing provider agrees with the documented findings, assessment, and plan of care. Patient Condition at Discharge: Stable Plan - Discharge Summary Discharge Rx Participant: No New Discharge Prescriptions: Continue Levothyroxine Sodium [Synthroid] 75 mcg PO DAILY Tamsulosin HCl [Flomax] 0.4 mg PO DAILY Ferrous Sulfate [Iron (65 MG Elemental)] 325 mg PO HS Cholecalciferol [Vitamin D3 (125 Mcg = 5000 Iu)] 125 mcg PO DAILY Atorvastatin [Lipitor] 40 mg PO DAILY Multivit,Calc,Min/FA/K1/Lycop [One-A-Day Men's Complete Tab] 1 tab PO DAILY Zinc Gluconate [Zinc] 50 mg PO DAILY Omeprazole 40 mg PO DAILY Docusate [Colace] 100 mg PO HS Calcium Citrate 1200mg 1,200 mg PO DAILY FLUoxetine HCL [PROzac] 40 mg PO DAILY Gabapentin 800 mg PO BID Discharge Medication List Levothyroxine Sodium [Synthroid] 75 mcg PO DAILY 12/03/19 [History] Tamsulosin HCl [Flomax] 0.4 mg PO DAILY 07/25/22 [History] Atorvastatin [Lipitor] 40 mg PO DAILY 03/13/23 [History] Ferrous Sulfate [Iron (65 MG Elemental)] 325 mg PO HS 03/13/23 [History] Multivit,Calc,Min/FA/K1/Lycop [One-A-Day Men's Complete Tab] 1 tab PO DAILY [History] Cholecalciferol [Vitamin D3 (125 Mcg = 5000 Iu)] 125 mcg PO DAILY 04/11/23 [History] Omeprazole 40 mg PO DAILY 04/11/23 [History] Zinc Gluconate [Zinc] 50 mg PO DAILY 04/11/23 [History] Docusate [Colace] 100 mg PO HS 03/25/24 [History] Calcium Citrate 1200mg 1,200 mg PO DAILY 05/20/24 [History] FLUoxetine HCL [PROzac] 40 mg PO DAILY 05/20/24 [History] Gabapentin 800 mg PO BID 05/20/24 [History] Follow up Appointment(s)/Referral(s): [facility], [NON-STAFF] - As Needed Gerber Beth MD [Primary Care Provider] - 1-2 days (Office not answering at time of discharge. Please call for follow-up appointment.) [facility] [NON-STAFF] - [facility] [place] [facility] - 05/29/24 9:00 am Johnny Bergman MD [STAFF PHYSICIAN] - 06/08/24 3:15 pm (Needs referral from primary care provider before scheduled appointment.) Activity/Diet/Wound Care/Special Instructions: Wear abdominal binder at all times for comfort. No lifting over 4 pounds in 4 weeks You May shower. No bath tub soaks for two weeks Continue High Protein diet to promote wound healing Discharge IV antibiotics per ID service. Cefazolin 2gram IV q 8hours x 2 weeks Discharge Disposition: HOME WITH HOME HEALTH SERVICES
--- NOTE | 2024-05-26 13:11 | P.PN ---
Subjective Progress Note Date: 05/26/24 Principal diagnosis: Reason for follow-up is abdominal wall abscess Patient is a 54-year-old male with a past medical history significant for hypertension hyperlipidemia reflux osteoarthritis obesity in this patient who is status post panniculectomy on 04/27/2024 now being admitted to hospital abdominal wall cellulitis and abscess status post IR drainage of the abscess. On today's evaluation that is 05/26/2024, Patient is afebrile this morning patient denies having any chest pain shortness of breath or cough, the patient is breathing comfortably on room air, patient denies any abdominal pain no diarrhea no nausea no vomiting, feeling better. No new labs were obtained today Objective - Vital Signs Vital signs: Vital Signs Temp 97.9 F 05/26/24 06:50 Pulse 68 05/26/24 06:50 Resp 16 05/26/24 06:50 BP 106/67 05/26/24 06:50 Pulse Ox 97 05/26/24 09:13 FiO2 21 05/26/24 09:13 Intake & Output 05/25/24 05/26/24 05/26/24 18:59 06:59 18:59 Intake Total 240 Balance 240 Intake: Oral 240 Other: Voiding Method Toilet Toilet # Voids 1 - Exam GENERAL DESCRIPTION: Middle-age male lying in bed in no distress RESPIRATORY SYSTEM: Unlabored breathing , decreased breath sounds at bases HEART: S1 S2 regular rate and rhythm , ABDOMEN: Soft , mild tenderness, drainage catheter with purulent secretions EXTREMITIES: No edema feet - Labs CBC & Chem 7: 05/25/24 04:26 05/25/24 04:26 Labs: Microbiology - Last 24 Hours (Table) 05/20/24 17:43 Blood Culture - Final Blood Assessment and Plan (1) Postoperative infection Current Visit: Yes Status: Acute Code(s): T81.40XA - INFECTION FOLLOWING A PROCEDURE, UNSPECIFIED, INIT SNOMED Code(s): 19095686 (2) Abdominal wall abscess Current Visit: Yes Status: Acute Code(s): L02.211 - CUTANEOUS ABSCESS OF ABDOMINAL WALL SNOMED Code(s): 16721496 Plan: 1patient with recent panniculectomy now developing abdominal wall/intra- abdominal abscess in this patient who is status post drainage of significant amount of seropurulent secretion that has been sent for culture we will need to cover for both gram-positive as well as gram-negative pathogen 2-patient local culture has been finalized with MSSA for the patient is covered with the cefazolin, CT abdominal pelvis shows resolution of the abscess drainage catheter has been discontinued keeping in mind his extensive infection and persistent cellulitis short course of IV cefazolin on discharge and close outpatient follow-up we will give him a dose of Rocephin today that we will bridge him so he can start his cefazolin at home tomorrow multiple question concern answered Dictation was produced using [employer] software. please excuse any grammatical, word or spelling errors.
== END 2024-05-26 13:47 | disposition home health service (06) | DRG 863 ==
LOC: EC 16:04 → 4SSUR 18:39
PROVIDERS: ADMIT Surgery Plastic and Reconstructive Surgery; ATTEND Surgery Plastic and Reconstructive Surgery
PROC: 0W9J30Z Drainage of Pelvic Cavity with Drainage Device, Percutaneous Approach (ICD-10-PCS; 2024-05-20)
PROC: 02HV33Z Insertion of Infusion Device into Superior Vena Cava, Percutaneous Approach (ICD-10-PCS; principal; 2024-05-22 23:00)
PROC: 4A02X4A Measurement of Cardiac Electrical Activity, Guidance, External Approach (ICD-10-PCS; principal; 2024-05-22 23:00)
DX: T81.41XA Infection following a procedure, superficial incisional surgical site, initial encounter (principal); L03.311 Cellulitis of abdominal wall; L02.211 Cutaneous abscess of abdominal wall; I10 Essential (primary) hypertension; D50.9 Iron deficiency anemia, unspecified; E78.5 Hyperlipidemia, unspecified; F41.9 Anxiety disorder, unspecified; K21.9 Gastro-esophageal reflux disease without esophagitis; E07.9 Disorder of thyroid, unspecified; B95.61 Methicillin susceptible Staphylococcus aureus infection as the cause of diseases classified elsewhere; Y83.4 Other reconstructive surgery as the cause of abnormal reaction of the patient, or of later complication, without mention of misadventure at the time of the procedure; Z96.651 Presence of right artificial knee joint; Z79.890 Hormone replacement therapy; Z79.899 Other long term (current) drug therapy; Z98.84 Bariatric surgery status; Z87.891 Personal history of nicotine dependence
CPT/HCPCS: 36415; 36573; 74177; 80048; 80053; 80202; 82565; 83605; 85025; 85027; 85610; 85730; 87040; 94760

== ENCOUNTER → 2024-05-29 | Outpatient (CLI) | payer BC, OTHER ==
--- NOTE | 2024-05-29 09:31 | P.BASOAP ---
Subjective Progress Note Date: 05/29/24 No further infection. Wound granulating 2 cm. Small tract identified. Minimal serous drainage. No purulent drainage. High-protein diet 90 g daily described including multivitamin and vitamin C 1 glass daily. Follow-up in 2 weeks. Additional supplies given. Dressing changed at bedside. Complete resolution of cellulitis achieved Objective - Vital Signs Vital signs: Intake & Output 05/28/24 05/29/24 05/29/24 18:59 06:59 18:59 Weight 86.183 kg Assessment/Plan Plan: Date: Initial Weight: 160.118 kg Initial BMI: Current Weight: 86.183 kg Current BMI: Type of Surgery: Total Volume in Band: Previous Volume: Volume Removed: Volume Added: Band Size:
[2024-05-29 09:42] VITALS: BP 106/71; PULSE 61; RESP 14; TEMP 97.9; BMI 28.4
== END ==
LOC: BARWHC3 08:31
PROVIDERS: ATTEND Surgery Plastic and Reconstructive Surgery
DX: E66.01 Morbid (severe) obesity due to excess calories (principal); Z68.28 Body mass index [BMI] 28.0-28.9, adult; Z87.891 Personal history of nicotine dependence
CPT/HCPCS: 99212

== ENCOUNTER → 2024-06-10 | Outpatient (CLI) | payer BC, OTHER ==
[2024-06-10 15:05] VITALS: BP 108/68; PULSE 58; RESP 16; TEMP 98; BMI 28.9
--- NOTE | 2024-06-10 15:50 | P.BASOAP ---
Subjective Progress Note Date: 06/10/24 He has moderate healing. Has 2-cm wound along abdomen. NO redness. Dressing changed. Weight stable. FU 1 month. Increase protein. Objective - Vital Signs Vital signs: Vital Signs Temp 98.0 F 06/10/24 14:58 Pulse 58 L 06/10/24 14:58 Resp 16 06/10/24 14:58 BP 108/68 06/10/24 14:58 Pulse Ox FiO2 Intake & Output 06/09/24 06/10/24 06/10/24 18:59 06:59 18:59 Weight 87.543 kg Assessment/Plan Plan: Date: 06/10/24 Initial Weight: 160.118 kg Initial BMI: 52.9 Current Weight: 87.543 kg Current BMI: 28.9 Type of Surgery: Total Volume in Band: Previous Volume: Volume Removed: Volume Added: Band Size:
== END ==
LOC: BARWHC3 14:10
PROVIDERS: ATTEND Surgery Plastic and Reconstructive Surgery
DX: E66.01 Morbid (severe) obesity due to excess calories (principal); Z87.891 Personal history of nicotine dependence; Z68.28 Body mass index [BMI] 28.0-28.9, adult
CPT/HCPCS: 99212

== ENCOUNTER → 2024-07-15 | Outpatient (CLI) | payer BC, OTHER ==
[2024-07-15 13:20] VITALS: BP 115/71; PULSE 56; TEMP 98.1; BMI 28.8
== END ==
LOC: BARWHC3 13:02
PROVIDERS: ATTEND Surgery Plastic and Reconstructive Surgery
DX: E66.01 Morbid (severe) obesity due to excess calories (principal); Z68.28 Body mass index [BMI] 28.0-28.9, adult; Z87.891 Personal history of nicotine dependence
CPT/HCPCS: 99211

== ENCOUNTER → 2024-07-27 | Outpatient (CLI) | payer BC, OTHER ==
--- NOTE | 2024-07-27 17:11 | CT ---
EXAMINATION TYPE: CT chest wo con DATE OF EXAM: 07/27/2024 COMPARISON: None CLINICAL INDICATION: Male, 54 years old with history of R07.81 PLEURODYNIA; PHH, Left shoulder, subsc apular pain x 2 years TECHNIQUE: CT scan of the thorax is performed without IV contrast. CT DLP: 425 mGycm Automated exposure control for dose reduction was used. FINDINGS: LUNGS: The lungs are grossly clear, there is no concerning parenchymal mass or nodule identified. T here is no pleural effusion or pneumothorax seen. The tracheobronchial tree is patent. MEDIASTINUM: Lack of IV contrast is noted to limit evaluation for mediastinal and especially hilar ad enopathy. There are no definitive greater than 1 cm hilar or mediastinal lymph nodes. No pericardia l effusion is seen. Mild cardiomegaly. Coronary artery calcification seen. OTHER: No additional significant abnormality is seen. IMPRESSION: No pulmonary abnormalities to account for the patient's clinical symptoms. Follow-up recommendations for incidental pulmonary nodules are per [employer] or [employer]. [facility], , 07/27/2024 5:08 PM
== END ==
LOC: RADCTMAIN 16:41
PROVIDERS: ATTEND Family Medicine
DX: R07.81 Pleurodynia (principal)
CPT/HCPCS: 71250

== ENCOUNTER 2024-11-02 09:43 | Day surgery (SDC) | payer BC, OTHER ==
--- NOTE | 2024-11-02 08:16 | P.GSHP ---
History of Present Illness H&P Date: 11/02/24 CHIEF COMPLAINT: Abdominal mass HISTORY OF PRESENT ILLNESS: The patient is a 54 year-old male with increased abdominal mass of the lower abdomen. Patient has a pre-existing history of panniculectomy including large abdominal wall abscess over 6 months ago. Patient reports increased pain of the lower abdomen due to abdominal mass. Patient presents for excision. PAST MEDICAL HISTORY: Please see list. PAST SURGICAL HISTORY: Please see list. MEDICATIONS: Please see list. ALLERGIES: Please see list. SOCIAL HISTORY: No illicit drug use FAMILY HISTORY: No reports of Crohn disease or ulcerative colitis. REVIEW OF ORGAN SYSTEMS: CONSTITUTIONAL: No reports of fevers or chills. GI: Denies any blood in stools or constipation. PHYSICAL EXAM: VITAL SIGNS: Stable SKIN: Well perfused. Good skin turgor. Abdominal mass over 20 cm x 10 cm. Musculoskeletal: No clubbing cyanosis or edema GENERAL: Well developed and in no acute distress. Pleasant. HEENT: No sclera icterus. Extraocular movements grossly intact. Moist buccal mucosa. Head is atraumatic, normocephalic. Hears conversational speech. No nasal drainage. NECK: Supple without lymphadenopathy. No JV distention. CHEST: Non-labored respirations and equal bilateral excursions. CARDIOVASCULAR: Regular rate and rhythm. Palpable 2+ radial pulses. ABDOMEN: Soft. Non-tender. Nondistended. NEUROLOGIC: No focal or lateralizing signs. PSYCH: Appropriate affect. Alert and oriented to person, place and time. ASSESSMENT: 1. Mass along lower abdomen, 20 cm x 10 cm PLAN: 1. Will proceed of excision of subcutaneous tumor along the abdomen 2. DVT prophylaxis. 3. Antibiotic prophylaxis. 4. Time of recovery, at least one week. 5. Recommend abdominal wall block for pain management Past Medical History Past Medical History: GERD/Reflux, Hyperlipidemia, Hypertension, Osteoarthritis (OA), Thyroid Disorder Additional Past Medical History / Comment(s): "n/v w/ severe abd pain with gallbladder symptoms"-seen in ER 01-24-24,HTN resolved with wt loss (150#) . Post op seroma-Interventional radiology Drain placed, IV antibiotics PICC line History of Any Multi-Drug Resistant Organisms: None Reported Past Surgical History: Bariatric Surgery, Joint Replacement, Orthopedic Surgery Additional Past Surgical History / Comment(s): LEFT KNEE ARTHROSCOPY AND THEN tashi TKR, CTR TASHI X2, HYDROCELE, PILONIDAL CYST, HEMORRHOIDECTOMY. Brad-en-y Gastric bypass 07-02-22. right total knee replacement 2022. Low anterior resection/sigmoid colectomy 03/20/24. Panni 04/2024-infection with drain post op Past Anesthesia/Blood Transfusion Reactions: No Reported Reaction Additional Past Anesthesia/Blood Transfusion Reaction / Comment(s): no hx blood transfusion Smoking Status: Never smoker - Past Family History Mother Family Medical History: Cancer Additional Family Medical History / Comment(s): PANCREATIC CANCER Father Family Medical History: Cancer Additional Family Medical History / Comment(s): PROSTATE CANCER Medications and Allergies Home Medications Medication Instructions Recorded Confirmed Type Levothyroxine Sodium [Synthroid] 75 mcg PO DAILY 12/03/19 10/29/24 History Tamsulosin HCl [Flomax] 0.4 mg PO DAILY 07/25/22 10/29/24 History Atorvastatin [Lipitor] 40 mg PO DAILY 03/13/23 10/29/24 History Ferrous Sulfate [Iron (65 MG 325 mg PO HS 03/13/23 10/29/24 History Elemental)] Multivit,Calc,Min/FA/K1/Lycop 1 tab PO DAILY 03/13/23 10/29/24 History [One-A-Day Men's Complete Tab] Cholecalciferol [Vitamin D3 (125 125 mcg PO DAILY 04/11/23 10/29/24 History Mcg = 5000 Iu)] Omeprazole 40 mg PO DAILY 04/11/23 10/29/24 History Zinc Gluconate [Zinc] 50 mg PO DAILY 04/11/23 10/29/24 History Docusate [Colace] 100 mg PO HS 03/25/24 10/29/24 History Calcium Citrate 1200mg 1,200 mg PO DAILY 05/20/24 10/29/24 History FLUoxetine HCL [PROzac] 40 mg PO DAILY 05/20/24 10/29/24 History HYDROcodone/APAP 7.5-325MG [[place] 1 tab PO HS 10/28/24 10/29/24 History 7.5-325] Allergies Allergy/AdvReac Type Severity Reaction Status Date / Time No Known Allergies Allergy Verified 10/29/24 15:59
[~2024-11-02 09:43] MED LIST changes: -HYDROmorphone 0.5 MG/0.5 ML SYRINGE IVP PRN; -INDOCYANINE GREEN 25 MG VIAL IV STA; +LACTATED RINGERS 1,000 ML IV SCH; -MIDAZOLAM 2 MG/2 ML VIAL IV PRN; +Pre Op ABX Message 1 EACH MISC MISCELLANE ONE; -fentaNYL (PF) 50 MCG/ML 2 ML AMP IVP PRN
[2024-11-02] MEDS: IV FLUID CONTINUATION 1,000 ML IV ONE (10:11)
[2024-11-02] MEDS: HEPARIN SODIUM,PORCINE 5,000 UNIT/ML 1 ML VIAL SQ PRN (10:14)
[2024-11-02] MEDS: ACETAMINOPHEN TAB 500 MG TAB PO PRN (10:14)
[2024-11-02] MEDS: ONDANSETRON 4 MG/2 ML VIAL IVP PRN (10:15)
[2024-11-02] MEDS ORDERED: HEPARIN SODIUM,PORCINE 5,000 UNIT/ML 1 ML VIAL SQ STA (10:25)
--- NOTE | 2024-11-02 10:25 | P.HPADDEND ---
H&P Addendum H&P Addendum Date: 11/02/24 Patient seen and evaluated. Due to extensive resection, abdominal wall block requested. All benefits are as described. Close outpatient follow-up reviewed.
[2024-11-02] MEDS ORDERED: HYDROmorphone (PF) 1 MG/ML ONE (10:40)
[2024-11-02] MEDS ORDERED: ROPIVACAINE 5 MG/ML 30 ML VIAL ONE (10:40)
[2024-11-02] MEDS ORDERED: DEXAMETHASONE SOD PHOSPHATE 4 MG/ML 1 ML VIAL ONE (10:40)
[2024-11-02] MEDS ORDERED: PROPOFOL 10 MG/ML 20 ML VIAL IV ONE (10:40)
[2024-11-02] MEDS ORDERED: ROCURONIUM 10 MG/ML (5 ML VIAL) IV ONE (10:40)
[2024-11-02] MEDS ORDERED: fentaNYL (PF) 50 MCG/ML 2 ML AMP ONE (10:40)
[2024-11-02] MEDS ORDERED: SUCCINYLCHOLINE CHLORIDE 200 MG/10 ML VIAL IV ONE (10:40)
[2024-11-02] MEDS ORDERED: MIDAZOLAM 2 MG/2 ML VIAL ONE (10:40)
[2024-11-02] MEDS ORDERED: PHENYLEPHRINE-0.9% NACL SYG 1,000 MCG/10 ML SYRINGE ONE (10:40)
[2024-11-02] MEDS ORDERED: LIDOCAINE 1% INJ 10MG/ML (20 ML MDV) ONE (10:40)
[2024-11-02] MEDS ORDERED: ePHEDrine 50 MG/ML 1 ML VIAL ONE (10:40)
[2024-11-02] MEDS ORDERED: GLYCOPYRROLATE 0.2 MG/ML 2 ML VIAL ONE (10:40)
[2024-11-02] MEDS ORDERED: NEOSTIGMINE 1 MG/ML 10 ML VIAL ONE (10:40)
[2024-11-02] MEDS: LIDOCAINE 1%-EPI 1:100,000 20 ML VIAL SQ ONE (11:17)
--- NOTE | 2024-11-02 11:59 | P.ANPRN ---
Procedure Note - Anesthesia - Nerve Block Performed Bilateral Erector Spinae Single Time Out Performed: Yes Date of Procedure: 11/02/24 Procedure Start Time: 10:30 Procedure Stop Time: 10:35 Location of Patient: PreOp Indication: Acute Post-Operative Pain, Analgesia, Requested by Surgeon Sedation Type: Sedate with meaningful contact maintained Preparation: Sterile Prep Position: Prone Catheter: None Needle Types: Pajunk Needle Gauge: 21 Ultrasound used to visualize needle placement: Yes Ultrasound used to observe medication spread: Yes Injectate: 0.5% Ropivacaine (see comment for volume) (Rppiv 20ml+[id number],Needle level C26---Zhzv side. (Resident)) Blood Aspirated: No Pain Paresthesia on Injection Noted: No Resistance on Injection: Normal Image Stored and Saved: Yes Events: Uneventful and Well Tolerated
[2024-11-02] MEDS: LACTATED RINGERS 1,000 ML IV ONE (12:18)
[2024-11-02 13:40] VITALS: TEMP 98.3
[2024-11-02] MEDS: HYDROmorphone 0.5 MG/0.5 ML SYRINGE IVP PRN (13:53)
[2024-11-02 14:40] VITALS: RESP 18
[2024-11-02 14:59] VITALS: BP 111/63; PULSE 75
--- NOTE | 2024-11-08 19:50 | P.OP ---
Date of Procedure: 11/02/24 Description of Procedure: SURGEON: MADISYN SHIN MD PREOPERATIVE DIAGNOSES: 1. Lower abdominal mass 2. History of gastric bypass 3. Chronic pain syndrome 4. Iron deficiency anemia 5. Benign prostate disorder with obstructive uropathy 6. Gastroesophageal reflux disease 7. Hypothyroidism 8. Depressive disorder 9. Generalized anxiety disorder POSTOPERATIVE DIAGNOSES: 1. Lower abdominal mass, 42 x 6 cm (252 sq cm) 2. History of gastric bypass 3. Chronic pain syndrome 4. Iron deficiency anemia 5. Benign prostate disorder with obstructive uropathy 6. Gastroesophageal reflux disease 7. Hypothyroidism 8. Depressive disorder 9. Generalized anxiety disorder OPERATION: 1. Excision of abdominal wall mass, lower abdomen 42 cm x 6 cm, 252 cm 2. Adjacent soft tissue transfer/rearrangement abdominal wall defect 42 cm x 6 cm, 252 cm 3. Repair of complex abdominal wound/trunk 42 cm 4. Application of Prevena universal incisional wound VAC system, 42 cm ANESTHESIA: General With abdominal wall block ESTIMATED BLOOD LOSS: 300 mL SPECIMENS REMOVED: Abdominal mass COMPLICATIONS: None. CONDITION: Stable. DRAINS: None OPERATIVE FINDINGS: 1. Lower abdominal mass 42 cm x 6 cm excised with defect 252 cm closed with complex suture pair and soft tissue rearrangement INDICATIONS: Boom Byrd is a 54-year-old male who presents with painful lower abdominal mass. Had prior history abdominal wall infections. Patient reports increased discomfort from lower abdominal mass. He presents for excision and closure. Benefits and risks of the procedure including bleeding, infection, chronic pain, cosmetic deformity, need for further surgery were described at length. Informed consent was obtained. DESCRIPTION: In the preanesthesia care unit the patient was marked with an indelible marker. He had also been given heparin subcutaneously. The patient was brought into the operating room and laid in supine position. After general induction, the abdomen was then prepped and draped in standard sterile fashion using ChloraPrep. A timeout protocol was confirmed with the surgical team regarding patient's name, procedure to be performed, including preoperative medications. He had received Ancef 2 grams IV antibiotics. The lower abdominal mass was measured at least 30 cm width and 5 cm length. Initial incision was made using #10 blade along the pubis extending to the bilateral anterior iliac spines. Flaps were raised of subcutaneous tissue to the fascia, inferiorly to the pubis and to the upper abdomen. The abdominal flap extended to the fascia. Abdominal wall mass was excised using #10 blade. Bleeding was checked with electro Bovie cautery. For complete resection, the mass was elevated as a flap and excised. Residual defect abdominal wall defect of the lower abdomen is 42 cm in width and 6 cm in length. Adjacent soft tissue transfer was performed by creating upper and lower abdominal flaps with wide undermining. The patient's bed was flexed along the hips to allow for superficial fascial system closure. 0 Vicryl for the superficial fascial system was placed in interrupted fashion. 3-0 Monocryl was used for closure of the dermis. Dermabond tape was applied. Length of the incision for closure is 42 cm measured. Additional layers using Dermabond tape was placed across. Incisional wound VAC system was prepared along the entire length of the incision and placed to negative suction. At the end of the procedure, the needle, sponge and instrument count was verified correct. Skin was cleansed with normal saline including hydrogen peroxide. The patient was then transferred in a beach chair position. An abdominal binder was placed. The patient was taken to the postanesthesia care unit in stable condition, awake and extubated. Plan - Discharge Summary Discharge Rx Participant: No New Discharge Prescriptions: New Cyclobenzaprine [Flexeril] 10 mg PO TID #30 tab Acetaminophen Tab [Tylenol Tab] 1,000 mg PO Q6HR PRN #30 tablet PRN Reason: Pain Continue Levothyroxine Sodium [Synthroid] 75 mcg PO DAILY Tamsulosin HCl [Flomax] 0.4 mg PO DAILY Ferrous Sulfate [Iron (65 MG Elemental)] 325 mg PO HS Cholecalciferol [Vitamin D3 (125 Mcg = 5000 Iu)] 125 mcg PO DAILY HYDROcodone/APAP 7.5-325MG [[place] 7.5-325] 1 tab PO HS Atorvastatin [Lipitor] 40 mg PO DAILY Multivit,Calc,Min/FA/K1/Lycop [One-A-Day Men's Complete Tab] 1 tab PO DAILY Zinc Gluconate [Zinc] 50 mg PO DAILY Omeprazole 40 mg PO DAILY Docusate [Colace] 100 mg PO HS Calcium Citrate 1200mg 1,200 mg PO DAILY FLUoxetine HCL [PROzac] 40 mg PO DAILY Discharge Medication List Levothyroxine Sodium [Synthroid] 75 mcg PO DAILY 12/03/19 [History] Tamsulosin HCl [Flomax] 0.4 mg PO DAILY 07/25/22 [History] Atorvastatin [Lipitor] 40 mg PO DAILY 03/13/23 [History] Ferrous Sulfate [Iron (65 MG Elemental)] 325 mg PO HS 03/13/23 [History] Multivit,Calc,Min/FA/K1/Lycop [One-A-Day Men's Complete Tab] 1 tab PO DAILY 03/13/23 [History] Cholecalciferol [Vitamin D3 (125 Mcg = 5000 Iu)] 125 mcg PO DAILY 04/11/23 [History] Omeprazole 40 mg PO DAILY 04/11/23 [History] Zinc Gluconate [Zinc] 50 mg PO DAILY 04/11/23 [History] Docusate [Colace] 100 mg PO HS 03/25/24 [History] Calcium Citrate 1200mg 1,200 mg PO DAILY 05/20/24 [History] FLUoxetine HCL [PROzac] 40 mg PO DAILY 05/20/24 [History] HYDROcodone/APAP 7.5-325MG [[place] 7.5-325] 1 tab PO HS 10/28/24 [History] Acetaminophen Tab [Tylenol Tab] 1,000 mg PO Q6HR PRN #30 tablet 11/02/24 [Rx] Cyclobenzaprine [Flexeril] 10 mg PO TID #30 tab 11/02/24 [Rx] Follow up [facility]ment(s[facility] [place] [place] [facility] [place] 11/06/24 9:00 am Patient Instructions/Handouts: *Surgery [facility] - (Anesthesia) Discharge Instructions Outpatient Surgery, Negative Pressure Wound Therapy (GEN), Panniculectomy (DC) Activity/Diet/Wound Care/Special Instructions: Protein intake over 90 grams daily for optimal recovery. No lifting over 4 pounds in 4 weeksNovember 30 No bathtub soaks. No shower. No stretching or twisting. Sleep in a recliner. DO NOT REMOVE DRESSINGS. DO NOT REMOVE BINDER. Discharge Disposition: HOME SELF-CARE
== END 2024-11-02 15:41 | disposition home or self-care (01) ==
LOC: OR 09:43
PROVIDERS: ATTEND Surgery Plastic and Reconstructive Surgery
DX: D17.1 Benign lipomatous neoplasm of skin and subcutaneous tissue of trunk (principal); L90.5 Scar conditions and fibrosis of skin; E78.5 Hyperlipidemia, unspecified; G89.18 Other acute postprocedural pain; I10 Essential (primary) hypertension; K21.9 Gastro-esophageal reflux disease without esophagitis; M19.90 Unspecified osteoarthritis, unspecified site; G89.4 Chronic pain syndrome; D50.9 Iron deficiency anemia, unspecified; E03.9 Hypothyroidism, unspecified; F32.A Depression, unspecified; F41.1 Generalized anxiety disorder; Z79.890 Hormone replacement therapy; Z98.84 Bariatric surgery status; Z79.899 Other long term (current) drug therapy; Z90.49 Acquired absence of other specified parts of digestive tract
CPT/HCPCS: 64999; 88304; 11406; 14301; 14302; J2250; J0330; J1644; J1100; J2710; J0690; J2405; J2003; J3010; J1171 ×2; J2795; J2704; J2371; J1596

== ENCOUNTER → 2024-11-06 | Outpatient (CLI) | payer BC, OTHER ==
[2024-11-06 10:28] VITALS: BP 120/76; PULSE 66; RESP 16; TEMP 98; BMI 28.5
--- NOTE | 2024-11-06 17:56 | P.BASOAP ---
Subjective Progress Note Date: 11/06/24 CHIEF COMPLAINT: Abdominal wall mass, history of morbid obesity HISTORY OF PRESENT ILLNESS: The patient is a 54-year-old male status post excision of abdominal wall mass 42 x 5 cm with soft tissue arrangement and complex abdominal wall closure, postop day 4. He reports pain is well- controlled. Complains primarily of itching of the skin. No fevers or chills. Denies any drainage from his incisional wound VAC system. He has ideal body weight for 5 foot 8.5 inches is 163 pounds. Highest weight 3 52 pounds, body mass index 52.9. Last weight 194 pounds 1 week ago. He comes in 190 pounds, 4 pound weight loss in 1 week. Lifetime weight loss 162 pounds. Percent excess weight loss lifetime of 85%. He is 20 pounds overweight. ROS: No reports of nausea and vomiting. No bowel movements. No fevers or chills. No new chest pain. No productive sputum PHYSICAL EXAM: VITAL SIGNS: Reviewed CONSTITUTIONAL: Well developed and in no acute distress. EYES: Conjuctivae without sclera icterus. Extraocular movements grossly intact. Wears glasses HEAD, EARS, NOSE, THROAT: Moist buccal mucosa. Head is atraumatic, normocephalic. Hears conversational speech. No nasal drainage. Edentulous RESPIRATORY: Non-labored respirations and equal bilateral excursions. CARDIOVASCULAR: Palpable 2+ radial pulses. ABDOMEN: Prevena incisional wound VAC system intact. No leaks. No erythema. Sensation intact. Flaps viable. Dressings clean dry intact. Abdominal binder repositioned MUSCULOSKELETAL: No gross deformity of the lower extremities noted. No clubbing. No cyanosis. SKIN: Good skin turgor. Well perfused. NEUROLOGIC: Cranial nerves II through XII grossly intact. No focal or laterali zing signs. PSYCH: Appropriate affect. Alert and oriented to person, place and time. PATHOLOGY: Demonstrating benign fibroadipose tissue. ASSESSMENT: 1. Abdominal wall mass status post excision 2. Complex abdominal wound closure 3. Status post massive weight loss, 162 pounds 4. Status post gastric bypass with history of morbid obesity, 52.9 now 28.6 5. Dietary surveillance and counseling PLAN: 1. Patient advised to target at least 90 g protein daily or more to facilitate wound healing. 2. Continue with incisional wound VAC system to be discontinued postop day 10, 11/11/2024 3. Continue abdominal binder 4. Continue sponge bath 5. Overall doing well Objective - Vital Signs Vital signs: Vital Signs Temp 98.0 F 11/06/24 10:12 Pulse 66 11/06/24 10:12 Resp 16 11/06/24 10:12 BP 120/76 11/06/24 10:12 Pulse Ox FiO2 Intake & Output 11/05/24 11/06/24 11/06/24 18:59 06:59 18:59 Weight 86.5 kg Assessment/Plan Plan: Date: 11/06/24 Initial Weight: 160.118 kg Initial BMI: 52.9 Current Weight: 86.5 kg Current BMI: 28.5 Type of Surgery: Total Volume in Band: Previous Volume: Volume Removed: Volume Added: Band Size:
== END ==
LOC: BARWHC3 08:32
PROVIDERS: ATTEND Surgery Plastic and Reconstructive Surgery
DX: Z48.815 Encounter for surgical aftercare following surgery on the digestive system (principal); R22.2 Localized swelling, mass and lump, trunk; Z98.84 Bariatric surgery status; Z71.3 Dietary counseling and surveillance; Z86.39 Personal history of other endocrine, nutritional and metabolic disease; Z87.891 Personal history of nicotine dependence
CPT/HCPCS: 99212

== ENCOUNTER → 2024-11-09 | Outpatient (CLI) | payer BC, OTHER ==
[2024-11-09 14:33] VITALS: BP 115/70; PULSE 78; RESP 16; TEMP 98.1; BMI 29.1
--- NOTE | 2024-11-11 16:45 | P.BASOAP ---
Subjective Progress Note Date: 11/09/24 CHIEF COMPLAINT: Abdominal wall mass HISTORY OF PRESENT ILLNESS: The patient is a 54-year-old male status post excision of abdominal wall mass 42 x 5 cm with soft tissue arrangement and complex abdominal wall closure, 11/02/2024. He reports pain is well-controlled. Reports dietary intake adequate over 60 g daily. Patient comes in with incisional wound VAC system almost complete from therapy. He has ideal body weight for 5 foot 8.5 inches is 163 pounds. Highest weight 352 pounds, body mass index 52.9. He comes in 195 pounds today. Last weight 191 pounds, 5 days ago. He has gained 4 pounds in 5 days. Percent excess weight loss lifetime of 83%. He is 31 pounds overweight. ROS: No reports of nausea and vomiting. No bowel movements. No fevers or chills. No new chest pain. No productive sputum PHYSICAL EXAM: VITAL SIGNS: Reviewed Vital Signs Temp 98.1 F 11/09/24 13:28 Pulse 78 11/09/24 13:28 Resp 16 11/09/24 13:28 BP 115/70 11/09/24 13:28 Pulse Ox FiO2 CONSTITUTIONAL: Well developed and in no acute distress. EYES: Conjuctivae without sclera icterus. Extraocular movements grossly intact. Wears glasses HEAD, EARS, NOSE, THROAT: Moist buccal mucosa. Head is atraumatic, normocephalic. Hears conversational speech. No nasal drainage. Edentulous RESPIRATORY: Non-labored respirations and equal bilateral excursions. CARDIOVASCULAR: Palpable 2+ radial pulses. ABDOMEN: Prevena incisional wound VAC system intact. Dressing discontinued. No signs of infection. No cellulitis. New Optifoam dressing x 2 including 4 x 8 dressing placed. MUSCULOSKELETAL: No gross deformity of the lower extremities noted. No clubbing. No cyanosis. SKIN: Good skin turgor. Well perfused. NEUROLOGIC: Cranial nerves II through XII grossly intact. No focal or lateralizing signs. PSYCH: Appropriate affect. Alert and oriented to person, place and time. ASSESSMENT: 1. Abdominal wall mass status post excision 2. Complex abdominal wound closure 3. Status post massive weight loss, 162 pounds 4. Status post gastric bypass with history of morbid obesity, 52.9 now 28.6 5. Dietary surveillance and counseling PLAN: 1. Patient advised to keep dressing clean and dry. 2. Close outpatient follow-up in 5 days on Saturday described. 3. Wear abdominal binder daily. 4. May shower but keep dressing clean dry and intact. Objective - Vital Signs Vital signs: Vital Signs Temp 98.1 F 11/09/24 13:28 Pulse 78 11/09/24 13:28 Resp 16 11/09/24 13:28 BP 115/70 11/09/24 13:28 Pulse Ox FiO2 Assessment/Plan Plan: Date: 11/09/24 Initial Weight: 160.118 kg Initial BMI: 52.9 Current Weight: 88.224 kg Current BMI: 29.1 Type of Surgery: Total Volume in Band: Previous Volume: Volume Removed: Volume Added: Band Size:
== END | disposition home or self-care (01) ==
LOC: BARWHC3 13:24
PROVIDERS: ATTEND Surgery Plastic and Reconstructive Surgery
DX: E66.01 Morbid (severe) obesity due to excess calories (principal); Z68.29 Body mass index [BMI] 29.0-29.9, adult; Z87.891 Personal history of nicotine dependence
CPT/HCPCS: 99212

== ENCOUNTER → 2024-11-13 | Outpatient (CLI) | payer BC, OTHER ==
[2024-11-13 09:43] VITALS: BP 116/76; PULSE 71; RESP 16; TEMP 98.4; BMI 29.0
--- NOTE | 2024-11-13 11:16 | P.BASOAP ---
Subjective Progress Note Date: 11/13/24 CHIEF COMPLAINT: Abdominal wall mass HISTORY OF PRESENT ILLNESS: The patient is a 54-year-old male status post excision of abdominal wall mass 42 x 5 cm with soft tissue arrangement and complex abdominal wall closure, 11/02/2024. Denies any pain. No fevers or chills. Patient happy with cosmetic result. He has ideal body weight for 5 foot 8.5 inches is 163 pounds. Highest weight 352 pounds, body mass index 52.9. He comes in 195 pounds today. Last weight 195 pounds, 5 days ago. Weight is unchanged. Percent excess weight loss lifetime of 84%. He is 31 pounds overweight. ROS: No reports of nausea and vomiting. No fevers or chills. No new chest pain. No productive sputum PHYSICAL EXAM: VITAL SIGNS: Reviewed Vital Signs Temp 98.4 F 11/13/24 09:40 Pulse 71 11/13/24 09:40 Resp 16 11/13/24 09:40 BP 116/76 11/13/24 09:40 Pulse Ox FiO2 Intake & Output 11/12/24 11/13/24 11/13/24 18:59 06:59 18:59 Weight 87.997 kg CONSTITUTIONAL: Well developed and in no acute distress. EYES: Conjuctivae without sclera icterus. Extraocular movements grossly intact. Wears glasses HEAD, EARS, NOSE, THROAT: Moist buccal mucosa. Head is atraumatic, normocephalic. Hears conversational speech. No nasal drainage. Edentulous RESPIRATORY: Non-labored respirations and equal bilateral excursions. CARDIOVASCULAR: Palpable 2+ radial pulses. ABDOMEN: Optifoam dressing intact. Dressing clean. Not changed. MUSCULOSKELETAL: No gross deformity of the lower extremities noted. No clubbing. No cyanosis. SKIN: Good skin turgor. Well perfused. NEUROLOGIC: Cranial nerves II through XII grossly intact. No focal or lateralizing signs. PSYCH: Appropriate affect. Alert and oriented to person, place and time. ASSESSMENT: 1. Abdominal wall mass status post excision 2. Complex abdominal wound closure 3. Status post massive weight loss, 162 pounds 4. Status post gastric bypass with history of morbid obesity, 52.9 now 29.1 5. Dietary surveillance and counseling PLAN: 1. Continue dressing. 2. Overall, placement of incisional wound VAC system including dressing accelerated wound healing additional 2+ weeks. 3. Continue abdominal binder 4. Follow-up 1 week, 11/18/2024 Objective - Vital Signs Vital signs: Vital Signs Temp 98.4 F 11/13/24 09:40 Pulse 71 11/13/24 09:40 Resp 16 11/13/24 09:40 BP 116/76 11/13/24 09:40 Pulse Ox FiO2 Intake & Output 11/12/24 11/13/24 11/13/24 18:59 06:59 18:59 Weight 87.997 kg Assessment/Plan Plan: Date: 11/13/24 Initial Weight: 160.118 kg Initial BMI: 52.9 Current Weight: 87.997 kg Current BMI: 29.0 Type of Surgery: Total Volume in Band: Previous Volume: Volume Removed: Volume Added: Band Size:
== END ==
LOC: BARWHC3 08:19
PROVIDERS: ATTEND Surgery Plastic and Reconstructive Surgery
DX: R19.00 Intra-abdominal and pelvic swelling, mass and lump, unspecified site (principal); Z87.891 Personal history of nicotine dependence
CPT/HCPCS: 99212

== ENCOUNTER → 2024-11-18 | Outpatient (CLI) | payer BC, OTHER ==
[2024-11-18 12:55] VITALS: BP 124/77; PULSE 60; RESP 16; TEMP 97.9; BMI 29.3
--- NOTE | 2024-11-18 13:58 | P.BASOAP ---
Subjective Progress Note Date: 11/18/24 Looks fantastic. No infection! All dressing removed. FU 1 month Objective - Vital Signs Vital signs: Vital Signs Temp 97.9 F 11/18/24 12:47 Pulse 60 11/18/24 12:47 Resp 16 11/18/24 12:47 BP 124/77 11/18/24 12:47 Pulse Ox FiO2 Intake & Output 11/17/24 11/18/24 11/18/24 18:59 06:59 18:59 Weight 88.904 kg Assessment/Plan Plan: Date: 11/18/24 Initial Weight: 160.118 kg Initial BMI: 52.9 Current Weight: 88.904 kg Current BMI: 29.3 Type of Surgery: Total Volume in Band: Previous Volume: Volume Removed: Volume Added: Band Size:
== END ==
LOC: BARWHC3 12:20
PROVIDERS: ATTEND Surgery Plastic and Reconstructive Surgery
DX: E66.01 Morbid (severe) obesity due to excess calories (principal); Z68.29 Body mass index [BMI] 29.0-29.9, adult; Z87.891 Personal history of nicotine dependence
CPT/HCPCS: 99212

== ENCOUNTER → 2024-12-05 | Outpatient (CLI) | payer BC, OTHER ==
[2024-12-05 13:18] LABS: Basophils # (A) 0.04 X 10*3/uL (0.00-0.10); Basophils % (A) 0.9 %; Eosinophils # (A) 0.29 X 10*3/uL (0.04-0.35); Eosinophils % (A) 6.4 %; HCT 39.8 % (39.6-50.0); HGB 12.8 g/dL (13.0-17.0); Lymphocytes # (A) 1.23 X 10*3/uL (0.90-5.00); Lymphocytes % (A) 27.3 %; MCH 29.2 pg (27.0-32.0); MCHC 32.2 g/dL (32.0-37.0); MCV 90.9 FL (80.0-97.0); Mean Platelet Volume 11.9 FL (9.5-12.2); Monocytes # (A) 0.52 X 10*3/uL (0.20-1.00); Monocytes % (A) 11.6 %; NRBC Per 100 WBC 0 X 10*3/uL (0.00-0.01); Neutrophils # (A) 2.41 X 10*3/uL (1.80-7.70); Neutrophils % (A) 53.6 %; Platelet Count 167 X 10*3/uL (140-440); RBC 4.38 X 10*6/uL (4.40-5.60)
[2024-12-05 13:28] LABS: BUN/Creat Ratio 14.67 Ratio (12.00-20.00); Blood Urea Nitrogen 13.2 mg/dL (9.0-27.0); Calcium 9.3 mg/dL (8.7-10.3); Carbon Dioxide 27.1 mmol/L (21.6-31.8); Chloride 105 mmol/L (96-109); Glucose 91 mg/dL (70-110); Potassium 4.2 mmol/L (3.5-5.5); Sodium 142 mmol/L (135-145)
== END | disposition home or self-care (01) ==
LOC: LABPAT 07:29
PROVIDERS: ATTEND Orthopaedic Surgery
DX: Z01.812 Encounter for preprocedural laboratory examination (principal); M75.41 Impingement syndrome of right shoulder
CPT/HCPCS: 36415; 80048; 85025

== ENCOUNTER 2024-12-15 07:57 | Day surgery (SDC) | payer BC, MEDICARE, OTHER ==
[2024-12-11 10:43] VITALS: BMI 29.6
--- NOTE | 2024-12-14 08:24 | P.HPOR ---
History of Present Illness H&P Date: 12/14/24 Chief Complaint: Right shoulder pain Patient is a 54-year-old [id number] male who presents with right shoulder pain after an injury in September of this year. He notes he hurt himself pushing a car. He felt a pop. He has had pain with overhead use and at night ever since. He denies previous problems. He notes daily pain that limits him. Review of Systems Per HPI Past Medical History Past Medical History: GERD/Reflux, Hyperlipidemia, Hypertension, Osteoarthritis (OA), Thyroid Disorder Additional Past Medical History / Comment(s): HTN resolved with wt loss (150#) . Post op seroma-Interventional radiology Drain placed, IV antibiotics PICC line Panni Revision 11/09/24.-RESOLVED NOW History of Any Multi-Drug Resistant Organisms: None Reported Past Surgical History: Bariatric Surgery, Joint Replacement, Orthopedic Surgery Additional Past Surgical History / Comment(s): LEFT KNEE ARTHROSCOPY AND THEN LEFT TKR, CTR TASHI X2, HYDROCELE, PILONIDAL CYST, HEMORRHOIDECTOMY. Brad-en-y Gastric bypass 07-02-22. right total knee replacement 2022. Low anterior resection/sigmoid colectomy 03/20/24. Panni 04/2024-infection with drain post op. Revision of Panni/Excision of abdominal wall mass- 11/02/24 Past Anesthesia/Blood Transfusion Reactions: No Reported Reaction Additional Past Anesthesia/Blood Transfusion Reaction / Comment(s): no hx blood transfusion Smoking Status: Former smoker - Past Family History Mother Family Medical History: Cancer Additional Family Medical History / Comment(s): PANCREATIC CANCER Father Family Medical History: Cancer Additional Family Medical History / Comment(s): PROSTATE CANCER Medications and Allergies Home Medications Medication Instructions Recorded Confirmed Type Levothyroxine Sodium [Synthroid] 75 mcg PO DAILY 12/03/19 12/11/24 History Tamsulosin HCl [Flomax] 0.4 mg PO DAILY 07/25/22 12/11/24 History Atorvastatin [Lipitor] 40 mg PO DAILY 03/13/23 12/11/24 History Ferrous Sulfate [Iron (65 MG 325 mg PO HS 03/13/23 12/11/24 History Elemental)] Multivit,Calc,Min/FA/K1/Lycop 1 tab PO DAILY 03/13/23 12/11/24 History [One-A-Day Men's Complete Tab] Cholecalciferol [Vitamin D3 (125 125 mcg PO DAILY 04/11/23 12/11/24 History Mcg = 5000 Iu)] Omeprazole 40 mg PO DAILY 04/11/23 12/11/24 History Zinc Gluconate [Zinc] 50 mg PO DAILY 04/11/23 12/11/24 History Docusate [Colace] 100 mg PO HS 03/25/24 12/11/24 History Calcium Citrate 1200mg 1,200 mg PO DAILY 05/20/24 12/11/24 History FLUoxetine HCL [PROzac] 40 mg PO DAILY 05/20/24 12/11/24 History Acetaminophen Tab [Tylenol Tab] 1,000 mg PO Q6HR PRN #30 tablet 11/02/24 12/11/24 Rx Cyclobenzaprine [Flexeril] 10 mg PO TID #30 tab 11/02/24 12/11/24 Rx HYDROcodone/APAP 10-325MG [[place] 1 tab PO BID PRN 11/18/24 12/11/24 History 10-325] Allergies Allergy/AdvReac Type Severity Reaction Status Date / Time No Known Allergies Allergy Verified 12/11/24 10:32 Physical Examination - Shoulder right Tenderness with palpation: anterior, bicipital groove Pain: with abduction, with forward flexion ROM: forward flexion: 140 degrees ROM: internal rotation: low thoracic ROM: external rotation: 60 degrees Crepitus with motion: Yes Strength: abduction: 4/5 Strength: external rotation: 5/5 Tests: internal impingement tests: positive, external impingment tests: positive Results The patient is a well-developed well-nourished male approximately 5 foot 8, 195 pounds of endomorphic habitus. HEENT exam is nonfocal, neck is supple. He is tender about the right shoulder anterior subacromial space. Moderate crepitus is noted. Hawkin's sign, Neer's sign, and Speed test are positive. His distal neurovascular exam appears intact in the right upper extremity. - Diagnostic results Shoulder MRI: image reviewed (MRI of the right shoulder was reviewed and shows evidence of a full-thickness tear of the supraspinatus with mild retraction.) Assessment and Plan Assessment: Right acute rotator cuff tear Right proximal bicipital tendinosis Plan: I talked to the patient at length regarding his condition along with treatment options. At this point he is quite symptomatic having pain and weakness after this acute injury despite attempted conservative measures. After a thorough discussion he opts proceed with surgery. We will plan to proceed with arthroscopy of the right shoulder in addition to subacromial decompression, rotator cuff repair, possible biceps tenotomy. Risks and benefits were discussed at length in layman's terms. We will likely perform that as an outpatient procedure.
[2024-12-15] MEDS ORDERED: HYDROmorphone 0.5 MG/0.5 ML SYRINGE IVP PRN (08:23)
[2024-12-15] MEDS: LIDOCAINE 1% (10MG/ML) FOR IV START INTRADERMA STA (08:45)
[2024-12-15] MEDS: LACTATED RINGERS 1,000 ML IV SCH (08:45)
[2024-12-15] MEDS: IV FLUID CONTINUATION 1,000 ML IV ONE (08:45)
[2024-12-15] MEDS: DEXAMETHASONE SOD PHOSPHATE 4 MG/ML 1 ML VIAL IV ONE (08:46)
[2024-12-15] MEDS: ONDANSETRON 4 MG/2 ML VIAL IVP ONE (08:46)
[2024-12-15] MEDS: MIDAZOLAM 2 MG/2 ML VIAL IV ONE (08:58)
--- NOTE | 2024-12-15 09:09 | P.ANPRN ---
Procedure Note - Anesthesia - Nerve Block Performed Right Interscalene Single Time Out Performed: Yes ([id number]) Date of Procedure: 12/15/24 Procedure Start Time: :00 Procedure Stop Time: :07 Location of Patient: PreOp Indication: Acute Post-Operative Pain, Requested by Surgeon Sedation Type: Sedate with meaningful contact maintained Preparation: Sterile Prep Position: Sitting Catheter: None Needle Types: Pajunk Needle Gauge: Other (see comment) (22G -50 mm) Ultrasound used to visualize needle placement: Yes Ultrasound used to observe medication spread: Yes Injectate: 0.5% Ropivacaine (see comment for volume) (21 mL of block solution containing 20 mL of 0.5% ropivacaine mixed with 4 mg of dexamethasone.) Blood Aspirated: No Pain Paresthesia on Injection Noted: No Resistance on Injection: Normal Image Stored and Saved: Yes Events: Uneventful and Well Tolerated
[2024-12-15] MEDS ORDERED: PROPOFOL 10 MG/ML 20 ML VIAL IV ONE (09:49)
[2024-12-15] MEDS ORDERED: HYDROmorphone (PF) 1 MG/ML ONE (09:49)
[2024-12-15] MEDS ORDERED: ROPIVACAINE 5 MG/ML 30 ML VIAL ONE (09:49)
[2024-12-15] MEDS ORDERED: GLYCOPYRROLATE 0.2 MG/ML 2 ML VIAL ONE (09:49)
[2024-12-15] MEDS ORDERED: SUCCINYLCHOLINE CHLORIDE 200 MG/10 ML VIAL IV ONE (09:49)
[2024-12-15] MEDS ORDERED: ePHEDrine 50 MG/ML 1 ML VIAL ONE (09:49)
[2024-12-15] MEDS ORDERED: ROCURONIUM 10 MG/ML (5 ML VIAL) IV ONE (09:49)
[2024-12-15] MEDS ORDERED: PHENYLEPHRINE 10 MG/ML VIAL ONE (09:49)
[2024-12-15] MEDS ORDERED: PHENYLEPHRINE-0.9% NACL SYG 1,000 MCG/10 ML SYRINGE ONE (09:49)
[2024-12-15] MEDS ORDERED: LIDOCAINE 1% INJ 10MG/ML (20 ML MDV) ONE (09:49)
[2024-12-15] MEDS ORDERED: NEOSTIGMINE 1 MG/ML 10 ML VIAL ONE (09:49)
[2024-12-15] MEDS ORDERED: DEXAMETHASONE SOD PHOSPHATE 4 MG/ML 1 ML VIAL ONE (09:49)
[2024-12-15] MEDS: ceFAZolin 2 GM in DEXTROSE 5% IN WATER 50 ML IVPB PRN (09:55)
[2024-12-15] MEDS: EPINEPHrine (PF) 1 ML in SODIUM CHLORIDE 0.9% IRRIGATIO 3,000 ML IRRIGATION ONE ×4 (10:02)
[2024-12-15] MEDS: LACTATED RINGERS 1,000 ML IV ONE (11:18)
--- NOTE | 2024-12-15 11:34 | P.OP ---
Date of Procedure: 12/15/24 Preoperative Diagnosis: Right shoulder impingement/partial-thickness rotator cuff tear/bicipital tendinosis Postoperative Diagnosis: Same in addition to high-grade partial-thickness tear bursal surface supraspinatus/high-grade partial-thickness tear intra-articular portion long hea d of the biceps Procedure(s) Performed: Right shoulder arthroscopic subacromial decompression/biceps tenotomy/rotator cuff repair Implants: Arthrex 4.75 mm swivel lock anchor x 1, 5.5 mm swivel lock anchor x 2 Anesthesia: BRANDIE, regional Surgeon: Jeremiah Castro Color Repairer #1: Adrien Shore Estimated Blood Loss (ml): 10 Pathology: none sent Indications for Procedure: The patient is a 54-year-old male who presents with progressive right shoulder pain and weakness after an injury despite conservative measures. A discussion of the risks and benefits of operative intervention versus continued conser vative measures was made with the patient. He opted to proceed with surgery. Operative risks include infection, neurovascular G, development of blood clots, possible tendon rerupture, possible postoperative stiffness and need for subsequent procedures was discussed. Informed consent was obtained. Operative Findings: As below Description of Procedure: The patient was brought to the operating room, and after induction of general anesthesia was placed in a beachchair position. A preoperative interscalene block was placed for postoperative analgesia. I examined the right shoulder. There was no gross block to passive motion or gross glenohumeral instability. The right upper extremity was prepped and draped in normal fashion. The bony o utlines the acromion, distal clavicle, and coracoid process were outlined with a skin marker. The glenohumeral joint was inflated with 50 mL of saline utilizing a spinal needle from posterior approach. A posterior portal was made through a 5 mm skin incision 1 cm medial and inferior to the posterior lateral border time. A blunt trocar was used to easily into the joint. Diagnostic arthroscopy was performed. An anterior portal was made just lateral to the coracoid process entering the joint above the subscapularis tendon. The subscapularis tendon appeared to be intact. Anterior labrum was intact. The inferior recess was inspected. The posterior labrum was intact. There was a high-grade partial- thickness tear of the long head of the biceps involving interarticular portion. I elected to proceed with release at this point. This was released from the superior labrum with electrocautery and was allowed to retract to the bicipital groove. On inspection the rotator cuff, a partial-thickness tear involving anterior supraspinatus which is noted on the articular surface. The arthroscope was placed into the subacromial space. A lateral portal was made 2 centimeters inferior to the anterior lateral border of the acromion. The rotator cuff was then mobilized with a traction suture. This was then easily brought back to the greater tuberosity. The soft tissue on the undersurface of the acromion was debrided with a motorized shaver and electrocautery clearly defining the anterior medial and lateral borders as well as the distal clavicle. An anterior inferior acromioplasty was performed with a motorized michelle starting anterolateral, then extending this posteriorly, then extending this medially. I converted to a flat acromion and this was verified in the posterior and lateral viewing portals. The greater tuberosity was lightly decorticating with a shaver down to a bleeding bony surface. An accessory superior lateral portals made just off the lateral edge of the acromion for anchor placement. A 4.75 mm swivel lock anchor preloaded with fiber tape was then placed just off the articular surface with the appropriate starting awl. Good purchase was obtained. These fiber tapes were then passed the rotator cuff with a scorpion suture passer. A lateral row was created crisscrossing these tapes. 5.5 mm swivel lock anchors x2 were placed laterally. Good purchase was obtained. Final arthroscopic view showed adequate compression at the footprint. The arthroscope was then removed. The portals were closed with simple 3-0 nylon sutures. A sterile dressing was applied in addition to an abductor brace. The patient was then awoken from general anesthesia and transferred to recovery room in good condition. Blood loss was estimated at 10 mL. No complications were incurred. Sponge and needle counts were correct in the case. Adrien CHRISTINE assisted and the major components of the case to include arm positioning, anchor placement, and rotator cuff repair.
[2024-12-15 12:05] VITALS: TEMP 97.2
[2024-12-15 13:23] VITALS: BP 132/70; PULSE 77; RESP 18
== END 2024-12-15 13:25 | disposition home or self-care (01) ==
LOC: OR 07:57
PROVIDERS: ATTEND Orthopaedic Surgery
DX: S46.011A Strain of muscle(s) and tendon(s) of the rotator cuff of right shoulder, initial encounter (principal); M67.813 Other specified disorders of tendon, right shoulder; E78.5 Hyperlipidemia, unspecified; E07.9 Disorder of thyroid, unspecified; I10 Essential (primary) hypertension; M19.90 Unspecified osteoarthritis, unspecified site; Z98.84 Bariatric surgery status; Z90.49 Acquired absence of other specified parts of digestive tract; Z89.521 Acquired absence of right knee; Z90.79 Acquired absence of other genital organ(s); Z87.891 Personal history of nicotine dependence; Z79.02 Long term (current) use of antithrombotics/antiplatelets; Z79.890 Hormone replacement therapy; Z79.899 Other long term (current) drug therapy; X58.XXXA Exposure to other specified factors, initial encounter
CPT/HCPCS: 64415; 29827; 29828; C1713 ×2; C1894; J2250; J1100; J0690; J2405; J0171